=== PATIENT | female | born 1950 | race Caucasian/White ===

== ENCOUNTER → 2017-09-22 09:00 | Outpatient (CLI) | payer OTHER, SELFPAY ==
[2017-09-22 13:40] LABS: Absolute Lymphocyte Count 2.19 X10^3/ul (0.83-4.51); Absolute Neutrophil Count 3.5 X10^3/uL (2.0-7.7); Basophil# 0.02 X10^3/uL; Basophil% 0.3 % (0-1); Eosinophil# 0.26 X10^3/uL; Eosinophils% 3.9 % (0-5); Hematocrit 40.5 % (37-47); Hemoglobin 13.4 g/dl (12.0-15.0); Lymphocyte # 2.19 X10^3/ul (4.0); Mean Corp Hgb Conc 33.1 g/gl (32-36); Mean Corpuscular Hgb 30.4 pg (27.0-32.0); Mean Corpuscular Volume 91.8 fL (81-99); Mean Platelet Vol. 9.6 fl (6.2-12.0); Monocyte# 0.69 X10^3/uL; Monocyte% 10.4 % (0-10); Neutrophil # 3.47 X10^3/uL (2.7-7.7); Neutrophil % 52.4 % (47-70); Platelet Count 267 K/mm3 (150-450); RBC Distribution Width CV 12.8 % (11.6-14.6); RBC Distribution Width SD 43.2 fl (35.1-43.9); Red Blood Count 4.41 M/mm3 (4.2-5.4); White Blood Count 6.6 K/mm3 (4.4-11.0)
[2017-09-22 13:43] LABS: POSITIVE COUNT NO; POSITIVE DIFFERENTIAL NO; POSITIVE MORPHOLOGY NO
[2017-09-22 13:59] LABS: ALB/GLOB Ratio 1.1 RATIO (0.9-2.4); AST(SGOT) 24 U/L (15-37); Alanine Aminotransfer ALT/SGPT 38 U/L (13-56); Albumin, Serum 4.1 g/dL (3.2-5.0); Alkaline Phosphatase 80 U/L (45-117); Anion Gap 10 (5-15); BUN 14 mg/dL (7-18); BUN/Creat Ratio 17.3 RATIO (10-20); Chloride 101 mmol/L (98-107); Creatinine, Serum 0.81 mg/dL (0.55-1.02); EST Glomerular Filtration Rate 75 mL/min (>60); Est Glom Filt Rate - Afr Amer 91 mL/min (>60); Globulin 3.7 g/dL (2.2-4.2); Glucose 90 mg/dL (74-106); Potassium 3.9 mmol/L (3.5-5.1); Protein, Total 7.8 g/dL (6.4-8.2); Sodium Level 137 mmol/L (136-145); Thyroid Stim Hormone (TSH) 1.86 uIU/mL (0.358-3.74)
[2017-09-23 08:48] LABS: Vitamin D,25 Hydroxy 56.5 ng/mL (29.95-100.01)
[2017-09-23 13:15] LABS: Hep C Antibodies <0.1 s/co ratio (0.0-0.9)
== END ==
PROVIDERS: Family Provider Family Medicine Geriatric Medicine; PCP Family Medicine Geriatric Medicine; Visit Provider Family Medicine Geriatric Medicine
DX: Z13.89 Encounter for screening for other disorder (principal); I10 Essential (primary) hypertension; E55.9 Vitamin D deficiency, unspecified
CPT/HCPCS: 36415; 80053; 82306; 84443; 85025; 86803

== ENCOUNTER → 2018-10-05 13:33 | Outpatient (CLI) | payer MEDICARE, SELFPAY ==
[2018-10-05 17:04] LABS: Absolute Neutrophil Count 2.5 X10^3/uL (2.0-7.7); Basophil# 0.03 X10^3/uL; Basophil% 0.5 % (0-1); Eosinophil# 0.31 X10^3/uL; Eosinophils% 5.1 % (0-5); Hematocrit 39.8 % (37-47); Hemoglobin 12.9 g/dl (12.0-15.0); Mean Corp Hgb Conc 32.4 g/gl (32-36); Mean Corpuscular Hgb 30.6 pg (27.0-32.0); Mean Corpuscular Volume 94.3 fL (81-99); Mean Platelet Vol. 9.7 fl (6.2-12.0); Monocyte# 0.65 X10^3/uL; Monocyte% 10.7 % (0-10); Neutrophil # 2.46 X10^3/uL (2.7-7.7); Neutrophil % 40.7 % (47-70); Platelet Count 258 K/mm3 (150-450); RBC Distribution Width SD 43.3 fl (35.1-43.9); Red Blood Count 4.22 M/mm3 (4.2-5.4); White Blood Count 6.1 K/mm3 (4.4-11.0)
[2018-10-05 17:09] LABS: POSITIVE COUNT NO; POSITIVE DIFFERENTIAL NO; POSITIVE MORPHOLOGY NO
[2018-10-05 17:32] LABS: Vitamin D,25 Hydroxy 30.9 ng/mL (29.95-100.01)
[2018-10-05 17:34] LABS: ALB/GLOB Ratio 1.2 RATIO (0.9-2.4); AST(SGOT) 21 U/L (15-37); Alanine Aminotransfer ALT/SGPT 30 U/L (13-56); Albumin, Serum 4.1 g/dL (3.2-5.0); Alkaline Phosphatase 76 U/L (45-117); Anion Gap 7 (5-15); BUN 16 mg/dL (7-18); BUN/Creat Ratio 19.4 RATIO (10-20); Calcium,Total 8.8 mg/dL (8.5-10.1); Chloride 105 mmol/L (98-107); Creatinine, Serum 0.82 mg/dL (0.55-1.02); EST Glomerular Filtration Rate 73 mL/min (>60); Est Glom Filt Rate - Afr Amer 88 mL/min (>60); Globulin 3.3 g/dL (2.2-4.2); Glucose 76 mg/dL (74-106); Protein, Total 7.4 g/dL (6.4-8.2); Sodium Level 136 mmol/L (136-145); Thyroid Stim Hormone (TSH) 1.76 uIU/mL (0.358-3.74)
== END ==
PROVIDERS: Family Provider Family Medicine Geriatric Medicine; PCP Family Medicine Geriatric Medicine; Visit Provider Family Medicine Geriatric Medicine
DX: E55.9 Vitamin D deficiency, unspecified (principal); I10 Essential (primary) hypertension
CPT/HCPCS: 36415; 80053; 82306; 84443; 85025

== ENCOUNTER → 2018-11-21 12:11 | Outpatient (CLI) | payer MEDICARE, SELFPAY ==
--- NOTE | 2018-11-21 12:16 | BI_ITS ---
MAMMOGRAPHY - BILATERAL SCREENING REASON FOR EXAM: Female, 68 years old. Routine annual screening examination. PERTINENT HISTORY: Non-contributory. Remote left stereotactic breast biopsy. TECHNIQUE: Digital bilateral breast jaimee (3D mammographic acquisition) in the CC and MLO projections. 2-D mediolateral oblique (MLO) and craniocaudad (CC) views of both breasts were obtained. CAD: Full Field Digital Mammography with Computer Added Detection was performed. COMPARISON: Comparison is made with prior study October 12, 2016 and July 30, 2015. FINDINGS: Breast Composition: There are scattered areas of fibroglandular density. There are no dominant masses or suspicious calcifications. Stable small nodular densities seen in the axillary region of the left breast. A tissue clip marker is once again seen along the anterior superior retroareolar region of the left breast. No other significant abnormalities are identified. There has been no significant change since the prior study. BI/SCREENING MAMM (CAD), BILAT IMPRESSION: Stable bilateral screening mammogram. Yearly follow-up mammogram recommended. (A) ASSESSMENT CATEGORY: BIRADS Category 2: Benign. A letter regarding these results will be sent to the patient by the facility within 30 days. Approximately 10% of breast cancers are not detected by mammography. A normal mammogram should not delay biopsy of a clinically suspicious abnormality. [id number] Electronically Signed: Seymour Montenegro, at 14:49 EDT , Service support ,
--- NOTE | 2018-11-21 12:20 | BD_ITS ---
STUDY: DUAL ENERGY X-RAY ABSORPTIOMETRY / DXA REASON FOR EXAM: Female, 68 years old. Early menopause. Loss of height. TECHNIQUE: Bone Mineral Density (BMD) measurements of lumbar spine and bilateral hips were obtained. COMPARISON: Comparison is made with prior study dated September 09, 2010. FINDINGS: Lumbar Spine (L1-L4): g/cm2 (0.887) / T-score (-2.4) / Z-score (-0.8) Findings are suggestive of osteopenia with a high fracture risk. Left Femur Total: g/cm2 (0.815) / T-score (-1.5) / Z-score (-0.1) Left Femoral Neck: g/cm2 (0.719) / T-score (-2.3) / Z-score (-0.7) Right Femur Total: g/cm2 (0.804) / T-score (-1.6) / Z-score (-0.2) Right Femoral Neck: g/cm2 (0.744) / T-score (-2.1) / Z-score (-0.5) The T-Scores on the most recent prior examination were: Lumbar Spine (L1-L4): There has been worsening of bone density since the previous examination. Left Femur Total: which represents a worsening of 3.4%. Right Femur Total: which represents a worsening of 3.7%. BD/Dexa Bone Density Study IMPRESSION: The patient is considered osteopenic as outlined below according to World Ronaldo Organization (WHO) criteria with a high fracture risk. There has been worsening of bone density since the previous examination. Reference Information: The T-score is the number of standard deviations above or below the standard which is normal for young adults at their peak bone mineral density. The World Health Organization (WHO) interprets the T-scores as follows: Above -1 Normal bone density Between -1 and -2.5 Osteopenia Equal to / or below -2.5 Osteoporosis As a practical clinical guideline, osteopenia may be graded as follows: Mild -1 through -1.5 Moderate -1.6 through -2.0 Severe -2.1 through -2.4 The Z-score is the number of standard deviations above or below age-matched controls. A Z-score of less than -1.5 would be considered abnormal. References: 1. NIH Osteoporosis and Related Bone Diseases http://www.osteo.org 2. International Society for Clinical Densitometry http://www.iscd.org 3. National Osteoporosis Foundation http://www.nof.org Electronically Signed: Seymour Montenegro, at 12:37 EDT , Service support ,
== END ==
PROVIDERS: Family Provider Family Medicine Geriatric Medicine; PCP Family Medicine Geriatric Medicine; Referring Provider Family Medicine Geriatric Medicine; Visit Provider Family Medicine Geriatric Medicine
DX: Z12.31 Encounter for screening mammogram for malignant neoplasm of breast (principal); Z78.0 Asymptomatic menopausal state
CPT/HCPCS: 77063; 77067; 77080

== ENCOUNTER → 2019-03-27 15:45 | Outpatient (CLI) | payer MEDICARE, SELFPAY ==
[2019-03-27 15:08] VITALS: BMI 27.9
--- NOTE | 2019-03-27 15:52 | VDLE_ITS ---
Reason For Study: swelling RIGHT LEFT CFV is compressible, spontaneous, phasic, GSV is normal. competent and demonstrates normal CFV is compressible, spontaneous, phasic, augmentation. competent, and demonstrates normal Procedure augmentation. Exam performed in department. FV is compressible, spontaneous, phasic, The exam was diagnostic. competent and demonstrates normal A preliminary report was called and/or faxed augmentation. to the [facility]. POP V is compressible, spontaneous, phasic, competent and demonstrates normal augmentation. T/P Trunk is compressible. PTV is compressible. LT PerV is compressible. Interpretation Summary Deep veins of the left lower extremity are patent and compressible segmentally. There is no evidence of left lower extremity deep vein thrombosis. Valvular competence appears intact within the proximal deep venous system on the left . The left great saphenous vein appears patent and compressible segmentally. Ordering Physician: Aleksandra Roman Performed By: Felice Blanc RVT
== END ==
PROVIDERS: Family Provider Family Medicine Geriatric Medicine; PCP Family Medicine Geriatric Medicine; Referring Provider Nurse Practitioner Family; Visit Provider Nurse Practitioner Family
DX: I83.92 Asymptomatic varicose veins of left lower extremity (principal); M79.605 Pain in left leg; M79.89 Other specified soft tissue disorders
CPT/HCPCS: 93971

== ENCOUNTER → 2019-11-29 10:01 | Outpatient (CLI) | payer MEDICARE, SELFPAY ==
[2019-08-20 10:17] VITALS: BMI 27.9
--- NOTE | 2019-11-29 10:04 | BI_ITS ---
MAMMOGRAPHY - BILATERAL SCREENING REASON FOR EXAM: Female, 69 years old. Routine annual screening examination. PERTINENT HISTORY: Non-contributory. TECHNIQUE: Digital bilateral breast néstor (3D mammographic acquisition) in the CC and MLO projections. 2-D mediolateral oblique (MLO) and craniocaudad (CC) views of both breasts were obtained. CAD: Full Field Digital Mammography with Computer Added Detection was performed. COMPARISON: Comparison is made with prior examination dated November 21, 2018 and October 12, 2016. FINDINGS: Breast Composition: There are scattered areas of fibroglandular density. There are no dominant masses or suspicious calcifications. There is a 1.1 cm x 0.6 cm well-defined nodule in the retroareolar region of the right breast. Correlation with ultrasound is recommended. Stable benign-appearing bilateral axillary lymph nodes. No other significant abnormalities are identified. BI/SCREEN MAMM (CAD) W/NÉSTOR BILAT IMPRESSION: 1.1 cm x 0.6 cm multiple high nodule in the retroareolar region of the right breast as described. Correlation with ultrasound is recommended. The remainder of the examination is unchanged. ASSESSMENT CATEGORY: BIRADS Category 0: Incomplete. Need additional imaging evaluation. A letter regarding these results will be sent to the patient by the facility within 30 days. Approximately 10% of breast cancers are not detected by mammography. A normal mammogram should not delay biopsy of a clinically suspicious abnormality. [id number] Electronically Signed: Seymour Montenegro, at 11:17 EDT , Service support ,
== END ==
PROVIDERS: PCP Nurse Practitioner; Referring Provider Nurse Practitioner; Visit Provider Nurse Practitioner
DX: Z12.31 Encounter for screening mammogram for malignant neoplasm of breast (principal); N63.41 Unspecified lump in right breast, subareolar
CPT/HCPCS: 77063; 77067

== ENCOUNTER → 2019-12-05 10:51 | Outpatient (CLI) | payer MEDICARE, SELFPAY ==
[2019-08-20 10:17] VITALS: BMI 27.9
--- NOTE | 2019-12-05 11:00 | US_ITS ---
STUDY: ULTRASOUND BREAST - RIGHT REASON FOR EXAM: Female, 69 years old. Abnormal screening mammogram. TECHNIQUE: Axial and longitudinal images of the RIGHT breast were performed with a high resolution ultrasound transducer. # OF IMAGES: 10 COMPARISON: Comparison is made with prior mammogram dated November 29, 2019 and prior sonogram of the right breast dated February 08, 2012. FINDINGS: RIGHT Breast: The mammographic abnormality corresponds to a 0.8 cm x 1.1 cm x 0.5 cm septated cyst at the 2:00 position of the breast in the retroareolar region. This cyst as enlarged slightly as compared to prior study. US/Breast Limited Unilateral IMPRESSION: The mammographic abnormality corresponds to a 0.8 centimeter by 1.1 cm x 0.5 cm septated cyst. Mild enlargement of the cyst as compared to prior sonogram. ASSESSMENT CATEGORY: BIRADS Category 2: Benign. A letter regarding these results will be sent to the patient by the facility within 30 days. Electronically Signed: Seymour Montenegro, at 11:25 EDT , Service support ,
== END ==
PROVIDERS: PCP Nurse Practitioner; Referring Provider Nurse Practitioner; Visit Provider Nurse Practitioner
DX: N60.01 Solitary cyst of right breast (principal)
CPT/HCPCS: 76642

== ENCOUNTER → 2020-06-14 | Outpatient (CLI) | payer MEDICARE, SELFPAY ==
[2020-06-14 13:17] VITALS: BMI 29.7
== END | disposition home or self-care (01) ==
PROVIDERS: Referring Provider Physician Assistant Surgical; Visit Provider Physician Assistant Surgical
DX: Z20.828 Contact with and (suspected) exposure to other viral communicable diseases (principal)
CPT/HCPCS: 87635; U0003

== ENCOUNTER → 2020-09-24 07:42 | Outpatient (CLI) | payer MEDICARE, SELFPAY ==
[2020-06-14 13:17] VITALS: BMI 29.7
--- NOTE | 2020-09-24 07:47 | CT_ITS ---
STUDY: CT BRAIN WITH AND WITHOUT CONTRAST REASON FOR EXAM: Female, 70 years old. SYNCOPE RADIATION DOSAGE (If Supplied By Facility): CTDIvol = ( 44.99 ) mGy, DLP = ( 1580.97 ) mGycm TECHNIQUE: Transaxial CT imaging of the brain was performed pre and post contrast administration. The examination was performed with intravenous administration of IV 50mL Isovue-300. Individualized dose optimization techniques were used for this CT. COMPARISON: None. FINDINGS: Normal soft tissue structures. There is hyperostosis frontalis internus. There is mild cerebral atrophy with widening of the extra-axial spaces and ventricular dilatation. Normal white matter tracts of the cerebral hemispheres. 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 Normal brainstem. Normal cerebellum. There is no intracranial hemorrhage. There are no findings of an acute ischemic infarction. Normal visualized paranasal sinuses. CT/Brain/Head W/WO Contrast IMPRESSION: Chronic involutional changes of the brain. Electronically Signed: Seymour Montenegro MD at 9:06 EST , Service support ,
--- NOTE | 2020-09-24 07:54 | US_ITS ---
STUDY: ABDOMINAL ULTRASOUND - RIGHT UPPER QUADRANT REASON FOR VISIT: Female, 70 years old ELEVATED LIVER ENZYMES TECHNIQUE: Ultrasound evaluation of the right upper quadrant was performed with real-time and static carlson-scale imaging. TECHNICAL QUALITY: Adequate. COMPARISON: None. FINDINGS: Liver: The liver measures 17.6 cm. There is increased echogenicity consistent with fatty infiltration. The bile ducts are within normal limits. There is hepatic color flow. The direction of portal flow is hepatopetal. There is no demonstrated mass lesion. Gallbladder: Normal distended gallbladder. The gallbladder wall measures 1.3 mm. There is a negative sonographic Coulter''s sign. There is no pericholecystic fluid. There are no gallstones. Common Bile Duct (C.B.D.): The common bile duct measures 4 mm. Pancreas: Normal size of the head, body and tail of the pancreas. There is normal echogenicity of the pancreas. There is no demonstrated pancreatic mass or cyst. Right Kidney: Normal size of the right kidney. The right kidney measures 10.4 cm x 4.4 cm x 4.5 cm. Normal renal cortex. The right cortex measures 1.1 cm. There is no demonstrated renal mass or cyst. There is no right hydronephrosis. US/Liver IMPRESSION: Fatty infiltration of the liver. Electronically Signed: Seymour Montenegro MD at 12:38 EST , Service support ,
[2020-09-24 07:56] LABS: CREATININE FINGERSTICK 1.1 mg/dL (0.55-1.02)
--- NOTE | 2020-09-24 08:42 | ECHOD_ITS ---
Reason For Study: Syncope Procedure This was a 2D Doppler, Color Flow transthoracic echocardiogram. The exam was of adequate technical quality. Exam performed in department. Left Ventricle Normal LV size. Left ventricular systolic function is normal. The estimated ejection fraction is 65 %. Diastolic function is indeterminate. No regional wall motion abnormalities noted. Right Ventricle Normal RV size. Normal systolic function. Atria Normal left atrium. Normal right atrium. No doppler evidence for ASD. Mitral Valve There is no mitral annular calcification. Normal mitral valve. Mild (1+) mitral valve insufficiency. Tricuspid Valve Normal tricuspid valve. Trivial tricuspid valve insufficiency. Aortic Valve Trisinus/trileaflet aortic valve. Normal aortic valve. Trivial aortic valve insufficiency. Pulmonic Valve The pulmonic valve is not well visualized. Great Vessels Normal sized aortic root. Pericardium/Pleural No pericardial effusion. MMode/2D Measurements & Calculations LVIDd: 4.3 cm IVSd: 1.2 cm Ao root diam: 3.5 cm LVIDs: 2.5 cm LVPWd: 0.88 cm RVDd: 2.9 cm FS: 42.2 % LAV(MOD-bp): 28.0 ml LVAd ap4: 24.3 cm2 SV(MOD-sp4): 43.8 ml LAV(MOD-bp) Indexed: 15.4 ml/m2 EDV(MOD-sp4): 71.1 ml LAV(MOD-sp2): 34.5 ml EDV(sp4-el): 74.4 ml LAV(MOD-sp4): 19.0 ml LVAs ap4: 14.2 cm2 ESV(MOD-sp4): 27.3 ml ESV(sp4-el): 27.3 ml EF(MOD-sp4): 61.6 % EF(sp4-el): 63.2 % SV(sp4-el): 47.0 ml LA A4 area: 9.4 cm2 LA dimension(2D): 3.2 cm RA A4 area: 11.9 cm2 Doppler Measurements & Calculations MV E max lenard: 53.2 cm/sec Lat Peak E' Lenard: 2.6 cm/sec Med Peak E' Lenard: 4.2 cm/sec MV A max lenard: 97.4 cm/sec E/E' lat: 20.6 E/E' med: 12.7 MV E/A: 0.55 Ao V2 max: 122.9 cm/sec LV V1 max: 94.4 cm/sec PA V2 max: 80.2 cm/sec Ao max P.0 mmHg LV V1 max P.6 mmHg Ao V2 mean: 92.9 cm/sec Ao mean P.7 mmHg Ao V2 VTI: 28.1 cm Interpretation Summary Left ventricular systolic function is normal. The estimated ejection fraction is 65 %. Mild (1+) mitral valve insufficiency. Trivial tricuspid valve insufficiency. Trivial aortic valve insufficiency. Diastolic function is indeterminate. Ordering Physician: Yadi Soliman Referring Physician: Yadi Soliman Performed By: Flora Huber, MAURIZIO, RVT
--- NOTE | 2020-09-24 08:42 | CDU_ITS ---
Reason For Study: SYNCOPE Rt. Velocities/BP Lt. Velocities/BP Prox CCA 68.7/13.4 cm/sec. Prox CCA 96.5/14.4 cm/sec. Mid CCA 78.5/25.7 cm/sec. Mid CCA 81.8/25.3 cm/sec. Dist CCA 53.0/9.0 cm/sec. Dist CCA 67.0/17.9 cm/sec. Prox ICA 79.7/23.2 cm/sec. Prox ICA 69.8/19.3 cm/sec. Mid ICA 69.9/25.7 cm/sec. Mid ICA 90.6/30.3 cm/sec. Dist ICA 67.4/29.3 cm/sec. Dist ICA 48.0/22.4 cm/sec. Rt. ICA/CCA = 79.7/78.5=1.0. Lt. ICA/CCA = 90.6/96.5=0.9. Prox ECA 141.8/21.1 cm/sec. Prox ECA 69.9/10.5 cm/sec. Rt. Vert. 58.8/18.3 cm/sec. Lt. Vert. 48.2/15.3 cm/sec. Right Extracranial There is no significant atherosclerotic plaque noted in the right common carotid artery. There is heterogeneous, irregular atherosclerotic plaque noted in the right internal carotid artery. There is heterogeneous, irregular atherosclerotic plaque noted in the right external carotid artery. Antegrade flow is noted in the right vertebral artery. Left Extracranial There is no significant atherosclerotic plaque noted in the left common carotid artery. There is intimal thickening but no significant atherosclerotic plaque noted in the left internal carotid artery. The left internal carotid artery is very tortuous. The distal left internal carotid artery is not well visualized. There is intimal thickening but no significant atherosclerotic plaque noted in the left external carotid artery. The left external carotid artery is not well visualized. Antegrade flow is noted in the left vertebral artery. Interpretation Summary Mild (<50%) stenosis right extracranial internal carotid. No significant atherosclerotic plaque or stenosis noted in the left internal carotid artery. Flow within the vertebral arteries is antegrade bilaterally. Ordering Physician: Yadi Soliman Referring Physician: Yadi Soliman Performed By: Suni Orozco, MAURIZIO, RVT
== END ==
PROVIDERS: PCP Nurse Practitioner; Referring Provider Nurse Practitioner; Visit Provider Nurse Practitioner
DX: R55 Syncope and collapse (principal)
CPT/HCPCS: 70470; 76705; 93225; 93226; 93306; 93880; Q9967

== ENCOUNTER → 2020-10-31 06:41 | Outpatient (CLI) | payer MEDICARE, SELFPAY ==
[2020-06-14 13:17] VITALS: BMI 29.7
--- NOTE | 2020-10-31 08:35 | TELEMED_ITS ---
[facility] has confirmed receipt of a request for visit. This document confirms receipt of the order initiating the consult. To find the results of the consultation, please view the patient's reports for the scanned Telemed Consult.
== END ==
PROVIDERS: PCP Nurse Practitioner; Referring Provider Nurse Practitioner; Visit Provider Nurse Practitioner
DX: R55 Syncope and collapse (principal)
CPT/HCPCS: 95819

== ENCOUNTER → 2020-12-02 09:14 | Outpatient (CLI) | payer MEDICARE, SELFPAY ==
[2020-06-14 13:17] VITALS: BMI 29.7
--- NOTE | 2020-12-02 09:17 | BI_ITS ---
MAMMOGRAPHY - BILATERAL SCREENING REASON FOR EXAM: Female, 70 years old. Routine annual screening examination. PERTINENT HISTORY: Non-contributory. Prior left stereotactic breast biopsy. TECHNIQUE: Digital bilateral breast néstor (3D mammographic acquisition) in the CC and MLO projections. 2-D mediolateral oblique (MLO) and craniocaudad (CC) views of both breasts were obtained. CAD: Full Field Digital Mammography with Computer Added Detection was performed. COMPARISON: Comparison is made with prior study of 11/29/2019. FINDINGS: Breast Composition: There are scattered areas of fibroglandular density. There are no dominant masses or suspicious calcifications. The previously seen 1.1 cm x 0.6 cm well-defined nodule in the retroareolar region of the right breast is not seen at this time. This was demonstrated to be a cyst prior sonogram. No other significant abnormalities are identified. BI/SCRN MAMM (CAD)W/NÉSTOR BILAT IMPRESSION: Stable bilateral screening mammogram. Yearly follow-up mammogram recommended. (A) ASSESSMENT CATEGORY: BIRADS Category 2: Benign. A letter regarding these results will be sent to the patient by the facility within 30 days. Approximately 10% of breast cancers are not detected by mammography. A normal mammogram should not delay biopsy of a clinically suspicious abnormality. [id number] Electronically Signed: Seymour Montenegro MD at 10:43 EDT , Service support ,
--- NOTE | 2020-12-02 09:27 | BD_ITS ---
STUDY: DUAL ENERGY X-RAY ABSORPTIOMETRY / DXA REASON FOR EXAM: Female, 70 years old. 627.8Menopausal postmenopausal BONE DENSITY REASON FOR EXAM TECHNIQUE: Bone Mineral Density (BMD) measurements of lumbar spine and bilateral hips were obtained. COMPARISON: Comparison is made with prior study dated 11/21/2018. FINDINGS: Lumbar Spine (L1-L4): g/cm2 (0.827) / T-score (-3.1) / Z-score (-1.4) Findings are suggestive of osteoporosis with a high fracture risk. Left Femur Total: g/cm2 (0.798) / T-score (-1.7) / Z-score (-0.2) Left Femoral Neck: g/cm2 (0.718) / T-score (-2.3) / Z-score (-0.6) Right Femur Total: g/cm2 (0.802) / T-score (-1.6) / Z-score (-0.1) Right Femoral Neck: g/cm2 (0.740) / T-score (-2.1) / Z-score (-0.4) The T-Scores on the most recent prior examination were: Lumbar Spine (L1-L4): There has been worsening of bone density since the previous examination. Left Femur Total: which represents a worsening of 2.1%. Right Femur Total: which represents a worsening of 0.2%. BD/Dexa Bone Density Study IMPRESSION: The patient is considered osteoporotic as outlined below according to World Ronaldo Organization (WHO) criteria with a high fracture risk. Reference Information: The T-score is the number of standard deviations above or below the standard which is normal for young adults at their peak bone mineral density. The World Health Organization (WHO) interprets the T-scores as follows: Above -1 Normal bone density Between -1 and -2.5 Osteopenia Equal to / or below -2.5 Osteoporosis As a practical clinical guideline, osteopenia may be graded as follows: Mild -1 through -1.5 Moderate -1.6 through -2.0 Severe -2.1 through -2.4 The Z-score is the number of standard deviations above or below age-matched controls. A Z-score of less than -1.5 would be considered abnormal. References: 1. NIH Osteoporosis and Related Bone Diseases www osteo.org 2. International Society for Clinical Densitometry www iscd.org 3. National Osteoporosis Foundation www nof.org Electronically Signed: Seymour Montenegro MD at 10:03 EDT , Service support ,
== END ==
PROVIDERS: PCP Nurse Practitioner; Referring Provider Nurse Practitioner; Visit Provider Nurse Practitioner
DX: M81.0 Age-related osteoporosis without current pathological fracture (principal); Z78.0 Asymptomatic menopausal state; Z12.31 Encounter for screening mammogram for malignant neoplasm of breast
CPT/HCPCS: 77063; 77067; 77080

== ENCOUNTER → 2020-12-23 06:14 | Outpatient (CLI) | payer MEDICARE, SELFPAY ==
[2020-06-14 13:17] VITALS: BMI 29.7
[2020-12-23 07:29] LABS: ALB/GLOB Ratio 0.9 RATIO (0.9-2.4); AST(SGOT) 25 U/L (15-37); Alanine Aminotransfer ALT/SGPT 35 U/L (13-56); Albumin, Serum 3.7 g/dL (3.2-5.0); Alkaline Phosphatase 84 U/L (45-117); Anion Gap 5 (5-15); BUN 12 mg/dL (7-18); BUN/Creat Ratio 13.8 RATIO (10-20); Calcium,Total 8.5 mg/dL (8.5-10.1); Chloride 108 mmol/L (98-107); Cholesterol 152 mg/dL (200); Creatinine, Serum 0.87 mg/dL (0.55-1.02); EST Glomerular Filtration Rate 68 mL/min (>60); Est Glom Filt Rate - Afr Amer 83 mL/min (>60); Globulin 3.9 g/dL (2.2-4.2); Glucose 100 mg/dL (74-106); High Density Lipoprotein 44 mg/dL; Potassium 4.3 mmol/L (3.5-5.1); Protein, Total 7.6 g/dL (6.4-8.2); Sodium Level 141 mmol/L (136-145); Triglycerides 154 mg/dL; Very Low Density Lipoprotein 31 mg/dL (5-40)
== END ==
PROVIDERS: PCP Nurse Practitioner; Referring Provider Nurse Practitioner; Visit Provider Nurse Practitioner
DX: I70.90 Unspecified atherosclerosis (principal); K76.0 Fatty (change of) liver, not elsewhere classified
CPT/HCPCS: 36415; 80053; 80061

== ENCOUNTER → 2022-01-27 | Outpatient (CLI) | payer MEDICARE, SELFPAY ==
[2022-01-27 06:48] LABS: Mucous, Urine 0 SEEN /hpf (<or=2+); Red Blood Cells-Urine 0 SEEN /hpf (0-5)
[2022-01-27 07:14] LABS: Absolute Lymphocyte Count 2.17 X10^3/uL (0.83-4.51); Absolute Neutrophil Count 2.2 X10^3/uL (2.0-7.7); Basophil# 0.05 X10^3/uL; Basophil% 0.9 % (0-1); Eosinophil# 0.73 X10^3/uL; Eosinophils% 12.6 % (0-5); Hematocrit 39.2 % (37-47); Hemoglobin 12.9 g/dL (12.0-15.0); Lymphocyte # 2.17 X10^3/ul (0.83-4.51); Lymphocyte % 37.5 % (19-41); Mean Corp Hgb Conc 32.9 g/dL (32-36); Mean Corpuscular Hgb 30.2 pg (27.0-32.0); Mean Corpuscular Volume 91.8 fL (81-99); Mean Platelet Vol. 9.3 fl (6.2-12.0); Monocyte% 10.4 % (0-10); NRBC Flagged by Analyzer 0 % (0-5); Neutrophil # 2.21 X10^3/uL (2.7-7.7); Neutrophil % 38.3 % (47-70); Platelet Count 253 K/mm3 (150-450); RBC Distribution Width CV 12.6 % (11.6-14.6); RBC Distribution Width SD 42.6 fl (35.1-43.9); Red Blood Count 4.27 M/mm3 (4.2-5.4); White Blood Count 5.8 K/mm3 (4.4-11.0)
[2022-01-27 07:20] LABS: Color, Urine Yellow (Yellow); Glucose, Dipstick Normal (Normal); Ketone-Dipstick Negative (Negative); Leukocyte Esterase-Dipstick 25 /ul (Negative); Nitrite-Dipstick Negative (Negative); Occult Blood-Urine Negative /ul (Negative); Protein-Dipstick Negative (Negative); Urine Bilirubin Dipstick Negative (Negative); Urine Clarity Clear (Clear); Urine Urobilinogen Normal (Normal)
[2022-01-27 07:27] LABS: Amorphous Sediment 1+; Bacteria 1+ /hpf (None Seen); Squamous Epithelial Cells - UA 0-5 SEEN /hpf (5-10); White Blood Cells 0-5 SEEN /hpf (0-5)
[2022-01-27 08:26] LABS: ALB/GLOB Ratio 1.1 RATIO (0.9-2.4); AST(SGOT) 25 U/L (15-37); Alanine Aminotransfer ALT/SGPT 28 U/L (13-56); Albumin, Serum 3.8 g/dL (3.2-5.0); Alkaline Phosphatase 89 U/L (45-117); Anion Gap 5 (5-15); BUN 13 mg/dL (7-18); BUN/Creat Ratio 14.6 RATIO (10-20); Calcium,Total 8.5 mg/dL (8.5-10.1); Chloride 107 mmol/L (98-107); Cholesterol 173 mg/dL (200); Creatinine, Serum 0.89 mg/dL (0.55-1.02); EST Glomerular Filtration Rate 66 mL/min (>60); Est Glom Filt Rate - Afr Amer 80 mL/min (>60); Globulin 3.4 g/dL (2.2-4.2); Glucose 97 mg/dL (74-106); High Density Lipoprotein 46 mg/dL; Potassium 3.9 mmol/L (3.5-5.1); Protein, Total 7.2 g/dL (6.4-8.2); Sodium Level 139 mmol/L (136-145); Thyroid Stim Hormone (TSH) 2.88 uIU/mL (0.358-3.74); Triglycerides 189 mg/dL; Very Low Density Lipoprotein 38 mg/dL (5-40)
[2022-01-27 08:28] LABS: Hemoglobin A1c 5.7 % (3.8-5.6)
== END | disposition home or self-care (01) ==
LOC: LAB 06:40
PROVIDERS: PCP Nurse Practitioner Family; Visit Provider Nurse Practitioner Family
DX: I10 Essential (primary) hypertension (principal); E78.5 Hyperlipidemia, unspecified; R73.01 Impaired fasting glucose
CPT/HCPCS: 36415; 80053; 80061; 81001; 83036; 84443; 85025

== ENCOUNTER → 2022-02-25 | Outpatient (CLI) | payer MEDICARE, SELFPAY ==
--- NOTE | 2022-02-25 10:24 | BI_ITS ---
MAMMOGRAPHY - BILATERAL SCREENING 3-D TOMOSYNTHESIS REASON FOR EXAM: Female, 71 years old. Annual screening mammogram. PERTINENT HISTORY: Prior left stereotactic breast biopsy. TECHNIQUE: 2-D mammograms and 3-D Tomosynthesis of the breast (s) were performed. CAD was performed. COMPARISON: 12/02/2020. FINDINGS: The breast composition is almost entirely fat. Stable scattered benign calcifications and lymph nodes. No dense spiculated masses or suspicious microcalcifications are identified. No architectural distortion is identified. There is no skin thickening or retraction. BI/SCRN MAMM (CAD)W/NÉSTOR BILAT IMPRESSION: No interval change and no mammographic signs of malignancy. Routine yearly mammograms recommended. ASSESSMENT CATEGORY: BIRADS Category 2: Benign. A letter regarding these results will be sent to the patient by the facility within 30 days. FOLLOW UP RECOMMENDATION: Yearly follow up mammogram recommended. (A) Approximately 10% of breast cancers are not detected by mammography. A normal mammogram should not delay biopsy of a clinically suspicious abnormality. Electronically Signed: Edison Winn MD at 15:34 EDT ,
--- NOTE | 2022-02-25 10:43 | CDU_ITS ---
Reason For Study: Syncope Rt. Velocities/BP Lt. Velocities/BP Prox CCA 86.5/26.5 cm/sec. Prox CCA 102.3/23.7 cm/sec. Mid CCA 76/29.1 cm/sec. Mid CCA 74.1/17.6 cm/sec. Dist CCA 53.9/14.7 cm/sec. Dist CCA 70.4/22.5 cm/sec. Prox ICA 68.4/20.1 cm/sec. Prox ICA 69.5/22.3 cm/sec. Mid ICA 86.3/32.3 cm/sec. Mid ICA 98.1/35.5 cm/sec. Dist ICA 85.1/29.8 cm/sec. Dist ICA 84.9/35.5 cm/sec. Rt. ICA/CCA = 1.14. Lt. ICA/CCA = 1.32. Prox ECA 112/18.8 cm/sec. Prox ECA 36.9/4.8 cm/sec. Rt. Vert. 65.5/20 cm/sec. Lt. Vert. 45.4/13.5 cm/sec. Right Extracranial There is intimal thickening but no significant atherosclerotic plaque noted in the right common carotid artery. There is heterogeneous, irregular atherosclerotic plaque noted in the right internal carotid artery. There is intimal thickening but no significant atherosclerotic plaque noted in the right external carotid artery. Antegrade flow is noted in the right vertebral artery. Left Extracranial There is intimal thickening but no significant atherosclerotic plaque noted in the left common carotid artery. There is intimal thickening but no significant atherosclerotic plaque noted in the left internal carotid artery. The left internal carotid artery is very tortuous. There is intimal thickening but no significant atherosclerotic plaque noted in the left external carotid artery. Antegrade flow is noted in the left vertebral artery. VL/Carotid Duplex Ultrasound Interpretation Summary Mild (<50%) stenosis right extracranial internal carotid. No significant athero sclerotic plaque or stenosis noted in the left internal carotid artery. Flow within the vertebral a rteries is antegrade bilaterally. Ordering Physician: Mya Cowan Referring Physician: Mya Cowan Performed By: Leatha Merida RVT
== END | disposition home or self-care (01) ==
LOC: CVS 10:22
PROVIDERS: PCP Nurse Practitioner Family; Referring Provider Nurse Practitioner Family; Visit Provider Nurse Practitioner Family
DX: R55 Syncope and collapse (principal); Z12.31 Encounter for screening mammogram for malignant neoplasm of breast
CPT/HCPCS: 77063; 77067; 93880

== ENCOUNTER → 2022-12-28 | Outpatient (CLI) | payer MEDICARE, SELFPAY ==
--- NOTE | 2022-12-28 07:53 | CT_ITS ---
CT RIGHT LOWER EXTREMITY WITH 3-D IMAGING. RAMO protocol CLINICAL INDICATION: VARUS DEFORMITY TECHNIQUE: Axial CT images of the RIGHT lower extremity was performed without IV contrast material. Coronal and sagittal reformats were provided. RADIATION DOSAGE (If Supplied By Facility): CTDIvol = ( 18.76 ) mGy, DLP = ( 1465.01 ) mGycm COMPARISON: No relevant priors available FINDINGS: Bones: Imaging of the right hip joint was obtained. There is good alignment. No significant abnormality is seen. Imaging of the right knee joint was obtained. There is a marked degree of joint space narrowing with degenerative spur formation along the medial femoral condyle and medial tibial plateau. Degenerative spur formation is also seen along the lateral femoral condyle and lateral tibial plateau. Mild degree of joint space narrowing involving the patellofemoral joint. Imaging of the ankle joint was obtained. There is evidence of calcaneal spurs. Soft Tissues: Tiny knee joint effusion. The superficial soft tissues are unremarkable without evidence of edema, hematoma, or foreign body. CT/Extremity Lower without Contra IMPRESSION: Marked degree of joint space narrowing involving the medial compartment of knee joint with degenerative spur formation. Small joint knee joint effusion. Electronically Signed: Seymour Montenegro MD at 14:26 EDT ,
== END | disposition home or self-care (01) ==
PROVIDERS: PCP Nurse Practitioner Family; Referring Provider Specialist; Visit Provider Specialist
DX: M21.161 Varus deformity, not elsewhere classified, right knee (principal)
CPT/HCPCS: 73700

== ENCOUNTER → 2023-01-24 | Outpatient (CLI) | payer MEDICARE, SELFPAY ==
--- NOTE | 2023-01-24 13:23 | VDLE_ITS ---
Reason For Study: Pain in lower right leg RIGHT LEFT GSV is normal. CFV is compressible, spontaneous, phasic, CFV is compressible, spontaneous, phasic, competent, and demonstrates normal competent and demonstrates normal augmentation. augmentation. FV is compressible, spontaneous, phasic, competent and demonstrates normal augmentation. POP V is compressible, spontaneous, phasic, competent and demonstrates normal augmentation. T/P Trunk is compressible. PTV is compressible. RT PerV is compressible. Acute deep vein thrombosis is noted in the SoleusV. It is dilated and NONCOMPRESSIBLE. Procedure This is a venous duplex using B-mode, color flow and spectral Doppler. Exam performed in department. A preliminary report was called and/or faxed to Ortho and PCP: Marylou. VL/Venous Duplex US, Unilateral Interpretation Summary Acute deep vein thrombosis is noted in the right soleus vein. Ordering Physician: Ike Lee Referring Physician: Mya Cowan Performed By: Leatha Merida RVT
== END | disposition home or self-care (01) ==
PROVIDERS: PCP Nurse Practitioner Family; Referring Provider Specialist; Visit Provider Specialist
DX: I82.461 Acute embolism and thrombosis of right calf muscular vein (principal)
CPT/HCPCS: 93971

== ENCOUNTER → 2023-03-01 | Outpatient (CLI) | payer MEDICARE, SELFPAY ==
--- NOTE | 2023-03-01 11:56 | BI_ITS ---
MAMMOGRAPHY - BILATERAL SCREENING REASON FOR EXAM: Female, 72 years old. Routine annual screening examination. PERTINENT HISTORY: Non-contributory. Remote left stereotactic breast biopsy. TECHNIQUE: Digital bilateral breast néstor (3D mammographic acquisition) in the CC and MLO projections. 2-D mediolateral oblique (MLO) and craniocaudad (CC) views of both breasts were obtained. CAD: Full Field Digital Mammography with Computer Added Detection was performed. COMPARISON: Comparison is made with prior study February 25, 2022 and December 02, 2020. FINDINGS: Breast Composition: The breasts are almost entirely fatty. There are no dominant masses or suspicious calcifications. Stable small benign-appearing bilateral axillary lymph nodes. No other significant abnormalities are identified. There has been no significant change since the prior study. BI/SCRN MAMM (CAD)W/NÉSTOR BILAT IMPRESSION: Stable bilateral screening mammogram. Yearly follow-up mammogram recommended. (A) ASSESSMENT CATEGORY: BIRADS Category 2: Benign. A letter regarding these results will be sent to the patient by the facility within 30 days. Approximately 10% of breast cancers are not detected by mammography. A normal mammogram should not delay biopsy of a clinically suspicious abnormality. [id number] Electronically Signed: Seymour Montenegro MD at 13:47 EDT ,
--- NOTE | 2023-03-01 12:13 | BD_ITS ---
STUDY: DUAL ENERGY X-RAY ABSORPTIOMETRY / DXA REASON FOR EXAM: Female, 72 years old. 733.00OsteoporosisBONE DENSITY REASON FOR EXAM TECHNIQUE: Bone Mineral Density (BMD) measurements of lumbar spine and bilateral hips were obtained. COMPARISON: Comparison is made with prior study dated December 02, 2020. FINDINGS: Lumbar Spine (L1-L4): g/cm2 (0.734) / T-score (-2.8) / Z-score (-0.6) Findings are suggestive of osteoporosis with a high fracture risk. Left Femur Total: g/cm2 (0.746) / T-score (-1.6) / Z-score (0.0) Left Femoral Neck: g/cm2 (0.597) / T-score (-2.3) / Z-score (-0.3) Right Femur Total: g/cm2 (0.723) / T-score (-1.8) / Z-score (-0.1) Right Femoral Neck: g/cm2 (0.591) / T-score (-2.3) / Z-score (-0.4) The T-Scores on the most recent prior examination were: Lumbar Spine (L1-L4): There has been worsening of bone density since the previous examination. Left Femur Total: which represents an improvement of 1%. Right Femur Total: which represents a worsening of 2.4%. BD/Dexa Bone Density Study IMPRESSION: The patient is considered osteoporotic as outlined below according to World [employer] (WHO) criteria with a high fracture risk. There has been worsening of bone density since the previous examination. Reference Information: The T-score is the number of standard deviations above or below the standard which is normal for young adults at their peak bone mineral density. The World Health Organization (WHO) interprets the T-scores as follows: Above -1 Normal bone density Between -1 and -2.5 Osteopenia Equal to / or below -2.5 Osteoporosis As a practical clinical guideline, osteopenia may be graded as follows: Mild -1 through -1.5 Moderate -1.6 through -2.0 Severe -2.1 through -2.4 The Z-score is the number of standard deviations above or below age-matched controls. A Z-score of less than -1.5 would be considered abnormal. References: 1. NIH Osteoporosis and Related Bone Diseases www osteo.org 2. International Society for Clinical Densitometry www iscd.org 3. National Osteoporosis Foundation www nof.org Electronically Signed: Seymour Montenegro MD at 13:38 EDT ,
== END | disposition home or self-care (01) ==
LOC: OPBI 11:54
PROVIDERS: PCP Nurse Practitioner Family; Referring Provider Nurse Practitioner Family; Visit Provider Nurse Practitioner Family
DX: Z12.31 Encounter for screening mammogram for malignant neoplasm of breast (principal); M81.0 Age-related osteoporosis without current pathological fracture
CPT/HCPCS: 77063; 77067; 77080

== ENCOUNTER → 2024-02-16 | Outpatient (CLI) | payer MEDICARE, SELFPAY ==
[2024-02-16 06:44] LABS: Absolute Lymphocyte Count 2.89 X10^3/uL (0.83-4.51); Absolute Neutrophil Count 1.9 X10^3/uL (2.0-7.7); Basophil# 0.07 X10^3/uL; Eosinophil# 1.58 X10^3/uL; Eosinophils% 21.7 % (0-5); Hematocrit 39.6 % (37-47); Hemoglobin 12.9 g/dL (12.0-15.0); Lymphocyte # 2.89 X10^3/ul (0.83-4.51); Lymphocyte % 39.6 % (19-41); Mean Corp Hgb Conc 32.6 g/dL (32-36); Mean Corpuscular Hgb 30.2 pg (27.0-32.0); Mean Corpuscular Volume 92.7 fL (81-99); Mean Platelet Vol. 8.8 fl (6.2-12.0); Monocyte# 0.78 X10^3/uL; Monocyte% 10.7 % (0-10); NRBC Flagged by Analyzer 0 % (0-5); Neutrophil # 1.94 X10^3/uL (2.7-7.7); Neutrophil % 26.6 % (47-70); Platelet Count 274 K/mm3 (150-450); RBC Distribution Width CV 12.5 % (11.6-14.6); RBC Distribution Width SD 42.7 fl (35.1-43.9); Red Blood Count 4.27 M/mm3 (4.2-5.4); White Blood Count 7.3 K/mm3 (4.4-11.0)
[2024-02-16 07:12] LABS: Color, Urine Yellow (Yellow); Glucose, Dipstick Normal (Normal); Ketone-Dipstick Negative (Negative); Leukocyte Esterase-Dipstick Negative /ul (Negative); Nitrite-Dipstick Negative (Negative); Occult Blood-Urine Negative /ul (Negative); Protein-Dipstick Negative (Negative); Urine Bilirubin Dipstick Negative (Negative); Urine Clarity Sl. Cloudy (Clear); Urine Urobilinogen Normal (Normal)
[2024-02-16 08:02] LABS: AST(SGOT) 29 U/L (15-37); Alanine Aminotransfer ALT/SGPT 28 U/L (13-56); Albumin, Serum 3.8 g/dL (3.2-5.0); Alkaline Phosphatase 68 U/L (45-117); Anion Gap 5 (5-15); BUN 11 mg/dL (7-18); BUN/Creat Ratio 12.2 RATIO (10-20); Calcium,Total 8.8 mg/dL (8.5-10.1); Chloride 105 mmol/L (98-107); Cholesterol 165 mg/dL (200); EST Glomerular Filtration Rate 65 mL/min (>60); Est Glom Filt Rate - Afr Amer 78 mL/min (>60); Globulin 3.8 g/dL (2.2-4.2); Glucose 108 mg/dL (74-106); High Density Lipoprotein 47 mg/dL; Potassium 4.1 mmol/L (3.5-5.1); Protein, Total 7.6 g/dL (6.4-8.2); Sodium Level 138 mmol/L (136-145); Triglycerides 181 mg/dL; Very Low Density Lipoprotein 36 mg/dL (5-40)
[2024-02-16 08:07] LABS: Microalbumin,Random Urine 5.8 mg/L (NO RANGE EST.); Microalbumin:Creatinine Ratio 7.5 mg/g CRE (<30 mg/g CRE)
== END | disposition home or self-care (01) ==
LOC: LAB 06:04
PROVIDERS: PCP Nurse Practitioner Family; Referring Provider Nurse Practitioner Family; Visit Provider Nurse Practitioner Family
DX: E78.5 Hyperlipidemia, unspecified (principal); I10 Essential (primary) hypertension
CPT/HCPCS: 36415; 80053; 80061; 81002; 82043; 82570; 85025

== ENCOUNTER → 2025-03-27 | Outpatient (CLI) | payer MEDICARE, SELFPAY ==
--- OUTSIDE RECORDS SUMMARY | 2025-03-27 06:02 | XMS RPT_ITS | CCD ---
Author Organization [facility] Care Team Providers Care Thermostat Mechanic Name Role Phone Yadi Soliman E Unavailable Tenzin Bertrand Unavailable Fast, Dorothea A Unavailable Marni Stein Unavailable Nikolas Ellsworth Unavailable Unavailable Unavailable Unavailable Jordan Rojas P Unavailable Jordan Rojas Unavailable Yadi Soliman CNP Unavailable Dr. Tenzin Bertrand Unavailable Fast DO, Dorothea A Unavailable Jordan Rojas MD Unavailable Marni Stein MD Unavailable Nikolas Ellsworth LPN Unavailable Unavailable Unavailable Unavailable Tika ENRIQUEZ, Enrique Zarate Unavailable Pallavi Coulter MA Unavailable Unavailable Unavailable Unavailable Yadi Soliman Unavailable Dolly Llanes LPN Unavailable Unavailable Raymond Cowan CNP Unavailable Raymond Cowan CNP Unavailable Jourdan Yadi Unavailable Unavailable Jourdan Yadi Unavailable Fast DO, Dorothea A Referring Unavailable Jourdan Yadi Attending Unavailable Yadi Soliman Consulting Unavailable Gema Cho MA Unavailable Unavailable ARON Cowan Primary Care Provider [phone] Dr. Juan Denton Attending Provider Dr. Ike Lee Referring Provider Unavailable Primary Care Provider Unavailabl e RAYMOND COWAN Referring Unavailable Raymond Cowan Referring Unavailable Raymond Cowan Attending Unavailable Raymond Cowan Primary Care Unavailable Medications Current Medications Medication Drug Class(es) Dates Sig (Normalized) Sig (Original) alendronic acid 70 mg oral tablet (12 sources) Bisphosphonate Start: 05-06-2023 alendronate 70 mg oral tablet 1 (one) Tablet one tab by mouth weekly for 90 days Quantity: 12 {Tablet} Refills: 3 Ordered: 06-May-2023 Raymond Cowan CNP Start : 06-May-2023 Active Comments: -do not take within 30min of other meds or food-stay upright at least 30 min after taking med Start: 02-24-2022 alendronate 70 mg oral tablet 1 (one) Tablet one tab by mouth weekly for 90 days Quantity: 12 {Tablet} Refills: 4 Ordered: 24-Feb-2022 Raymond Cowan CNP Start : 24-Feb-2022 Active Comments: -do not take within 30min of other meds or food-stay upright at least 30 min after taking med Comment on above: -do not take within 30min of other meds or food-stay upright at least 30 min after taking med ascorbic acid 1000 mg oral tablet (20 sources) Vitamin C Start: 12-25-2018 take 1 g by mouth once daily Ascorbic Acid (Vitamin C) Active 1 GM PO DAILY December 25, 2018 12:00am Start: 05-28-2011 take 1 tablet by [facility] once daily Ascorbic Acid (VITAMIN C) 1,000 mg ORAL tablet Take 1 tablet by mouth once daily. 0 05/28/2011 Active aspirin 81 mg delayed release oral tablet (4 sources) Platelet Aggregation Inhibitor, Nonsteroidal Anti-inflammatory Drug Start: 06-10-2021 Aspirin (Adult Low Dose Aspirin) 81 mg tablet,delayed release (DR/EC) Active 81 MG PO DAILY June 10, 2021 1:00am calcium carbonate 1500 mg / cholecalciferol 200 unt oral tablet (4 sources) Vitamin D Start: 05-28-2011 take 1 tablet by mouth once daily calcium carbonate 600 mg-cholecalciferol 200 units (CALCIUM 600 WITH VITAMIN D3) 600 mg(1,500mg) -200 unit ORAL Tab Take 1 tablet by mouth once daily. 0 05/28/2011 Active Start: 05-28-2011 calcium carbon ate-vitamin D3 1,000 mg(2,500 mg)-800 unit ORAL Tab Take by mouth. 0 05/28/2011 Active cholecalciferol 0.05 mg oral tablet (20 sources) Vitamin D Start: 06-10-2021 take 100 ug by mouth once daily Cholecalciferol (Vitamin D3) Active 100 MCG PO DAILY June 10, 2021 1:00am Start: 12-25-2018 End: 06-10-2021 take 5000 [IU] by mouth once daily Cholecalciferol (Vitamin D3) Discontinued 5000 UNIT PO DAILY December 25, 2018 12:00am June 10, 2021 5:06pm Start: 03-19-2011 take 2 capsules by m outh once daily VITAMIN D3, 2000UNIT (Oral Capsule) 2 (two) Capsule qd for 0 days Quantity: 60 {Capsule} Refills: 0 Ordered: 19-Mar-2011 Dorothea Erazo DO Start : 19-Mar-2011 Active End: 08-17-2019 take 1 tablet by mouth once daily VITAMIN D, 400UNIT (Oral Tablet) 1 QD for 0 days Refills: 0 Ordered: 17-Jan-2015 Nikolas Ellsworth LPN End : 17-Aug-2019 Discontinued Comments: This order discontinued per [employer]. Comment on above: This order discontin ued per [employer]. lysine 1000 mg oral tablet (2 sources) Start: 07-08-2011 Lysine 1,000 mg ORAL Tab Take by mouth. 0 07/08/2011 Active valACYclovir 1000 mg oral tablet (20 sources) Herpesvirus Nucleoside Analog DNA Polymerase Inhibitor, Herpes Simplex Virus Nucleoside Analog DNA Polymerase Inhibitor, Herpes Zoster Virus Nucleoside Analog DNA Polymerase Inhibitor Start: 06-10-2021 Valacyclovir (Valtrex) 1 gram tablet Active 1000 MG PO THREE TIMES A DAY June 10, 2021 1:00am Start: 01-17-2015 take 1 tablet by aleksandar th three times daily VALTREX, 1GM (Oral Tablet) 1 (one) Tablet tid for 1 days Quantity: 30 {Tablet} Refills: 0 Ordered: 17-Jan-2015 Dorothea Erazo DO Start : 17-Jan-2015 Inactive Vitamin B Complex (2 sources) Start: 07-08-2011 take 1 tablet by mouth once daily vitamin b complex (B COMPLEX-VITAMIN B12) ORAL Tab Take 1 tablet by mouth once daily. 0 07/08/2011 Active vitamin e 450 mg oral capsule (20 sources) Start: 05-28-2011 take 1 capsule by mouth once daily vitamin e 1,000 unit ORAL capsule Take 1 capsule by mouth once daily. 0 05/28/2011 Active Completed/Discontinued Medications Medication Drug Class(es) Dates Sig (Normalized) Sig (Original) acyclovir 400 mg oral tablet (20 sources) Herpesvirus Nucleoside Analog DNA Polymerase Inhibitor, Herpes Simplex Virus Nucleoside Analog DNA Polymerase Inhibitor, Herpes Zoster Virus Nucleoside Analog DNA Polymerase Inhibitor Start: 05-19-2020 End: 05-26-2020 take 1 tablet by mouth three times daily Zovirax 400 MG Oral Tablet 1 (one) Tablet tid for 7 days Quantity: 21 {Tablet} Refills: 0 Ordered: 19-May-2020 Yadi Soliman Start : 19-May-2020 End : 26-May-2020 Inactive Comments: or generic Comment on above: or generic amLODIPine 5 mg oral tablet (20 sources) Dihydropyridine Calcium Channel Ann Marie Start: 05-27-2020 End: 06-10-2021 take 20 mg by mouth once daily Amlodipine Discontinued 20 MG PO DAILY May 27, 2020 9:34am June 10, 2021 5:05pm Start: 05-28-2011 End: 05-27-2020 take 1 tablet by mouth once daily amLODIPine 5 mg oral tablet 1 (one) Tablet daily for 90 days Quantity: 90 {Tablet} Refills: 3 Ordered: 03-Dec-2022 Raymond Cowan CNP Start : 03-Dec-2022 Active amLODIPine 5 mg / benazepril hydrochloride 40 mg oral capsule (20 sources) Dihydropyridine Calcium Channel Ann Marie, Angiotensin Converting Enzyme Inhibitor Start: 07-04-2009 take 1 capsule by mouth once daily LOTREL, 5-40MG (Oral Capsule) 1 (one) Capsule qd for 0 days Quantity: 30 {Capsule} Refills: 3 Ordered: 01-Oct-2009 Start : 04-Jul-2009 Inactive Start: 07-28-2007 End: 01-01-2008 take 1 capsule by mouth once daily LOTREL, 5-10MG (Oral Capsule) 1 (one) Capsule qd for 0 days Quantity: 30 {Capsule} Refills: 3 Ordered: 28-Jul-2007 Sunita Charles Start : 28-Jul-2007 End : 01-Jan-2008 Inactive Start: 02-06-2007 End: 02-06-2007 take 1 capsule by mouth once daily LOTREL, 2.5-10MG (Oral Capsule) 1 Capsule QD for 0 days Quantity: 30 {Capsule} Refills: 3 Ordered: 06-Feb-2007 Dorothea Erazo DO Start : 06-Feb-2007 End : 06-Feb-2007 Discontinued amoxicillin 875 mg / clavulanate 125 mg oral tablet (20 sources) Penicillin-class Antibacterial Start: 12-24-2010 End: 01-03-2011 take 1 tablet by mouth twice daily AUGMENTIN, 875-125MG (Oral Tablet) 1 Tablet bid for 10 days Quantity: 20 {Tablet} Refills: 0 Ordered: 24-Dec-2010 Monalisa Del Cid DO Start : 24-Dec-2010 End : 03-Jan-2011 Inactive apixaban 5 mg oral tablet (4 sources) Factor Xa Inhibitor Start: 01-24-2023 take 2 tablets by mouth twice daily, then take 1 tablet by mouth twice daily Eliquis 5 mg oral tablet 2 (two) tablet BID for 7 days, then 1 tab BID for 30 days Quantity: 74 {Tablet} Refills: 5 Ordered: 24-Jan-2023 Pallavi Coulter MA Start : 24-Jan-2023 Active benzonatate 100 mg oral capsule (20 sources) Non-narcotic Antitussive Start: 09-02-2014 End: 08-17-2019 take 1 capsule by mouth three times daily as needed for cough Tessalon Perles 100 MG Oral Capsule 1 (one) Capsule Capsule tid prn cough for 0 days Quantity: 30 {Capsule} Refills: 0 Ordered: 17-Aug-2019 Nikolas Ellsworth LPN Start : 02-Sep-2014 End : 17-Aug-2019 Inactive calcium carbonate 1500 mg oral tablet (20 sources) Start: 01-18-2014 End: 08-17-2019 take 1 tablet by mouth twice daily Calcium Carbonate 1500 (600 Ca) MG Oral Tablet 1 (one) Tablet bid for 30 days Quantity: 60 {Tablet} Refills: 0 Ordered: 17-Aug-2019 Nikolas Ellsworth LPN Start : 18-Jan-2014 End : 17-Aug-2019 Inactive Start: 01-18-2014 End: 08-17-2019 take 1 tablet by mouth twice daily Calcium Carbonate 1500 (600 Ca) MG Oral Tablet 1 (one) Tablet bid for 30 days Quantity: 60 {Tablet} Refills: 0 Ordered: 17-Aug-2019 Nikolas Ellsworth LPN Start : 18-Jan-2014 End : 17-Aug-2019 Inactive calcium carbonate 550 mg / magnesium hydroxide 110 mg chewable tablet (20 sources) Start: 01-08-2020 End: 09-15-2020 take 1-2 tablets by mouth once daily at bedtime Rolaids 550-110 MG Oral Tablet Chewable 1-2 Tablet qhs for 0 days Quantity: 30 {Tablet} Refills: 0 Ordered: 15-Sep-2020 Nikolas Ellsworth LPN Start : 08-Jan-2020 End : 15-Sep-2020 Inactive calcium citrate 1000 mg oral tablet (14 sources) Start: 12-25-2018 End: 06-10-2021 take 1 tablet by mouth once daily calcium citrate 1,000 mg tablet Discontinued 1000 MG PO DAILY December 25, 2018 12:00am June 10, 2021 5:07pm Calcium Citrate 1200 Active ciprofloxacin 500 mg oral tablet (20 sources) Quinolone Antimicrobial Start: 12-30-2022 End: 01-02-2023 take 1 tablet by mouth twice daily ciprofloxacin HCl 500 mg oral tablet 1 (one) tablet two times daily for 3 days Quantity: 6 {Tablet} Refills: 0 Ordered: 30-Dec-2022 Gema Cho MA Start : 30-Dec-2022 End : 02-Jan-2023 Inactive Start: 05-26-2015 End: 06-05-2015 take 1 tablet by mouth twice daily CIPRO, 500MG (Oral Tablet) 1 (one) Tablet Tablet bid for 10 days Quantity: 20 {Tablet} Refills: 0 Ordered: 26-May-2015 Dorothea Erazo DO Start : 26-May-2015 End : 05-Jun-2015 Inactive 24 hr clarithromycin 500 mg extended release oral tablet (20 sources) Macrolide Antimicrobial Start: 09-02-2014 End: 09-12-2014 take 2 tablets by mouth once daily BIAXIN XL PAC, 500MG (Oral Tablet Extended Release 24 Hour) 2 (two) Tablet ER 24HR daily for 10 days Quantity: 20 {Tablet} Refills: 0 Ordered: 02-Sep-2014 Yadi Soliman Start : 02-Sep-2014 End : 12-Sep-2014 Inactive clobetasol propionate 0.5 mg/ml topical foam (20 sources) Corticosteroid Start: 07-04-2009 End: 01-18-2014 OLUX, 0.05% (External Foam) Foam for 0 days Quantity: 12 {Foam} Refills: 1 Ordered: 18-Jan-2014 Sunita Charles Start : 04-Jul-2009 End : 18-Jan-2014 Discontinued Comments: use sparingly as directed Comment on above: use sparingly as dir ected codeine phosphate 2 mg/ml / guaiFENesin 20 mg/ml oral solution (20 sources) Opioid Agonist Start: 09-02-2014 End: 08-17-2019 take 1-2 [tsp_us] by mouth once daily at bedtime as needed for cough Cheratussin AC 100-10 MG/5ML Oral Solution 1-2 Teaspoon Teaspoon qhs prn cough for 0 days Quantity: 6 {Teaspoon} Refills: 0 Ordered: 17-Aug-2019 Nikolas Ellsworth LPN Start : 02-Sep-2014 End : 17-Aug-2019 Inactive cyclobenzaprine hydrochloride 5 mg oral tablet (20 sources) Muscle Relaxant Start: 09-15-2020 End: 12-30-2020 take 1 tablet by mouth every eight hours Cyclobenzaprine HCl 5 MG Oral Tablet 1 (one) Tablet q8hrs only if needed for 0 days Quantity: 30 {Tablet} Refills: 0 Ordered: 30-Dec-2020 Nikolas Ellsworth LPN Start : 15-Sep-2020 End : 30-Dec-2020 Inactive diclofenac sodium 20 mg/ml topical solution (20 sources) Nonsteroidal Anti-inflammatory Drug Start: 08-17-2019 End: 05-19-2020 Pennsaid 2 % Transdermal Solution 1 (one) Pump daily for 0 days Quantity: 6 {Packet} Refills: 0 Ordered: 19-May-2020 Nikolas Ellsworth LPN Start : 17-Aug-2019 End : 19-May-2020 Inactive docosahexaenoic acid 120 mg / eicosapentaenoic acid 180 mg oral capsule (20 sources) End: 01-18-2014 take 1 capsule by mouth once daily FISH OIL CONCENTRATE, 1000MG (Oral Capsule) 1 cap qd (1000 MG) End : 18-Jan-2014 Discontinued esomeprazole 20 mg delayed release oral capsule (20 sources) Proton Pump Inhibitor Start: 12-03-2022 End: 12-21-2022 take 1 capsule by mouth once daily NexIUM 20 mg oral capsule,delayed release (enteric coated) 1 Capsule daily for 0 days Quantity: 30 {Capsule} Refills: 0 Ordered: 21-Dec-2022 Mario Alberto HERNANDEZJesúsa Start : 03-Dec-2022 End : 21-Dec-2022 Inactive Comments: OTC Comment on above: OTC ezetimibe 10 mg oral tablet (20 sources) Dietary Cholesterol Absorption Inhibitor Start: 07-28-2007 End: 01-01-2008 ZETIA, 10MG (Oral Tablet) 1 tab Tablet qd for 0 days Quantity: 30 {Tablet} Refills: 3 Ordered: 28-Jul-2007 Sunita Charles Start : 28-Jul-2007 End : 01-Jan-2008 Inactive fenofibrate 160 mg oral tablet (20 sources) Peroxisome Proliferator Receptor alpha Agonist Start: 01-17-2015 End: 08-17-2019 take 1 tablet by mouth once daily Fenofibrate 160 MG Oral Tablet 1 (one) Tablet Tablet qd for 0 days Quantity: 30 {Tablet} Refills: 5 Ordered: 17-Aug-2019 Nikolas Ellsworth LPN Start : 17-Jan-2015 End : 17-Aug-2019 Inactive Start: 01-17-2015 End: 08-17-2019 take 1 tablet by mouth once daily Tricor 145 MG Oral Tablet 1 (one) Tablet qd for 0 days Quantity: 30 {Tablet} Refills: 5 Ordered: 17-Aug-2019 Nikolas Ellsworth LPN Start : 17-Jan-2015 End : 17-Aug-2019 Inactive Start: 02-09-2013 End: 06-08-2013 TRILIPIX, 135MG (Oral Capsul e Delayed Release) [address] qd for 0 days Quantity: 30 {Capsule_DR} Refills: 3 Ordered: 08-Jun-2013 Roxann Scott CMA Start : 09-Feb-2013 End : 08-Jun-2013 Inactive FISH OIL CONCENTRATE, 1000MG (Oral Capsule) (9 sources) End: 01-18-2014 take 1 capsule by mouth once daily FISH OIL CONCENTRATE, 1000MG (Oral Capsule) 1 cap qd (1000 MG) End : 18-Jan-2014 Discontinued hydrocortisone acetate 25 mg rectal suppository (20 sources) Corticosteroid Start: 07-29-2008 End: 05-26-2012 ANUSOL-HC, 25MG (Rectal Suppository) 1 (one) Suppository qhs prn for 0 days Quantity: 30 {Suppository} Refills: 0 Ordered: 26-May-2012 Timothy DAVID Michaela Start : 29-Jul-2008 End : 26-May-2012 Inactive ibuprofen 400 mg oral tablet (20 sources) Nonsteroidal Anti-inflammatory Drug take 1-2 tablets by mouth every four to six hours as needed IBUPROFEN, 400MG (Oral Tablet) 1-2 tabs q 4-6hrs, prn (400 MG) Inactive Lactobacillus acidophilus (10 sources) Acidophilus Active lisinopril 20 mg oral tablet (20 sources) Angiotensin Converting Enzyme Inhibitor Start: 12-03-2022 take 1 tablet by mouth once daily lisinopriL 20 mg oral tablet 1 (one) Tablet daily for 0 days Quantity: 90 {Tablet} Refills: 3 Ordered: 03-Dec-2022 Raymond Cowan CNP Start : 03-Dec-2022 Active Start: 10-16-2021 take 1 tablet by aleksandar th once daily Lisinopril 20 MG Oral Tablet 1 (one) Tablet daily for 0 days Quantity: 90 {Tablet} Refills: 3 Ordered: 22-Jan-2022 Raymond Cowan CNP Start : 22-Jan-2022 Active Start: 08-04-2021 take 1 tablet by aleksandar th once daily Lisinopril 20 MG Oral Tablet 1 (one) Tablet daily for 0 days Quantity: 90 {Tablet} Refills: 3 Ordered: 04-Aug-2021 Yadi Soliman CNP, CNP, Mary E Start : 04-Aug-2021 Active Start: 09-23-2020 take 20 mg by mouth once daily Lisinopril Active 20 MG PO DAILY June 10, 2021 1:00am Start: 05-27-2020 End: 06-10-2021 take 20 mg by mouth once daily Lisinopril Discontinued 20 MG PO DAILY May 27, 2020 9:35am June 10, 2021 5:05pm Start: 08-31-2019 take 1 tablet by aleksandar th once daily Lisinopril 20 MG Oral Tablet 1 (one) Tablet daily for 0 days Quantity: 90 {Tablet} Refills: 3 Ordered: 31-Aug-2019 Yadi Soliman CNP, CNP, Mary E Start : 31-Aug-2019 Active Start: 05-28-2011 End: 05-27-2020 take 1 tablet by mouth once daily lisinopril (ZESTRIL) 40 mg ORAL tablet Take 1 tablet by mouth once daily. 0 05/28/2011 Active melatonin 5 mg oral tablet (20 sources) End: 05-26-2012 take 1 tablet by mouth once at bedtime MELATONIN, 5MG (Oral Tablet) 1 tab q hs for 0 days Refills: 0 Ordered: 26-May-2012 Michaela Aguirre LPN End : 26-May-2012 Inactive meloxicam 7.5 mg oral tablet (20 sources) Nonsteroidal Anti-inflammatory Drug Start: 09-15-2020 End: 12-30-2020 take 1 tablet by mouth once daily at mealtime Meloxicam 7.5 MG Oral Tablet 1 (one) Tablet daily with food for 0 days Quantity: 30 {Tablet} Refills: 0 Ordered: 30-Dec-2020 Nikolas Ellsworth LPN Start : 15-Sep-2020 End : 30-Dec-2020 Inactive 24 hr metoprolol succinate 100 mg extended release oral tablet (20 sources) beta-Adrenergic Ann Marie Start: 09-23-2009 End: 09-23-2009 take 1 tablet by mouth once daily TOPROL XL, 100MG (Oral Tablet Extended Release 24 Hour) 1 Tablet ER 24HR QD for 0 days Quantity: 30 {Tablet_ER_24HR} Refills: 3 Ordered: 23-Sep-2009 Mast Carley BURTON Start : 23-Sep-2009 End : 23-Sep-2009 Discontinued mometasone furoate 0.05 mg/actuat metered dose nasal spray (20 sources) Corticosteroid Start: 12-24-2010 End: 05-26-2012 NASONEX, 50MCG/ACT (Nasal Suspension) 2 (two) Suspension qd for 0 days Quantity: 1 {Suspension} Refills: 0 Ordered: 26-May-2012 Michaela Aguirre LPN Start : 24-Dec-2010 End : 26-May-2012 Inactive naproxen 500 mg oral tablet (20 sources) Nonsteroidal Anti-inflammatory Drug Start: 02-06-2009 End: 05-26-2012 take 1 tablet by mouth twice daily NAPROSYN, 500MG (Oral Tablet) 1 (one) Tablet bid for 0 days Quantity: 30 {Tablet} Refills: 0 Ordered: 26-May-2012 Timothy DAVID Michaela Start : 06-Feb-2009 End : 26-May-2012 Inactive omeprazole 20 mg delayed release oral tablet (20 sources) Proton Pump Inhibitor Start: 06-08-2013 End: 08-17-2019 take 1 capsule by mouth once daily PriLOSEC OTC 20 MG Oral Tablet Delayed Release 1 cap qd for 0 days Refills: 0 Ordered: 17-Aug-2019 Nikolas Ellsworth LPN Start : 08-Jun-2013 End : 17-Aug-2019 Inactive OMEPRAZOLE MAGNE SIUM (PRILOSEC OTC ORAL) Take by mouth. 0 Active phenazopyridine hydrochloride 100 mg oral tablet (20 sources) Start: 10-26-2013 End: 10-28-2013 take 1 tablet by mouth three times daily PYRIDIUM, 100MG (Oral Tablet) 1 (one) Tablet tid for 2 days Quantity: 6 {Tablet} Refills: 0 Ordered: 26-Oct-2013 Yadi Soliman Start : 26-Oct-2013 End : 28-Oct-2013 Inactive polypodium leucotomos 240 mg oral capsule (20 sources) End: 01-18-2014 take 1 capsule by mouth once daily HELIOCARE, 240MG (Oral Capsule) 1 cap qd (240 MG) End : 18-Jan-2014 Discontinued pravastatin sodium 20 mg oral tablet (20 sources) HMG-CoA Reductase Inhibitor Start: 08-22-2020 take 1 tablet by mouth once daily pravastatin 20 mg oral tablet 1 (one) Tablet daily for 0 days Quantity: 90 {Tablet} Refills: 3 Ordered: 03-Dec-2022 Raymond Cowan CNP Start : 03-Dec-2022 Active Start: 05-27-2020 End: 06-10-2021 take 20 mg by mouth once daily Pravastatin Discontinue d 20 MG PO DAILY May 27, 2020 9:35am June 10, 2021 5:05pm Start: 05-19-2020 take 1 tablet by aleksandar th once daily Pravastatin Sodium 20 MG Oral Tablet 1 (one) Tablet daily for 0 days Quantity: 90 {Tablet} Refills: 3 Ordered: 19-May-2020 Yadi Soliman CNP, CNP, Mary E Start : 19-May-2020 Active Start: 12-25-2018 End: 05-27-2020 take 40 mg by mouth once daily Pravastatin Discontinue d 40 MG PO DAILY December 25, 2018 12:00am May 27, 2020 9:36am prednisoLONE 3 mg/ml oral solution (20 sources) Corticosteroid Start: 07-02-2011 End: 07-09-2011 PREDNISOLONE, 15MG/5ML (Oral Syrup) 1 Syrup 10 cc swish and spit every 6hours for 7 days for 7 days Refills: 0 Ordered: 02-Jul-2011 Lawanda Caballero MD Start : 02-Jul-2011 End : 09-Jul-2011 Inactive predniSONE 20 mg oral tablet (20 sources) Start: 07-30-2011 End: 05-26-2012 take 2 tablets by mouth once daily, then take 1 tablet by mouth once daily, then take 0.5 tablet by mouth once daily PREDNISONE, 20MG (Oral Tablet) 1 Tablet uad for 0 days Refills: 0 Ordered: 26-May-2012 Michaela Aguirre LPN Start : 30-Jul-2011 End : 26-May-2012 Inactive Comments: 2 a d for 5 d, 1 a d for 5d, 1/2 a d for 5 d Comment on above: 2 a d for 5 d, 1 a d for 5d, 1/2 a d for 5 d simvastatin 20 mg oral tablet (20 sources) HMG-CoA Reductase Inhibitor Start: 08-18-2015 End: 08-17-2019 take 1 tablet by mouth once daily at mealtime Simvastatin 20 MG Oral Tablet 1 (one) Tablet qd- noa meal for 0 days Quantity: 30 {Tablet} Refills: 5 Ordered: 17-Aug-2019 Nikolas Ellsworth LPN Start : 18-Aug-2015 End : 17-Aug-2019 Inactive Start: 05-28-2011 take 1 tablet by aleksandar th once daily at bedtime simvastatin (ZOCOR) 10 mg ORAL tablet Take 1 tablet by mouth daily at bedtime. 0 05/28/2011 Active Super B complex (20 sources) Super B complex Active thioctic acid 50 mg oral tablet (20 sources) Alpha-Lipoic Aci d 50 MG Oral Tablet (50 MG) Inactive triamcinolone acetonide 0.001 mg/mg oral paste (20 sources) Corticosteroid Start: 06-11-20 11 End: 05-26-20 12 TRIAMCINOLONE ACETONIDE, 0.1% (Mouth/Throat Paste) 1 Paste qid for 0 days Quantity: 1 {Paste} Refills: 0 Ordered: 26-May-2012 Timothy DAVIDMichaela Start : 11-Jun-2011 End : 26-May-2012 Inactive Comments: Apply to affected areas up to 4 x per day Comment on above: Apply to affected ar eas up to 4 x per day vitamin b12 2.5 mg sublingual tablet (20 sources) Vitamin B12 Start: 06-11-20 11 End: 01-19-20 14 take 1 tablet under the tongue once daily CYANOCOBALAMIN, 2500MCG (Sublingual Tablet Sublingual) 1 Tab Sublingual daily for 0 days Quantity: 30 {Tab_Sublingual} Refills: 0 Ordered: 18-Jan-2014 Sunita Charles Start : 11-Jun-2011 End : 18-Jan-2014 Discontinued Start: 06-11-2011 End: 01-18-2014 take 1 tablet under the tongue once daily CYANOCOBALAMIN, 2500MCG (Sublingual Tablet Sublingual) 1 Tab Sublingual daily for 0 days Quantity: 30 {Tab_Sublingual} Refills: 0 Ordered: 18-Jan-2014 Sunita Charles Start : 11-Jun-2011 End : 18-Jan-2014 Discontinued Vitamin B6 (20 sources) Vitamin B6 Inact linnea Vitamin B6 Activ e Zinc (20 sources) Zinc 15mg Active Problems Active Problems Problem Classification Problem Date Documented Da te Episodic/Chronic Allergic reactions (20 sources) Eczema; Translations: [Eczema] 01-08-2020 Episodic Cardiac dysrhythmias (4 sources) Ventricular arrhythmia; 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 Cataract (20 sources) Cataract of left eye; Translations: [Cataract, left] 09-30-2020 Chronic Comment on above: has recent cataract Cataract (20 sources) Cataract; Translations: [Cataract of left eye] 01-08-2020 Comment on above: has recent cataract Chronic obstructive pulmonary disease and bronchiectasis (20 sources) Bronchitis; Translations: [Bronchitis] Resolved: 5 08-17-2019 Episodic Conditions associated with dizziness or vertigo (20 sources) Dizziness; Translations: [Dizziness and giddiness] Resolved: 1 08-17-2019 Episodic Deficiency and other anemia (20 sources) Anemia; Translations: [Anemia, unspecified] Resolved: 3 08-17-2019 Episodic Diabetes mellitus without complication (20 sources) Abnormal glucose tolerance test; Translations: [Impaired fasting glycaemia] 01-08-2020 Episodic Comment on above: chronic stable-heidi nue present regimen check a1c, cannot do fingerstick d/t insurance Diseases of mouth; excluding dental (20 sources) Aphthous ulceration of skin and/or mucous membrane; Translations: [Aphthae, oral] Resolved: 3 08-17-2019 Episodic Diseases of white blood cells (20 sources) Lymphocytosis Resolved: 3 08-17-2019 Chronic Disorders of lipid metabolism (20 sources) Hyperlipidemia, unspecified; Translations: [Hyperlipidemia] Onset: 4 01-08-2020 Chronic Comment on above: stable on pravastati n stable on pravastati n, decreased dose to 20mg -check lipidsstable on pravastatin, decreased dose to 20mg stable 2repeat nowstable on pravastatin, decreased dose to 20mg E Codes: Fall (20 sources) Fall; Translations: [Fall] 12-30-2020 Episodic Comment on above: fall after passing o ut pain rt side Esophageal disorders (20 sources) Gastroesophageal reflux disease; Translations: [GERD (gastroesophageal reflux disease)] 01-08-2020 Chronic Essential hypertension (20 sources) Hypertensive disorder; Translations: [Hypertension] 01-08-2020 Chronic Comment on above: chronic stable-heidi nue present regimen on lisinopril and amlodipine -repeat tsh, cmp, cb cd,chronic stable-continue present regimen on lisinopril and amlodipine -repeat tsh, cmp, cb cd-systolic 130, discussed diet, exercise, etc. no med adjustments. she is stressed, contributes to thischronic stable-continue present regimen on lisinopril and amlodipine -systolic 130, discu ssed diet, exercise, etc. no med adjustments.chronic stable-continue present regimen on lisinopril and amlodipine -stable, discussed d iet, exercise, etc. no med adjustments.lisinopril and amlodipine -stable/well-control led, discussed diet, exercise, etc. no med adjustments.lisinopril and amlodipine Gastrointestinal hemorrhage (20 sources) Rectal hemorrhage; Translations: [Rectal bleeding] Resolved: 9 08-17-2019 Episodic Genitourinary symptoms and ill-defined conditions (20 sources) Dysuria; Translations: [Abnormal urine] Resolved: 5 01-08-2020 Episodic Headache; including migraine (20 sources) Migraine; Translations: [Migraine] 01-08-2020 Chronic Hemorrhoids (20 sources) External thrombosed hemorrhoids; Translations: [Hemorrhoids] 01-08-2020 Episodic Comment on above: Per Dr Ponce 2019 Immunizations and screening for infectious disease (20 sources) Need for prophylactic vaccination and inoculation against influenza; Translations: [Contact with and (suspected) exposure to other viral communicable diseases] Resolved: 5 06-16-2020 Episodic Comment on above: tested Jun 14 tested at [facility] tested negative Lymphadenitis (20 sources) Lymphadenopathy Resolved: 9 08-17-2019 Episodic Menopausal disorders (20 sources) Menopausal and postmenopausal disorders; Translations: [Unspecified menopausal and perimenopausal disorder] 01-08-2020 Chronic Nonmalignant breast conditions (20 sources) Solitary cyst of breast; Translations: [Cyst of right breast] 01-08-2020 Episodic Comment on above: 0.8cm x 1.1cm x0.5cm septated cyst, , mild enlargement compared to last one, will refer to Dr. Ponce mammo then US done on 12-05-19 Nutritional deficiencies (20 sources) Vitamin D deficiency; Translations: [Vitamin D deficiency, unspecified] 01-08-2020 Chronic Comment on above: recheck vit d levelo n supplements Occlusion or stenosis of precerebral arteries (20 sources) Right carotid artery stenosis; Translations: [Occlusion and stenosis of right carotid artery] 12-21-2022 Chronic Comment on above: Mild (<50%) stenosis right extracranial IC risk factor modifica tion02/25/22 Mild (<50%) stenosis right extracranial IC, LIC very tortuous Osteoarthritis (16 sources) Osteoarthritis of right knee joint; Translations: [Osteoarthritis of right knee] 12-21-2022 Chronic Osteoporosis (20 sources) Osteoporosis; Translations: [Osteoporosis] 01-22-2022 Chronic Comment on above: -start fosamax, but pt would like to think about it first, says she lifts weights every day and feels fine. discussed high risk of pathological fractures, SE of medication, and recommendation of repeat bone density every 2 years.last dexa 12/02/20, personally reviewed. Has not taken meds such as fosamax or prolia, she is on vit d3, calcium, vit e -start fosamax, but pt would like to think about it first, says she lifts weights every day and feels fine. -discussed high risk of pathological fractures, SE of medication, and recommendation of repeat bone density every 2 years.-now willing to try alendronate 70mg weekly- take w/water 30min before first meal/med. Do not lay down x30 min.last dexa 12/02/20, personally reviewed. Has not taken meds such as fosamax or prolia, she is on vit d3, calcium, vit e started alendronate 70mg weekly 02/2022last dexa 12/02/20, personally reviewed. Has not taken meds such as fosamax or prolia, she is on vit d3, calcium, vit e-discussed high risk of pathological fractures, SE of medication, and recommendation of repeat bone density every 2 years. Other bone disease and musculoskeletal deformities (20 sources) Osteopenia; Translations: [Osteopenia] 01-08-2020 Episodic Comment on above: 11-21-18 repeat bone density Other congenital anomalies (2 sources) Congenital anomaly of skin; Translations: [Other specified congenital malformations of skin] Onset: 5 02-02-2024 Chronic Other congenital anomalies (2 sources) Porokeratosis; Translations: [Other specified congenital malformations of skin] Onset: 1 05-28-2011 Chronic Other connective tissue disease (20 sources) Swelling of limb; Translations: [Swelling of Limb (Renamed from Limb swelling)] Resolved: 1 01-08-2020 Episodic Comment on above: doppler neg and more in ankle- think coming from knee arthritis Other liver diseases (20 sources) Non-alcoholic fatty liver; Translations: [Fatty liver disease, nonalcoholic] 09-30-2020 Chronic Other liver diseases (20 sources) Fatty (change of) liver, not elsewhere classified; Translations: [Fatty liver disease, nonalcoholic] 12-03-2022 Chronic Other liver diseases (20 sources) Elevated liver enzymes level; Translations: [Elevated liver enzymes] 06-02-2020 Episodic Other lower respiratory disease (20 sources) Cough; Translations: [Cough] 01-08-2020 Episodic Other non-epithelial cancer of skin (20 sources) Malignant neoplasm of skin of face; Translations: [Skin cancer of face] 01-08-2020 Episodic Comment on above: with Timbo's Other non-traumatic joint disorders (20 sources) Knee pain; Translations: [Pain in right knee] 08-31-2019 Episodic Comment on above: known arthritis Other non-traumatic joint disorders (20 sources) Pain in unspecified knee; Translations: [Knee pain] 09-30-2020 Episodic Other nutritional; endocrine; and metabolic disorders (20 sources) Body mass index 30+ - obesity; Translations: [BMI 30.0-30.9,adult] 05-19-2020 Chronic Other nutritional; endocrine; and metabolic disorders (20 sources) Hypocalcemia; Translations: [Hypocalcemia] Resolved: 2 01-08-2020 Chronic Comment on above: chronic stable-heidi nue present regimen Other nutritional; endocrine; and metabolic disorders (20 sources) Body mass index 25-29 - overweight; Translations: [BMI 28.0-28.9,adult] 01-08-2020 Chronic Other nutritional; endocrine; and metabolic disorders (20 sources) Body mass index 25-29 - overweight; Translations: [BMI 28.0-28.9,adult] Resolved: 2 12-30-2020 Episodic Other nutritional; endocrine; and metabolic disorders (20 sources) Overweight in adulthood with body mass index of 25 or more but less than 30; Translations: [BMI 28.0-28.9,adult] Resolved: 2 01-22-2022 Episodic Other screening for suspected conditions (not mental disorders or infectious disease) (20 sources) Patient encounter status; Translations: [Encounter for screening mammogram for breast cancer (Renamed from Encounter for screening mammogram for malignant neoplasm of breast)] 09-30-2020 Episodic Other upper respiratory infections (20 sources) Acute sinusitis, unspecified; Translations: [Pharyngitis] Onset: 1 Resolved: 1 08-20-2015 Episodic Peripheral and visceral atherosclerosis (20 sources) Atheroma of artery; Translations: [Atherosclerotic plaque] 09-30-2020 Chronic Comment on above: rt internal irregula r , mild stenosis of rt internal carotid., repeat in a year Phlebitis; thrombophlebitis and thromboembolism (8 sources) Deep venous thrombosis of lower extremity; Translations: [DVT of leg (deep venous thrombosis)] 01-24-2023 Episodic Residual codes; unclassified (20 sources) Needs influenza immunization; Translations: [Need for prophylactic vaccination and inoculation against influenza] Resolved: 5 04-29-2015 Episodic Residual codes; unclassified (20 sources) Postmenopausal state; Translations: [Postmenopausal (Renamed from Postmenopausal status)] 09-30-2020 Episodic Residual codes; unclassified (20 sources) Non-smoker; Translations: [Nonsmoker] 12-30-2020 Episodic Spondylosis; intervertebral disc disorders; other back problems (20 sources) Backache; Translations: [Back pain] 09-15-2020 Episodic Comment on above: degenerative Syncope (20 sources) Syncope; Translations: [Syncope (Renamed from Syncopal episodes)] 09-15-2020 Episodic Comment on above: blacked out this luis e, has had this problem in past 3-4 times per year, with diarrhea blacked out this luis e, has had this problem in past 3-4 times per year, with diarrhea This has resolved has kept BP diary, good BP EEG pending (October) blacked out one time on November 24 at 6am, has had this problem in past 3-4 times per year, with diarrhea This has resolved has kept BP diary, good BP EEG done and normal. This has occured Sep 05 and blacked out and November. blacked out one time on November 24 at 6am, has had this problem in past 3-4 times per year, with diarrhea This has resolved has kept BP diary, good BP EEG done and normal. This has occured Sep 05 and blacked out and November. Occured Mar 24 and Mar 2, on toilet sweats, BP drops, nauseated, has reg BM then diarrhea.Had EEG, Ekg, holter, normal likely vasovagal, al l testing has been negative in past-carotid US repeat previously ordered, pt to have done to check if progression of dxblacked out November 24 at 6am, has had this problem in past 3-4x/yr, with diarrhea This has resolved has kept BP diary, good BP EKG normal. Sep 05 blacked out again. Occured Mar 24 and Mar 26, on toilet sweats, BP drops, nauseated, has reg BM then diarrhea.Had EEG, Ekg, holter, normal likely vasovagal, al l testing has been negative in past-carotid US repeat previously ordered, pt to have done to check if progression of dxblacked out had this problem in past 3-4x/yr, with diarrhea. resolved. EKG normal. Sep 05 blacked out again. Occured Mar 24 and Mar 26, on toilet sweats, BP drops, nauseated, has reg BM then diarrhea.Had EEG, Ekg, holter, normal Unclassified (20 sources) Unclassified (20 sources) Patient encounter status; Translations: [Encounter for screening mammogram for breast cancer (Renamed from Encounter for screening mammogram for malignant neoplasm of breast)] 01-08-2020 Unclassified (20 sources) grief reaction Resolved: 9 08-17-2019 Unclassified (20 sources) Non-smoker; Translations: [Nonsmoker] 05-19-2020 Unclassified (20 sources) screening Resolved: 5 01-08-2020 Unclassified (20 sources) PHARYNGITIS, NOS (462.) Unclassified (20 sources) VITAMIN D DEFICIENCY, NOS (268.9) Unclassified (20 sources) BMI 30.0-30.9,adult Unclassified (20 sources) Aphthae, oral (528.2) Unclassified (20 sources) Breast cyst, right Unclassified (20 sources) BMI 28.0-28.9,adult Unclassified (20 sources) Urine, Abnormal (791.9) Unclassified (20 sources) Shingles (053.9) Unclassified (20 sources) Aphthae, oral Unclassified (20 sources) Fatty liver disease, nonalcoholic Unclassified (10 sources) Breast cancer screening Urinary tract infections (20 sources) Urinary tract infection, site not specified; Translations: [URINARY TRACT INFECTION, SITE NOT SPECIFIED] 01-08-2020 Episodic Varicose veins of lower extremity (20 sources) Varicose veins of lower extremity; Translations: [Varicose veins of lower extremities] 01-08-2020 Episodic Viral infection (20 sources) Herpes zoster; Translations: [Shingles] Resolved: 08-17-2019 Episodic Past or Other Problems Problem Classification Problem Date Documented Date Episodic/Chronic Administrative/social admission (14 sources) Medical examinations/reports status; Translations: [Well woman exam] Resolved: 07-15-2010 08-17-2019 Episodic External cause codes: Fall (20 sources) Fall; Translations: [Fall] 09-15-2020 Comment on above: fall after passing o ut pain rt side Nonmalignant breast conditions (14 sources) Cyst of right breast; Translations: [Breast cyst, right] 01-08-2020 Comment on above: 0.8cm x 1.1cm x0.5cm septated cyst, , mild enlargement compared to last one, will refer to 0.8cm x 1.1cm x0.5cm septated cyst, , mild enlargement compared to last one, will refer to Dr. Ponce mammo then US done on 12-05-19 Other connective tissue disease (2 sources) Pain in limb; Translations: [Pain in unspecified limb] Onset: 06-14-2005 02-02-2024 Episodic Other nervous system disorders (2 sources) Abnormal gait; Translations: [Unspecified abnormalities of gait and mobility] Onset: 02-02-2012 02-02-2012 Episodic Other non-traumatic joint disorders (14 sources) Pain in right knee; Translations: [Right knee pain] 01-08-2020 Comment on above: known arthritis Skin and subcutaneous tissue infections (2 sources) Disorder of nail; Translations: [Cellulitis of unspecified toe] Onset: 06-14-2005 02-02-2024 Episodic Syncope (20 sources) Syncope Unclassified (20 sources) BMI 29.0-29.9,adult Unclassified (20 sources) Unspecified Diagnosis Resolved: 01-21-2009 01-21-2009 Unclassified (20 sources) Deliveries (Parity); Translations: [Deliveries (Parity)] 05-19-2020 Comment on above: 1 Unclassified (20 sources) Hemorrhoids - External Thrombosed (455.4) Unclassified (20 sources) Pregnancies (); Translations: [Pregnancies ()] 05-19-2020 Comment on above: 1 Unclassified (20 sources) Well Woman Exam (V72.31) (Pap,Mammo,Routine Female) (Renamed from Well Woman V72.31 (p,m)) Unclassified (20 sources) Skin cancer of face Unclassified (20 sources) Hemorrhoid Unclassified (20 sources) Elevated liver enzymes Unclassified (20 sources) Exposure to SARS virus Unclassified (20 sources) Atherosclerotic plaque Unclassified (20 sources) Postmenopausal (Renamed from Postmenopausal status) Unclassified (3 sources) history nico procedure 02-11-2022 Urinary tract infections (20 sources) Urinary tract infections Results Test Name Value Interpretation Reference Range Facility [facility] 03-01-2024 [facility] HNO ID: [id number] Author: COORDINATOR, MAMMOGRAPHY, ? Service: ? Author Type: Physician Type: Letter Filed: 03/01/2024 14:00 Note Text: March 02, 2024 PID: [id number] Brenda Smith [address] [place] [address] Dear Ms. Smith, We are pleased to inform you that the results of your recent breast imaging exam on 03/01/2024 are normal. Breast tissue can be either dense or not dense. Dense tissue makes it harder to find breast cancer on a mammogram and also raises the risk of developing breast cancer. Your breast tissue is not dense. Talk to your healthcare provider about breast density, risks for breast cancer, and your individual situation. Early detection of cancer is very important. We also understand recommendations regarding breast cancer screening are controversial. Please discuss with your primary care provider which strategy is best for you and whether a mammogram is right for you. Your imaging studies and report will be kept on file at [facility] as part of your permanent medical record and are available for your continuing care. Thank you for allowing us to help in meeting your health care needs. Sincerely, Dr. Aguiar Interpreting Radiologist [facility] (Normal over 40) Normal [facility] SCREENING W TOMOon 03-01 LESTER SCREENING W NÉSTOR * * *Final Report* * * DATE OF EXAM: Mar 01 2024 8:42AM [id number] - LESTER SCREENING W NÉSTOR / PROCEDURE REASON: Z12.39 * * * * Physician Interpretation * * * * RESULT: #[id number] - [facility] SCREENING W NÉSTOR BILATERAL DIGITAL SCREENING MAMMOGRAM TOMOSYNTHESIS WITH CAD: 03/01/2024 HISTORY: Z12.39 /Screening Mammogram with NÉSTOR - patient reports NO breast symptoms /Patient has signed release for outside images that is scanned into syngo. RESULT: TECHNIQUE: The study was acquired using full field digital technology and interpreted from soft copy. Digital Breast Tomosynthesis (DBT) images were obtained and used to assist in the interpretation of this examination. Current study was also evaluated with a Computer Aided Detection (CAD). Comparison is made to exams dated: 03/01/2023 mammogram, 02/25/2022 mammogram, and 12/02/2020 mammogram. The breasts are almost entirely fatty. No significant masses, calcifications, or other findings are seen in either breast. There has been no significant interval change. IMPRESSION: NEGATIVE There is no mammographic evidence of malignancy. A 1 year screening mammogram is recommended. The exam was reviewed by a staff physician. earl Francis M.D., D.O./sandra:03/01/2024 14:00:22 Simulation Developer(s): RT Mahnaz(R)(M), [facility] letter sent: Normal over 40 Mammogram BI-RADS: Category 1: Negative Multiple national specialty organizations have released breast cancer screening guidelines for women at average risk for developing breast cancer - guidelines that are based on both evidence and opinion, yet differ on when to start and how often to screen for breast cancer. With representation from Breast Imaging, Internal Medicine, Women's Health, Family Medicine, and Medical/Surgical Oncology, the [facility] has carefully reviewed the data and reached the following consensus: 1) All women should engage in shared decision-making with their providers to decide when to start and how often to screen; 2) All women should have the opportunity to start screening mammography at age 40; 3) For women ages 45-55, we recommend annual screening mammograms; 4) For women ages 55 and over, we support both the transition from an annual to a biennial interval if this aligns more with patient's values and preferences, or continuation with annual screening; 5) All women should discuss with their providers when to stop screening mammograms. Audience Development Manager: Sandra Transcribe Date/Time: Mar 01 2024 8:17A Dictated by: MIC GRIFFIN, DO This examination was interpreted and the report reviewed and electronically signed by: MONALISA AGUIAR MD on Mar 01 2024 2:00PM EST [id number] Normal [facility] CBC W/Diff, Automatedon 07-2 Absolute Lymph 2.89 X10 3/uL Normal 0.83-4.51 [facility] Comment on above: Performed By: #### L 500.4100, L500.4050, L502.0250, L400.2010, L100.0100 #### [facility] [address] [place], [address] Absolute Neut 1.9 X10 3/uL Low 2.0-7.7 [facility] Comment on above: Performed By: #### L 500.4100, L500.4050, L502.0250, L400.2010, L100.0100 #### [facility] [address] [place], [address] Basophils/100 WBC (Bld) 1.0 % Normal 0-1 [facility] Comment on above: Performed By: #### L 500.4100, L500.4050, L502.0250, L400.2010, L100.0100 #### [facility] [address] [place], [address] Eosinophils/100 WBC (Bld) 21.7 % High 0-5 [facility] Comment on above: Performed By: #### L 500.4100, L500.4050, L502.0250, L400.2010, L100.0100 #### [facility] [address] [place], [address] Erythrocyte distribution width (RBC) [Ratio] 12.5 % Normal 11.6-14.6 [facility] Comment on above: Performed By: #### L 500.4100, L500.4050, L502.0250, L400.2010, L100.0100 #### [facility] [address] [place], [address] Hematocrit (Bld) [Volume fraction] 39.6 % Normal 37-47 [facility] Comment on above: Performed By: #### L 500.4100, L500.4050, L502.0250, L400.2010, L100.0100 #### [facility] [address] [place], [address] Hemoglobin (Bld) [Mass/Vol] 12.9 g/dL Normal 12.0-15.0 [facility] Comment on above: Performed By: #### L 500.4100, L500.4050, L502.0250, L4.2010, L100.0100 #### [facility] [address] [place], [address] IG% 0.400 Normal 0.0-0.9 [facility] Comment on above: Result Comment: IG% - Immature Granulocytes (promyelocytes, myelocytes and metamyelocytes) > 1% indicates that a LEFT SHIFT is Present. Performed By: #### L 500.4100, L500.4050, L502.0250, L4.2010, L100.0100 #### [facility] [address] [place], [address] Lymphocytes/100 WBC (Bld) 39.6 % Normal 19-41 [facility] Comment on above: Performed By: #### L 500.4100, L500.4050, L502.0250, L4.2010, L100.0100 #### [facility] [address] [place], [address] MCH (RBC) [Entitic mass] 30.2 pg Normal 27.0-32.0 [facility] Comment on above: Performed By: #### L 500.4100, L500.4050, L502.0250, L400.2010, L100.0100 #### [facility] [address] [place], [address] MCHC (RBC) [Mass/Vol] 32.6 g/dL Normal 32-36 [facility] Comment on above: Performed By: #### L 500.4100, L500.4050, L502.0250, L400.2010, L100.0100 #### [facility] [address] [place], [address] MCV (RBC) [Entitic vol] 92.7 fL Normal 81-99 [facility] Comment on above: Performed By: #### L 500.4100, L500.4050, L502.0250, L400.2010, L100.0100 #### [facility] [address] [place], [address] Monocytes/100 WBC (Bld) 10.7 % High 0-10 [facility] Comment on above: Performed By: #### L 500.4100, L500.4050, L502.0250, L400.2010, L100.0100 #### [facility] [address] [place], [address] Neutrophils/100 WBC (Bld) 26.6 % Low 47-70 [facility] Comment on above: Performed By: #### L 500.4100, L500.4050, L502.0250, L400.2010, L100.0100 #### [facility] [address] [place], [address] Nucleated RBC (Bld) [#/Vol] 0 10*3/uL Normal 0-5 [facility] Comment on above: Performed By: #### L 500.4100, L500.4050, L502.0250, L400.2010, L100.0100 #### [facility] [address] [place], [address] Platelet mean volume (Bld) [Entitic vol] 8.8 fL Normal 6.2-12.0 [facility] Comment on above: Performed By: #### L 500.4100, L500.4050, L502.0250, L400.2010, L100.0100 #### [facility] [address] [place], [address] Platelets (Bld) [#/Vol] 274 10*3/uL Normal 150-450 [facility] Comment on above: Performed By: #### L 500.4100, L500.4050, L502.0250, L400.2010, L100.0100 #### [facility] [address] [place], [address] RBC (Bld) [#/Vol] 4.27 10*6/uL Normal 4.2-5.4 [facility] Comment on above: Performed By: #### L 500.4100, L500.4050, L502.0250, L400.2010, L100.0100 #### [facility] [address] [place], [address] RDW SD 42.7 fl Normal 35.1-43.9 [facility] Comment on above: Performed By: #### L 500.4100, L500.4050, L502.0250, L400.2010, L100.0100 #### [facility] [address] [place], [address] WBC (Bld) [#/Vol] 7.3 10*3/uL Normal 4.4-11.0 [facility] Comment on above: Performed By: #### L 500.4100, L500.4050, L502.0250, L400.2010, L100.0100 #### [facility] [address] [place], [address] Comprehensive Metabolic Prof ilon 02-16-2024 Albumin [Mass/Vol] 3.8 g/dL Normal 3.2-5.0 [facility] Comment on above: Performed By: #### L 500.4100, L500.4050, L502.0250, L4, L100.0100 #### [facility] [address] [place], [address] Albumin/Globulin [Mass ratio] 1.0 {ratio} Normal 0.9-2.4 [facility] Comment on above: Performed By: #### L 500.4100, L500.4050, L502.0250, L4, L100.0100 #### [facility] [address] [place], [address] ALK P 68 U/L Normal 45-117 [facility] Comment on above: Performed By: #### L 500.4100, L500.4050, L502.0250, L4, L100.0100 #### [facility] [address] [place], [address] ALT [Catalytic activity/Vol] 28 U/L Normal 13-56 [facility] Comment on above: Performed By: #### L 500.4100, L500.4050, L502.0250, L4, L100.0100 #### [facility] [address] [place], [address] AST [Catalytic activity/Vol] 29 U/L Normal 15-37 [facility] Comment on above: Performed By: #### L 500.4100, L500.4050, L502.0250, L4, L100.0100 #### [facility] [address] [place], [address] Bilirubin [Mass/Vol] 0.50 mg/dL Normal 0.20-1.00 [facility] Comment on above: Result Comment: For patients on eltrombopag therapy, use of Dimension [place] TBIL is not recommended. Performed By: #### L 500.4100, L500.4050, L502.0250, L4, L100.0100 #### [facility] [address] [place], [address] BUN/CRE 12.2 RATIO Normal 10-20 [facility] Comment on above: Performed By: #### L 500.4100, L500.4050, L502.0250, L400.2010, L100.0100 #### [facility] [address] [place], [address] CA,Total 8.8 mg/dL Normal 8.5-10.1 [facility] Comment on above: Performed By: #### L 500.4100, L500.4050, L502.0250, L4.2010, L100.0100 #### [facility] [address] [place], [address] Chloride [Moles/Vol] 105 mmol/L Normal 98-107 [facility] Comment on above: Performed By: #### L 500.4100, L500.4050, L502.0250, L4.2010, L100.0100 #### [facility] [address] [place], [address] CO2 [Moles/Vol] 28.0 mmol/L Normal 21.0-32.0 [facility] Comment on above: Performed By: #### L 500.4100, L500.4050, L502.0250, L4, L100.0100 #### [facility] [address] [place], [address] Creatinine [Mass/Vol] 0.90 mg/dL Normal 0.55-1.02 [facility] Comment on above: Result Comment: The validity of the calculated GFR GFRAA in patients over 70 years has not been determined. Clinical correlation is essential. Performed By: #### L 500.4100, L500.4050, L502.0250, L400.2010, L100.0100 #### [facility] [address] [place], [address] EST GFR - AA 78 mL/min Normal >60 [facility] Comment on above: Result Comment: Afri can Swedish GFR Calc Performed By: #### L 500.4100, L500.4050, L502.0250, L400.2010, L100.0100 #### [facility] [address] [place], [address] GAP 5 Normal 5-15 [facility] Comment on above: Performed By: #### L 500.4100, L500.4050, L502.0250, L400.2010, L100.0100 #### [facility] [address] [place], [address] GFR/1.73 sq M.predicted among non-blacks MDRD (S/P/Bld) [Vol rate/Area] 65 mL/min/{1.73_m2} Normal >60 [facility] Comment on above: Result Comment: Non- GFR Calc Performed By: #### L 500.4100, L500.4050, L502.0250, L400.2010, L100.0100 #### [facility] [address] [place], [address] Globulin (S) [Mass/Vol] 3.8 g/dL Normal 2.2-4.2 [facility] Comment on above: Performed By: #### L 500.4100, L500.4050, L502.0250, L400.2010, L100.0100 #### [facility] [address] [place], [address] Glucose [Mass/Vol] 108 mg/dL High 74-106 [facility] Comment on above: Result Comment: Fast ing Glucose result from 100 to 125 mg/dL suggests IMPAIRED HOMEOSTASIS per A.D.A. criteria. Performed By: #### L 500.4100, L500.4050, L502.0250, L400.2010, L100.0100 #### [facility] [address] [place], [address] Potassium [Moles/Vol] 4.1 mmol/L Normal 3.5-5.1 [facility] Comment on above: Performed By: #### L 500.4100, L500.4050, L502.0250, L400.2010, L100.0100 #### [facility] [address] [place], [address] Sodium [Moles/Vol] 138 mmol/L Normal 136-145 [facility] Comment on above: Performed By: #### L 500.4100, L500.4050, L502.0250, L400.2010, L100.0100 #### [facility] [address] [place], [address] T PROT 7.6 g/dL Normal 6.4-8.2 [facility] Comment on above: Performed By: #### L 500.4100, L500.4050, L502.0250, L400.2010, L100.0100 #### [facility] [address] [place], [address] Urea nitrogen [Mass/Vol] 11 mg/dL Normal 7-18 [facility] Comment on above: Performed By: #### L 500.4100, L500.4050, L502.0250, L400.2010, L100.0100 #### [facility] [address] [place], [address] Lipid Profileon 02-16-2024 Cholesterol [Mass/Vol] 165 mg/dL Normal 200 [facility] Comment on above: Result Comment: <200 mg/dL Desirable 200-240 mg/dL Borderline >240 mg/dL High Risk Performed By: #### L 500.4100, L500.4050, L502.0250, L400.2010, L100.0100 #### [facility] [address] [place], [address] Cholesterol in HDL [Mass/Vol] 47 mg/dL Normal [facility] Comment on above: Result Comment: The drugs N-Acetylcysteine and Metamizole may falsely depress this assay. Reference Range HDL <40 mg/dL Low HDL Cholesterol HDL >or= 60 mg/dL High HDL Cholesterol Performed By: #### L 500.4100, L500.4050, L502.0250, L400.2010, L100.0100 #### [facility] [address] [place], [address] Cholesterol in LDL [Mass/Vol] 82 mg/dL Normal 0-130 [facility] Comment on above: Performed By: #### L 500.4100, L500.4050, L502.0250, L400.2010, L100.0100 #### [facility] [address] [place], [address] Cholesterol in VLDL [Mass/Vol] 36 mg/dL Normal 5-40 [facility] Comment on above: Performed By: #### L 500.4100, L500.4050, L502.0250, L400.2010, L100.0100 #### [facility] [address] [place], [address] Triglyceride [Mass/Vol] 181 mg/dL Normal [facility] Comment on above: Result Comment: The drugs N-Acetylcysteine and Metamizole may falsely depress this assay. Serum Triglycerides Reference Interval Normal <150 mg/dL Borderline high 150 - 199 mg/dL High 200 - 499 mg/dL Very High > or = 500 mg/dL Performed By: #### L 500.4100, L500.4050, L502.0250, L400.2010, L100.0100 #### [facility] [address] [place], [address] Microalb:Creat Ratio,Random URon 02-16-2024 Creatinine [Mass/Vol] 77.70 mg/dL Normal NO RAN GE EST. [facility] Comment on above: Performed By: #### L 500.4100, L500.4050, L502.0250, L400.2010, L100.0100 #### [facility] [address] [place], [address] MALB:CRE 7.5 mg/g CRE Normal <30 mg/g CRE [facility] Comment on above: Performed By: #### L 500.4100, L500.4050, L502.0250, L400.2010, L100.0100 #### [facility] [address] [place], [address] MICROALBUMIN,UR 5.8 mg/L Normal NO RANGE EST. [facility] Comment on above: Performed By: #### L 500.4100, L500.4050, L502.0250, L400.2010, L100.0100 #### [facility] [address] [place], [address] Urinalysis, Routine (Dipstic k)on 02-16-2024 BILIRUBIN URINE Negative Normal Negative [facility] Comment on above: Order Comment: Urine , Random Performed By: #### L 500.4100, L500.4050, L502.0250, L400.2010, L100.0100 #### [facility] [address] [place], [address] Clarity (U) Sl. Cloudy Normal Clear [facility] Comment on above: Order Comment: Urine , Random Performed By: #### L 500.4100, L500.4050, L502.0250, L400.2010, L100.0100 #### [facility] [address] [place], [address] Color (U) Yellow Normal Yellow [facility] Comment on above: Order Comment: Urine , Random Performed By: #### L 500.4100, L500.4050, L502.0250, L400.2010, L100.0100 #### [facility] [address] [place], [address] GLUCOSE, UR Normal Normal Normal [facility] Comment on above: Order Comment: Urine , Random Performed By: #### L 500.4100, L500.4050, L502.0250, L400.2010, L100.0100 #### [facility] [address] [place], [address] KETONE UR Negative Normal Negative [facility] Comment on above: Order Comment: Urine , Random Performed By: #### L 500.4100, L500.4050, L502.0250, L400.2010, L100.0100 #### [facility] [address] [place], [address] LEUK ESTERASE Negative Normal Negative [facility] Comment on above: Order Comment: Urine , Random Performed By: #### L 500.4100, L500.4050, L502.0250, L400.2010, L100.0100 #### [facility] [address] [place], [address] Nitrite Ql (U) Negative Normal Negative [facility] Comment on above: Order Comment: Urine , Random Performed By: #### L 500.4100, L500.4050, L502.0250, L400.2010, L100.0100 #### [facility] [address] [place], [address] OCCULT BLOOD-UR Negative Normal Negative [facility] Comment on above: Order Comment: Urine , Random Performed By: #### L 500.4100, L500.4050, L502.0250, L400.2010, L100.0100 #### [facility] [address] [place], [address] pH UR 7.0 Normal 5.0 - 8.0 [facility] Comment on above: Order Comment: Urine , Random Performed By: #### L 500.4100, L500.4050, L502.0250, L400.2011, L100.0100 #### [facility] [address] [place], [address] PROT DIPSTX Negative Normal Negative [facility] Comment on above: Order Comment: Urine , Random Performed By: #### L 500.4100, L500.4050, L502.0250, L400.2011, L100.0100 #### [facility] [address] [place], [address] SP.GR. DIPSTX 1.010 Normal 1.002-1.030 [facility] Comment on above: Order Comment: Urine , Random Performed By: #### L 500.4100, L500.4050, L502.0250, L400.2011, L100.0100 #### [facility] [address] [place], [address] UROBILI Normal Normal Normal [facility] Comment on above: Order Comment: Urine , Random Performed By: #### L 500.4100, L500.4050, L502.0250, L400.2010, L100.0100 #### [facility] [address] [place], [address] CALCIFEDIOL (96971)Ordered B y: Manager Concrete on 12-21-2022 25-hydroxyvitamin D [Mass/Vol] 55.9 ng/mL Normal 30.0-100.0 [facility]; [facility] Work Phone: Comment on above: Vitamin D deficiency has been defined by the [place] of[place]icine and an Endocrine Society practice guideline as alevel of serum 25-OH vitamin D less than 20 ng/mL (1,2).The Endocrine Society went on to further define vitamin Dinsufficiency as a level between 21 and 29 ng/mL (2).1. IOM ([place] of Medicine). 2010. Dietary reference intakes for calcium and D. [place]: The National Academies Press.2. Jayme HERNANDEZ, Nirav DE DIOS, Tiara NOLAN, et al. Evaluation, treatment, and prevention of vitamin D deficiency: an Endocrine Society clinical practice guideline. JCEM. 2010; 96(7):1911-30. PATIENT WAS FASTINGP ERFORMED BY: CB [facility] Pfkpqy7943 [facility] [place] [id number] CBC, PLATELETS & AUT DIFF ([id number])Ordered By: Manager Concrete on 12-21-2022 Basophils (Bld) [#/Vol] 0.0 10*3/uL Normal 0.0-0.2 [facility]; [facility] Work Phone: Comment on above: PATIENT WAS FASTINGP ERFORMED BY: [facility] Lopuid7876 [facility] [place] [id number] Basophils/100 WBC (Bld) 1 % Normal [facility]; [facility] Work Phone: Comment on above: PATIENT WAS FASTINGP ERFORMED BY: [facility] Skeqjz0674 [facility]in [place] [id number] Eosinophils (Bld) [#/Vol] 0.4 10*3/uL Normal 0.0-0.4 [facility]; [facility] Work Phone: Comment on above: PATIENT WAS FASTINGP ERFORMED BY: [facility] Jwxseg1964 [facility] [place] [id number] Eosinophils/100 WBC (Bld) 7 % Normal [facility]; [facility] Work Phone: Comment on above: PATIENT WAS FASTINGP ERFORMED BY: [facility] Jrucrz3655 [facility] [id number] Erythrocyte distribution width (RBC) [Ratio] 12.7 % Normal 11.7-15.4 [facility]; [facility] Work Phone: Comment on above: PATIENT WAS FASTINGP ERFORMED BY: [facility] Crillb4343 [facility] [id number] Hematocrit (Bld) [Volume fraction] 39.9 % Normal 34.0-46.6 [facility]; [facility] Work Phone: Comment on above: PATIENT WAS FASTINGP ERFORMED BY: [facility] Ddtwfc8632 [facility] [place] [id number] Hemoglobin (Bld) [Mass/Vol] 13.3 g/dL Normal 11.1-15.9 [facility]; [facility] Work Phone: Comment on above: PATIENT WAS FASTINGP ERFORMED BY: [facility]6[address] RoadRandolph Healthin [place] [id number] Immature granulocytes (Bld) [#/Vol] 0.0 10*3/uL Normal 0.0-0.1 [facility]; [facility] Work Phone: Comment on above: PATIENT WAS FASTINGP ERFORMED BY: [facility]6[address] [facility] [id number] Immature granulocytes/100 WBC (Bld) 0 % Normal [facility]; [facility] Work Phone: Comment on above: PATIENT WAS FASTINGP ERFORMED BY: [facility]6[address] [facility] [id number] Lymphocytes (Bld) [#/Vol] 2.4 10*3/uL Normal 0.7-3.1 [facility]; [facility] Work Phone: Comment on above: PATIENT WAS FASTINGP ERFORMED BY: [facility]6[address] [facility]in [place] [id number] Lymphocytes/100 WBC (Bld) 39 % Normal [facility]; [facility] Work Phone: Comment on above: PATIENT WAS FASTINGP ERFORMED BY: [facility]6[address] [facility] [id number] MCH (RBC) [Entitic mass] 30.4 pg Normal 26.6-33.0 [facility]; [facility] Work Phone: Comment on above: PATIENT WAS FASTINGP ERFORMED BY: [facility] Sostuj8582 [facility]in [place] [id number] MCHC (RBC) [Mass/Vol] 33.3 g/dL Normal 31.5-35.7 [facility] prehensive Internal [facility]; [facility] Work Phone: Comment on above: PATIENT WAS FASTINGP ERFORMED BY: CB [facility] Pyllap4843 [address] RoadDublin [place] [id number] MCV (RBC) [Entitic vol] 91 fL Normal 79-97 [facility]; [facility] Work Phone: Comment on above: PATIENT WAS FASTINGP ERFORMED BY: CB [facility] Wkhxmi6810 [address] RoadDublin [place] [id number] Monocytes (Bld) [#/Vol] 0.6 10*3/uL Normal 0.1-0.9 [facility]; [facility] Work Phone: Comment on above: PATIENT WAS FASTINGP ERFORMED BY: CB [facility] Hmnlhj7001 [address] RoadDublin [place] [id number] Monocytes/100 WBC (Bld) 10 % Normal [facility]; [facility] Work Phone: Comment on above: PATIENT WAS FASTINGP ERFORMED BY: CB [facility] Qprqrf1066 [address] RoadDublin [place] [id number] Neutrophils (Bld) [#/Vol] 2.7 10*3/uL Normal 1.4-7.0 [facility]; [facility] Work Phone: Comment on above: PATIENT WAS FASTINGP ERFORMED BY: CB [facility] Owgdak4709 [address] RoadDublin [place] [id number] Neutrophils/100 WBC (Bld) 43 % Normal [facility]; [facility] Work Phone: Comment on above: PATIENT WAS FASTINGP ERFORMED BY: CB [facility] Deotzf3739 [address] RoadDublin [place] [id number] Platelets (Bld) [#/Vol] 268 10*3/uL Normal 150-450 [facility]; [facility] Work Phone: Comment on above: PATIENT WAS FASTINGP ERFORMED BY: CB [facility] Iiqnmv5917 [address] RoadDublin [place] [id number] RBC (Bld) [#/Vol] 4.38 10*6/uL Normal 3.77-5.28 [facility]; [facility] Work Phone: Comment on above: PATIENT WAS FASTINGP ERFORMED BY: YONY Labann[facility] QuinteroFefjcj9202 [address] RoadDublin [place] [id number] WBC (Bld) [#/Vol] 6.3 10*3/uL Normal 3.4-10.8 [facility]; [facility] Work Phone: Comment on above: PATIENT WAS FASTINGP ERFORMED BY: YONY Labann[facility] QuinteroDtvlrs7901 [address] RoadDublin [place] [id number] LIPID PANEL (86918)Ordered B y: Manager Concrete on 12-21-2022 Cholesterol [Mass/Vol] 179 mg/dL Normal 100-199 [facility]; [facility] Work Phone: Comment on above: PATIENT WAS FASTINGP ERFORMED BY: YONY Quinterolin6370 [address] RoadDublin [place] [id number] Cholesterol in HDL [Mass/Vol] 51 mg/dL Normal [facility]; [facility] Work Phone: Comment on above: PATIENT WAS FASTINGP ERFORMED BY: YONY Labann[facility] QuinteroVggvvc8677 [address] RoadDublin [place] [id number] Triglyceride [Mass/Vol] 180 mg/dL Abnormal 0-149 [facility]; [facility] Work Phone: Comment on above: PATIENT WAS FASTINGP ERFORMED BY: YONY Labann[facility] QuinteroDwvmxg3712 [address] RoadDublin [place] [id number] LIPID PANEL (13488) 31 mg/dL Normal 5-40 [facility]; [facility] Work Phone: Comment on above: PATIENT WAS FASTINGP ERFORMED BY: YONY Labcokitty Rbvobn0967 [address] RoadDublin [place] [id number] LIPID PANEL (02056) 97 mg/dL Normal 0-99 [facility]; [facility] Work Phone: Comment on above: PATIENT WAS FASTINGP ERFORMED BY: YONY Labcokitty Vctnov7894 [address] RoadDublin [place] [id number] LIPID PANEL (88027) 1.9 {ratio} Normal 0.0-3.2 [facility]; [facility] Work Phone: Comment on above: LDL/HDL Ratio Men Wo men 1/2 Avg.Risk 1.0 1.5 Avg.Risk 3.6 3.2 2X Avg.Risk 6.2 5.0 3X Avg.Risk 8.0 6.1 PATIENT WAS FASTINGP ERFORMED BY: YONY [facility] Cpcvfv2947 [address] RoadDublin [place] [id number] METABOLIC PANEL, COMPREHENSI VE (78203)Ordered By: Manager Concrete on 12-21-2022 Albumin [Mass/Vol] 4.6 g/dL Normal 3.7-4.7 [facility]; [facility] Work Phone: Comment on above: PATIENT WAS FASTINGP ERFORMED BY: YONY [facility] Oeodob7870 [address] RoadDublin [place] [id number] Albumin/Globulin [Mass ratio] 2.0 {ratio} Normal 1.2-2.2 [facility]; [facility] Work Phone: Comment on above: PATIENT WAS FASTINGP ERFORMED BY: YONY [facility] Anvjoj6319 [address] RoadDublin [place] [id number] ALP [Catalytic activity/Vol] 58 U/L Normal 44-121 [facility]; [facility] Work Phone: Comment on above: PATIENT WAS FASTINGP ERFORMED BY: YONY [facility] Yuvhrv2758 [address] RoadDublin [place] [id number] ALT [Catalytic activity/Vol] 21 U/L Normal 0-32 [facility]; [facility] Work Phone: Comment on above: PATIENT WAS FASTINGP ERFORMED BY: CB [facility] Thcuix2629 [address] RoadDublin [place] [id number] AST [Catalytic activity/Vol] 21 U/L Normal 0-40 [facility]; [facility] Work Phone: Comment on above: PATIENT WAS FASTINGP ERFORMED BY: YONY [facility] Fivxmk7722 [address] RoadDublin [place] [id number] Bilirubin [Mass/Vol] 0.4 mg/dL Normal 0.0-1.2 Comp rehensive [facility]; [facility] Work Phone: Comment on above: PATIENT WAS FASTINGP ERFORMED BY: YONY [facility] Idsapw7765 [address] RoadDublin [place] [id number] Calcium [Mass/Vol] 8.9 mg/dL Normal 8.7-10.3 [facility]; [facility] Work Phone: Comment on above: PATIENT WAS FASTINGP ERFORMED BY: [facility] Dfhjdk5747 [address] RoadDublin [place] [id number] Chloride [Moles/Vol] 103 mmol/L Normal 96-106 [facility] rehensive [facility] Medicine; [facility] Work Phone: Comment on above: PATIENT WAS FASTINGP ERFORMED BY: [facility] Dbaoug1338 [address] RoadDublin [place] [id number] CO2 [Moles/Vol] 22 mmol/L Normal 20-29 [facility]; [facility] Work Phone: Comment on above: PATIENT WAS FASTINGP ERFORMED BY: [facility] Puugss3695 [address] RoadDublin [place] [id number] Creatinine [Mass/Vol] 0.84 mg/dL Normal 0.57-1.00 [facility]; [facility] Work Phone: Comment on above: PATIENT WAS FASTINGP ERFORMED BY: [facility] Bohknv8101 Maya RoadRandolph Healthin [place] [id number] GFR/1.73 sq M.predicted among non-blacks MDRD (S/P/Bld) [Vol rate/Area] 74 mL/min/{1.73_m2} Normal Comprehensiv e [facility]; [facility] Work Phone: Comment on above: PATIENT WAS FASTINGP ERFORMED BY: [facility] Exwriu6473 [address] RoadDublin [place] [id number] Globulin (S) [Mass/Vol] 2.3 g/dL Normal 1.5-4.5 [facility]; [facility] Work Phone: Comment on above: PATIENT WAS FASTINGP ERFORMED BY: CB [facility] Usfcoz7496 [address] RoadDublin [place] [id number] Glucose [Mass/Vol] 96 mg/dL Normal 70-99 [facility]; [facility] Work Phone: Comment on above: PATIENT WAS FASTINGP ERFORMED BY: CB [facility] Mjbmhq5650 [address] RoadDublin [place] [id number] Potassium [Moles/Vol] 4.6 mmol/L Normal 3.5-5.2 [facility]; [facility] Work Phone: Comment on above: PATIENT WAS FASTINGP ERFORMED BY: CB [facility] Loxwjy9853 [address] RoadDublin [place] [id number] Protein [Mass/Vol] 6.9 g/dL Normal 6.0-8.5 [facility]; [facility] Work Phone: Comment on above: PATIENT WAS FASTINGP ERFORMED BY: CB [facility] Wdiptp3651 [address] RoadDublin [place] [id number] Sodium [Moles/Vol] 139 mmol/L Normal 134-144 [facility]; [facility] Work Phone: Comment on above: PATIENT WAS FASTINGP ERFORMED BY: CB [facility] Lcqxds4001 [address] RoadDublin [place] [id number] Urea nitrogen [Mass/Vol] 16 mg/dL Normal 8-27 [facility]; [facility] Work Phone: Comment on above: PATIENT WAS FASTINGP ERFORMED BY: CB [facility] Wxnkdj4267 [address] RoadDublin [place] [id number] Urea nitrogen/Creatinine [Mass ratio] 19 mg/mg Normal 12-28 [facility]; [facility] Work Phone: Comment on above: PATIENT WAS FASTINGP ERFORMED BY: CB [facility] Iwixsb1596 [address] RoadDublin [place] [id number] Urinalysis, Office ([id number])Or dered By: Dolly Llanes on 12-21-2022 Bilirubin Ql (U) Negative Normal Comprehe nsive Internal Medicine; [facility] Work Phone: Glucose Test strip (U) [Mass/Vol] Negative Normal [facility]; [facility] Work Phone: Hemoglobin Ql (U) Negative Normal Compreh ensive [facility]; [facility] Work Phone: Ketones Ql (U) Negative Normal Comprehens linnea [facility]; [facility] Work Phone: Leukocyte esterase Test strip Ql (U) Large Abnormal [facility]; [facility] Work Phone: Nitrite Ql (U) Negative Normal Comprehens linnea [facility]; [facility] Work Phone: pH (U) 6.0 [pH] Normal [facility]; [facility] Work Phone: Protein Ql (U) Negative Normal Comprehens linnea [facility]; [facility] Work Phone: Specific gravity (U) [Rel density] 1.020 1 Normal [facility]; [facility] Work Phone: Urobilinogen (24H U) [Mass/Time] Normal Normal [facility]; [facility] Work Phone: Absolute lymphocyte counton 01-27-2022 Lymphocytes Auto (Unsp spec) [#/Vol] 2.17 10*3/uL 0.83-4.51 [facility] Work Phone: Amorphous sediment detection in urine sediment by light microscopyon 01-27-2022 Amorphous sediment LM Ql (Urine sed) 1+ [facility] Work Phone: Basophil percentageon 2021 Basophil percentage 0-5 SEEN /hpf 0-5 [facility] Work Phone: Basophils/100 WBC (Bld) 0.9 % 0-1 [facility] Work Phone: Bilirubin [Mass/Vol] 0.40 mg/dL 0.20-1.00 [facility] Work Phone: Comment on above: For patients on eltr ombopag therapy, use of Dimension [place] TBIL is not recommended. Chloride [Moles/Vol] 107 mmol/L 98-107 [facility] Work Phone: Cholesterol [Mass/Vol] 173 mg/dL <200 [facility] Work Phone: Comment on above: <200 mg/dL Desirable 200-240 mg/dL Borderline >240 mg/dL High Risk Eosinophils/100 WBC (Bld) 12.6 % 0-5 [facility] Work Phone: Glucose [Mass/Vol] 97 mg/dL 74-106 [facility] Work Phone: Neutrophils (Bld) [#/Vol] 2.2 10*3/uL 2.0-7.7 [facility] Work Phone: Neutrophils/100 WBC (Bld) 38.3 % 47-70 [facility] Work Phone: Potassium [Moles/Vol] 3.9 mmol/L 3.5-5.1 [facility] Work Phone: Protein [Mass/Vol] 7.2 g/dL 6.4-8.2 [facility] Work Phone: Sodium [Moles/Vol] 139 mmol/L 136-145 [facility] Work Phone: Triglyceride [Mass/Vol] 189 mg/dL <199 [facility] Work Phone: Comment on above: The drugs N-Acetylcy steine and Metamizole may falsely depress this assay.Serum Triglycerides Reference Interval Normal <150 mg/dL Borderline high 150 - 199 mg/dL High 200 - 499 mg/dL Very High > or = 500 mg/dL WBC (Bld) [#/Vol] 5.8 10*3/uL 4.4-11.0 [facility] Work Phone: Bilirubin Test strip Ql (U)o n 01-27-2022 Bilirubin Ql (U) Negative Negative [facility] Work Phone: Blood erythrocytes count (nu mber/volume)on 01-27-2022 RBC (Bld) [#/Vol] 4.27 10*6/uL 4.2-5.4 [facility] Work Phone: Blood hemoglobin measurement (mass/volume)on 01-27-2022 Hemoglobin (Bld) [Mass/Vol] 12.9 g/dL 12.0-15.0 [facility] Work Phone: Blood lymphocytes/100 leukoc yteson 01-27-2022 Lymphocytes/100 WBC (Bld) 37.5 % 19-41 [facility] Work Phone: Blood monocytes/100 leukocyt eson 01-27-2022 Monocytes/100 WBC (Bld) 10.4 % 0-10 [facility] Work Phone: Blood platelet mean volumeon 01-27-2022 Platelet mean volume (Bld) [Entitic vol] 9.3 fL 6.2-12.0 [facility] Work Phone: Determination of erythrocyte mean corpuscular volume (MCV)on 01-27-2022 MCV (RBC) [Entitic vol] 91.8 fL 81-99 [facility] Work Phone: Hematocrit Auto (Bld) [Volum e fraction]on 01-27-2022 Hematocrit (Bld) [Volume fraction] 39.2 % 37-47 [facility] Work Phone: Ketones Test strip Ql (U)on 01-27-2022 Ketones Ql (U) Negative Negative [facility] Work Phone: Laboratory - Chemistry and C hemistry - challengeon 01-27-2022 ALP [Catalytic activity/Vol] 89 U/L 45-117 [facility] Work Phone: ALT [Catalytic activity/Vol] 28 U/L 13-56 [facility] Work Phone: CO2 [Moles/Vol] 27.0 mmol/L 21.0-32.0 [facility] Work Phone: Globulin (S) [Mass/Vol] 3.4 g/dL 2.2-4.2 [facility] Work Phone: Urea nitrogen/Creatinine [Mass ratio] 14.6 mg/mg 10-20 [facility] Work Phone: Laboratory - Hematology and Cell countson 01-27-2022 Erythrocyte distribution width (RBC) [Entitic vol] 42.6 fL 35.1-43.9 [facility] Work Phone: Erythrocyte distribution width (RBC) [Ratio] 12.6 % 11.6-14.6 [facility] Work Phone: Immature granulocytes/100 WBC (Bld) 0.300 % 0.0-0.9 [facility] Work Phone: Comment on above: IG% - Immature Granu locytes (promyelocytes, myelocytes and metamyelocytes) > 1% indicates that a LEFT SHIFT is Present. MCH (RBC) [Entitic mass] 30.2 pg 27.0-32.0 [facility] Work Phone: Nucleated RBC/100 WBC (Bld) [Ratio] 0 % 0-5 [facility] Work Phone: MCHC Auto (RBC) [Mass/Vol]on 01-27-2022 MCHC (RBC) [Mass/Vol] 32.9 g/dL 32-36 [facility] Work Phone: Mucus LM Ql (Urine sed)on Mucus Ql (Urine sed) 0 SEEN /hpf [facility] Work Phone: Nitrite Test strip Ql (U)on 01-27-2022 Nitrite Ql (U) Negative Negative [facility] Work Phone: No Panel Informationon 01-27 Estimated GFR (MDRD) Amer 80 mL/min >60 [facility] Work Phone: Comment on above: GFR Calc Estimated GFR (MDRD) Non-Af Amer 66 mL/min >60 [facility] Work Phone: Comment on above: Non- GFR Calc Thyroid Stimulating Hormone (TSH) 2.88 uIU/mL 0.358-3.74 [facility] Work Phone: Platelets bldon 01-27-2022 Platelets (Bld) [#/Vol] 253 10*3/uL 150-450 [facility] Work Phone: Protein Test strip Ql (U)on 01-27-2022 Protein Ql (U) Negative Negative [facility] Work Phone: Serum or plasma albumin richy urement (mass/volume)on 01-27-2022 Albumin [Mass/Vol] 3.8 g/dL 3.2-5.0 [facility] Work Phone: Serum or plasma albumin/glob ulin mass ratioon 01-27-2022 Albumin/Globulin [Mass ratio] 1.1 {ratio} 0.9-2.4 [facility] Work Phone: Serum or plasma calcium richy urement (mass/volume)on 01-27-2022 Calcium [Mass/Vol] 8.5 mg/dL 8.5-10.1 [facility] Work Phone: Serum or plasma cholesterol in HDL measurement (mass/volume)on 01-27-2022 Cholesterol in HDL [Mass/Vol] 46 mg/dL >40 [facility] Work Phone: Comment on above: The drugs N-Acetylcy steine and Metamizole may falsely depress this assay. Reference Range HDL <40 mg/dL Low HDL Cholesterol HDL >or= 60 mg/dL High HDL Cholesterol Serum or plasma cholesterol in VLDL measurement (mass/volume)on 01-27-2022 Cholesterol in VLDL [Mass/Vol] 38 mg/dL 5-40 [facility] Work Phone: Serum or plasma creatinine m easurement (mass/volume)on 01-27-2022 Creatinine [Mass/Vol] 0.89 mg/dL 0.55-1.02 [facility] Work Phone: Comment on above: The validity of the calculated GFR & GFRAA in patients over 70 years has not been determined. Clinical correlation is essential. Serum or plasma low density lipoprotein (LDL) cholesterol measurement (mass/volume)on 01-27-2022 Cholesterol in LDL [Mass/Vol] 89 mg/dL 0-130 [facility] Work Phone: Serum or plasma urea nitroge n measurement (mass/volume)on 01-27-2022 Urea nitrogen [Mass/Vol] 13 mg/dL 7-18 [facility] Work Phone: Squamous epithelial cells de tection in urine sediment by light microscopyon 01-27-2022 Epithelial cells.squamous LM Ql (Urine sed) 0-5 SEEN /hpf 5-10 [facility] Work Phone: Thin prep Papanicolaou smear with manual screeningon 01-27-2022 Thin prep Papanicolaou smear with manual screening 25 U/L 15-37 [facility] Work Phone: Thin prep Papanicolaou smear with manual screening 5 5-15 [facility] Work Phone: Urine blood detectionon 07-0 RBC Ql (U) Negative Negative [facility] Work Phone: RBC Ql (U) 0 SEEN /hpf 0-5 [facility] Work Phone: Urine clarityon 01-27-2022 Clarity (U) Clear Clear [facility] Work Phone: Urine color determinationon 01-27-2022 Color (U) Yellow Yellow [facility] Work Phone: Urine glucose detectionon Glucose Ql (U) Normal mg/dl Normal [facility] Work Phone: Urine leukocyte esterase det ection by dipstickon 01-27-2022 Leukocyte esterase Test strip Ql (U) 25 /ul Negative [facility] Work Phone: Urine pHon 01-27-2022 pH (U) 7.0 [pH] 5.0 - 8.0 [facility] Work Phone: Urine sediment bacteria coun t by microscopy (number/high power field)on 01-27-2022 Bacteria LM.HPF (Urine sed) [#/Area] 1 /[HPF] None Seen [facility] Work Phone: Urine specific gravity measu rementon 01-27-2022 Specific gravity (U) [Rel density] 1.010 1.002-1.030 [facility] Work Phone: Urobilinogen Auto test strip Ql (U)on 01-27-2022 Urobilinogen Ql (U) Normal mg/dl Normal [facility] Work Phone: Whole blood hemoglobin A1c/t otal hemoglobin ratio (mass fraction)on 01-27-2022 HbA1c (Bld) [Mass fraction] 5.7 % 3.8-5.6 [facility] Work Phone: Comment on above: Normal < 5.7 % Predi abetic 5.7 - 6.4 % Diabetic >or= 6.5 % Please note range changes. CBC, Platelets & Auto Diff ( [id number])Ordered By: Manager Concrete on 09-15-2020 Basophils (Bld) [#/Vol] 0.0 {x10E3/uL} Normal 0.0-0.2 [facility]; [facility] Work Phone: Comment on above: PATIENT NOT FASTINGP ERFORMED BY: [employer]70 PenBladeECU [facility] Hospital [id number] Basophils (Bld) [#/Vol] 0.0 10*3/uL Normal 0.0-0.2 [facility]; [facility] Work Phone: Comment on above: PATIENT NOT FASTINGP ERFORMED BY: [employer]70 PenBladeEC[facility] [id number] Basophils/100 WBC (Bld) 1 % Normal [facility]; [facility] Work Phone: Comment on above: PATIENT NOT FASTINGP ERFORMED BY: [employer]70 PenBladeEC[facility] [id number] Eosinophils (Bld) [#/Vol] 0.5 {x10E3/uL} Abnormal 0.0-0.4 [facility]; [facility] Work Phone: Comment on above: PATIENT NOT FASTINGP ERFORMED BY: CB [facility] Zqnxnc9096 [address] RoadDublin [place] [id number] Eosinophils (Bld) [#/Vol] 0.5 10*3/uL Abnormal 0.0-0.4 [facility]; [facility] Work Phone: Comment on above: PATIENT NOT FASTINGP ERFORMED BY: CB [facility] Wrjvqs2878 Maya RoadDublin [place] [id number] Eosinophils/100 WBC (Bld) 7 % Normal [facility]; [facility] Work Phone: Comment on above: PATIENT NOT FASTINGP ERFORMED BY: CB [facility] Jejhjy5538 Maya RoadRandolph Healthin [place] [id number] Erythrocyte distribution width (RBC) [Ratio] 12.7 % Normal 11.7-15.4 [facility]; [facility] Work Phone: Comment on above: PATIENT NOT FASTINGP ERFORMED BY: CB [facility] Dsrfsr6370 Maya RoadRandolph Healthin [place] [id number] Hematocrit (Bld) [Volume fraction] 39.7 % Normal 34.0-46.6 [facility]; [facility] Work Phone: Comment on above: PATIENT NOT FASTINGP ERFORMED BY: CB [facility] Oqcrqw3653 [address] [facility]bl[facility] [place] [id number] Hemoglobin (Bld) [Mass/Vol] 13.5 g/dL Normal 11.1-15.9 [facility]; [facility] Work Phone: Comment on above: PATIENT NOT FASTINGP ERFORMED BY: CB [facility] Jmvbnv8480 [address] RoadDublin [place] [id number] Immature granulocytes (Bld) [#/Vol] 0.0 {x10E3/uL} Normal 0.0-0.1 [facility]; [facility] Work Phone: Comment on above: PATIENT NOT FASTINGP ERFORMED BY: CB [facility] Aayuct4448 [address] RoadDublin [place] [id number] Immature granulocytes (Bld) [#/Vol] 0.0 10*3/uL Normal 0.0-0.1 [facility]; [facility] Work Phone: Comment on above: PATIENT NOT FASTINGP ERFORMED BY: YONY Kidd6370 [address] RoadDublin [place] [id number] Immature granulocytes/100 WBC (Bld) 0 % Normal [facility]; [facility] Work Phone: Comment on above: PATIENT NOT FASTINGP ERFORMED BY: CB [facility] Tpawjn7990 [address] Roadblin [place] [id number] Lymphocytes (Bld) [#/Vol] 2.4 {x10E3/uL} Normal 0.7-3.1 [facility]; [facility] Work Phone: Comment on above: PATIENT NOT FASTINGP ERFORMED BY: YONY LabAnnika QuinteroDlrnoe5446 [address] Roadblin [place] [id number] Lymphocytes (Bld) [#/Vol] 2.4 10*3/uL Normal 0.7-3.1 [facility]; [facility] Work Phone: Comment on above: PATIENT NOT FASTINGP ERFORMED BY: YONY LabAnnika QuinteroLyvavg0300 [address] [facility]in [place] [id number] Lymphocytes/100 WBC (Bld) 37 % Normal [facility]; [facility] Work Phone: Comment on above: PATIENT NOT FASTINGP ERFORMED BY: YONY [facility] Rhdnon6576 [address] [facility]in [place] [id number] MCH (RBC) [Entitic mass] 31.3 pg Normal 26.6-33.0 [facility]; [facility] Work Phone: Comment on above: PATIENT NOT FASTINGP ERFORMED BY: CB [facility] Vcalau0912 [address] RoadDublin [place] [id number] MCHC (RBC) [Mass/Vol] 34.0 g/dL Normal 31.5-35.7 [facility] prehensive [facility]; [facility] Work Phone: Comment on above: PATIENT NOT FASTINGP ERFORMED BY: CB [facility] Mfinmr4644 [address] [facility] Childrenbl[facility] [place] [id number] MCV (RBC) [Entitic vol] 92 fL Normal 79-97 [facility]; [facility] Work Phone: Comment on above: PATIENT NOT FASTINGP ERFORMED BY: YONY Kidd6370 [address] JaneECU Health North Hospital [id number] Monocytes (Bld) [#/Vol] 0.9 {x10E3/uL} Normal 0.1-0.9 [facility]; [facility] Work Phone: Comment on above: PATIENT NOT FASTINGP ERFORMED BY: YONY [facility] Xvlbay2463 [facility] [id number] Monocytes (Bld) [#/Vol] 0.9 10*3/uL Normal 0.1-0.9 [facility]; [facility] Work Phone: Comment on above: PATIENT NOT FASTINGP ERFORMED BY: YONY LabAnnika QuinteroBotzda0861 [facility] [id number] Monocytes/100 WBC (Bld) 14 % Normal [facility]; [facility] Work Phone: Comment on above: PATIENT NOT FASTINGP ERFORMED BY: YONY LabCokitty KiddHarfhf2040 [facility] [id number] Neutrophils (Bld) [#/Vol] 2.7 {x10E3/uL} Normal 1.4-7.0 [facility]; [facility] Work Phone: Comment on above: PATIENT NOT FASTINGP ERFORMED BY: CB [facility] Mvamjb4381 [facility] [id number] Neutrophils (Bld) [#/Vol] 2.7 10*3/uL Normal 1.4-7.0 [facility]; [facility] Work Phone: Comment on above: PATIENT NOT FASTINGP ERFORMED BY: CB [facility] Bskzoo4034 [facility] [id number] Neutrophils/100 WBC (Bld) 41 % Normal [facility]; [facility] Work Phone: Comment on above: PATIENT NOT FASTINGP ERFORMED BY: CB [facility] Rzhjdh8088 [address] RoadDublin [place] [id number] Platelets (Bld) [#/Vol] 300 {x10E3/uL} Normal 150-450 [facility]; [facility] Work Phone: Comment on above: PATIENT NOT FASTINGP ERFORMED BY: CB [facility] Ecpune3542 [address] RoadDublin [place] [id number] Platelets (Bld) [#/Vol] 300 10*3/uL Normal 150-450 [facility]; [facility] Work Phone: Comment on above: PATIENT NOT FASTINGP ERFORMED BY: CB [facility] Rztths4459 [address] RoadDublin [place] [id number] RBC (Bld) [#/Vol] 4.32 {x10E6/uL} Normal 3.77-5.28 [facility]ale[facility]; [facility] Work Phone: Comment on above: PATIENT NOT FASTINGP ERFORMED BY: CB [facility] Nixuth9786 [address] RoadDublin [place] [id number] RBC (Bld) [#/Vol] 4.32 10*6/uL Normal 3.77-5.28 [facility]; [facility] Work Phone: Comment on above: PATIENT NOT FASTINGP ERFORMED BY: CB [facility] Udwaqz1718 [address] RoadDublin [place] [id number] WBC (Bld) [#/Vol] 6.5 {x10E3/uL} Normal 3.4-10.8 [facility] prehensive [facility]; [facility] Work Phone: Comment on above: PATIENT NOT FASTINGP ERFORMED BY: CB [facility] Uuttsf0025 [address] RoadDublin [place] [id number] WBC (Bld) [#/Vol] 6.5 10*3/uL Normal 3.4-10.8 [facility]; [facility] Work Phone: Comment on above: PATIENT NOT FASTINGP ERFORMED BY: CB [facility] Jqmjfl0352 [address] RoadDublin [place] [id number] Metabolic Panel, Comprehensi ve ([id number])Ordered By: Manager Concrete on 09-15-2020 Albumin [Mass/Vol] 4.5 g/dL Normal 3.8-4.8 [facility]; [facility] Work Phone: Comment on above: PATIENT NOT FASTINGP ERFORMED BY: CB [facility] Dkkicl1128 [address] RoadDublin [place] [id number] Albumin/Globulin [Mass ratio] 1.6 {ratio} Normal 1.2-2.2 [facility]; [facility] Work Phone: Comment on above: PATIENT NOT FASTINGP ERFORMED BY: CB [facility] Gwjetn5723 [address] RoadDublin [place] [id number] ALP [Catalytic activity/Vol] 88 [iU]/L Normal 39-117 [facility]; [facility] Work Phone: Comment on above: PATIENT NOT FASTINGP ERFORMED BY: CB [facility] Vubsix8424 [address] RoadDublin [place] [id number] ALP [Catalytic activity/Vol] 88 U/L Normal 39-117 [facility]; [facility] Work Phone: Comment on above: PATIENT NOT FASTINGP ERFORMED BY: CB [facility] Jnnesn1621 [address] RoadDublin [place] [id number] ALT [Catalytic activity/Vol] 29 [iU]/L Normal 0-32 [facility]; [facility] Work Phone: Comment on above: PATIENT NOT FASTINGP ERFORMED BY: CB [facility] Nqkirx5825 [address] RoadDublin [place] [id number] ALT [Catalytic activity/Vol] 29 U/L Normal 0-32 [facility]; [facility] Work Phone: Comment on above: PATIENT NOT FASTINGP ERFORMED BY: CB [facility] Ppheik3390 [address] RoadDublin [place] [id number] AST [Catalytic activity/Vol] 35 [iU]/L Normal 0-40 [facility]; [facility] Work Phone: Comment on above: PATIENT NOT FASTINGP ERFORMED BY: CB [facility] Grsuhx0133 [address] [facility]in [place] [id number] AST [Catalytic activity/Vol] 35 U/L Normal 0-40 [facility]; [facility] Work Phone: Comment on above: PATIENT NOT FASTINGP ERFORMED BY: YONY Kidd6370 [address] RoadDublin [place] [id number] Bilirubin [Mass/Vol] 0.3 mg/dL Normal 0.0-1.2 Comp rehensive [facility]; [facility] Work Phone: Comment on above: PATIENT NOT FASTINGP ERFORMED BY: YONY LabCokitty QuinteroBqtjek9726 [address] RoadRandolph Healthin [place] [id number] Calcium [Mass/Vol] 9.4 mg/dL Normal 8.7-10.3 [facility]; [facility] Work Phone: Comment on above: PATIENT NOT FASTINGP ERFORMED BY: YONY Kidd6370 [address] RoadC[facility] [id number] Chloride [Moles/Vol] 100 mmol/L Normal 96-106 Comp rehensive [facility]; [facility] Work Phone: Comment on above: PATIENT NOT FASTINGP ERFORMED BY: YONY Kidd6370 [address]bl[address] [place] [id number] CO2 [Moles/Vol] 21 mmol/L Normal 20-29 [facility]; [facility] Work Phone: Comment on above: PATIENT NOT FASTINGP ERFORMED BY: YONY LabCokitty QuinteroTxxzis9308 [address] RoadRandolph Healthin [place] [id number] Creatinine [Mass/Vol] 0.86 mg/dL Normal 0.57-1.00 [facility]; [facility] Work Phone: Comment on above: PATIENT NOT FASTINGP ERFORMED BY: YONY LabCokitty QuinteroHqqwyk5002 [address] Roadblin [place] [id number] GFR/1.73 sq M predicted among blacks CKD-EPI (S/P/Bld) [Vol rate/Area] 79 mL/min/1.73 Normal [facility]; [facility] Work Phone: Comment on above: PATIENT NOT FASTINGP ERFORMED BY: CB [facility] Yjwizj6449 [address] RoadDublin [place] [id number] GFR/1.73 sq M predicted among non-blacks CKD-EPI (S/P/Bld) [Vol rate/Area] 69 mL/min/1.73 Normal [facility]; [facility] Work Phone: Comment on above: PATIENT NOT FASTINGP ERFORMED BY: CB [facility] Pjpegm9274 [address] RoadDublin [place] [id number] Globulin (S) [Mass/Vol] 2.9 g/dL Normal 1.5-4.5 [facility]; [facility] Work Phone: Comment on above: PATIENT NOT FASTINGP ERFORMED BY: CB [facility] Nwboyp7859 [address] RoadDublin [place] [id number] Glucose [Mass/Vol] 86 mg/dL Normal 65-99 [facility]; [facility] Work Phone: Comment on above: PATIENT NOT FASTINGP ERFORMED BY: CB [facility] Gqhfin9710 [address] RoadDublin [place] [id number] Potassium [Moles/Vol] 5.2 mmol/L Normal 3.5-5.2 [facility]; [facility] Work Phone: Comment on above: PATIENT NOT FASTINGP ERFORMED BY: CB [facility] Ogbzak6320 [address] RoadDublin [place] [id number] Protein [Mass/Vol] 7.4 g/dL Normal 6.0-8.5 [facility]; [facility] Work Phone: Comment on above: PATIENT NOT FASTINGP ERFORMED BY: CB [facility] Jfdxzb8266 [address] RoadDublin [place] [id number] Sodium [Moles/Vol] 137 mmol/L Normal 134-144 [facility]; [facility] Work Phone: Comment on above: PATIENT NOT FASTINGP ERFORMED BY: CB [facility] Umixar9395 [address] RoadDublin [place] [id number] Urea nitrogen [Mass/Vol] 15 mg/dL Normal 8-27 [facility]; [facility] Work Phone: Comment on above: PATIENT NOT FASTINGP ERFORMED BY: YONY LabAnnika QuinteroEdripx0257 [address] [facility] [place] [id number] Urea nitrogen/Creatinine [Mass ratio] 17 mg/mg Normal 12-28 [facility]; [facility] Work Phone: Comment on above: PATIENT NOT FASTINGP ERFORMED BY: YONY [facility] Evlgsq9730 [facility] [id number] HEPATITIS PANEL ([id number])Order ed By: Manager Concrete on 06-02-2020 HAV IgM IA Ql Negative Normal Comprehensi ve [facility] Work Phone: Comment on above: today; PATIENT NOT F ASTINGPERFORMED BY: YONY LabCo Nbzdlf6156 [facility] [id number] HAV IgM IA Ql Negative Normal Comprehensi ve [facility]; [facility] Work Phone: Comment on above: today; PATIENT NOT F ASTINGPERFORMED BY: YONY [facility] Xvzozk4783 [address] [facility] [place] [id number] HBV core IgM IA Ql Negative Normal Compre [facility] Work Phone: Comment on above: today; PATIENT NOT F ASTINGPERFORMED BY: YONY LabCoCommunity Medical CenterSptydd6983 [facility] [id number] HBV core IgM IA Ql Negative Normal Compre hensive [facility]; [facility] Work Phone: Comment on above: today; PATIENT NOT F ASTINGPERFORMED BY: CB [facility] Jzkjhk5120 [address] [facility] [place] [id number] HBV surface Ag IA Ql Negative Normal Comp rehensive [facility] Work Phone: Comment on above: today; PATIENT NOT F ASTINGPERFORMED BY: YONY [facility] Utsqma5740 [address] [facility] [place] [id number] HBV surface Ag IA Ql Negative Normal Comp rehensive [facility]; [facility] Work Phone: Comment on above: today; PATIENT NOT F ASTINGPERFORMED BY: Swipe.to6370 PenBladeECU [facility] [id number] HCV Ab Signal/Cutoff IA [Rel units/Vol] {ratio} Normal 0.0-0.9 [facility] Work Phone: Comment on above: Negative: < 0.8 Inde terminate: 0.8 - 0.9 Positive: > 0.9 . The CDC recommends that a positive HCV antibody result be followed up with a HCV Nucleic Acid Amplification test (192068). today; PATIENT NOT F ASTINGPERFORMED BY: Swipe.to6370 PenBladeECU [facility] [id number] HCV Ab Signal/Cutoff IA [Rel units/Vol] {ratio} Normal 0.0-0.9 [facility]; [facility] Work Phone: Comment on above: Negative: < 0.8 Inde terminate: 0.8 - 0.9 Positive: > 0.9 . The CDC recommends that a positive HCV antibody result be followed up with a HCV Nucleic Acid Amplification test (449483). today; PATIENT NOT F ASTINGPERFORMED BY: Swipe.to6370 ELAN MicroelectronicsC[facility] Health [facility] [id number] HGB A1C ([id number])Ordered By: S ystem Cokeman on 06-02-2020 HbA1c (Bld) [Mass fraction] 5.8 % Abnormal 4.8-5.6 [facility] Work Phone: Comment on above: . Prediabetes: 5.7 - 6.4 Diabetes: >6.4 Glycemic control for adults with diabetes: <7.0 today; PATIENT NOT F ASTINGPERFORMED BY: Swipe.to6370 PenBladeECU Health [facility] Hospital [id number] CBC, Platelets & Auto Diff ( [id number])Ordered By: Manager Concrete on 05-20-2020 Basophils (Bld) [#/Vol] 0.0 {x10E3/uL} Normal 0.0-0.2 [facility] Work Phone: Comment on above: may 20; PATIENT WAS FASTINGPERFORMED BY: Libra Entertainmentwi [place] [id number] Basophils (Bld) [#/Vol] 0.0 10*3/uL Normal 0.0-0.2 [facility]; [facility] Work Phone: Comment on above: may 20; PATIENT WAS FASTINGPERFORMED BY: YONY [facility] Ltrjtv8371 [address] RoadRandolph Healthin [place] [id number] Basophils/100 WBC (Bld) 1 % Normal [facility] Work Phone: Comment on above: may 20; PATIENT WAS FASTINGPERFORMED BY: YONY [facility] Qmozez4149 [address] RoadRandolph Healthin [place] [id number] Eosinophils (Bld) [#/Vol] 0.3 {x10E3/uL} Normal 0.0-0.4 [facility] Work Phone: Comment on above: may 20; PATIENT WAS FASTINGPERFORMED BY: YONY [facility] Whzdqx0167 [facility] [id number] Eosinophils (Bld) [#/Vol] 0.3 10*3/uL Normal 0.0-0.4 [facility]; [facility] Work Phone: Comment on above: may 20; PATIENT WAS FASTINGPERFORMED BY: YONY LabCokitty QuinteroYsgzok5612 [address] RoadRandolph Healthin [place] [id number] Eosinophils/100 WBC (Bld) 5 % Normal [facility] Work Phone: Comment on above: may 20; PATIENT WAS FASTINGPERFORMED BY: YONY [facility] Zjfasc5139 [facility] [id number] Erythrocyte distribution width (RBC) [Ratio] 12.6 % Normal 11.7-15.4 [facility] Work Phone: Comment on above: may 20; PATIENT WAS FASTINGPERFORMED BY: [facility] Gtygmy1353 [facility] [id number] Hematocrit (Bld) [Volume fraction] 40.2 % Normal 34.0-46.6 [facility] Work Phone: Comment on above: may 20; PATIENT WAS FASTINGPERFORMED BY: LabCo Yvldrn0571 [facility] [id number] Hemoglobin (Bld) [Mass/Vol] 13.7 g/dL Normal 11.1-15.9 [facility] Work Phone: Comment on above: may 20; PATIENT WAS FASTINGPERFORMED BY: [facility] Eigepc4469 [facility] [id number] Immature granulocytes (Bld) [#/Vol] 0.0 {x10E3/uL} Normal 0.0-0.1 [facility] Work Phone: Comment on above: may 20; PATIENT WAS FASTINGPERFORMED BY: [facility] Qqdmnr4976 [address] [facility]in [place] [id number] Immature granulocytes (Bld) [#/Vol] 0.0 10*3/uL Normal 0.0-0.1 [facility]; [facility] Work Phone: Comment on above: may 20; PATIENT WAS FASTINGPERFORMED BY: LabFre[facility] Lywxql7620 [facility] [id number] Immature granulocytes/100 WBC (Bld) 0 % Normal [facility] Work Phone: Comment on above: may 20; PATIENT WAS FASTINGPERFORMED BY: [facility] Rvjbcz7553 [facility] [id number] Lymphocytes (Bld) [#/Vol] 2.0 {x10E3/uL} Normal 0.7-3.1 [facility] Work Phone: Comment on above: may 20; PATIENT WAS FASTINGPERFORMED BY: [facility] Yzukxw7335 [address] RoadRandolph Healthin [place] [id number] Lymphocytes (Bld) [#/Vol] 2.0 10*3/uL Normal 0.7-3.1 [facility]; [facility] Work Phone: Comment on above: may 20; PATIENT WAS FASTINGPERFORMED BY: [facility] Dfeeom6278 [address] [facility] Childrenbl[facility] [place] [id number] Lymphocytes/100 WBC (Bld) 35 % Normal [facility] Work Phone: Comment on above: may 20; PATIENT WAS FASTINGPERFORMED BY: CB [facility] Onfxgy9808 [address] RoadDublin [place] [id number] MCH (RBC) [Entitic mass] 31.4 pg Normal 26.6-33.0 [facility] Work Phone: Comment on above: may 20; PATIENT WAS FASTINGPERFORMED BY: CB [facility] Oitgdi4042 [address] RoadDublin [place] [id number] MCHC (RBC) [Mass/Vol] 34.1 g/dL Normal 31.5-35.7 [facility] Internal Medicine Work Phone: Comment on above: may 20; PATIENT WAS FASTINGPERFORMED BY: CB [facility] Arfkyz4066 [address] RoadDublin [place] [id number] MCV (RBC) [Entitic vol] 92 fL Normal 79-97 [facility] Work Phone: Comment on above: may 20; PATIENT WAS FASTINGPERFORMED BY: CB [facility] Ffsish6350 [address] RoadDublin [place] [id number] Monocytes (Bld) [#/Vol] 0.7 {x10E3/uL} Normal 0.1-0.9 [facility] Work Phone: Comment on above: may 20; PATIENT WAS FASTINGPERFORMED BY: CB [facility] Yrbuqj1150 [address] RoadDublin [place] [id number] Monocytes (Bld) [#/Vol] 0.7 10*3/uL Normal 0.1-0.9 [facility]; [facility] Work Phone: Comment on above: may 20; PATIENT WAS FASTINGPERFORMED BY: CB [facility] Eefmue2940 [address] RoadDublin [place] [id number] Monocytes/100 WBC (Bld) 11 % Normal [facility] Work Phone: Comment on above: may 20; PATIENT WAS FASTINGPERFORMED BY: CB [facility] Kcherf6306 [address] RoadDublin [place] [id number] Neutrophils (Bld) [#/Vol] 2.8 {x10E3/uL} Normal 1.4-7.0 [facility] Work Phone: Comment on above: may 20; PATIENT WAS FASTINGPERFORMED BY: CB [facility] Edurfm6037 [address] RoadDublin [place] [id number] Neutrophils (Bld) [#/Vol] 2.8 10*3/uL Normal 1.4-7.0 [facility]; [facility] Work Phone: Comment on above: may 20; PATIENT WAS FASTINGPERFORMED BY: CB [facility] Cuycpc5792 [address] RoadDublin [place] [id number] Neutrophils/100 WBC (Bld) 48 % Normal [facility] Work Phone: Comment on above: may 20; PATIENT WAS FASTINGPERFORMED BY: CB [facility] Wtkiaa0596 [address] RoadDublin [place] [id number] Platelets (Bld) [#/Vol] 287 {x10E3/uL} Normal 150-450 [facility] Work Phone: Comment on above: may 20; PATIENT WAS FASTINGPERFORMED BY: CB [facility] Blkrbz8062 [address] RoadDublin [place] [id number] Platelets (Bld) [#/Vol] 287 10*3/uL Normal 150-450 [facility]; [facility] Work Phone: Comment on above: may 20; PATIENT WAS FASTINGPERFORMED BY: CB [facility] Dominu7344 [address] RoadDublin [place] [id number] RBC (Bld) [#/Vol] 4.37 {x10E6/uL} Normal 3.77-5.28 [facility] Internal Medicine Work Phone: Comment on above: may 20; PATIENT WAS FASTINGPERFORMED BY: CB [facility] Lcbxhw1062 [address] RoadDublin [place] [id number] RBC (Bld) [#/Vol] 4.37 10*6/uL Normal 3.77-5.28 [facility] Internal Medicine; [facility] Work Phone: Comment on above: may 20; PATIENT WAS FASTINGPERFORMED BY: CB [facility] Crjgcl9569 [address] RoadDublin [place] [id number] WBC (Bld) [#/Vol] 5.8 {x10E3/uL} Normal 3.4-10.8 [facility] Work Phone: Comment on above: may 20; PATIENT WAS FASTINGPERFORMED BY: YONY [facility] Kiqpea5098 [address] RoadDublin [place] [id number] WBC (Bld) [#/Vol] 5.8 10*3/uL Normal 3.4-10.8 [facility] Internal Medicine; [facility] Work Phone: Comment on above: may 20; PATIENT WAS FASTINGPERFORMED BY: YONY [facility] Fuciyd8755 [address] RoadDublin [place] [id number] LIPID PANEL (15060)Ordered B y: Manager Concrete on 05-20-2020 Cholesterol [Mass/Vol] 169 mg/dL Normal 100-199 [facility] Work Phone: Comment on above: May 20; PATIENT WAS FASTINGPERFORMED BY: YONY [facility] Wxyqjh3322 [address] RoadDublin [place] [id number] Cholesterol in HDL [Mass/Vol] 45 mg/dL Normal [facility] Work Phone: Comment on above: May 20; PATIENT WAS FASTINGPERFORMED BY: YONY [facility]Cok[facility] Ytnmwo4694 [address] RoadDublin [place] [id number] Cholesterol in LDL/Cholesterol in HDL [Mass ratio] 1.9 {ratio} Normal 0.0-3.2 [facility] Work Phone: Comment on above: LDL/HDL Ratio Men Wo men 1/2 Avg.Risk 1.0 1.5 Avg.Risk 3.6 3.2 2X Avg.Risk 6.2 5.0 3X Avg.Risk 8.0 6.1 May 20; PATIENT WAS FASTINGPERFORMED BY: YONY [facility] Hjcbrs1945 [address] RoadDublin [place] [id number] Triglyceride [Mass/Vol] 223 mg/dL Abnormal 0-149 [facility] Work Phone: Comment on above: May 20; PATIENT WAS FASTINGPERFORMED BY: CB [facility] Hvudoz9316 [address] RoadDublin [place] [id number] LIPID PANEL (93663) 37 mg/dL Normal 5-40 [facility] Internal Medicine Work Phone: Comment on above: May 20; PATIENT WAS FASTINGPERFORMED BY: CB [facility] Elpjck3851 [address] RoadDublin [place] [id number] LIPID PANEL (11510) 87 mg/dL Normal 0-99 [facility] Internal Medicine Work Phone: Comment on above: May 20; PATIENT WAS FASTINGPERFORMED BY: CB [facility] Stvbex2787 [address] RoadDublin [place] [id number] LIPID PANEL (32964) 1.9 {ratio} Normal 0.0-3.2 [facility] Internal Medicine; [facility] Work Phone: Comment on above: LDL/HDL Ratio Men Wo men 1/2 Avg.Risk 1.0 1.5 Avg.Risk 3.6 3.2 2X Avg.Risk 6.2 5.0 3X Avg.Risk 8.0 6.1 May 20; PATIENT WAS FASTINGPERFORMED BY: YONY [facility] Mjfnyl7562 [address] Roadblin [place] [id number] Metabolic Panel, Comprehensi ve (75980)Ordered By: Manager Concrete on 05-20-2020 Albumin [Mass/Vol] 4.6 g/dL Normal 3.8-4.8 [facility] Internal Medicine Work Phone: Comment on above: may 20; PATIENT WAS FASTINGPERFORMED BY: CB [facility] Obhaez0514 [address] RoadDublin [place] [id number] Albumin/Globulin [Mass ratio] 1.6 {ratio} Normal 1.2-2.2 [facility] Work Phone: Comment on above: may 20; PATIENT WAS FASTINGPERFORMED BY: CB [facility] Zeajgs7405 [address] RoadDublin [place] [id number] ALP [Catalytic activity/Vol] 79 [iU]/L Normal 39-117 [facility] Work Phone: Comment on above: may 20; PATIENT WAS FASTINGPERFORMED BY: CB [facility] Bwjdko9337 [address] RoadDublin [place] [id number] ALP [Catalytic activity/Vol] 79 U/L Normal 39-117 [facility]; [facility] Work Phone: Comment on above: may 20; PATIENT WAS FASTINGPERFORMED BY: CB [facility] Hqhzsg8981 [address] RoadDublin [place] [id number] ALT [Catalytic activity/Vol] 57 [iU]/L Abnormal 0-32 [facility] Work Phone: Comment on above: may 20; PATIENT WAS FASTINGPERFORMED BY: CB [facility] Dtnkfi6381 [address] RoadDublin [place] [id number] ALT [Catalytic activity/Vol] 57 U/L Abnormal 0-32 [facility]; [facility] Work Phone: Comment on above: may 20; PATIENT WAS FASTINGPERFORMED BY: CB [facility] Zgznfx2091 [address] RoadDublin [place] [id number] AST [Catalytic activity/Vol] 44 [iU]/L Abnormal 0-40 [facility] Work Phone: Comment on above: may 20; PATIENT WAS FASTINGPERFORMED BY: CB [facility] Hrolhb5364 [address] RoadDublin [place] [id number] AST [Catalytic activity/Vol] 44 U/L Abnormal 0-40 [facility]; [facility] Work Phone: Comment on above: may 20; PATIENT WAS FASTINGPERFORMED BY: CB [facility] Qbxbbn7703 [address] RoadDublin [place] [id number] Bilirubin [Mass/Vol] 0.4 mg/dL Normal 0.0-1.2 [facility] Internal Medicine Work Phone: Comment on above: may 20; PATIENT WAS FASTINGPERFORMED BY: CB [facility] Fwziup2871 [address] RoadDublin [place] [id number] Calcium [Mass/Vol] 9.2 mg/dL Normal 8.7-10.3 [facility] Internal Medicine Work Phone: Comment on above: may 20; PATIENT WAS FASTINGPERFORMED BY: CB [facility] Cgaqfg6500 [address] RoadDublin [place] [id number] Chloride [Moles/Vol] 103 mmol/L Normal 96-106 [facility] Work Phone: Comment on above: may 20; PATIENT WAS FASTINGPERFORMED BY: CB [facility] Eyqmqx2611 [address] RoadDublin [place] [id number] CO2 [Moles/Vol] 25 mmol/L Normal 20-29 [facility] Internal Medicine Work Phone: Comment on above: may 20; PATIENT WAS FASTINGPERFORMED BY: CB [facility] Upibqo1237 [address] RoadDublin [place] [id number] Creatinine [Mass/Vol] 0.88 mg/dL Normal 0.57-1.00 [facility] Internal Medicine Work Phone: Comment on above: may 20; PATIENT WAS FASTINGPERFORMED BY: CB [facility] Wvaapr2352 [address] RoadDublin [place] [id number] GFR/1.73 sq M predicted among blacks CKD-EPI (S/P/Bld) [Vol rate/Area] 77 mL/min/1.73 Normal [facility] Work Phone: Comment on above: may 20; PATIENT WAS FASTINGPERFORMED BY: CB [facility] Bcrhhq7819 [address] RoadDublin [place] [id number] GFR/1.73 sq M predicted among non-blacks CKD-EPI (S/P/Bld) [Vol rate/Area] 67 mL/min/1.73 Normal [facility] Work Phone: Comment on above: may 20; PATIENT WAS FASTINGPERFORMED BY: CB [facility] Xyopig6549 [address] RoadDublin [place] [id number] Globulin (S) [Mass/Vol] 2.8 g/dL Normal 1.5-4.5 [facility] Work Phone: Comment on above: may 20; PATIENT WAS FASTINGPERFORMED BY: CB [facility] Yxeqbu2822 [address] RoadDublin [place] [id number] Glucose [Mass/Vol] 111 mg/dL Abnormal 65-99 [facility] Internal Medicine Work Phone: Comment on above: may 20; PATIENT WAS FASTINGPERFORMED BY: CB [facility] Clbcim8165 [address] RoadDublin [place] [id number] Potassium [Moles/Vol] 4.7 mmol/L Normal 3.5-5.2 [facility] Internal Medicine Work Phone: Comment on above: may 20; PATIENT WAS FASTINGPERFORMED BY: CB [facility] Hqcrsq2436 [address] RoadDublin [place] [id number] Protein [Mass/Vol] 7.4 g/dL Normal 6.0-8.5 [facility] Internal Medicine Work Phone: Comment on above: may 20; PATIENT WAS FASTINGPERFORMED BY: CB [facility] Hqgkej5753 [address] RoadDublin [place] [id number] Sodium [Moles/Vol] 140 mmol/L Normal 134-144 [facility] Internal Medicine Work Phone: Comment on above: may 20; PATIENT WAS FASTINGPERFORMED BY: CB [facility] Vxcmdv0356 [address] RoadDublin [place] [id number] Urea nitrogen [Mass/Vol] 11 mg/dL Normal 8- [facility] Work Phone: Comment on above: may 20; PATIENT WAS FASTINGPERFORMED BY: CB [facility] Pgqmep6412 [address] RoadDublin [place] [id number] Urea nitrogen/Creatinine [Mass ratio] 13 mg/mg Normal 12- [facility] Work Phone: Comment on above: may 20; PATIENT WAS FASTINGPERFORMED BY: CB [facility] Wfuvkh2449 [address] RoadDublin [place] [id number] CALCIFEDIOL ([id number])Ordered B y: Manager Concrete on 08-17-2019 25-Hydroxyvitamin D2+25-Hydroxyvitamin D3 [Mass/Vol] 46.1 ng/mL Normal 30.0-100.0 [facility] Work Phone: Comment on above: Vitamin D deficiency has been defined by the [place] of[place]icine and an Endocrine Society practice guideline as alevel of serum 25-OH vitamin D less than 20 ng/mL (1,2).The Endocrine Society went on to further define vitamin Dinsufficiency as a level between 21 and 29 ng/mL (2).1. IOM ([place] of Medicine). 2010. Dietary reference intakes for calcium and D. [place]: The National Academies Press.2. Jayme MF, Nirav DE DIOS, Tiara NOLAN, et al. Evaluation, treatment, and prevention of vitamin D deficiency: an Endocrine Society clinical practice guideline. JCEM. 2010; 96(7):1911-30. PATIENT WAS FASTINGP ERFORMED BY: [employer] Dsfcmr3410 [facility]in [place] [id number] CBC, Platelets & Auto Diff ( 61307)Ordered By: Manager Concrete on 08-17-2019 Basophils (Bld) [#/Vol] 0.0 {x10E3/uL} Normal 0.0-0.2 [facility] Work Phone: Comment on above: PATIENT WAS FASTINGP ERFORMED BY: [facility] Alcztr6154 [facility]in [place] [id number] Basophils (Bld) [#/Vol] 0.0 10*3/uL Normal 0.0-0.2 [facility]; [facility] Work Phone: Comment on above: PATIENT WAS FASTINGP ERFORMED BY: [employer] Lbjtim7401 [facility] Centerblin [place] [id number] Basophils/100 WBC (Bld) 1 % Normal [facility] Work Phone: Comment on above: PATIENT WAS FASTINGP ERFORMED BY: [facility] Epmesj1645 [facility]in [place] [id number] Eosinophils (Bld) [#/Vol] 0.3 {x10E3/uL} Normal 0.0-0.4 [facility] Work Phone: Comment on above: PATIENT WAS FASTINGP ERFORMED BY: LabNOTIK Exonxu8118 [facility] Centerblin [place] [id number] Eosinophils (Bld) [#/Vol] 0.3 10*3/uL Normal 0.0-0.4 [facility]; [facility] Work Phone: Comment on above: PATIENT WAS FASTINGP ERFORMED BY: [facility] Nmywbn0042 [address] RoadDublin [place] [id number] Eosinophils/100 WBC (Bld) 5 % Normal [facility] Work Phone: Comment on above: PATIENT WAS FASTINGP ERFORMED BY: [facility] Zmekvm6679 [address] [facility]in [place] [id number] Erythrocyte distribution width (RBC) [Ratio] 12.1 % Normal 11.7-15.4 [facility] Work Phone: Comment on above: PATIENT WAS FASTINGP ERFORMED BY: [facility]6370 [address] [facility]in [place] [id number] Hematocrit (Bld) [Volume fraction] 40.8 % Normal 34.0-46.6 [facility] Work Phone: Comment on above: PATIENT WAS FASTINGP ERFORMED BY: [facility]6370 [address] [facility]in [place] [id number] Hemoglobin (Bld) [Mass/Vol] 13.5 g/dL Normal 11.1-15.9 [facility] Work Phone: Comment on above: PATIENT WAS FASTINGP ERFORMED BY: [facility] Wgvthv8910 [address] RoadRandolph Healthin [place] [id number] Immature granulocytes (Bld) [#/Vol] 0.0 {x10E3/uL} Normal 0.0-0.1 [facility] Work Phone: Comment on above: PATIENT WAS FASTINGP ERFORMED BY: [facility] Derbqa0644 [address] Roadblin [place] [id number] Immature granulocytes (Bld) [#/Vol] 0.0 10*3/uL Normal 0.0-0.1 [facility]; [facility] Work Phone: Comment on above: PATIENT WAS FASTINGP ERFORMED BY: [facility] Fphqkt9891 [address] RoadDublin [place] [id number] Immature granulocytes/100 WBC (Bld) 0 % Normal [facility] Work Phone: Comment on above: PATIENT WAS FASTINGP ERFORMED BY: [facility]6370 [address] Roadbl[address] [place] [id number] Lymphocytes (Bld) [#/Vol] 2.6 {x10E3/uL} Normal 0.7-3.1 [facility] Work Phone: Comment on above: PATIENT WAS FASTINGP ERFORMED BY: [facility]6[address] [facility]bl[facility] [place] [id number] Lymphocytes (Bld) [#/Vol] 2.6 10*3/uL Normal 0.7-3.1 [facility]; [facility] Work Phone: Comment on above: PATIENT WAS FASTINGP ERFORMED BY: [facility]6370 [facility]in [place] [id number] Lymphocytes/100 WBC (Bld) 41 % Normal [facility] Work Phone: Comment on above: PATIENT WAS FASTINGP ERFORMED BY: [facility]6370 [facility] [id number] MCH (RBC) [Entitic mass] 30.5 pg Normal 26.6-33.0 [facility] Work Phone: Comment on above: PATIENT WAS FASTINGP ERFORMED BY: [facility]6370 [address] [facility]bl[place] [id number] MCHC (RBC) [Mass/Vol] 33.1 g/dL Normal 31.5-35.7 [facility] prehensive Internal Medicine Work Phone: Comment on above: PATIENT WAS FASTINGP ERFORMED BY: [facility]6[address] [facility]in [place] [id number] MCV (RBC) [Entitic vol] 92 fL Normal 79-97 [facility] Work Phone: Comment on above: PATIENT WAS FASTINGP ERFORMED BY: [facility]6370 [address] [facility] Childrenbl[facility] [place] [id number] Monocytes (Bld) [#/Vol] 0.6 {x10E3/uL} Normal 0.1-0.9 [facility] Work Phone: Comment on above: PATIENT WAS FASTINGP ERFORMED BY: [facility] Fmdmrf6750 [address] RoadDublin [place] [id number] Monocytes (Bld) [#/Vol] 0.6 10*3/uL Normal 0.1-0.9 [facility]; [facility] Work Phone: Comment on above: PATIENT WAS FASTINGP ERFORMED BY: [facility] Cqtkfz6640 [address] RoadDublin [place] [id number] Monocytes/100 WBC (Bld) 10 % Normal [facility] Work Phone: Comment on above: PATIENT WAS FASTINGP ERFORMED BY: [facility] Eiftbe1108 [address] RoadDublin [place] [id number] Neutrophils (Bld) [#/Vol] 2.7 {x10E3/uL} Normal 1.4-7.0 [facility] Work Phone: Comment on above: PATIENT WAS FASTINGP ERFORMED BY: [facility] Zebmft2791 [address] RoadDublin [place] [id number] Neutrophils (Bld) [#/Vol] 2.7 10*3/uL Normal 1.4-7.0 [facility]; [facility] Work Phone: Comment on above: PATIENT WAS FASTINGP ERFORMED BY: LabAnnika QuinteroAvrrxh5310 [address] RoadDublin [place] [id number] Neutrophils/100 WBC (Bld) 43 % Normal [facility] Work Phone: Comment on above: PATIENT WAS FASTINGP ERFORMED BY: [facility] Gxsfdj1493 [address] RoadDublin [place] [id number] Platelets (Bld) [#/Vol] 286 {x10E3/uL} Normal 150-450 [facility] Work Phone: Comment on above: PATIENT WAS FASTINGP ERFORMED BY: [facility] Nsfvzv6037 [address] RoadDublin [place] [id number] Platelets (Bld) [#/Vol] 286 10*3/uL Normal 150-450 [facility]; [facility] Work Phone: Comment on above: PATIENT WAS FASTINGP ERFORMED BY: YONY [facility] Uagdfj4663 [address] RoadDublin [place] [id number] RBC (Bld) [#/Vol] 4.43 {x10E6/uL} Normal 3.77-5.28 [facility]ensive [facility] Work Phone: Comment on above: PATIENT WAS FASTINGP ERFORMED BY: CB [facility] Qkmlvc5861 [address] RoadDublin [place] [id number] RBC (Bld) [#/Vol] 4.43 10*6/uL Normal 3.77-5.28 [facility] Internal Medicine; [facility] Work Phone: Comment on above: PATIENT WAS FASTINGP ERFORMED BY: YONY [facility] Bhrcdf9989 [address] RoadDublin [place] [id number] WBC (Bld) [#/Vol] 6.3 {x10E3/uL} Normal 3.4-10.8 [facility] Internal Medicine Work Phone: Comment on above: PATIENT WAS FASTINGP ERFORMED BY: YONY [facility] Vnxqoh9581 [address] RoadDublin [place] [id number] WBC (Bld) [#/Vol] 6.3 10*3/uL Normal 3.4-10.8 [facility] Internal Medicine; [facility] Work Phone: Comment on above: PATIENT WAS FASTINGP ERFORMED BY: YONY [facility] Geotwc2312 [address] RoadDublin [place] [id number] Lipid Panel ([id number])Ordered B y: Manager Concrete on 08-17-2019 Cholesterol [Mass/Vol] 175 mg/dL Normal 100-199 [facility] Internal Medicine Work Phone: Comment on above: PATIENT WAS FASTINGP ERFORMED BY: CB [facility] Hqbwyw2562 [address] RoadDublin [place] [id number] Cholesterol in HDL [Mass/Vol] 55 mg/dL Normal [facility] Work Phone: Comment on above: PATIENT WAS FASTINGP ERFORMED BY: CB [facility] Tdvhgf8082 [address] RoadDublin [place] [id number] Cholesterol in LDL [Mass/Vol] 96 mg/dL Normal 0-99 [facility] Work Phone: Comment on above: PATIENT WAS FASTINGP ERFORMED BY: YONY Kidd6370 [address] Chaperone TechnologiesC[facility] Health [facility] [id number] Cholesterol in LDL/Cholesterol in HDL [Mass ratio] 1.7 {ratio} Normal 0.0-3.2 [facility] Work Phone: Comment on above: LDL/HDL Ratio Men Wo men 1/2 Avg.Risk 1.0 1.5 Avg.Risk 3.6 3.2 2X Avg.Risk 6.2 5.0 3X Avg.Risk 8.0 6.1 PATIENT WAS FASTINGP ERFORMED BY: YONY Kidd6370 [address] Chaperone TechnologiesC[facility] Health Al[facility] [id number] Cholesterol in VLDL [Mass/Vol] 24 mg/dL Normal 5-40 [facility] Work Phone: Comment on above: PATIENT WAS FASTINGP ERFORMED BY: YONY Quinterolin6370 [address] Chaperone TechnologiesCone Health Al[facility] [id number] Triglyceride [Mass/Vol] 120 mg/dL Normal 0-149 [facility] Work Phone: Comment on above: PATIENT WAS FASTINGP ERFORMED BY: YONY Quinterolin6370 [address] Chaperone TechnologiesC[facility] Health [facility] [id number] MICROALBUMINOrdered By: Syst em Cokeman on 08-17-2019 Albumin DL <= 20 mg/L (U) [Mass/Vol] 4.1 ug/mL Normal [facility] Work Phone: Comment on above: PATIENT WAS FASTINGP ERFORMED BY: YONY Quinterolin6370 [facility] [id number] Albumin/Creatinine (U) [Mass ratio] 4 {mg/g_creat} Normal 0-29 [facility] Work Phone: Comment on above: Normal: 0 - 29 Moder ately increased: 30 - 300 Severely Increased: >300 Please note reference interval change PATIENT WAS FASTINGP ERFORMED BY: YONY Quinterolin6370 [address] Chaperone TechnologiesC[facility] Health [facility] [id number] Creatinine (U) [Mass/Vol] 99.2 mg/dL Normal [facility] Work Phone: Comment on above: PATIENT WAS FASTINGP ERFORMED BY: YONY LabAnnika Obgcin0799 Maya RoadHernanblin [place] [id number] Metabolic Panel, Comprehensi ve ([id number])Ordered By: Manager Concrete on 08-17-2019 Albumin [Mass/Vol] 4.7 g/dL Normal 3.8-4.8 [facility] Internal Medicine Work Phone: Comment on above: Please note refere nce interval change PATIENT WAS FASTINGP ERFORMED BY: YONY LabAnnika QuinteroLbivtu6794 [address] Roadblin [place] [id number] Albumin/Globulin [Mass ratio] 1.7 {ratio} Normal 1.2-2.2 [facility] Work Phone: Comment on above: PATIENT WAS FASTINGP ERFORMED BY: YONY RekahAnnika QuinteroWlutto8567 Maya RoadRandolph Healthin [place] [id number] ALP [Catalytic activity/Vol] 82 [iU]/L Normal 39-117 [facility] Work Phone: Comment on above: PATIENT WAS FASTINGP ERFORMED BY: YONY LabAnnika QuinteroKyjwoq9447 [address] Roadblin [place] [id number] ALP [Catalytic activity/Vol] 82 U/L Normal 39-117 [facility]; [facility] Work Phone: Comment on above: PATIENT WAS FASTINGP ERFORMED BY: YONY LabAnnika QuinteroPeelru1162 [address] [facility] Childrenbl[facility] [place] [id number] ALT [Catalytic activity/Vol] 14 [iU]/L Normal 0-32 [facility] Work Phone: Comment on above: PATIENT WAS FASTINGP ERFORMED BY: YONY LabCokitty Holeml0091 [address] RoadDublin [place] [id number] ALT [Catalytic activity/Vol] 14 U/L Normal 0-32 [facility]; [facility] Work Phone: Comment on above: PATIENT WAS FASTINGP ERFORMED BY: YONY [facility] Iitimx6835 [address] [facility]in [place] [id number] AST [Catalytic activity/Vol] 21 [iU]/L Normal 0-40 [facility] Work Phone: Comment on above: PATIENT WAS FASTINGP ERFORMED BY: CB [facility] Qczflm3650 [address] RoadDublin [place] [id number] AST [Catalytic activity/Vol] 21 U/L Normal 0-40 [facility]; [facility] Work Phone: Comment on above: PATIENT WAS FASTINGP ERFORMED BY: CB [facility] Esdtag7034 [address] RoadDublin [place] [id number] Bilirubin [Mass/Vol] 0.5 mg/dL Normal 0.0-1.2 [facility] Work Phone: Comment on above: PATIENT WAS FASTINGP ERFORMED BY: CB [facility] Grghsn9764 [address] RoadDublin [place] [id number] Calcium [Mass/Vol] 9.4 mg/dL Normal 8.7-10.3 [facility] Internal Medicine Work Phone: Comment on above: PATIENT WAS FASTINGP ERFORMED BY: [facility] [id number] [address] RoadDublin [place] [id number] Chloride [Moles/Vol] 101 mmol/L Normal 96-106 [facility] Internal Medicine Work Phone: Comment on above: PATIENT WAS FASTINGP ERFORMED BY: [facility] [id number] RoadDublin [place] [id number] CO2 [Moles/Vol] 23 mmol/L Normal 20-29 [facility] Internal Medicine Work Phone: Comment on above: PATIENT WAS FASTINGP ERFORMED BY: CB [facility] Dszllr69[address] RoadDublin [place] [id number] Creatinine [Mass/Vol] 0.71 mg/dL Normal 0.57-1.00 [facility] Internal Medicine Work Phone: Comment on above: PATIENT WAS FASTINGP ERFORMED BY: CB [facility] [id number] RoadDublin [place] [id number] GFR/1.73 sq M predicted among blacks CKD-EPI (S/P/Bld) [Vol rate/Area] 100 mL/min/1.73 Normal [facility] Work Phone: Comment on above: PATIENT WAS FASTINGP ERFORMED BY: YONY [facility] [id number] [address] RoadRandolph Healthin [place] [id number] GFR/1.73 sq M predicted among non-blacks CKD-EPI (S/P/Bld) [Vol rate/Area] 87 mL/min/1.73 Normal [facility] Work Phone: Comment on above: PATIENT WAS FASTINGP ERFORMED BY: YONY [facility] [id number] Maya RoadCone Health Al[facility] [id number] Globulin (S) [Mass/Vol] 2.7 g/dL Normal 1.5-4.5 [facility] Internal Medicine Work Phone: Comment on above: PATIENT WAS FASTINGP ERFORMED BY: [facility] Whrzls1036 [facility] [id number] Glucose [Mass/Vol] 82 mg/dL Normal 65-99 [facility] Internal Medicine Work Phone: Comment on above: PATIENT WAS FASTINGP ERFORMED BY: YONY [facility] Isbccx1922 [facility] [id number] Potassium [Moles/Vol] 4.3 mmol/L Normal 3.5-5.2 [facility] Internal Medicine Work Phone: Comment on above: PATIENT WAS FASTINGP ERFORMED BY: [facility] [id number] [facility] [id number] Protein [Mass/Vol] 7.4 g/dL Normal 6.0-8.5 [facility] Internal Medicine Work Phone: Comment on above: PATIENT WAS FASTINGP ERFORMED BY: [facility] [id number] [facility] [id number] Sodium [Moles/Vol] 139 mmol/L Normal 134-144 [facility] Internal Medicine Work Phone: Comment on above: PATIENT WAS FASTINGP ERFORMED BY: [facility]6370 [facility] [id number] Urea nitrogen [Mass/Vol] 13 mg/dL Normal 8-27 [facility] Work Phone: Comment on above: PATIENT WAS FASTINGP ERFORMED BY: [facility] [id number] Urea nitrogen/Creatinine [Mass ratio] 18 mg/mg Normal 12- [facility] Work Phone: Comment on above: PATIENT WAS FASTINGP ERFORMED BY: [facility]6370 [facility] [id number] TSH ([id number])Ordered By: Descomplicae m Cokeman on 08-17-2019 TSH Qn 1.940 {uIU/mL} Normal 0.450-4.500 [facility] Work Phone: Comment on above: PATIENT WAS FASTINGP ERFORMED BY: [facility]6[address] [facility] [id number] URINE SANNA CULTURE-IDENTIFICA [place] ([id number])Ordered By: Manager Concrete on 06-11-2015 Bacteria identified Cx Nom (U) MUG Normal [facility] Work Phone: Comment on above: Mixed urogenital song ra1,000 Colonies/mL PATIENT NOT FASTINGP ERFORMED BY: [facility]6370 [facility] [id number] Information: [id number] Bacteria identified Cx Nom (U) Final report Normal [facility] Work Phone: Comment on above: PATIENT NOT FASTINGP ERFORMED BY: [facility]6370 [facility] [id number] Information: [id number] Urinalysis, Office (99164)Or dered By: Gabriela Hurt on 06-11-2015 Bilirubin Ql (U) Negative Normal Comprehe nsive Internal Medicine Work Phone: Bilirubin Ql (U) Negative Normal Comprehe nsive Internal Medicine; [facility] Work Phone: Glucose Test strip (U) [Mass/Vol] Negative Normal [facility] Work Phone: Glucose Test strip (U) [Mass/Vol] Negative Normal [facility]; [facility] Work Phone: Hemoglobin Ql (U) Non Hemolyzed Trace Normal [facility] Work Phone: Ketones Ql (U) Negative Normal Comprehens linnea Internal Medicine Work Phone: Ketones Ql (U) Negative Normal Comprehens linnea Internal Medicine; [facility] Work Phone: Leukocyte esterase Test strip Ql (U) Trace Normal [facility] Work Phone: Nitrite Ql (U) Negative Normal Comprehens linnea Internal Medicine Work Phone: Nitrite Ql (U) Negative Normal Comprehens linnea Internal Medicine; [facility] Work Phone: pH (U) 5 [pH] Abnormal [facility] Work Phone: Protein Ql (U) Negative Normal Comprehens linnea Internal Medicine Work Phone: Protein Ql (U) Negative Normal Comprehens linnea Internal Medicine; [facility] Work Phone: Specific gravity (U) [Rel density] 1.030 1 Abnormal [facility] Work Phone: Urobilinogen (24H U) [Mass/Time] Normal Normal [facility] Work Phone: HgA1C , Office ([phone])Ordere d By: Dorothea Fast on 01-17-2015 HbA1c (Bld) [Mass fraction] 5.8 % Normal 4.6 - 7.1 [facility] Work Phone: HgA1C , Office (81830)Ordere d By: Dorothea Fast on 07-12-2014 HbA1c (Bld) [Mass fraction] 5.8 % Normal 4.6 - 7.1 [facility] Work Phone: HgA1C , Office (68694)Ordere d By: Sunita Charles on 01-18-2014 HbA1c (Bld) [Mass fraction] 5.9 % Normal 4.6 - 7.1 [facility] Work Phone: URINE SANNA CULTURE-BOOGIE COL C OUNT ([phone])Ordered By: Manager Concrete on 10-26-2013 Bacteria identified Cx Nom (U) Escherichia coli Abnormal [facility] Work Phone: Comment on above: Greater than 100,000 colony forming units per mL PATIENT NOT FASTINGP ERFORMED BY: YONY LabNOTIKrp Mgtxwt3399 [facility]Bl[facility]EC[facility] [id number] Information: SRC:UR [id number] Bacteria identified Cx Nom (U) Final report Abnormal [facility] Work Phone: Comment on above: PATIENT NOT FASTINGP ERFORMED BY: Makstr LabNOTIKrp Ptyxvl2734 [address] AVA SolarSaint Elizabeth Hebron [id number] Information: SRC:TOMY [id number] Other Antibiotic [Susc] MIHEAD Normal [facility] Work Phone: Comment on above: S = Susceptibl e; I = Intermediate; R = Resistant P = Positive; N = Negative MICS are expressed in micrograms per mL Antibiotic RSLT#1 RSLT#2 RSLT#3 RSLT#4Amoxicillin/Clavulanic Acid SAmpicillin SCefepime SCeftriaxone SCefuroxime SCephalothin SCiprofloxacin SErtapenem SGentamicin SImipenem SLevofloxacin SNitrofurantoin SPiperacillin STetracycline STobramycin STrimethoprim/Sulfa S PATIENT NOT FASTINGP ERFORMED BY: LabNOTIKrp Rfaaic4087 [address] Chaperone TechnologiesCone Health Al[facility] Regional [id number] Information: SRC:TOMY [id number] Urinalysis, Office (38894)Or dered By: Lynn Finley on 10-26-2013 Bilirubin Ql (U) Negative Normal Comprehe nsive Internal Medicine Work Phone: Bilirubin Ql (U) Negative Normal Comprehe nsive Internal Medicine; [facility] Work Phone: Glucose Test strip (U) [Mass/Vol] Negative Normal [facility] Work Phone: Glucose Test strip (U) [Mass/Vol] Negative Normal [facility]; [facility] Work Phone: Hemoglobin Ql (U) Non Hemolyzed Trace Normal [facility] Work Phone: Ketones Ql (U) Negative Normal Comprehens linnea Internal Medicine Work Phone: Ketones Ql (U) Negative Normal Comprehens [facility]nea [facility] Medicine; [facility] Work Phone: Leukocyte esterase Test strip Ql (U) Trace Normal [facility] Work Phone: Nitrite Ql (U) Negative Normal Comprehens linnea Internal Medicine Work Phone: Nitrite Ql (U) Negative Normal Comprehens linnea [facility] Medicine; [facility] Work Phone: pH (U) 6 [pH] Abnormal [facility] Work Phone: Protein Ql (U) 30 mg/dL Normal Comprehens linnea Internal Medicine Work Phone: Specific gravity (U) [Rel density] 1.030 1 Abnormal [facility] Work Phone: Urobilinogen (24H U) [Mass/Time] Normal Normal [facility] Work Phone: Blood Glucose , Office ([phone])Ordered By: Roxann Scott on 06-08-2013 Glucose Glucometer (BldC) [Moles/Vol] 113 1 Normal [facility] Work Phone: Comment on above: non-fasting HgA1C , Office (56292)Ordere d By: Roxann Scott on 06-08-2013 HbA1c (Bld) [Mass fraction] 5.6 % Normal 4.6 - 7.1 [facility] Work Phone: HgA1C , Office (02893)Ordere d By: Sunita Charles on 02-09-2013 HbA1c (Bld) [Mass fraction] 5.7 % Normal 4.6 - 7.1 [facility] Work Phone: HgA1C , Office (13107)Ordere d By: Sunita Charles on 09-29-2012 HbA1c (Bld) [Mass fraction] 5.4 % Normal 4.6 - 7.1 [facility] Work Phone: Blood Glucose , Office ([phone])Ordered By: Michaela Aguirre on 05-26-2012 Glucose Glucometer (BldC) [Moles/Vol] 123 1 Normal [facility] Work Phone: HgA1C , Office ([phone])Ordere d By: Michaela Aguirre on 05-26-2012 HbA1c (Bld) [Mass fraction] 5.8 % Normal 4.6 - 7.1 [facility] Work Phone: Blood Glucose , Office ([phone])Ordered By: Sunita Charles on 01-25-2012 Glucose Glucometer (BldC) [Moles/Vol] 148 1 Normal [facility] Work Phone: HgA1C , Office (47644)Ordere d By: Sunita Charles on 01-25-2012 HbA1c (Bld) [Mass fraction] 6.0 % Normal 4.6 - 7.1 [facility] Work Phone: CHASIDY (ANTINUCLEAR ANTIBODY) ( [phone])Ordered By: Manager Concrete on 07-30-2011 Nuclear Ab Ql (S) Negative Normal Compreh ensive Internal Medicine Work Phone: Comment on above: PATIENT NOT FASTINGP ERFORMED BY: CB [facility] Eunqda7602 [facility] [id number] Nuclear Ab Ql (S) Negative Normal Compreh ensive Internal Medicine; [facility] Work Phone: Comment on above: PATIENT NOT FASTINGP ERFORMED BY: CB [facility] Yexvap5102 [facility] [id number] Blood Glucose , Office ([phone])Ordered By: Sunita Charles on 07-30-2011 Glucose Glucometer (BldC) [Moles/Vol] 113 1 Normal [facility] Work Phone: C-REACTIVE PROTEIN ([phone])Or dered By: Manager Concrete on 07-30-2011 CRP [Mass/Vol] 1.5 mg/L Normal 0.0-4.9 Comprehens linnea Internal Medicine Work Phone: Comment on above: PATIENT NOT FASTINGP ERFORMED BY: PlayHavenCommunity Medical CenterDqlszg1638 [facility] [id number] HgA1C , Office (40343)Ordere d By: Sunita Charles on 07-30-2011 HbA1c (Bld) [Mass fraction] 5.6 % Normal 4.6 - 7.1 [facility] Work Phone: RHEUMATOID FACTOR-QUANT ([phone])Ordered By: Manager Concrete on 07-30-2011 Rheumatoid factor Qn 7.0 {IU/mL} Normal 0.0-13.9 Com prehensive Internal Medicine Work Phone: Comment on above: PATIENT NOT FASTINGP ERFORMED BY: A la MobileAndrew Ville 5654370 [facility] [id number] Information: [id number] Rheumatoid factor Qn 7.0 [IU]/mL Normal 0.0-13.9 Com prehensive Internal Medicine; [facility] Work Phone: Comment on above: PATIENT NOT FASTINGP ERFORMED BY: PlayHavenCommunity Medical CenterZnlbsv3754 [facility] [id number] Information: [id number] SED RATE ERYTHROCYTE (71683) Ordered By: Manager Concrete on 07-30-2011 ESR (Bld) [Velocity] 2 mm/h Normal 0-56 Comp rehensive Internal Medicine Work Phone: Comment on above: Please note refere nce interval change PATIENT NOT FASTINGP ERFORMED BY: [facility] la MobilePromedica [facility] Hospital6370 [facility] [id number] VIRAL CULTURE (88659)Ordered By: Manager Concrete on 07-02-2011 Virus identified Cx Nom (Unsp spec) No virus isolated. Normal [facility] Work Phone: Comment on above: Please indicate sour ce of specimen on all future request forms. PATIENT NOT FASTINGP ERFORMED BY: [employer] [id number] Information: [id number] Blood Glucose , Office ([phone])Ordered By: Sunita Charles on 03-19-2011 Glucose Glucometer (BldC) [Moles/Vol] 94 1 Normal [facility] Work Phone: HgA1C , Office (87343)Ordere d By: Sunita Charles on 03-19-2011 HbA1c (Bld) [Mass fraction] 5.5 % Normal 4.6 - 7.1 [facility] Work Phone: SANNA CULTURE-OTHER ([phone])Ord ered By: Manager Concrete on 12-24-2010 Bacteria identified Respiratory culture Nom (Unsp spec) Final report Normal [facility] Work Phone: Comment on above: PATIENT NOT FASTINGP ERFORMED BY: YONY LabWineShopox Chaperone TechnologiesCone Health Al[facility] Regional [id number] Information: SRC:SIRISHA [id number] Bacteria identified Respiratory culture Nom (Unsp spec) RRF Normal [facility] Work Phone: Comment on above: Routine respiratory bob PATIENT NOT FASTINGP ERFORMED BY: Makstr [facility]Mer[facility] [id number] Information: SRC:SRIISHA [id number] Rapid Strep Test, Office ([phone])on 12-24-2010 S. pyogenes Ag EIA Ql (Throat) Negative Normal [facility]; [facility] Work Phone: S. pyogenes Ag IA Ql (Unsp spec) Negative Normal [facility] Work Phone: Blood Glucose , Office ([phone])Ordered By: Sunita Charles on 11-10-2010 Glucose Glucometer (BldC) [Moles/Vol] 91 1 Normal [facility] Work Phone: HgA1C , Office (03215)Ordere d By: Sunita Charles on 11-10-2010 HbA1c (Bld) [Mass fraction] 6.1 % Normal 4.6 - 7.1 [facility] Work Phone: Blood Glucose , Office ([phone])Ordered By: Sunita Charles on 07-15-2010 Glucose Glucometer (BldC) [Moles/Vol] 101 1 Normal [facility] Work Phone: HgA1C , Office (27036)Ordere d By: Sunita Charles on 07-15-2010 HbA1c (Bld) [Mass fraction] 5.7 % Normal 4.6 - 7.1 [facility] Work Phone: Blood Glucose , Office ([phone])Ordered By: Sunita Charles on 11-03-2009 Glucose Glucometer (BldC) [Moles/Vol] 105 1 Normal [facility] Work Phone: HgA1C , Office ([phone])Ordere d By: Dorothea Erazo on 11-03-2009 HbA1c (Bld) [Mass fraction] 5.8 % Normal 4.6 - 7.1 [facility] Work Phone: Rapid Strep Test, Office ([phone])on 09-23-2009 S. pyogenes Ag EIA Ql (Throat) Negative Normal [facility]; [facility] Work Phone: Comment on above: neg S. pyogenes Ag IA Ql (Unsp spec) Negative Normal [facility] Work Phone: Comment on above: neg Blood Glucose , Office ([phone])Ordered By: Sunita Charles on 07-04-2009 Glucose Glucometer (BldC) [Moles/Vol] 100 1 Normal [facility] Work Phone: HgA1C , Office (77742)Ordere d By: Sunita Charles on 07-04-2009 HbA1c (Bld) [Mass fraction] 5.5 % Normal 4.6 - 7.1 [facility] Work Phone: Blood Glucose , Office ([phone])Ordered By: Sunita Charles on 01-21-2009 Glucose Glucometer (BldC) [Moles/Vol] 116 1 Normal [facility] Work Phone: HgA1C , Office (52868)Ordere d By: Sunita Charles on 01-21-2009 HbA1c (Bld) [Mass fraction] 5.5 % Normal 4.6 - 7.1 [facility] Work Phone: Thin prep Pap ([phone])Ordered By: Dorothea Erazo on 07-30-2008 Microscopic observation Other stain Nom (Unsp spec) . Normal Comprehens linnea Internal Medicine Work Phone: Comment on above: LMP / Prev Treat...L II=[id number]. of containers..01 CYTYC Thin Prep VialPATIENT NOT FASTINGClinical Information: ADD [id number] PERFORMED BY: [employer] [address] [id number] Pathology report final diagnosis Narrative SPRCS Normal Comprehensiv e Internal Medicine Work Phone: Comment on above: NEGATIVE FOR INTRAEP ITHELIAL LESION AND MALIGNANCY.Satisfactory for evaluation. Endocervical component may not bedistinguished in cases of atrophy.V72.31 ; Routine gynecological examinationChfelicitas Mendes, Consulting Networking Engineer (ASCP)Irena Santos, Supervisory Consulting Networking Engineer (ASCP) LMP / Prev Treat...L JH=[id number]. of containers..01 CYTYC Thin Prep VialPATIENT NOT FASTINGClinical Information: ADD [id number] PERFORMED BY: [employer] [address] [id number] Thin prep Pap (76197) PAPSMR Normal Com prehensive Internal Medicine Work Phone: Comment on above: The Pap smear is a s creening test designed to aid in the detection ofpremalignant and malignant conditions of the uterine cervix. It is not adiagnostic procedure and should not be used as the sole means of detectingcervical cancer. Both false-positive and false-negative reports do occur. .The HPV DNA reflex criteria were not met with this specimen resulttherefore, no HPV testing was performed. . LMP / Prev Treat...L WV=[id number]. of containers..01 CYTYC Thin Prep VialPATIENT NOT FASTINGClinical Information: ADD [id number] PERFORMED BY: [employer] [address] [id number] Blood Glucose , Office (8296 2)Ordered By: Sunita Charles on 06-18-2008 Glucose Glucometer (BldC) [Moles/Vol] 115 1 Normal [facility] Work Phone: HgA1C , Office (42150)Ordere d By: Sunita Charles on 06-18-2008 HbA1c (Bld) [Mass fraction] 5.5 % Normal 4.6 - 7.1 [facility] Work Phone: Blood Glucose , Office ([phone] 2)Ordered By: Sunita Charles on 01-01-2008 Glucose Glucometer (BldC) [Moles/Vol] 110 1 Normal [facility] Work Phone: HgA1C , Office (64582)Ordere d By: Dorothea Fast on 01-01-2008 HbA1c (Bld) [Mass fraction] 5.5 % Normal 4.6 - 7.1 [facility] Work Phone: Blood Glucose , Office ([phone] 2)Ordered By: Sunita Charles on 07-28-2007 Glucose Glucometer (BldC) [Moles/Vol] 89 1 Normal [facility] Work Phone: Blood Glucose , Office ([phone] 2)Ordered By: Sunita Charles on 04-26-2007 Glucose Glucometer (BldC) [Moles/Vol] 92 1 Normal [facility] Work Phone: HgA1C , Office (49052)Ordere d By: Sunita Charles on 04-26-2007 HbA1c (Bld) [Mass fraction] 5.2 % Normal 4.6 - 7.1 [facility] Work Phone: Blood Glucose , Office ([phone] 2)Ordered By: Dorothea Fast on 02-06-2007 Glucose Glucometer (BldC) [Moles/Vol] 119 1 Normal [facility] Work Phone: HgA1C , Office (94999)Ordere d By: Dorothea Fast on 02-06-2007 HbA1c (Bld) [Mass fraction] 5.2 % Normal 4.6 - 7.1 [facility] Work Phone: Vital Signs Date Time Vital Sign Value Performing Clinician Facility 03-01-2023 12:110400 Body height 157.48 cm ARON Cowan Work Phone: [facility] 12-21-2022 09:25-040 Body height 160.66 cm Dolly Slarb CNC APPLICATIONS ENGINEER [facility]; [facility] Work Phone: 12-21-2022 09:25-0400 Body mass index (BMI) [Ratio] 28.82 kg/m2 Dolly Slarb CNC APPLICATIONS ENGINEER [facility]; [facility] Work Phone: 12-21-2022 09:25-040 Body surface area Derived from formula 1.78 m2 Dolly Slarb CNC APPLICATIONS ENGINEER [facility]; [facility] Work Phone: 12-21-2022 09:25-040 Body temperature 98.3 [degF] Dolly Slarb CNC APPLICATIONS ENGINEER [facility]; [facility] Work Phone: Comment on above: Method: Temporal 12-21-2022 09:25-0400 Body weight 74.39 kg Dolly Slarb CNC APPLICATIONS ENGINEER [facility]; [facility] Work Phone: 12-21-2022 09:25-040 Diastolic blood pressure 78 mm[Hg] Dolly Slarb CNC APPLICATIONS ENGINEER [facility]; [facility] Work Phone: Comment on above: Patient Position: Sitting; Cuff Location : Left Arm; Cuff Size: Standard 12-21-2022 09:25-0400 Heart rate 78 /min Dolly Slarb CNC APPLICATIONS ENGINEER [facility]; [facility] Work Phone: Comment on above: Pattern: Regular 12-21-2022 09:25-0400 Respiratory rate 16 /min Dolly Slarb CNC APPLICATIONS ENGINEER [facility]; [facility] Work Phone: Comment on above: Pattern: Unlabored 12-21-2022 09:25-0400 SaO2% (BldA) [Mass fraction] 95 % Dolly Slarb CNC APPLICATIONS ENGINEER [facility]; [facility] Work Phone: Comment on above: Room air 12-21-2022 09:25-0400 Systolic blood pressure 116 mm[Hg] Dolly Mario Alberto HERNANDEZ [facility]; [facility] Work Phone: Comment on above: Patient Position: Sitting; Cuff Location : Left Arm; Cuff Size: Standard 12-03-2022 09:46-0400 Body height 160.66 cm Raymond Cowan CNP Work Phone: [facility]; [facility] Work Phone: 12-03-2022 09:46-0400 Body mass index (BMI) [Ratio] 28.73 kg/m2 Raymond Cowan CNP Work Phone: [facility]; [facility] Work Phone: 12-03-2022 09:46-0400 Body surface area Derived from formula 1.78 m2 Raymond Cowan CNP Work Phone: [facility]; [facility] Work Phone: 12-03-2022 09:46-0400 Body temperature 98 [degF] Raymond Cowan CNP Work Phone: [facility]; [facility] Work Phone: 12-03-2022 09:46-0400 Body weight 74.16 kg Raymond Cowan CNP Work Phone: [facility]; [facility] Work Phone: 12-03-2022 09:46-0400 Diastolic blood pressure 60 mm[Hg] Raymond Cowan CNP Work Phone: [facility]; [facility] Work Phone: Comment on above: Patient Position: Sitting; Cuff Location : Left Arm; Cuff Size: Standard 12-03-2022 09:46-0400 Heart rate 75 /min Raymond Cowan CNP Work Phone: [facility]; [facility] Work Phone: Comment on above: Pattern: Regular 12-03-2022 09:46-0400 Respiratory rate 16 /min Raymond Cowan CNP Work Phone: [facility]; [facility] Work Phone: Comment on above: Pattern: Unlabored 12-03-2022 09:46-0400 SaO2% (BldA) [Mass fraction] 94 % Raymond Cowan HARD CANDY SPINNER Work Phone: [facility]; [facility] Work Phone: Comment on above: Room air 12-03-2022 09:46-0400 Systolic blood pressure 110 mm[Hg] Raymond Cowan HARD CANDY SPINNER Work Phone: [facility]; [facility] Work Phone: Comment on above: Patient Position: Sitting; Cuff Location : Left Arm; Cuff Size: Standard 01-22-2022 07:12-0400 Body height 160.66 cm Dolly Slarb CNC APPLICATIONS ENGINEER [facility]; [facility] Work Phone: 01-22-2022 07:12-0400 Body mass index (BMI) [Ratio] 28.51 kg/m2 Dolly Slarb CNC APPLICATIONS ENGINEER [facility]; [facility] Work Phone: 01-22-2022 07:12-0400 Body surface area Derived from formula 1.77 m2 Dolly Slarb CNC APPLICATIONS ENGINEER [facility]; [facility] Work Phone: 01-22-2022 07:12-0400 Body temperature 97.1 [degF] Dolly Slarb CNC APPLICATIONS ENGINEER [facility]; [facility] Work Phone: 01-22-2022 07:12-0400 Body weight 73.6 kg Dolly Slarb CNC APPLICATIONS ENGINEER [facility]; [facility] Work Phone: 01-22-2022 07:12-0400 Diastolic blood pressure 82 mm[Hg] Dolly Slarb CNC APPLICATIONS ENGINEER [facility]; [facility] Work Phone: Comment on above: Patient Position: Sitting; Cuff Location : Left Arm; Cuff Size: Standard 01-22-2022 07:12-0400 Heart rate 76 /min Dolly Slarb CNC APPLICATIONS ENGINEER [facility]; [facility] Work Phone: Comment on above: Pattern: Regular 07-01-2022 07:12-0400 Respiratory rate 16 /min Dolly Llanes DAVID [facility]; [facility] Work Phone: Comment on above: Pattern: Unlabored 01-22-2022 07:12-0400 SaO2% (BldA) [Mass fraction] 96 % Dolly Llanes LPN [facility]; [facility] Work Phone: Comment on above: Room air 01-22-2022 07:12-0400 Systolic blood pressure 130 mm[Hg] Dolly Llanes DAVID [facility]; [facility] Work Phone: Comment on above: Patient Position: Sitting; Cuff Location : Left Arm; Cuff Size: Standard 04-03-2021 08:38-0400 Body height 160.66 cm Pallavi Coulter MA [facility]; [facility] Work Phone: 04-03-2021 08:38-0400 Body mass index (BMI) [Ratio] 27.77 kg/m2 Pallavi Coulter MA [facility]; [facility] Work Phone: 04-03-2021 08:38-0400 Body surface area Derived from formula 1.75 m2 Pallavi Coulter MA [facility]; [facility] Work Phone: 04-03-2021 08:38-0400 Body temperature 97.1 [degF] Pallavi Coulter MA [facility]; [facility] Work Phone: 04-03-2021 08:38-0400 Body weight 71.68 kg Pallavi Coulter MA [facility]; [facility] Work Phone: 04-03-2021 08:38-0400 Diastolic blood pressure 80 mm[Hg] Pallavi Coulter MA [facility]; [facility] Work Phone: Comment on above: Patient Position: Sitting; Cuff Location : Left Arm; Cuff Size: Standard 04-03-2021 08:38-0400 Heart rate 77 /min Pallavi Coulter MA [facility]; [facility] Work Phone: Comment on above: Pattern: Regular 04-03-2021 08:38-0400 SaO2% (BldA) [Mass fraction] 97 % Pallavi Coulter MA [facility]; [facility] Work Phone: Comment on above: Room air 04-03-2021 08:38-0400 Systolic blood pressure 126 mm[Hg] Pallavi Coulter MA [facility]; [facility] Work Phone: Comment on above: Patient Position: Sitting; Cuff Location : Left Arm; Cuff Size: Standard 12-30-2020 07:56-0400 Body height 160.66 cm Nikolas Ellsworth LPN [facility]; [facility] Work Phone: 12-30-2020 07:56-0400 Body mass index (BMI) [Ratio] 28.47 kg/m2 Nikolas Ellsworth LPN [facility]; [facility] Work Phone: 12-30-2020 07:56-0400 Body surface area Derived from formula 1.77 m2 Nikolas Ellsworth LPN [facility]; [facility] Work Phone: 12-30-2020 07:56-0400 Body temperature 97.1 [degF] Nikolas Ellsworth LPN [facility]; [facility] Work Phone: Comment on above: Method: Infrared 12-30-2020 07:56-0400 Body weight 73.49 kg Nikolas Ellsworth LPN [facility]; [facility] Work Phone: 12-30-2020 07:56-0400 Diastolic blood pressure 78 mm[Hg] Nikolas Ellsworth LPN [facility]; [facility] Work Phone: Comment on above: Patient Position: Sitting; Cuff Location : Left Arm; Cuff Size: Standard 12-30-2020 07:56-0400 Heart rate 78 /min Nikolas Ellsworth LPN [facility]; [facility] Work Phone: Comment on above: Pattern: Regular 12-30-2020 07:56-0400 Respiratory rate 16 /min Nikolas Ellsworth LPN [facility]; [facility] Work Phone: Comment on above: Pattern: Unlabored 12-30-2020 07:56-0400 SaO2% (BldA) [Mass fraction] 96 % Nikolas Ellsworth LPN [facility]; [facility] Work Phone: Comment on above: Room air 12-30-2020 07:56-0400 Systolic blood pressure 118 mm[Hg] Nikolas Ellsworth LPN [facility]; [facility] Work Phone: Comment on above: Patient Position: Sitting; Cuff Location : Left Arm; Cuff Size: Standard 09-30-2020 07:50-0500 BMI (Body Mass Index) 30.06 kg/m2 Nikolas Ellsworth LPN [facility]; [facility] Work Phone: 09-30-2020 07:50-0500 Body Temperature 98.2 [degF] Nikolas Ellsworth LPN [facility]; [facility] Work Phone: Comment on above: Method: Infrared 09-30-2020 07:50-0500 Body weight 77.59 kg Nikolas Ellsworth LPN [facility]; [facility] Work Phone: 09-30-2020 07:50-0500 BP Diastolic 78 mm[Hg] Nikolas Ellsworth LPN [facility]; [facility] Work Phone: Comment on above: Patient Position: Sitting; Cuff Location : Left Arm; Cuff Size: Standard 09-30-2020 07:50-0500 BP Systolic 126 mm[Hg] Nikolas Ellsworth LPN [facility]; [facility] Work Phone: Comment on above: Patient Position: Sitting; Cuff Location : Left Arm; Cuff Size: Standard 09-30-2020 07:50-0500 BSA (Body Surface Area) 1.81 m2 Nikolas Ellsworth LPN [facility]; [facility] Work Phone: 09-30-2020 07:50-0500 Height 160.66 cm Nikolas Ellsworth LPN [facility]; [facility] Work Phone: 09-30-2020 07:50-0500 Pulse (Heart Rate) 87 /min Nikolas Ellsworth LPN [facility]; [facility] Work Phone: Comment on above: Pattern: Regular 09-30-2020 07:50-0500 Pulse Oximetry 93 % Yadi Soliman [facility]; [facility] Work Phone: Comment on above: Room air 09-30-2020 07:50-0500 Respiratory Rate 16 /min Nikolas Ellsworth LPN [facility]; [facility] Work Phone: Comment on above: Pattern: Unlabored 09-30-2020 07:50-0500 SaO2% (BldA) [Mass fraction] 93 % Nikolas Ellsworth LPN [facility]; [facility] Work Phone: Comment on above: Room air 09-15-2020 09:03-0500 BMI (Body Mass Index) 30.58 kg/m2 Nikolas Ellsworth LPN [facility]; [facility] Work Phone: 09-15-2020 09:03-0500 Body Temperature 97.7 [degF] Nikolas Ellsworth LPN [facility]; [facility] Work Phone: Comment on above: Method: Infrared 09-15-2020 09:03-0500 Body weight 78.93 kg Nikolas Ellsworth LPN [facility]; [facility] Work Phone: 09-15-2020 09:03-0500 BP Diastolic 84 mm[Hg] Nikolas Ellsworth LPN [facility]; [facility] Work Phone: Comment on above: Patient Position: Sitting; Cuff Location : Left Arm; Cuff Size: Standard 09-15-2020 09:03-0500 BP Systolic 138 mm[Hg] Nikolas Ellsworth LPN [facility]; [facility] Work Phone: Comment on above: Patient Position: Sitting; Cuff Location : Left Arm; Cuff Size: Standard 09-15-2020 09:03-0500 BSA (Body Surface Area) 1.83 m2 Nikolas Ellsworth LPN [facility]; [facility] Work Phone: 09-15-2020 09:03-0500 Height 160.66 cm Nikolas Ellsworth LPN [facility]; [facility] Work Phone: 09-15-2020 09:03-0500 Pulse (Heart Rate) 74 /min Nikolas Ellsworth LPN [facility]; [facility] Work Phone: Comment on above: Pattern: Regular 09-15-2020 09:03-0500 Pulse Oximetry 93 % Yadi Soliman [facility]; [facility] Work Phone: Comment on above: Room air 09-15-2020 09:03-0500 Respiratory Rate 17 /min Nikolas Ellsworth LPN [facility]; [facility] Work Phone: Comment on above: Pattern: Unlabored 09-15-2020 09:03-0500 SaO2% (BldA) [Mass fraction] 93 % Nikolas Ellsworth LPN [facility]; [facility] Work Phone: Comment on above: Room air 06-16-2020 15:54-0500 BMI (Body Mass Index) 30.58 kg/m2 Nikolas oswald [facility] Work Phone: 06-16-2020 15:54-0500 Body weight 78.93 kg Nikolas Ellsworth LPN [facility] Work Phone: 06-16-2020 15:54-0500 BSA (Body Surface Area) 1.83 m2 Nikolas Ellsworth LPN [facility] Work Phone: 06-16-2020 15:54-0500 Height 160.66 cm Nikolas Ellsworth LPN [facility] Work Phone: 06-02-2020 07:49-0500 BMI (Body Mass Index) 30.58 kg/m2 Nikolas figueroa [facility] Work Phone: 06-02-2020 07:49-0500 Body Temperature 97.6 [degF] Nikolas Ellsworth LPN [facility] Work Phone: Comment on above: Method: Infrared 06-02-2020 07:49-0500 Body weight 78.93 kg Nikolas Ellsworth LPN [facility] Work Phone: 06-02-2020 07:49-0500 BP Diastolic 76 mm[Hg] Nikolas Ellsworth LPN [facility] Work Phone: Comment on above: Patient Position: Sitting; Cuff Location : Left Arm; Cuff Size: Standard 06-02-2020 07:49-0500 BP Systolic 118 mm[Hg] Nikolas Ellsworth LPN [facility] Work Phone: Comment on above: Patient Position: Sitting; Cuff Location : Left Arm; Cuff Size: Standard 06-02-2020 07:49-0500 BSA (Body Surface Area) 1.83 m2 Nikolas Ellsworth LPN [facility] Work Phone: 06-02-2020 07:49-0500 Height 160.66 cm Nikolas Ellsworth LPN [facility] Work Phone: 06-02-2020 07:49-0500 Pulse (Heart Rate) 91 /min Nikolas Ellsworth LPN [facility] Work Phone: Comment on above: Pattern: Regular 06-02-2020 07:49-0500 Pulse Oximetry 96 % Yadi Soliman [facility] Work Phone: Comment on above: Room air 06-02-2020 07:49-0500 Respiratory Rate 16 /min Nikolas Ellsworth LPN [facility] Work Phone: Comment on above: Pattern: Unlabored 06-02-2020 07:49-0500 SaO2% (BldA) [Mass fraction] 96 % Nikolas Ellsworth LPN [facility]; [facility] Work Phone: Comment on above: Room air 05-19-2020 10:09-0400 BMI (Body Mass Index) 30.58 kg/m2 Nikolas Ellsworth LPN [facility] Work Phone: 05-19-2020 10:09-0400 Body Temperature 96.9 [degF] Nikolas Ellsworth LPN [facility] Work Phone: Comment on above: Method: Infrared 05-19-2020 10:090400 Body weight 78.93 kg Nikolas Ellsworth LPN [facility] Work Phone: 05-19-2020 10:09-0400 BP Diastolic 78 mm[Hg] Nikolas Ellsworth LPN [facility] Work Phone: Comment on above: Patient Position: Sitting; Cuff Location : Left Arm; Cuff Size: Standard 05-19-2020 10:09-0400 BP Systolic 126 mm[Hg] Nikolas Ellsworth LPN [facility] Work Phone: Comment on above: Patient Position: Sitting; Cuff Location : Left Arm; Cuff Size: Standard 05-19-2020 10:09-0400 BSA (Body Surface Area) 1.83 m2 Nikolas Ellsworth LPN [facility] Work Phone: 05-19-2020 10:09-0400 Height 160.66 cm Nikolas Ellsworth LPN [facility] Work Phone: 05-19-2020 10:09-0400 Pulse (Heart Rate) 79 /min Nikolas Ellsworth LPN [facility] Work Phone: Comment on above: Pattern: Regular 05-19-2020 10:09-0400 Pulse Oximetry 97 % Yadi Francoflip [facility] Work Phone: Comment on above: Room air 05-19-2020 10:09-0400 Respiratory Rate 16 /min Nikolas Ellsworth LPN [facility] Work Phone: Comment on above: Pattern: Unlabored 05-19-2020 10:09-0400 SaO2% (BldA) [Mass fraction] 97 % Nikolas Ellsworth LPN [facility]; [facility] Work Phone: Comment on above: Room air 01-08-2020 08:26-0400 BMI (Body Mass Index) 30.23 kg/m2 Nikolas Ellsworth LPN [facility] Work Phone: 01-08-2020 08:26-0400 Body Temperature 97.5 [degF] Nikolas Ellsworth LPN [facility] Work Phone: Comment on above: Method: Temporal 01-08-2020 08:26-0400 Body weight 78.02 kg Nikolas Ellsworth LPN [facility] Work Phone: 01-08-2020 08:26-0400 BP Diastolic 78 mm[Hg] Nikolas Ellsworth LPN [facility] Work Phone: Comment on above: Patient Position: Sitting; Cuff Location : Left Arm; Cuff Size: Standard 01-08-2020 08:26-0400 BP Systolic 124 mm[Hg] Nikolas Ellsworth LPN [facility] Work Phone: Comment on above: Patient Position: Sitting; Cuff Location : Left Arm; Cuff Size: Standard 01-08-2020 08:26-0400 BSA (Body Surface Area) 1.82 m2 Nikolas Ellsworth LPN [facility] Work Phone: 01-08-2020 08:26-0400 Height 160.66 cm iNkolas Ellsworth LPN [facility] Work Phone: 01-08-2020 08:26-0400 Pulse (Heart Rate) 79 /min Nikolas Ellsworth LPN [facility] Work Phone: Comment on above: Pattern: Regular 01-08-2020 08:26-0400 Pulse Oximetry 98 % Yadi Soliman [facility] Work Phone: Comment on above: Room air 01-08-2020 08:26-0400 Respiratory Rate 17 /min Nikolas Ellsworth LPN [facility] Work Phone: Comment on above: Pattern: Unlabored 01-08-2020 08:26-0400 SaO2% (BldA) [Mass fraction] 98 % Nikolas Ellsworth LPN [facility]; [facility] Work Phone: Comment on above: Room air 08-31-2019 14:16-0500 BMI (Body Mass Index) 29.52 kg/m2 Nikolas Ellsworth LPN [facility] Work Phone: 08-31-2019 14:16-0500 Body Temperature 98.4 [degF] Nikolas Ellsworth LPN [facility] Work Phone: Comment on above: Method: Temporal 08-31-2019 14:16-0500 Body weight 76.2 kg Nikolas Ellsworth LPN [facility] Work Phone: 08-31-2019 14:16-0500 BP Diastolic 70 mm[Hg] Nikolas Ellsworth LPN [facility] Work Phone: Comment on above: Patient Position: Sitting; Cuff Location : Left Arm; Cuff Size: Standard 08-31-2019 14:16-0500 BP Systolic 116 mm[Hg] Nikolas Ellsworth LPN [facility] Work Phone: Comment on above: Patient Position: Sitting; Cuff Location : Left Arm; Cuff Size: Standard 08-31-2019 14:16-0500 BSA (Body Surface Area) 1.8 m2 Nikolas Ellsworth LPN [facility] Work Phone: 08-31-2019 14:16-0500 Height 160.66 cm Nikolas Ellsworth LPN [facility] Work Phone: 08-31-2019 14:16-0500 Pulse (Heart Rate) 78 /min Nikolas Ellsworth LPN [facility] Work Phone: Comment on above: Pattern: Regular 08-31-2019 14:16-0500 Pulse Oximetry 97 % Yadi Soliman [facility] Work Phone: Comment on above: Room air 08-31-2019 14:16-0500 Respiratory Rate 16 /min Nikolas Ellsworth LPN [facility] Work Phone: Comment on above: Pattern: Unlabored 08-31-2019 14:16-0500 SaO2% (BldA) [Mass fraction] 97 % Nikolas Ellsworth LPN [facility]; [facility] Work Phone: Comment on above: Room air 08-17-2019 07:46-0500 BMI (Body Mass Index) 28.75 kg/m2 Nikolas Ellsworth LPN [facility] Work Phone: 08-17-2019 07:46-0500 Body Temperature 97.9 [degF] Nikolas Ellsworth LPN [facility] Work Phone: Comment on above: Method: Temporal 08-17-2019 07:46-0500 Body weight 74.21 kg Nikolas Ellsworth LPN [facility] Work Phone: 08-17-2019 07:46-0500 BP Diastolic 70 mm[Hg] Nikolas Ellsworth LPN [facility] Work Phone: Comment on above: Patient Position: Sitting; Cuff Location : Left Arm; Cuff Size: Standard 08-17-2019 07:46-0500 BP Systolic 122 mm[Hg] Nikolas Ellsworth LPN [facility] Work Phone: Comment on above: Patient Position: Sitting; Cuff Location : Left Arm; Cuff Size: Standard 08-17-2019 07:46-0500 BSA (Body Surface Area) 1.78 m2 Nikolas Ellsworth LPN [facility] Work Phone: 08-17-2019 07:46-0500 Height 160.66 cm Nikolas Ellsworth LPN [facility] Work Phone: 08-17-2019 07:46-0500 Pulse (Heart Rate) 92 /min Nikolas Ellsworth LPN [facility] Work Phone: Comment on above: Pattern: Regular 08-17-2019 07:46-0500 Pulse Oximetry 99 % Yadi Soliman [facility] Work Phone: Comment on above: Room air 08-17-2019 07:46-0500 Respiratory Rate 16 /min Nikolas Ellsworth LPN [facility] Work Phone: Comment on above: Pattern: Unlabored 08-17-2019 07:46-0500 SaO2% (BldA) [Mass fraction] 99 % Nikolas Ellsworth LPN [facility]; [facility] Work Phone: Comment on above: Room air 05-30-2015 07:51-0500 BP Diastolic 78 mm[Hg] Dorothea A Fast DO Work Phone: [facility] Work Phone: Comment on above: Patient Position: Sitting 05-30-2015 07:51-0500 BP Systolic 130 mm[Hg] Dorothea A Fast DO Work Phone: [facility] Work Phone: Comment on above: Patient Position: Sitting 05-30-2015 07:14-0500 BMI (Body Mass Index) 29 kg/m2 Dorothea A Fast DO Work Phone: [facility] Work Phone: 05-30-2015 07:14-0500 Body Temperature 98.9 [degF] Dorothea A Fast DO Work Phone: [facility] Work Phone: Comment on above: Method: Temporal 05-30-2015 07:14-0500 Body weight 74.84 kg Dorothea A Fast DO Work Phone: [facility] Work Phone: 05-30-2015 07:14-0500 BP Diastolic 94 mm[Hg] Dorothea A Fast DO Work Phone: [facility] Work Phone: Comment on above: Patient Position: Sitting; Cuff Location : Left Arm; Cuff Size: Standard 05-30-2015 07:14-0500 BP Systolic 138 mm[Hg] Dorothea A Fast DO Work Phone: [facility] Work Phone: Comment on above: Patient Position: Sitting; Cuff Location : Left Arm; Cuff Size: Standard 05-30-2015 07:14-0500 BSA (Body Surface Area) 1.79 m2 Dorothea A Fast DO Work Phone: [facility] Work Phone: 05-30-2015 07:14-0500 Height 160.66 cm Dorothea A Fast DO Work Phone: [facility] Work Phone: 05-30-2015 07:14-0500 Pulse (Heart Rate) 78 /min Dorothea A Fast DO Work Phone: [facility] Work Phone: Comment on above: Pattern: Regular 05-30-2015 07:14-0500 Pulse Oximetry 95 % Yadi Francoflip [facility] Work Phone: Comment on above: Room air 05-30-2015 07:14-0500 Respiratory Rate 16 /min Dorothea A Fast DO Work Phone: [facility] Work Phone: Comment on above: Pattern: Unlabored 05-30-2015 07:14-0500 SaO2% (BldA) [Mass fraction] 95 % Dorothea A Fast DO Work Phone: [facility]; [facility] Work Phone: Comment on above: Room air 01-17-2015 07:18-0400 BMI (Body Mass Index) 28.47 kg/m2 Sunita Flinner [facility] Work Phone: 01-17-2015 07:18-0400 Body Temperature 97.3 [degF] Sunita Charles [facility] Work Phone: Comment on above: Method: Oral 01-17-2015 07:18-0400 Body weight 73.48 kg Sunita Trinidadtatianna [facility] Work Phone: 01-17-2015 07:18-0400 BP Diastolic 82 mm[Hg] Sunita Charles [facility] Work Phone: Comment on above: Patient Position: Sitting; Cuff Location : Left Arm; Cuff Size: Standard 01-17-2015 07:18-0400 BP Systolic 118 mm[Hg] Sunita Charles [facility] Work Phone: Comment on above: Patient Position: Sitting; Cuff Location : Left Arm; Cuff Size: Standard 01-17-2015 07:18-0400 BSA (Body Surface Area) 1.77 m2 Sunita Trinidadtatianna [facility] Work Phone: 01-17-2015 07:18-0400 Height 160.66 cm Sunita Cabreramalathi [facility] Work Phone: 01-17-2015 07:18-0400 Pulse (Heart Rate) 64 /min [facility] Work Phone: Comment on above: Pattern: Regular 01-17-2015 07:18-0400 Respiratory Rate 16 /min Sunita Cabreramalathi [facility] Work Phone: Comment on above: Pattern: Unlabored 09-02-2014 16:31-0500 BMI (Body Mass Index) 28.65 kg/m2 Michaela Timothy HERNANDEZ [facility] Work Phone: 09-02-2014 16:31-0500 Body Temperature 98.4 [degF] Michaela Timothy HERNANDEZ [facility] Work Phone: Comment on above: Method: Oral 09-02-2014 16:31-0500 Body weight 73.94 kg Michaela Aguirre DAVID [facility] Work Phone: 09-02-2014 16:31-0500 BP Diastolic 76 mm[Hg] Michaela Aguirre CNC APPLICATIONS ENGINEER [facility] Work Phone: Comment on above: Patient Position: Sitting; Cuff Location : Left Arm; Cuff Size: Standard 09-02-2014 16:31-0500 BP Systolic 120 mm[Hg] Michaela Aguirre CNC APPLICATIONS ENGINEER [facility] Work Phone: Comment on above: Patient Position: Sitting; Cuff Location : Left Arm; Cuff Size: Standard 09-02-2014 16:31-0500 BSA (Body Surface Area) 1.78 m2 Michaela Aguirre CNC APPLICATIONS ENGINEER [facility] Work Phone: 09-02-2014 16:31-0500 Height 160.66 cm Mcihaela Aguirre DAVID [facility] Work Phone: 09-02-2014 16:31-0500 Pulse (Heart Rate) 70 /min Michaela Aguirre CNC APPLICATIONS ENGINEER [facility] Work Phone: Comment on above: Pattern: Regular 09-02-2014 16:31-0500 Pulse Oximetry 98 % Yadi Soliman [facility] Work Phone: Comment on above: Room air 09-02-2014 16:31-0500 Respiratory Rate 16 /min Michaela Aguirre DAVID [facility] Work Phone: 09-02-2014 16:31-0500 SaO2% (BldA) [Mass fraction] 98 % Michaela Aguirre DAVID [facility]; [facility] Work Phone: Comment on above: Room air 07-12-2014 07:10-0500 BMI (Body Mass Index) 28.65 kg/m2 Sunita Charles [facility] Work Phone: 07-12-2014 07:10-0500 Body Temperature 98.1 [degF] Sunita Charles [facility] Work Phone: 07-12-2014 07:10-0500 Body weight 73.94 kg Sunita Charles [facility] Work Phone: 07-12-2014 07:10-0500 BP Diastolic 82 mm[Hg] Sunita Cabreramarctatianna [facility] Work Phone: Comment on above: Patient Position: Sitting; Cuff Location : Left Arm; Cuff Size: Large 07-12-2014 07:10-0500 BP Systolic 120 mm[Hg] Sunita Charles [facility] Work Phone: Comment on above: Patient Position: Sitting; Cuff Location : Left Arm; Cuff Size: Large 07-12-2014 07:10-0500 BSA (Body Surface Area) 1.78 m2 Sunita Araceli [facility] Work Phone: 07-12-2014 07:10-0500 Height 160.66 cm Sunita Araceli [facility] Work Phone: 07-12-2014 07:10-0500 Pulse (Heart Rate) 68 /min [facility] Work Phone: Comment on above: Pattern: Regular 07-12-2014 07:10-0500 Respiratory Rate 16 /min Sunita Araceli [facility] Work Phone: Comment on above: Pattern: Unlabored 01-18-2014 07:45-0400 BMI (Body Mass Index) 27.77 kg/m2 Sunita Araceli [facility] Work Phone: 01-18-2014 07:45-0400 Body Temperature 96.8 [degF] Sunita Araceli [facility] Work Phone: 01-18-2014 07:45-0400 Body weight 71.67 kg Sunita Araceli [facility] Work Phone: 01-18-2014 07:45-0400 BP Diastolic 84 mm[Hg] Sunita Araceli [facility] Work Phone: Comment on above: Patient Position: Sitting; Cuff Location : Left Arm; Cuff Size: Standard 01-18-2014 07:45-0400 BP Systolic 124 mm[Hg] Sunita Araceli [facility] Work Phone: Comment on above: Patient Position: Sitting; Cuff Location : Left Arm; Cuff Size: Standard 01-18-2014 07:45-0400 BSA (Body Surface Area) 1.75 m2 uSnita Cabreramalathi [facility] Work Phone: 01-18-2014 07:45-0400 Height 160.66 cm Sunita Araceli [facility] Work Phone: 01-18-2014 07:45-0400 Pulse (Heart Rate) 60 /min Sunita Charles [facility] Work Phone: Comment on above: Pattern: Regular 01-18-2014 07:45-0400 Respiratory Rate 16 /min Sunita Araceli [facility] Work Phone: Comment on above: Pattern: Unlabored 10-26-2013 13:25-0400 BMI (Body Mass Index) 28.34 kg/m2 Michaela Aguirre DAVID [facility] Work Phone: 10-26-2013 13:25-0400 Body Temperature 97.8 [degF] Michaela Aguirre DAVID [facility] Work Phone: Comment on above: Method: Oral 10-26-2013 13:25-0400 Body weight 72.58 kg Michaela Aguirre DAVID [facility] Work Phone: 10-26-2013 13:25-0400 BP Diastolic 78 mm[Hg] Michaela Aguirre DAVID [facility] Work Phone: Comment on above: Patient Position: Sitting; Cuff Location : Left Arm; Cuff Size: Standard 10-26-2013 13:25-0400 BP Systolic 120 mm[Hg] Michaela Aguirre DAVID [facility] Work Phone: Comment on above: Patient Position: Sitting; Cuff Location : Left Arm; Cuff Size: Standard 10-26-2013 13:25-0400 BSA (Body Surface Area) 1.76 m2 Michaela Aguirre DAVID [facility] Work Phone: 10-26-2013 13:25-0400 Height 160.02 cm Michaela Aguirre LPN [facility] Work Phone: 10-26-2013 13:25-0400 Pulse (Heart Rate) 78 /min Michaela Aguirre LPN [facility] Work Phone: Comment on above: Pattern: Regular 10-26-2013 13:25-0400 Pulse Oximetry 97 % Yadi Soliman [facility] Work Phone: Comment on above: Room air 10-26-2013 13:25-0400 Respiratory Rate 16 /min Michaela Aguirre LPN [facility] Work Phone: 10-26-2013 13:25-0400 SaO2% (BldA) [Mass fraction] 97 % Michaela Aguirre LPN [facility]; [facility] Work Phone: Comment on above: Room air 06-08-2013 07:30-0500 BMI (Body Mass Index) 28.34 kg/m2 Roxann Scott [facility] Work Phone: 06-08-2013 07:30-0500 Body Temperature 98.2 [degF] Roxann Scott [facility] Work Phone: Comment on above: Method: Oral 06-08-2013 07:30-0500 Body weight 72.58 kg Roxann Scott [facility] Work Phone: 06-08-2013 07:30-0500 BP Diastolic 78 mm[Hg] Roxann Scott [facility] Work Phone: Comment on above: Patient Position: Sitting; Cuff Location : Left Arm; Cuff Size: Standard 06-08-2013 07:30-0500 BP Systolic 118 mm[Hg] Roxann Scott [facility] Work Phone: Comment on above: Patient Position: Sitting; Cuff Location : Left Arm; Cuff Size: Standard 06-08-2013 07:30-0500 BSA (Body Surface Area) 1.76 m2 Roxann Scott [facility] Work Phone: 06-08-2013 07:30-0500 Height 160.02 cm Roxann Scott [facility] Work Phone: 06-08-2013 07:30-0500 Pulse (Heart Rate) 70 /min Roxann Scott [facility] Work Phone: Comment on above: Pattern: Regular 06-08-2013 07:30-0500 Pulse Oximetry 98 % Yadi Soliman [facility] Work Phone: Comment on above: Room air 06-08-2013 07:30-0500 Respiratory Rate 16 /min Roxann Scott [facility] Work Phone: Comment on above: Pattern: Unlabored 06-08-2013 07:30-0500 SaO2% (BldA) [Mass fraction] 98 % Roxann Scott [facility]; [facility] Work Phone: Comment on above: Room air 02-09-2013 07:12-0400 BMI (Body Mass Index) 28.34 kg/m2 Sunita hCarles [facility] Work Phone: 02-09-2013 07:12-0400 Body Temperature 98.3 [degF] Sunita Charles [facility] Work Phone: 02-09-2013 07:12-0400 Body weight 72.58 kg Sunita Charles [facility] Work Phone: 02-09-2013 07:12-0400 BP Diastolic 82 mm[Hg] Sunita Charles [facility] Work Phone: Comment on above: Patient Position: Sitting; Cuff Location : Left Arm; Cuff Size: Large 02-09-2013 07:12-0400 BP Systolic 118 mm[Hg] Sunita Charles [facility] Work Phone: Comment on above: Patient Position: Sitting; Cuff Location : Left Arm; Cuff Size: Large 02-09-2013 07:12-0400 BSA (Body Surface Area) 1.76 m2 Sunita Charles [facility] Work Phone: 02-09-2013 07:12-0400 Height 160.02 cm Sunita Charles [facility] Work Phone: 02-09-2013 07:12-0400 Pulse (Heart Rate) 78 /min Sunita Charles [facility] Work Phone: Comment on above: Pattern: Regular 02-09-2013 07:12-0400 Respiratory Rate 16 /min Sunita Charles [facility] Work Phone: Comment on above: Pattern: Unlabored 09-29-2012 07:10-0500 BMI (Body Mass Index) 28.7 kg/m2 Sunita Charles [facility] Work Phone: 09-29-2012 07:10-0500 Body Temperature 97.5 [degF] Sunita Charles [facility] Work Phone: 09-29-2012 07:10-0500 Body weight 73.48 kg Sunita Charles [facility] Work Phone: 09-29-2012 07:10-0500 BP Diastolic 78 mm[Hg] Sunita Charles [facility] Work Phone: Comment on above: Patient Position: Sitting; Cuff Location : Left Arm; Cuff Size: Large 09-29-2012 07:10-0500 BP Systolic 114 mm[Hg] Sunita Charles [facility] Work Phone: Comment on above: Patient Position: Sitting; Cuff Location : Left Arm; Cuff Size: Large 09-29-2012 07:10-0500 BSA (Body Surface Area) 1.77 m2 Sunita Charles [facility] Work Phone: 09-29-2012 07:10-0500 Height 160.02 cm Sunita Charles [facility] Work Phone: 09-29-2012 07:10-0500 Pulse (Heart Rate) 76 /min Sunita Charles [facility] Work Phone: Comment on above: Pattern: Regular 09-29-2012 07:10-0500 Respiratory Rate 16 /min Sunita Charles [facility] Work Phone: Comment on above: Pattern: Unlabored 05-26-2012 07:18-0400 BMI (Body Mass Index) 28.21 kg/m2 Michaela Aguirre [facility] Work Phone: 05-26-2012 07:18-0400 Body Temperature 98.2 [degF] Michaela Aguirre [facility] Work Phone: Comment on above: Method: Oral 05-26-2012 07:18-0400 Body weight 72.24 kg Michaela Aguirre [facility] Work Phone: 05-26-2012 07:18-0400 BP Diastolic 72 mm[Hg] Michaela Aguirre [facility] Work Phone: Comment on above: Patient Position: Sitting; Cuff Location : Left Arm; Cuff Size: Standard 05-26-2012 07:18-0400 BP Systolic 120 mm[Hg] Michaela Aguirre [facility] Work Phone: Comment on above: Patient Position: Sitting; Cuff Location : Left Arm; Cuff Size: Standard 05-26-2012 07:18-0400 BSA (Body Surface Area) 1.76 m2 Michaela Aguirre [facility] Work Phone: 05-26-2012 07:18-0400 Height 160.02 cm Michaela Aguirre [facility] Work Phone: 05-26-2012 07:18-0400 Pulse (Heart Rate) 80 /min Michaela Aguirre [facility] Work Phone: Comment on above: Pattern: Regular 05-26-2012 07:18-0400 Respiratory Rate 16 /min Michaela Aguirre [facility] Work Phone: 01-25-2012 13:22-0400 BMI (Body Mass Index) 28.12 kg/m2 Sunita Charles [facility] Work Phone: 01-25-2012 13:22-0400 Body Temperature 97.3 [degF] Sunita Charles [facility] Work Phone: 01-25-2012 13:22-0400 Body weight 72.58 kg Sunita Charles [facility] Work Phone: 01-25-2012 13:22-0400 BP Diastolic 84 mm[Hg] Sunita Charles [facility] Work Phone: Comment on above: Patient Position: Sitting; Cuff Location : Left Arm; Cuff Size: Large 01-25-2012 13:22-0400 BP Systolic 118 mm[Hg] Sunita Charles [facility] Work Phone: Comment on above: Patient Position: Sitting; Cuff Location : Left Arm; Cuff Size: Large 01-25-2012 13:22-0400 BSA (Body Surface Area) 1.76 m2 Sunita Charles [facility] Work Phone: 01-25-2012 13:22-0400 Height 160.66 cm Sunita Charles [facility] Work Phone: 01-25-2012 13:22-0400 Pulse (Heart Rate) 80 /min Sunita Trinidadtatianna [facility] Work Phone: Comment on above: Pattern: Regular 01-25-2012 13:22-0400 Respiratory Rate 16 /min Sunita Charles [facility] Work Phone: Comment on above: Pattern: Unlabored 07-30-2011 07:40-0500 BMI (Body Mass Index) 28.29 kg/m2 Sunita Charles [facility] Work Phone: 07-30-2011 07:40-0500 Body Temperature 97.1 [degF] Sunita Charles [facility] Work Phone: 07-30-2011 07:40-0500 Body weight 73.03 kg Sunita Charles [facility] Work Phone: 07-30-2011 07:40-0500 BP Diastolic 78 mm[Hg] Sunita Charles [facility] Work Phone: Comment on above: Patient Position: Sitting; Cuff Location : Left Arm; Cuff Size: Large 07-30-2011 07:40-0500 BP Systolic 118 mm[Hg] Sunita Charles [facility] Work Phone: Comment on above: Patient Position: Sitting; Cuff Location : Left Arm; Cuff Size: Large 07-30-2011 07:40-0500 BSA (Body Surface Area) 1.77 m2 Sunita Charles [facility] Work Phone: 07-30-2011 07:40-0500 Height 160.66 cm Sunita Charles [facility] Work Phone: 07-30-2011 07:40-0500 Pulse (Heart Rate) 76 /min Sunita Charles [facility] Work Phone: Comment on above: Pattern: Regular 07-30-2011 07:40-0500 Respiratory Rate 16 /min Sunita Charles [facility] Work Phone: Comment on above: Pattern: Unlabored 07-02-2011 07:13-0500 BMI (Body Mass Index) 27.42 kg/m2 [facility] Work Phone: 07-02-2011 07:13-0500 Body Temperature 98.2 [degF] Lynn Finley RN [facility] Work Phone: Comment on above: Method: Oral 07-02-2011 07:13-0500 Body weight 70.76 kg Lynn Finley RN [facility] Work Phone: 07-02-2011 07:13-0500 BP Diastolic 76 mm[Hg] Lynn Finley RN [facility] Work Phone: Comment on above: Patient Position: Sitting; Cuff Location : Left Arm; Cuff Size: Standard 07-02-2011 07:13-0500 BP Systolic 110 mm[Hg] Lynn Finley RN [facility] Work Phone: Comment on above: Patient Position: Sitting; Cuff Location : Left Arm; Cuff Size: Standard 07-02-2011 07:13-0500 BSA (Body Surface Area) 1.75 m2 Lynn Finley RN [facility] Work Phone: 07-02-2011 07:13-0500 Height 160.66 cm Lynn Finley RN [facility] Work Phone: 07-02-2011 07:13-0500 Pulse (Heart Rate) 76 /min Lynn Finley RN [facility] Work Phone: Comment on above: Pattern: Regular 07-02-2011 07:13-0500 Respiratory Rate 16 /min Lynn Finley RN [facility] Work Phone: Comment on above: Pattern: Unlabored 06-16-2011 11:51-0500 BMI (Body Mass Index) 27.42 kg/m2 Michaela Timothy DAVID [facility] Work Phone: 06-16-2011 11:51-0500 Body Temperature 97.8 [degF] Michaela Timothy HERNANDEZ [facility] Work Phone: Comment on above: Method: Oral 06-16-2011 11:51-0500 Body weight 70.76 kg Michaela Aguirre DAVID [facility] Work Phone: 06-16-2011 11:51-0500 BP Diastolic 72 mm[Hg] Michaela Agiurre DAVID [facility] Work Phone: Comment on above: Patient Position: Sitting; Cuff Location : Left Arm; Cuff Size: Standard 06-16-2011 11:51-0500 BP Systolic 124 mm[Hg] Michaela Aguirre DAVID [facility] Work Phone: Comment on above: Patient Position: Sitting; Cuff Location : Left Arm; Cuff Size: Standard 06-16-2011 11:51-0500 BSA (Body Surface Area) 1.75 m2 Michaela Aguirre DAVID [facility] Work Phone: 06-16-2011 11:51-0500 Height 160.66 cm Michaela Timothy HERNANDEZ [facility] Work Phone: 06-16-2011 11:51-0500 Pulse (Heart Rate) 71 /min Michaela Aguirre DAIVD [facility] Work Phone: Comment on above: Pattern: Regular 06-16-2011 11:51-0500 Pulse Oximetry 95 % Yadi Soliman [facility] Work Phone: Comment on above: Room air 06-16-2011 11:51-0500 Respiratory Rate 18 /min Michaela Timothy HERNANDEZ [facility] Work Phone: 06-16-2011 11:51-0500 SaO2% (BldA) [Mass fraction] 95 % Michaela Timothy HERNANDEZ [facility]; [facility] Work Phone: Comment on above: Room air 06-11-2011 09:24-0500 BMI (Body Mass Index) 27.42 kg/m2 Carley Solorio RN [facility] Work Phone: 06-11-2011 09:24-0500 Body Temperature 98.5 [degF] Carley Solorio RN [facility] Work Phone: Comment on above: Method: Oral 06-11-2011 09:24-0500 Body weight 70.76 kg Carley Solorio RN [facility] Work Phone: 06-11-2011 09:24-0500 BP Diastolic 80 mm[Hg] Carley Solorio RN [facility] Work Phone: Comment on above: Patient Position: Sitting; Cuff Location : Left Arm; Cuff Size: Large 06-11-2011 09:24-0500 BP Systolic 130 mm[Hg] Carley Solorio RN [facility] Work Phone: Comment on above: Patient Position: Sitting; Cuff Location : Left Arm; Cuff Size: Large 06-11-2011 09:24-0500 BSA (Body Surface Area) 1.75 m2 Carley Solorio RN [facility] Work Phone: 06-11-2011 09:24-0500 Height 160.66 cm Carley Solorio RN [facility] Work Phone: 06-11-2011 09:24-0500 Pulse (Heart Rate) 88 /min Carley Solorio RN [facility] Work Phone: Comment on above: Pattern: Regular 06-11-2011 09:24-0500 Respiratory Rate 20 /min Carley Solorio RN [facility] Work Phone: Comment on above: Pattern: Unlabored 03-19-2011 07:50-0400 BMI (Body Mass Index) 27.77 kg/m2 Sunita [facility] Work Phone: 03-19-2011 07:50-0400 Body Temperature 97.1 [degF] Sunita Araceli [facility] Work Phone: 03-19-2011 07:50-0400 Body weight 71.67 kg Sunita Araceli [facility] Work Phone: 03-19-2011 07:50-0400 BP Diastolic 88 mm[Hg] Sunita Araceli [facility] Work Phone: Comment on above: Patient Position: Sitting; Cuff Location : Left Arm; Cuff Size: Large 03-19-2011 07:50-0400 BP Systolic 122 mm[Hg] Sunita Araceli [facility] Work Phone: Comment on above: Patient Position: Sitting; Cuff Location : Left Arm; Cuff Size: Large 03-19-2011 07:50-0400 BSA (Body Surface Area) 1.75 m2 Sunita Araceli [facility] Work Phone: 03-19-2011 07:50-0400 Height 160.66 cm Sunita Charles [facility] Work Phone: 03-19-2011 07:50-0400 Pulse (Heart Rate) 88 /min Sunita Araceli [facility] Work Phone: Comment on above: Pattern: Regular 03-19-2011 07:50-0400 Respiratory Rate 16 /min Sunita Araceli [facility] Work Phone: Comment on above: Pattern: Unlabored 12-24-2010 07:36-0400 BMI (Body Mass Index) 27.06 kg/m2 Joann Kenny RN [facility] Work Phone: 12-24-2010 07:36-0400 Body Temperature 97.3 [degF] Joann Kenny RN [facility] Work Phone: Comment on above: Method: Oral 12-24-2010 07:36-0400 Body weight 69.85 kg Joann Kenny RN [facility] Work Phone: 12-24-2010 07:36-0400 BP Diastolic 82 mm[Hg] Joann Kenny RN [facility] Work Phone: Comment on above: Patient Position: Sitting; Cuff Location : Left Arm; Cuff Size: Large 12-24-2010 07:36-0400 BP Systolic 124 mm[Hg] Joann Kenny RN [facility] Work Phone: Comment on above: Patient Position: Sitting; Cuff Location : Left Arm; Cuff Size: Large 12-24-2010 07:36-0400 BSA (Body Surface Area) 1.74 m2 Joann Kenny RN [facility] Work Phone: 12-24-2010 07:36-0400 Height 160.66 cm Joann Kenny RN [facility] Work Phone: 12-24-2010 07:36-0400 Pulse (Heart Rate) 60 /min Joann Kenny RN [facility] Work Phone: Comment on above: Pattern: Regular 12-24-2010 07:36-0400 Respiratory Rate 18 /min Joann Kenny RN [facility] Work Phone: Comment on above: Pattern: Unlabored 11-10-2010 10:12-0400 BMI (Body Mass Index) 27.06 kg/m2 Sunita Charles [facility] Work Phone: 11-10-2010 10:12-0400 Body Temperature 96.9 [degF] Sunita Charles [facility] Work Phone: 11-10-2010 10:12-0400 Body weight 69.85 kg Sunita Charles [facility] Work Phone: 11-10-2010 10:12-0400 BP Diastolic 74 mm[Hg] Sunita Charles [facility] Work Phone: Comment on above: Patient Position: Sitting; Cuff Location : Left Arm; Cuff Size: Standard 11-10-2010 10:12-0400 BP Systolic 100 mm[Hg] Sunita Charles [facility] Work Phone: Comment on above: Patient Position: Sitting; Cuff Location : Left Arm; Cuff Size: Standard 11-10-2010 10:12-0400 BSA (Body Surface Area) 1.74 m2 Sunita Charels [facility] Work Phone: 11-10-2010 10:12-0400 Height 160.66 cm Sunita Charles [facility] Work Phone: 11-10-2010 10:12-0400 Pulse (Heart Rate) 80 /min Sunita Charles [facility] Work Phone: Comment on above: Pattern: Regular 11-10-2010 10:12-0400 Respiratory Rate 16 /min Sunita Charles [facility] Work Phone: Comment on above: Pattern: Unlabored 07-15-2010 12:02-0500 Body Temperature 96.9 [degF] Sunita Charles [facility] Work Phone: 07-15-2010 12:02-0500 Body weight 71.22 kg Sunita Charles [facility] Work Phone: 07-15-2010 12:02-0500 BP Diastolic 84 mm[Hg] Sunita Charles [facility] Work Phone: Comment on above: Patient Position: Sitting; Cuff Location : Left Arm; Cuff Size: Standard 07-15-2010 12:02-0500 BP Systolic 132 mm[Hg] Sunita Charles [facility] Work Phone: Comment on above: Patient Position: Sitting; Cuff Location : Left Arm; Cuff Size: Standard 07-15-2010 12:02-0500 Pulse (Heart Rate) 76 /min Sunita Charles [facility] Work Phone: Comment on above: Pattern: Regular 07-15-2010 12:02-0500 Respiratory Rate 18 /min Sunita Araceli [facility] Work Phone: Comment on above: Pattern: Unlabored 11-03-2009 15:39-0400 Body weight 68.49 kg Sunita Cabreramalathi [facility] Work Phone: 11-03-2009 15:39-0400 BP Diastolic 80 mm[Hg] Sunita Cabreramalathi [facility] Work Phone: Comment on above: Patient Position: Sitting; Cuff Location : Left Arm; Cuff Size: Large 11-03-2009 15:39-0400 BP Systolic 116 mm[Hg] Sunita Cabreramalathi [facility] Work Phone: Comment on above: Patient Position: Sitting; Cuff Location : Left Arm; Cuff Size: Large 11-03-2009 15:39-0400 Pulse (Heart Rate) 68 /min Sunita Charles [facility] Work Phone: Comment on above: Pattern: Regular 11-03-2009 15:39-0400 Respiratory Rate 18 /min Sunita Cabreramalathi [facility] Work Phone: Comment on above: Pattern: Unlabored 09-23-2009 14:58-0500 Body Temperature 98.8 [degF] Carley Solorio RN [facility] Work Phone: Comment on above: Method: Oral 09-23-2009 14:58-0500 BP Diastolic 72 mm[Hg] Carley Solorio RN [facility] Work Phone: Comment on above: Patient Position: Sitting; Cuff Location : Left Arm; Cuff Size: Large 09-23-2009 14:58-0500 BP Systolic 110 mm[Hg] Carley Solorio RN [facility] Work Phone: Comment on above: Patient Position: Sitting; Cuff Location : Left Arm; Cuff Size: Large 09-23-2009 14:58-0500 Pulse (Heart Rate) 76 /min Carley Solorio RN [facility] Work Phone: Comment on above: Pattern: Regular 09-23-2009 14:58-0500 Respiratory Rate 14 /min Carley Solorio RN [facility] Work Phone: Comment on above: Pattern: Unlabored 07-04-2009 07:39-0500 Body Temperature 96.1 [degF] Sunita Charles [facility] Work Phone: Comment on above: Method: Undefined 07-04-2009 07:39-0500 Body weight 70.31 kg Sunita Charles [facility] Work Phone: 07-04-2009 07:39-0500 BP Diastolic 96 mm[Hg] Sunita Charles [facility] Work Phone: Comment on above: Patient Position: Sitting; Cuff Location : Right Arm; Cuff Size: Standard 07-04-2009 07:39-0500 BP Systolic 120 mm[Hg] Sunita Charles [facility] Work Phone: Comment on above: Patient Position: Sitting; Cuff Location : Right Arm; Cuff Size: Standard 07-04-2009 07:39-0500 Head Circumference 0 cm Yadi Soliman [facility] Work Phone: 07-04-2009 07:39-0500 Head Occipital-frontal circumference 0 cm Sunita Araceli [facility]; [facility] Work Phone: 07-04-2009 07:39-0500 Height 0 cm Sunita Cabreramalathi [facility] Work Phone: 07-04-2009 07:39-0500 Pulse (Heart Rate) 84 /min [facility] Work Phone: Comment on above: Pattern: Regular 07-04-2009 07:39-0500 Respiratory Rate 18 /min Sunita Araceli [facility] Work Phone: Comment on above: Pattern: Undefined 02-06-2009 09:19-0400 BMI (Body Mass Index) 26.61 kg/m2 Joann Kenny RN [facility] Work Phone: 02-06-2009 09:19-0400 Body weight 70.31 kg Joann Kenny RN [facility] Work Phone: 02-06-2009 09:19-0400 BP Diastolic 68 mm[Hg] Joann Kenny RN [facility] Work Phone: Comment on above: Patient Position: Sitting; Cuff Location : Left Arm; Cuff Size: Standard 02-06-2009 09:19-0400 BP Systolic 118 mm[Hg] Joann Kenny RN [facility] Work Phone: Comment on above: Patient Position: Sitting; Cuff Location : Left Arm; Cuff Size: Standard 02-06-2009 09:19-0400 BSA (Body Surface Area) 1.76 m2 Joann Kenny RN [facility] Work Phone: 02-06-2009 09:19-0400 Head Circumference 0 cm Yadi Gamezflip [facility] Work Phone: 02-06-2009 09:19-0400 Head Occipital-frontal circumference 0 cm Joann Kenny RN [facility]; [facility] Work Phone: 02-06-2009 09:19-0400 Height 162.56 cm Joann Kenny RN [facility] Work Phone: 02-06-2009 09:19-0400 Pulse (Heart Rate) 60 /min Joann Kenny RN [facility] Work Phone: Comment on above: Pattern: Regular 02-06-2009 09:19-0400 Respiratory Rate 18 /min Joann Kenny RN [facility] Work Phone: Comment on above: Pattern: Unlabored 01-28-2009 08:25-0400 BMI (Body Mass Index) 26.61 kg/m2 Maria Dolores Hoover [facility] Work Phone: 01-28-2009 08:25-0400 Body weight 70.31 kg Maria Dolores Hoover [facility] Work Phone: 01-28-2009 08:25-0400 BP Diastolic 84 mm[Hg] Maria Dolores [facility] Work Phone: Comment on above: Patient Position: Supine; Cuff Location: Left Arm; Cuff Size: Standard 01-28-2009 08:25-0400 BP Systolic 120 mm[Hg] Maria Dolores [facility] Work Phone: Comment on above: Patient Position: Supine; Cuff Location: Left Arm; Cuff Size: Standard 01-28-2009 08:25-0400 BSA (Body Surface Area) 1.76 m2 Maria Dolores [facility] Work Phone: 01-28-2009 08:25-0400 Head Circumference 0 cm Yadi Soliman [facility] Work Phone: 01-28-2009 08:25-0400 Head Occipital-frontal circumference 0 cm Maria Dolores Hoover [facility]; [facility] Work Phone: 01-28-2009 08:25-0400 Height 162.56 cm Maria Dolores [facility] Work Phone: 01-28-2009 08:25-0400 Pulse (Heart Rate) 80 /min Maria Dolores [facility] Internal [facility] Work Phone: Comment on above: Pattern: Regular 01-28-2009 08:25-0400 Respiratory Rate 16 /min Maria Dolores [facility] Work Phone: Comment on above: Pattern: Unlabored 01-21-2009 08:43-0400 Body Temperature 97.8 [degF] [facility] Work Phone: Comment on above: Method: Undefined 01-21-2009 08:43-0400 Body weight 70.31 kg [facility] Work Phone: 01-21-2009 08:43-0400 BP Diastolic 82 mm[Hg] Sunita [facility] Work Phone: Comment on above: Patient Position: Sitting; Cuff Location : Left Arm; Cuff Size: Large 01-21-2009 08:43-0400 BP Systolic 124 mm[Hg] [facility] Work Phone: Comment on above: Patient Position: Sitting; Cuff Location : Left Arm; Cuff Size: Large 01-21-2009 08:43-0400 Head Circumference 0 cm Yadi Soliman [facility] Work Phone: 01-21-2009 08:43-0400 Head Occipital-frontal circumference 0 cm Sunita Charles [facility]; [facility] Work Phone: 01-21-2009 08:43-0400 Height 0 cm Sunita Charles [facility] Work Phone: 01-21-2009 08:43-0400 Pulse (Heart Rate) 96 /min Sunita Charles [facility] Work Phone: Comment on above: Pattern: Regular 01-21-2009 08:43-0400 Respiratory Rate 18 /min Sunita Charles [facility] Work Phone: Comment on above: Pattern: Undefined 07-29-2008 13:17-0500 Body Temperature 96.2 [degF] Sunita Charles [facility] Work Phone: Comment on above: Method: Undefined 07-29-2008 13:17-0500 Body weight 71.22 kg Sunita Charles [facility] Work Phone: 07-29-2008 13:17-0500 BP Diastolic 98 mm[Hg] Sunita Charles [facility] Work Phone: Comment on above: Patient Position: Sitting; Cuff Location : Right Arm; Cuff Size: Large 07-29-2008 13:17-0500 BP Systolic 140 mm[Hg] Sunita Charles [facility] Work Phone: Comment on above: Patient Position: Sitting; Cuff Location : Right Arm; Cuff Size: Large 07-29-2008 13:17-0500 Head Circumference 0 cm Yadi Jourdan [facility] Work Phone: 07-29-2008 13:17-0500 Head Occipital-frontal circumference 0 cm Sunita Charles [facility]; [facility] Work Phone: 07-29-2008 13:17-0500 Height 0 cm Sunita Charles [facility] Work Phone: 07-29-2008 13:17-0500 Pulse (Heart Rate) 60 /min Sunita Charles [facility] Work Phone: Comment on above: Pattern: Regular 07-29-2008 13:17-0500 Respiratory Rate 18 /min Sunita Charles [facility] Work Phone: Comment on above: Pattern: Undefined 06-18-2008 15:07-0500 Body Temperature 97.1 [degF] Sunita Cabreramalathi [facility] Work Phone: Comment on above: Method: Undefined 06-18-2008 15:070500 Body weight 69.4 kg Sunita Trinidadtatianna [facility] Work Phone: 06-18-2008 15:07-0500 BP Diastolic 94 mm[Hg] Sunita Cabreramalathi [facility] Work Phone: Comment on above: Patient Position: Sitting; Cuff Location : Left Arm; Cuff Size: Large 06-18-2008 15:07-0500 BP Systolic 124 mm[Hg] Sunita Cabreramalathi [facility] Work Phone: Comment on above: Patient Position: Sitting; Cuff Location : Left Arm; Cuff Size: Large 06-18-2008 15:07-0500 Head Circumference 0 cm Yadi Soliman [facility] Work Phone: 06-18-2008 15:07-0500 Head Occipital-frontal circumference 0 cm Sunita Araceli [facility]; [facility] Work Phone: 06-18-2008 15:07-0500 Height 0 cm Sunita Araceli [facility] Work Phone: 06-18-2008 15:07-0500 Pulse (Heart Rate) 64 /min Sunita Trinidadtatianna [facility] Work Phone: Comment on above: Pattern: Regular 06-18-2008 15:07-0500 Respiratory Rate 16 /min Sunita Araceli [facility] Work Phone: Comment on above: Pattern: Undefined 01-29-2008 11:33-0400 Body Temperature 98.4 [degF] Sunita Araceli [facility] Work Phone: Comment on above: Method: Undefined 01-29-2008 11:33-0400 Body weight 66.23 kg Sunita Araceli [facility] Work Phone: 01-29-2008 11:33-0400 BP Diastolic 84 mm[Hg] Sunita Cabreramalathi [facility] Work Phone: Comment on above: Patient Position: Sitting; Cuff Location : Right Arm; Cuff Size: Large 01-29-2008 11:33-0400 BP Systolic 128 mm[Hg] Sunita Cabreramalathi [facility] Work Phone: Comment on above: Patient Position: Sitting; Cuff Location : Right Arm; Cuff Size: Large 01-29-2008 11:33-0400 Head Circumference 0 cm Yadi Soliman [facility] Work Phone: 01-29-2008 11:33-0400 Head Occipital-frontal circumference 0 cm Sunita Araceli [facility]; [facility] Work Phone: 01-29-2008 11:33-0400 Height 0 cm Sunita Araceli [facility] Work Phone: 01-29-2008 11:33-0400 Pulse (Heart Rate) 64 /min Sunita Trinidadtatianna [facility] Work Phone: Comment on above: Pattern: Regular 01-29-2008 11:33-0400 Respiratory Rate 16 /min Sunita Cabreramalathi [facility] Work Phone: Comment on above: Pattern: Undefined 01-01-2008 11:09-0400 Body Temperature 98.1 [degF] Sunita Araceli [facility] Work Phone: Comment on above: Method: Undefined 01-01-2008 11:09-0400 Body weight 65.77 kg Sunita Araceli [facility] Work Phone: 01-01-2008 11:09-0400 BP Diastolic 78 mm[Hg] Sunita Araceli [facility] Work Phone: Comment on above: Patient Position: Sitting; Cuff Location : Left Arm; Cuff Size: Standard 01-01-2008 11:09-0400 BP Systolic 126 mm[Hg] Sunita Araceli [facility] Work Phone: Comment on above: Patient Position: Sitting; Cuff Location : Left Arm; Cuff Size: Standard 01-01-2008 11:090400 Head Circumference 0 cm Yadi Soliman [facility] Work Phone: 01-01-2008 11:09-0400 Head Occipital-frontal circumference 0 cm Sunita Araceli [facility]; [facility] Work Phone: 01-01-2008 11:09-0400 Height 0 cm Sunita Cabreramalathi [facility] Work Phone: 01-01-2008 11:09-0400 Pulse (Heart Rate) 68 /min [facility] Work Phone: Comment on above: Pattern: Regular 01-01-2008 11:09-0400 Respiratory Rate 16 /min Sunita Araceli [facility] Work Phone: Comment on above: Pattern: Undefined 07-28-2007 11:27-0500 BMI (Body Mass Index) 24.76 kg/m2 [facility] Work Phone: 07-28-2007 11:27-0500 Body Temperature 98 [degF] Sunita Araceli [facility] Work Phone: Comment on above: Method: Oral 07-28-2007 11:27-0500 Body weight 64.41 kg Sunita Araceli [facility] Work Phone: 07-28-2007 11:27-0500 BP Diastolic 72 mm[Hg] Sunita Araceli [facility] Work Phone: Comment on above: Patient Position: Sitting; Cuff Location : Right Arm; Cuff Size: Standard 07-28-2007 11:27-0500 BP Systolic 116 mm[Hg] Sunita Araceli [facility] Work Phone: Comment on above: Patient Position: Sitting; Cuff Location : Right Arm; Cuff Size: Standard 07-28-2007 11:27-0500 BSA (Body Surface Area) 1.68 m2 Sunitapolina Charles [facility] Work Phone: 07-28-2007 11:27-0500 Head Circumference 0 cm Yadi Soliman [facility] Work Phone: 07-28-2007 11:27-0500 Head Occipital-frontal circumference 0 cm Sunita Brandt [facility]; [facility] Work Phone: 07-28-2007 11:27-0500 Height 161.29 cm uSnita Charles [facility] Work Phone: 07-28-2007 11:27-0500 Pulse (Heart Rate) 64 /min Sunita Charles [facility] Work Phone: Comment on above: Pattern: Regular 07-28-2007 11:27-0500 Respiratory Rate 16 /min Sunita Charles [facility] Work Phone: Comment on above: Pattern: Unlabored 07-11-2007 08:02-0500 Body Temperature 98.2 [degF] Carley Solorio RN [facility] Work Phone: Comment on above: Method: Oral 07-11-2007 08:02-0500 Body weight 0 kg Carley Solorio RN [facility] Work Phone: 07-11-2007 08:02-0500 BP Diastolic 76 mm[Hg] Carley Solorio RN [facility] Work Phone: Comment on above: Patient Position: Sitting; Cuff Location : Left Arm; Cuff Size: Standard 07-11-2007 08:02-0500 BP Systolic 140 mm[Hg] Carley Solorio RN [facility] Work Phone: Comment on above: Patient Position: Sitting; Cuff Location : Left Arm; Cuff Size: Standard 07-11-2007 08:02-0500 Head Circumference 0 cm Yadi Valladaresrakesh [facility] Work Phone: 07-11-2007 08:02-0500 Head Occipital-frontal circumference 0 cm Carley Solorio RN [facility]; [facility] Work Phone: 07-11-2007 08:02-0500 Height 0 cm Carley Solorio RN [facility] Work Phone: 07-11-2007 08:02-0500 Pulse (Heart Rate) 64 /min Carley Solorio RN [facility] Work Phone: Comment on above: Pattern: Regular 07-11-2007 08:02-0500 Respiratory Rate 18 /min Carley Solorio RN [facility] Work Phone: Comment on above: Pattern: Unlabored 04-26-2007 09:13-0400 BMI (Body Mass Index) 25.81 kg/m2 Sunita Charles [facility] Work Phone: 04-26-2007 09:13-0400 Body Temperature 98.1 [degF] Sunita Charles [facility] Work Phone: Comment on above: Method: Oral 04-26-2007 09:13-0400 Body weight 67.13 kg Sunita Charles [facility] Work Phone: 04-26-2007 09:13-0400 BP Diastolic 80 mm[Hg] Sunita Charles [facility] Work Phone: Comment on above: Patient Position: Sitting; Cuff Location : Right Arm; Cuff Size: Standard 04-26-2007 09:13-0400 BP Systolic 122 mm[Hg] Sunita Charles [facility] Work Phone: Comment on above: Patient Position: Sitting; Cuff Location : Right Arm; Cuff Size: Standard 04-26-2007 09:13-0400 BSA (Body Surface Area) 1.71 m2 Sunita Charles [facility] Work Phone: 04-26-2007 09:13-0400 Head Circumference 0 cm Yadi Soliman [facility] Work Phone: 04-26-2007 09:13-0400 Head Occipital-frontal circumference 0 cm Sunita Charles [facility]; [facility] Work Phone: 04-26-2007 09:13-0400 Height 161.29 cm Sunita Charles [facility] Work Phone: 04-26-2007 09:13-0400 Pulse (Heart Rate) 60 /min Sunita Trinidadtatianna [facility] Work Phone: Comment on above: Pattern: Regular 04-26-2007 09:13-0400 Respiratory Rate 16 /min Sunita Cabreramalathi [facility] Work Phone: Comment on above: Pattern: Unlabored 02-06-2007 10:14-0400 BMI (Body Mass Index) 28.94 kg/m2 Sunita Cabreramalathi [facility] Work Phone: 02-06-2007 10:14-0400 Body Temperature 98.2 [degF] Sunita Araceli [facility] Work Phone: Comment on above: Method: Oral 02-06-2007 10:140400 Body weight 75.3 kg Sunita Araceli [facility] Work Phone: 02-06-2007 10:14-0400 BP Diastolic 92 mm[Hg] Sunita Araceli [facility] Work Phone: Comment on above: Patient Position: Sitting; Cuff Location : Right Arm; Cuff Size: Standard 02-06-2007 10:14-0400 BP Systolic 136 mm[Hg] Sunita Cabreramalathi [facility] Work Phone: Comment on above: Patient Position: Sitting; Cuff Location : Right Arm; Cuff Size: Standard 02-06-2007 10:14-0400 BSA (Body Surface Area) 1.8 m2 Sunita Araceli [facility] Work Phone: 02-06-2007 10:14-0400 Head Circumference 0 cm Yadi Soliman [facility] Work Phone: 02-06-2007 10:14-0400 Head Occipital-frontal circumference 0 cm Sunita Araceli [facility]; [facility] Work Phone: 02-06-2007 10:14-0400 Height 161.29 cm Sunita Charles [facility] Work Phone: 02-06-2007 10:14-0400 Pulse (Heart Rate) 64 /min Sunita Charles [facility] Work Phone: Comment on above: Pattern: Regular 02-06-2007 10:14-0400 Respiratory Rate 16 /min Sunita Charles [facility] Work Phone: Comment on above: Pattern: Unlabored 11-07-2006 10:35-0400 BMI (Body Mass Index) 30.02 kg/m2 Sunita Charles Ays[facility]en [facility] Work Phone: 11-07-2006 10:35-0400 Body Temperature 98 [degF] Sunita Charles [facility] Work Phone: Comment on above: Method: Oral 11-07-2006 10:35-0400 Body weight 78.1 kg Sunita Charles [facility] Work Phone: 11-07-2006 10:35-0400 BP Diastolic 98 mm[Hg] Sunita Charles [facility] Work Phone: Comment on above: Patient Position: Sitting; Cuff Location : Left Arm; Cuff Size: Standard 11-07-2006 10:35-0400 BP Systolic 138 mm[Hg] Sunita Charles [facility] Work Phone: Comment on above: Patient Position: Sitting; Cuff Location : Left Arm; Cuff Size: Standard 11-07-2006 10:35-0400 BSA (Body Surface Area) 1.83 m2 Sunita Cabreramalathi [facility] Work Phone: 11-07-2006 10:35-0400 Head Circumference 0 cm Yadi Soliman [facility] Work Phone: 11-07-2006 10:35-0400 Head Occipital-frontal circumference 0 cm Sunita Araceli [facility] Work Phone: 11-07-2006 10:35-0400 Height 161.29 cm Sunita Araceli [facility] Work Phone: 11-07-2006 10:35-0400 Pulse (Heart Rate) 72 /min Sunita Trinidadtatianna [facility] Work Phone: Comment on above: Pattern: Regular 11-07-2006 10:35-0400 Respiratory Rate 16 /min Sunita Charles [facility] Work Phone: Comment on above: Pattern: Unlabored Encounters Encounter Date Encounter Type Care Provider Facility Start: 03-01-2024 Documentation procedure Mammog gonzalez Coordinator [facility] Start: 03-01-2024 Letter encounter Mammography Coordinator [facility] Start: 03-01-2024 End: 03-01-2024 ambulatory RAYMOND COWAN Facility:[facility] Start: 03-01-2024 End: 03-01-2024 Subsequent hospital visit by physician Screen Mammo [facility] Start: 02-16-2024 End: 02-16-2024 ambulatory Raymond Cowan Facility:[facility] Start: 03-01-2023 End: 03-01-2023 ambulatory M[employer] ROLL REWINDER-C Raymond Cowan Work Phone: [facility] Work Phone: Start: 03-01-2023 End: 03-01-2023 Patient encounter procedure M[employer] RO[employer] REWINDER-C Raymond Cowan Work Phone: [facility] Work Phone: Start: 01-24-2023 End: 01-24-2023 Annotation/Addendum Yadi Brandt [facility] Start: 01-24-2023 Non-patient / Non-visit M[employer] RO[employer] REWINDER-C Paris Cowan Work Phone: [facility] Start: 01-24-2023 End: 01-24-2023 ambulatory MILL ROLL REWINDER-C Raymond Cowan Work Phone: [facility] Work Phone: Start: 01-24-2023 End: 01-24-2023 Patient encounter procedure M[employer] ROLL REWINDER-C Raymond Cowan Work Phone: [facility] Work Phone: Start: 12-30-2022 End: 12-30-2022 Annotation/Addendum Yadi Ciesa [facility] Start: 12-28-2022 End: 12-28-2022 Patient encounter procedure M[employer] ROLL REWINDER-C Raymond Cowan Work Phone: [facility], [facility] Work Phone: Start: 12-21-2022 End: 12-27-2022 Office consultation new/estab patient 40 min Yadi Soliman [facility] Start: 12-21-2022 End: 12-27-2022 Preprocedural examination done Raymond Cowan HARD CANDY SPINNER Work Phone: [facility]; [facility] Work Phone: Comment on above: just had labs done, no concerns. Start: 12-21-2022 Review Yadi Ordoñez [facility] Start: 12-03-2022 ambulatory Dorothea A Fast DO Compre[facility] ens[facility] Start: 12-03-2022 End: 12-10-2022 Office outpatient visit 15 minutes Yadi Soliman [facility] Start: 12-03-2022 Review Yadi Gamezflip Smita [facility] Start: 02-25-2022 End: 02-25-2022 Patient encounter procedure [facility] Start: 02-23-2022 End: 02-24-2022 Patient encounter procedure Yadi Gamezflip Work Phone: [facility] Start: 02-23-2022 Review Yadi Soliman Work Phone: [facility] Start: 01-27-2022 End: 01-27-2022 Patient encounter procedure [facility] Start: 01-22-2022 End: 01-22-2022 Patient encounter procedure Yadi Soliman Work Phone: [facility] Start: 01-22-2022 End: 01-22-2022 Office outpatient visit 25 minutes Yadi Soliman Work Phone: [facility] Start: 01-22-2022 Review Yadi Soliman Work Phone: [facility] Start: 08-03-2021 Review Yadi Soliman [employer]NER Work Phone: [facility] Start: 04-03-2021 End: 04-03-2021 Office outpatient visit 25 minutes Yadi Soliman [employer]NER Work Phone: [facility] Start: 12-30-2020 End: 12-30-2020 Office outpatient visit 25 minutes Yadi Soliman [employer]NER Work Phone: [facility] Start: 12-30-2020 Review Yadi Soliman [employer]NER Work Phone: [facility] Start: 10-20-2020 End: 10-20-2020 Annotation/Addendum Yadi Brandt [facility] Start: 09-30-2020 End: 09-30-2020 Office outpatient visit 25 minutes Yadi Brandt [facility] Start: 09-23-2020 End: 09-23-2020 Annotation/Addendum Yadi Brandt [facility] Start: 09-15-2020 End: 09-15-2020 Annotation/Addendum Yadi Brandt [facility] Start: 09-15-2020 End: 09-15-2020 Office outpatient visit 25 minutes Yadi Brandt [facility] Start: 06-16-2020 End: 06-16-2020 Office outpatient visit 15 minutes Yadi Brandt [facility] Start: 06-02-2020 End: 06-02-2020 Office outpatient visit 15 minutes Yadi Brandt [facility] Start: 06-02-2020 Review Yadi Ordoñez linnea [facility] Start: 05-19-2020 End: 05-19-2020 Office outpatient visit 25 minutes Yadi Brandt [facility] Start: 05-19-2020 Review Yadi Ordoñez linnea [facility] Start: 01-08-2020 End: 01-08-2020 Office outpatient visit 25 minutes Yadi Brandt [facility] Start: 08-31-2019 End: 08-31-2019 Office outpatient visit 15 minutes Yadi Brandt [facility] Start: 08-17-2019 End: 08-17-2019 Office outpatient new 45 minutes Yadi Brandt [facility] Start: 06-11-2015 End: 06-11-2015 Office outpatient visit 5 minutes Yadi Brandt [facility] Start: 05-30-2015 End: 05-30-2015 Office outpatient visit 25 minutes Yadi Brandt [facility] Start: 05-26-2015 End: 05-26-2015 Phone Encounter Yadi Brandt [facility] Start: 01-17-2015 End: 01-19-2015 Office outpatient visit 25 minutes Yadi Brandt [facility] Start: 09-02-2014 End: 09-02-2014 Office outpatient visit 15 minutes Yadi Brandt [facility] Start: 07-12-2014 End: 07-12-2014 Office outpatient visit 25 minutes Yadi Brandt [facility] Start: 01-18-2014 End: 01-18-2014 Patient encounter procedure Yadi Brandt [facility] Start: 10-26-2013 End: 10-26-2013 Office outpatient visit 15 minutes Yadi Brandt [facility] Start: 06-08-2013 End: 06-08-2013 Patient encounter procedure Yadi Brandt [facility] Start: 02-09-2013 End: 02-09-2013 Patient encounter procedure Yadi Brandt [facility] Start: 09-29-2012 End: 09-29-2012 Patient encounter procedure Yadi Brandt [facility] Start: 05-26-2012 End: 05-26-2012 Patient encounter procedure Yadi Brandt [facility] Start: 01-25-2012 End: 01-25-2012 Patient encounter procedure Yadi Brandt [facility] Start: 07-30-2011 End: 07-30-2011 Patient encounter procedure Yadi Brandt [facility] Start: 07-02-2011 End: 07-02-2011 Patient encounter procedure Yadi Brandt [facility] Start: 06-16-2011 End: 06-16-2011 Office outpatient visit 15 minutes Yadi Brandt [facility] Start: 06-11-2011 End: 06-11-2011 Office outpatient visit 15 minutes Yadi Brandt [facility] Start: 03-19-2011 End: 03-19-2011 Patient encounter procedure Yadi Brandt [facility] Start: 12-24-2010 End: 12-24-2010 Patient encounter procedure Yadi Brandt [facility] Start: 11-10-2010 End: 11-10-2010 Patient encounter procedure Yadi Brandt [facility] Start: 07-15-2010 End: 07-15-2010 Patient encounter procedure Nikolas Brand[facility] Start: 11-03-2009 End: 11-03-2009 Patient encounter procedure Yadi Brandt [facility] Start: 10-01-2009 End: 10-01-2009 Historical Summary Yadi Ciesa [facility] Start: 09-23-2009 End: 09-23-2009 Patient encounter procedure Yadi Soliman [facility] Start: 07-04-2009 End: 07-04-2009 Patient encounter procedure Yadi Soliman [facility] Start: 02-06-2009 End: 02-06-2009 Office outpatient visit 15 minutes Yadi Soliman [facility] Start: 01-28-2009 End: 01-28-2009 Office outpatient visit 25 minutes Yadi Gamezflip [facility] Start: 01-21-2009 End: 01-21-2009 Patient encounter procedure Yadi Soliman [facility] Start: 07-29-2008 End: 07-29-2008 Patient encounter procedure Yadi Gamezflip [facility] Start: 06-18-2008 End: 06-18-2008 Patient encounter procedure Yadi Soliman [facility] Start: 01-29-2008 End: 01-29-2008 Patient encounter procedure Yadi Soliman [facility] Start: 01-01-2008 End: 01-01-2008 Patient encounter procedure Yadi Soliman [facility] Start: 07-28-2007 End: 07-28-2007 Patient encounter procedure Yadi Soliman [facility] Start: 07-11-2007 End: 07-11-2007 Office outpatient visit 10 minutes Yadi Gamezflip [facility] Start: 04-26-2007 End: 04-26-2007 Patient encounter procedure Yadi Soliman [facility] Start: 02-06-2007 End: 02-06-2007 Patient encounter procedure Yadi Soliman [facility] Start: 11-07-2006 End: 11-07-2006 Patient encounter procedure Yadi Soliman [facility] Start: 06-30-2006 End: 06-30-2006 Historical Summary Yadi Gamezflip [facility] Start: 05-19-2006 End: 05-19-2006 Historical Summary Yadi Gamezflip [facility] Preprocedural examination done Raymond Cowan CNP Work Phone: [facility]; [facility] Work Phone: Comment on above: going to repeat the labs prior to surgery (December)labs already ordered Procedures Date Procedure Procedure Detail Performing Clinician Start: 03-01-2023 End: 03-02-2023 Dexa Bone Density Study Procedure Note: See Note; NOTES: [facility] Imaging Services [address] [place] [address] Dexa Bone Density Study MR#: [id number] Acct: [id number] Name: BRENDA SMITH Rep #: [id number] : [id number] F 72 From: Seymour cordova MD PCP: ARON Barnett Status: [facility] CLI Study: Dexa Bone Density Study Date of Exam: 03/01/23 Exam# [id number] Ordering Dr: Raymond Cowan STUDY: DUAL ENERGY X-RAY ABSORPTIOMETRY / DXA REASON FOR EXAM: Female, 72 years old. 733.00OsteoporosisBONE DENSITY REASON FOR EXAM TECHNIQUE: Bone Mineral Density (BMD) measurements of lumbar spine and bilateral hips were obtained. COMPARISON: Comparison is made with prior study dated December 02, 2020. FINDINGS: Lumbar Spine (L1-L4): g/cm2 (0.734) / T-score (-2.8) / Z-score (-0.6) Findings are suggestive of osteoporosis with a high fracture risk. Left Femur Total: g/cm2 (0.746) / T-score (-1.6) / Z-score (0.0) Left Femoral Neck: g/cm2 (0.597) / T-score (-2.3) / Z-score (-0.3) Right Femur Total: g/cm2 (0.723) / T-score (-1.8) / Z-score (-0.1) Right Femoral Neck: g/cm2 (0.591) / T-score (-2.3) / Z-score (-0.4) The T-Scores on the most recent prior examination were: Lumbar Spine (L1-L4): There has been worsening of bone density since the previous examination. Left Femur Total: which represents an improvement of 1%. Right Femur Total: which represents a worsening of 2.4%. BD/Dexa Bone Density Study IMPRESSION: The patient is considered osteoporotic as outlined below according to World Ronaldo Organization (WHO) criteria with a high fracture risk. There has been worsening of bone density since the previous examination. Reference Information: The T-score is the number of standard deviations above or below the standard which is normal for young adults at their peak bone mineral density. The World Health Organization (WHO) interprets the T-scores as follows: Above -1 Normal bone density Between -1 and -2.5 Osteopenia Equal to / or below -2.5 Osteoporosis As a practical clinical guideline, osteopenia may be graded as follows: Mild -1 through -1.5 Moderate -1.6 through -2.0 Severe -2.1 through -2.4 The Z-score is the number of standard deviations above or below age-matched controls. A Z-score of less than -1.5 would be considered abnormal. References: 1. NIH Osteoporosis and Related Bone Diseases www osteo.org 2. International Society for Clinical Densitometry www iscd.org 3. National Osteoporosis Foundation www nof.org Electronically Signed: Seymour Montenegro MD at 13:38 EDT Reading Location ID and State: [facility] / [place] , Service support , CC: Raymond Cowan NP; ARON Cowan Audience Development Manager: Signed Raymond Cowan CNP Work Phone: Start: 03-01-2023 Dual energy X-ray absorptiometry ARON Cowan Work Phone: Start: 03-01-2023 Screening mammography ARON Cowan Work Phone: Start: 03-01-2023 End: 03-01-2023 SCRN MAMM (CAD)W/NÉSTOR BILAT Procedure Note: See Note; NOTES: [facility] Imaging Services [address] [place] [id number] SCRN MAMM (CAD)W/NÉSTOR BILAT MR#: [id number] Acct: [id number] Name: BRENDA SMITH Rep #: [id number] : 1950 F 72 From: Seymour cordova MD PCP: ARON Barnett Status: [facility] Study: SCRN MAMM (CAD)W/NÉSTOR BILAT Date of Exam: 03/16 Exam# [id number] Ordering Dr: Raymond Cowan MAMMOGRAPHY - BILATERAL SCREENING REASON FOR EXAM: Female, 72 years old. Routine annual screening examination. PERTINENT HISTORY: Non-contributory. Remote left stereotactic breast biopsy. TECHNIQUE: Digital bilateral breast néstor (3D mammographic acquisition) in the CC and MLO projections. 2-D mediolateral oblique (MLO) and craniocaudad (CC) views of both breasts were obtained. CAD: Full Field Digital Mammography with Computer Added Detection was performed. COMPARISON: Comparison is made with prior study February 25, 2022 and December 02, 2020. FINDINGS: Breast Composition: The breasts are almost entirely fatty. There are no dominant masses or suspicious calcifications. Stable small benign-appearing bilateral axillary lymph nodes. No other significant abnormalities are identified. There has been no significant change since the prior study. BI/SCRN MAMM (CAD)W/NÉSTOR BILAT IMPRESSION: Stable bilateral screening mammogram. Yearly follow-up mammogram recommended. (A) ASSESSMENT CATEGORY: BIRADS Category 2: Benign. A letter regarding these results will be sent to the patient by the facility within 30 days. Approximately 10% of breast cancers are not detected by mammography. A normal mammogram should not delay biopsy of a clinically suspicious abnormality. [id number] Electronically Signed: Seymour Montenegro MD at 13:47 EDT , CC: Raymond Cowan MILL ROLL REWINDER; MEGHANNC Raymond Cowan Audience Development Manager: Signed Raymond Cowan CNP Work Phone: Start: 01-24-2023 End: 01-26-2023 Venous Duplex US, Unilateral Procedure Note: See Note; NOTES: [facility] [address] [place] [address] Venous Duplex US, Unilateral 01/24/23 1326 MR#: [id number] Acct: [id number] Name: NEVA SMITH Rep #: [id number] : 1950 72 From: Juan Denton MD Attending Dr: Dr. Ike Lee MD Status: REG CLI Ordering Dr: Ike Lee MD Date: 01/24/23 Location: CVS Sex: F C Admitted: Reason For Study: Pain in lower right leg RIGHT LEFT GSV is normal. CFV is compressible, spontaneous, phasic, CFV is compressible, spontaneous, phasic, competent, and demonstrates normal competent and demonstrates normal augmentation. augmentation. FV is compressible, spontaneous, phasic, competent and demonstrates normal augmentation. POP V is compressible, spontaneous, phasic, competent and demonstrates normal augmentation. T/P Trunk is compressible. PTV is compressible. RT PerV is compressible. Acute deep vein thrombosis is noted in the SoleusV. It is dilated and NONCOMPRESSIBLE. Procedure This is a venous duplex using B-mode, color flow and spectral Doppler. Exam performed in department. A preliminary report was called and/or faxed to Ortho and PCP: Marylou. VL/Venous Duplex US, Unilateral Interpretation Summary Acute deep vein thrombosis is noted in the right soleus vein. Ordering Physician: Ike Lee Referring Physician: Raymond Cowan Performed By: Leatha Merida RVT 01/26/23 1017 Date Juan Denton MD CC: MILL ROLL REWINDER-C Raymond Cowan; Dr. Ike Lee MD Date Dictated: 01/24/23 1326 Date Transcribed: 01/26/23 1017 Audience Development Manager: Signed Yadi Soliman Start: 12-28-2022 End: 12-28-2022 Extremity Lower without Contra Procedure Note: See Note; NOTES: [facility] Imaging Services [address] [place] [address] Extremity Lower without Contra MR#: [id number] Acct: [id number] Name: NEVA SMITH Rep #: [id number] : 1950 F 72 From: Seymour cordova MD PCP: ARON Barnett Status: REG CLI Study: Extremity Lower without Contra Date of Exam: 0 12/28/22 Exam# [id number] Ordering Dr: Ike Lee MD CT RIGHT LOWER EXTREMITY WITH 3-D IMAGING. [facility] protocol CLINICAL INDICATION: VARUS DEFORMITY TECHNIQUE: Axial CT images of the RIGHT lower extremity was performed without IV contrast material. Coronal and sagittal reformats were provided. RADIATION DOSAGE (If Supplied By Facility): CTDIvol = ( 18.76 ) mGy, DLP = ( 1465.01 ) mGycm COMPARISON: No relevant priors available FINDINGS: Bones: Imaging of the right hip joint was obtained. There is good alignment. No significant abnormality is seen. Imaging of the right knee joint was obtained. There is a marked degree of joint space narrowing with degenerative spur formation along the medial femoral condyle and medial tibial plateau. Degenerative spur formation is also seen along the lateral femoral condyle and lateral tibial plateau. Mild degree of joint space narrowing involving the patellofemoral joint. Imaging of the ankle joint was obtained. There is evidence of calcaneal spurs. Soft Tissues: Tiny knee joint effusion. The superficial soft tissues are unremarkable without evidence of edema, hematoma, or foreign body. CT/Extremity Lower without Contra IMPRESSION: Marked degree of joint space narrowing involving the medial compartment of knee joint with degenerative spur formation. Small joint knee joint effusion. Electronically Signed: Seymour Montenegro MD at 14:26 EDT , CC: ARON Cowan; Dr. Ike Lee MD Audience Development Manager: Signed Yadi Soliman Start: 12-28-2022 MRI of lower extremity MILL ROLL REWINDER-Paris Cowan Work Phone: Start: 02-25-2022 End: 02-25-2022 Carotid Duplex Ultrasound Procedure Note: See Note; NOTES: [facility] [address] [place] [address] Carotid Duplex Ultrasound 02/25/22 1053 MR#: [id number] Acct: [id number] Name: NEVA SMITH Rep #: [id number] : 1950 71 From: Nicholas Brizuela MD Attending Dr: ARON Barnett Status: REG CLI Ordering Dr: Raymond Cowan Date: 02/25/22 [facility] Sex[facility] F C Admitted: Reason For Study: Syncope Rt. Velocities/BP Lt. Velocities/BP Prox CCA 86.5/26.5 cm/sec. Prox CCA 102.3/23.7 cm/sec. Mid CCA 76/29.1 cm/sec. Mid CCA 74.1/17.6 cm/sec. Dist CCA 53.9/14.7 cm/sec. Dist CCA 70.4/22.5 cm/sec. Prox ICA 68.4/20.1 cm/sec. Prox ICA 69.5/22.3 cm/sec. Mid ICA 86.3/32.3 cm/sec. Mid ICA 98.1/35.5 cm/sec. Dist ICA 85.1/29.8 cm/sec. Dist ICA 84.9/35.5 cm/sec. Rt. ICA/CCA = 1.14. Lt. ICA/CCA = 1.32. Prox ECA 112/18.8 cm/sec. Prox ECA 36.9/4.8 cm/sec. Rt. Vert. 65.5/20 cm/sec. Lt. Vert. 45.4/13.5 cm/sec. Right Extracranial There is intimal thickening but no significant atherosclerotic plaque noted in the right common carotid artery. There is heterogeneous, irregular atherosclerotic plaque noted in the right internal carotid artery. There is intimal thickening but no significant atherosclerotic plaque noted in the right external carotid artery. Antegrade flow is noted in the right vertebral artery. Left Extracranial There is intimal thickening but no significant atherosclerotic plaque noted in the left common carotid artery. There is intimal thickening but no significant atherosclerotic plaque noted in the left internal carotid artery. The left internal carotid artery is very tortuous. There is intimal thickening but no significant atherosclerotic plaque noted in the left external carotid artery. Antegrade flow is noted in the left vertebral artery. VL/Carotid Duplex Ultrasound Interpretation Summary Mild (<50%) stenosis right extracranial internal carotid. No significant atherosclerotic plaque or stenosis noted in the left internal carotid artery. Flow within the vertebral arteries is antegrade bilaterally. _ Ordering Physician: Raymond Cowan Referring Physician: Raymond Cowan Performed By: Leatha Merida RVT 02/25/221924 Date Nicholas Brizuela MD CC: MILL ROLL REWINDER-C Raymond Cowan Date Dictated: 02/25/22 1053 Date Transcribed: 02/25/221924 Audience Development Manager: Devin Soliman Start: 02-25-2022 Screening mammography Start: 02-25-2022 End: 02-25-2022 SCRN MAMM (CAD)W/NÉSTOR BILAT Comments: See Note; NOTES: [facility] Imaging Services [address] [place] [address] SCRN MAMM (CAD)W/NÉSTOR BILAT MR#: [id number] Acct: [id number] Name: NEVA SMITH Rep #: [id number] : 1950 F 71 From: Edison Winn MD PCP: ARON Barnett Status: REG CLI Study: SCRN MAMM (CAD)W/NÉSTOR BILAT Date of Exam: 11/13 Exam# [id number] Ordering Dr: Raymond Cowan MAMMOGRAPHY - BILATERAL SCREENING 3-D TOMOSYNTHESIS REASON FOR EXAM: Female, 71 years old. Annual screening mammogram. PERTINENT HISTORY: Prior left stereotactic breast biopsy. TECHNIQUE: 2-D mammograms and 3-D Tomosynthesis of the breast (s) were performed. CAD was performed. COMPARISON: 12/02/2020. FINDINGS: The breast composition is almost entirely fat. Stable scattered benign calcifications and lymph nodes. No dense spiculated masses or suspicious microcalcifications are identified. No architectural distortion is identified. There is no skin thickening or retraction. BI/SCRN MAMM (CAD)W/NÉSTOR BILAT IMPRESSION: No interval change and no mammographic signs of malignancy. Routine yearly mammograms recommended. ASSESSMENT CATEGORY: BIRADS Category 2: Benign. A letter regarding these results will be sent to the patient by the facility within 30 days. FOLLOW UP RECOMMENDATION: Yearly follow up mammogram recommended. (A) Approximately 10% of breast cancers are not detected by mammography. A normal mammogram should not delay biopsy of a clinically suspicious abnormality. Electronically Signed: Edison Winn MD at 15:34 EDT , CC: ARON Cowan Audience Development Manager: Signed Yadi Soliman Work Phone: Start: 12-02-2020 End: 12-03-2020 Dexa Bone Density Study Comments: See Note; NOTES: [facility] Imaging Services [address] [place] [address] Dexa Bone Density Study MR#: [id number] Acct: [id number] Name: NEVA SMITH Rep #: [id number] : 1950 F 70 From: Seymour cordova MD PCP: ARON Aquino Status: REG CLI Study: Dexa Bone Density Study Date of Exam: 12/02/20 Exam# [id number] Ordering Dr: Yadi Soliman NP STUDY: DUAL ENERGY X-RAY ABSORPTIOMETRY / DXA REASON FOR EXAM: Female, 70 years old. 627.8Menopausal postmenopausal BONE DENSITY REASON FOR EXAM TECHNIQUE: Bone Mineral Density (BMD) measurements of lumbar spine and bilateral hips were obtained. COMPARISON: Comparison is made with prior study dated 11/21/2018. FINDINGS: Lumbar Spine (L1-L4): g/cm2 (0.827) / T-score (-3.1) / Z-score (-1.4) Findings are suggestive of osteoporosis with a high fracture risk. Left Femur Total: g/cm2 (0.798) / T-score (-1.7) / Z-score (-0.2) Left Femoral Neck: g/cm2 (0.718) / T-score (-2.3) / Z-score (-0.6) Right Femur Total: g/cm2 (0.802) / T-score (-1.6) / Z-score (-0.1) Right Femoral Neck: g/cm2 (0.740) / T-score (-2.1) / Z-score (-0.4) The T-Scores on the most recent prior examination were: Lumbar Spine (L1-L4): There has been worsening of bone density since the previous examination. Left Femur Total: which represents a worsening of 2.1%. Right Femur Total: which represents a worsening of 0.2%. BD/Dexa Bone Density Study IMPRESSION: The patient is considered osteoporotic as outlined below according to World Ronaldo Organization (WHO) criteria with a high fracture risk. Reference Information: The T-score is the number of standard deviations above or below the standard which is normal for young adults at their peak bone mineral density. The World Health Organization (WHO) interprets the T-scores as follows: Above -1 Normal bone density Between -1 and -2.5 Osteopenia Equal to / or below -2.5 Osteoporosis As a practical clinical guideline, osteopenia may be graded as follows: Mild -1 through -1.5 Moderate -1.6 through -2.0 Severe -2.1 through -2.4 The Z-score is the number of standard deviations above or below age-matched controls. A Z-score of less than -1.5 would be considered abnormal. References: 1. NIH Osteoporosis and Related Bone Diseases www osteo.org 2. International Society for Clinical Densitometry www iscd.org 3. National Osteoporosis Foundation www nof.org Electronically Signed: Seymour Montenegro MD at 10:03 EDT , Service support , CC: ARON Soliman Audience Development Manager: Signed Yadi Soliman [facility] Work Phone: Start: 12-02-2020 End: 12-02-2020 SCRN MAMM (CAD)W/NÉSTOR BILAT Comments: See Note; NOTES: [facility] Imaging Services [address] [place] [address] SCRN MAMM (CAD)W/NÉSTOR BILAT MR#: [id number] Acct: [id number] Name: NEVA SMITH Rep #: [id number] : 1950 F 70 From: Seymour cordova MD PCP: ARON Aquino Status: REG CLI Study: SCRN MAMM (CAD)W/NÉSTOR BILAT Date of Exam: 11/22 08/14 Exam# [id number] Ordering Dr: Yadi Soliman NP MILL ROLL REWINDER-C MAMMOGRAPHY - BILATERAL SCREENING REASON FOR EXAM: Female, 70 years old. Routine annual screening examination. PERTINENT HISTORY: Non-contributory. Prior left stereotactic breast biopsy. TECHNIQUE: Digital bilateral breast néstor (3D mammographic acquisition) in the CC and MLO projections. 2-D mediolateral oblique (MLO) and craniocaudad (CC) views of both breasts were obtained. CAD: Full Field Digital Mammography with Computer Added Detection was performed. COMPARISON: Comparison is made with prior study of 11/29/2019. FINDINGS: Breast Composition: There are scattered areas of fibroglandular density. There are no dominant masses or suspicious calcifications. The previously seen 1.1 cm x 0.6 cm well-defined nodule in the retroareolar region of the right breast is not seen at this time. This was demonstrated to be a cyst prior sonogram. No other significant abnormalities are identified. BI/SCRN MAMM (CAD)W/NÉSTOR BILAT IMPRESSION: Stable bilateral screening mammogram. Yearly follow-up mammogram recommended. (A) ASSESSMENT CATEGORY: BIRADS Category 2: Benign. A letter regarding these results will be sent to the patient by the facility within 30 days. Approximately 10% of breast cancers are not detected by mammography. A normal mammogram should not delay biopsy of a clinically suspicious abnormality. [id number] Electronically Signed: Seymour Montenegro MD at 10:43 EDT , Service support , CC: MILL ROLL REWINDER-Paris Soliman Audience Development Manager: Signed Yadi Soliman JACINTA Work Phone: Start: 10-31-2020 End: 10-31-2020 Consult: SOC Tele EEG Read/Int Comments: See Note; NOTES: [facility] Medical Records Department [address] [place] [address] Telemedicine Confirmation Receipt 10/31/20 MR#: [id number] Acct: [id number] Name: NEVA SMITH Rep #: [id number] : 1950 70 From: Yadi Soliman NP MILL ROLL REWINDER-C PCP: ARON Aquino Status:REG CLI [facility] has confirmed receipt of a request for visit. This document confirms receipt of the order initiating the consult. To find the results of the consultation, please view the patient's reports for the scanned Telemed Consult. Yadi Soliman JACINTA Work Phone: Start: 09-24-2020 End: 09-29-2020 Carotid Duplex Ultrasound Comments: See Note; NOTES: [facility] Cardiovascular Services [address] [place] [address] Carotid Duplex Ultrasound 09/24/20 0932 MR#: [id number] Acct: [id number] Name: NEVA SMITH Rep #: [id number] : 1950 70 From: Nicholas Brizuela MD Attending Dr: ARON Aquino Status: REG CLI Ordering Dr: Yadi Soliman NP MILL ROLL REWINDER-C Date: 09/24/20 Location: CT Sex: F C Admitted: Reason For Study: SYNCOPE Rt. Velocities/BP Lt. Velocities/BP Prox CCA 68.7/13.4 cm/sec. Prox CCA 96.5/14.4 cm/sec. Mid CCA 78.5/25.7 cm/sec. Mid CCA 81.8/25.3 cm/sec. Dist CCA 53.0/9.0 cm/sec. Dist CCA 67.0/17.9 cm/sec. Prox ICA 79.7/23.2 cm/sec. Prox ICA 69.8/19.3 cm/sec. Mid ICA 69.9/25.7 cm/sec. Mid ICA 90.6/30.3 cm/sec. Dist ICA 67.4/29.3 cm/sec. Dist ICA 48.0/22.4 cm/sec. Rt. ICA/CCA = 79.7/78.5=1.0. Lt. ICA/CCA = 90.6/96.5=0.9. Prox ECA 141.8/21.1 cm/sec. Prox ECA 69.9/10.5 cm/sec. Rt. Vert. 58.8/18.3 cm/sec. Lt. Vert. 48.2/15.3 cm/sec. Right Extracranial There is no significant atherosclerotic plaque noted in the right common carotid artery. There is heterogeneous, irregular atherosclerotic plaque noted in the right internal carotid artery. There is heterogeneous, irregular atherosclerotic plaque noted in the right external carotid artery. Antegrade flow is noted in the right vertebral artery. Left Extracranial There is no significant atherosclerotic plaque noted in the left common carotid artery. There is intimal thickening but no significant atherosclerotic plaque noted in the left internal carotid artery. The left internal carotid artery is very tortuous. The distal left internal carotid artery is not well visualized. There is intimal thickening but no significant atherosclerotic plaque noted in the left external carotid artery. The left external carotid artery is not well visualized. Antegrade flow is noted in the left vertebral artery. Interpretation Summary Mild (<50%) stenosis right extracranial internal carotid. No significant atherosclerotic plaque or stenosis noted in the left internal carotid artery. Flow within the vertebral arteries is antegrade bilaterally. _ Ordering Physician: Yadi Soliman Referring Physician: Yadi Soliman Performed By: Suni Orozco, MAURIZIO, RVT 09/25/202053 Date Nicholas Brizuela MD CC: MILL ROLL REWINDER-C Yadi Soliman Date Dictated: 09/24/20931 Date Transcribed: 09/25/202053 Audience Development Manager: Signed Yadi Soliman Work Phone: Start: 09-24-2020 End: 09-29-2020 Echo Complete Comments: See Note; NOTES: [facility] [address] [place] [address] Echo Complete 09/24/20 0853 MR#: [id number] Acct: [id number] Name: NEVA SMITH Rep #: [id number] : 1950 70 From: Enrique Villela MD Attending Dr: ARON Aquino Status: REG CLI Ordering Dr: Yadi Soliman NP MILL ROLL REWINDERLamC Date: 09/24/20 Location: [facility] Sex: F C Admitted: Reason For Study: Syncope Procedure This was a 2D Doppler, Color Flow transthoracic echocardiogram. The exam was of adequate technical quality. Exam performed in department. Left Ventricle Normal LV size. Left ventricular systolic function is normal. The estimated ejection fraction is 65 %. Diastolic function is indeterminate. No regional wall motion abnormalities noted. Right Ventricle Normal RV size. Normal systolic function. Atria Normal left atrium. Normal right atrium. No doppler evidence for ASD. Mitral Valve There is no mitral annular calcification. Normal mitral valve. Mild (1+) mitral valve insufficiency. Tricuspid Valve Normal tricuspid valve. Trivial tricuspid valve insufficiency. Aortic Valve Trisinus/trileaflet aortic valve. Normal aortic valve. Trivial aortic valve insufficiency. Pulmonic Valve The pulmonic valve is not well visualized. Great Vessels Normal sized aortic root. Pericardium/Pleural No pericardial effusion. MMode/2D Measurements Calculations LVIDd: 4.3 cm IVSd: 1.2 cm Ao root diam: 3.5 cm LVIDs: 2.5 cm LVPWd: 0.88 cm RVDd: 2.9 cm FS: 42.2 % LAV(MOD-bp): 28.0 ml LVAd ap4: 24.3 cm2 SV(MOD-sp4): 43.8 ml LAV(MOD-bp) Indexed: 15.4 ml/m2 EDV(MOD-sp4): 71.1 ml LAV(MOD-sp2): 34.5 ml EDV(sp4-el): 74.4 ml LAV(MOD-sp4): 19.0 ml LVAs ap4: 14.2 cm2 ESV(MOD-sp4): 27.3 ml ESV(sp4-el): 27.3 ml EF(MOD-sp4): 61.6 % EF(sp4-el): 63.2 % SV(sp4-el): 47.0 ml LA A4 area: 9.4 cm2 LA dimension(2D): 3.2 cm RA A4 area: 11.9 cm2 Doppler Measurements Calculations MV E max lex: 53.2 cm/sec Lat Peak E' Lex: 2.6 cm/sec Med Peak E' Lex: 4.2 cm/sec MV A max lex: 97.4 cm/sec E/E' lat: 20.6 E/E' med: 12.7 MV E/A: 0.55 Ao V2 max: 122.9 cm/sec LV V1 max: 94.4 cm/sec PA V2 max: 80.2 cm/sec Ao max P.0 mmHg LV V1 max P.6 mmHg Ao V2 mean: 92.9 cm/sec Ao mean P.7 mmHg Ao V2 VTI: 28.1 cm Interpretation Summary Left ventricular systolic function is normal. The estimated ejection fraction is 65 %. Mild (1+) mitral valve insufficiency. Trivial tricuspid valve insufficiency. Trivial aortic valve insufficiency. Diastolic function is indeterminate. _ Ordering Physician: Yadi Soliman Referring Physician: Yadi Soliman Performed By: Flora Huber, MAURIZIO, RVT 09/24/20 1037 Date Enrique Villela MD CC: MILL ROLL REWINDER-C Yadi Soliman Date Dictated: 09/24/20 0853 Date Transcribed: 09/24/20 1037 Audience Development Manager: Signed Yadi Soliman Work Phone: Start: 09-24-2020 End: 09-24-2020 Liver Comments: See Note; NOTES: [facility] Imaging Services [address] [place] [address] Liver MR#: [id number] Acct: [id number] Name: NEVA SMITH Rep #: [id number] : 1950 F 70 From: Seymour cordova MD PCP: ARON Aquino Status: REG CLI Study: Liver Date of Exam: 09/24/20 Exam# [id number] Ordering Dr: Yadi Soliman NP STUDY: ABDOMINAL ULTRASOUND - RIGHT UPPER QUADRANT REASON FOR VISIT: Female, 70 years old ELEVATED LIVER ENZYMES TECHNIQUE: Ultrasound evaluation of the right upper quadrant was performed with real-time and static carlson-scale imaging. TECHNICAL QUALITY: Adequate. COMPARISON: None. FINDINGS: Liver: The liver measures 17.6 cm. There is increased echogenicity consistent with fatty infiltration. The bile ducts are within normal limits. There is hepatic color flow. The direction of portal flow is hepatopetal. There is no demonstrated mass lesion. Gallbladder: Normal distended gallbladder. The gallbladder wall measures 1.3 mm. There is a negative sonographic Coulter''s sign. There is no pericholecystic fluid. There are no gallstones. Common Bile Duct (C.B.D.): The common bile duct measures 4 mm. Pancreas: Normal size of the head, body and tail of the pancreas. There is normal echogenicity of the pancreas. There is no demonstrated pancreatic mass or cyst. Right Kidney: Normal size of the right kidney. The right kidney measures 10.4 cm x 4.4 cm x 4.5 cm. Normal renal cortex. The right cortex measures 1.1 cm. There is no demonstrated renal mass or cyst. There is no right hydronephrosis. US/Liver IMPRESSION: Fatty infiltration of the liver. Electronically Signed: Seymour Montenegro MD at 12:38 EST , Service support , CC: ARON Soliman Audience Development Manager: Signed Yadi Soliman Work Phone: Start: 09-24-2020 End: 09-24-2020 Brain/Head W/WO Contrast Comments: See Note; NOTES: [facility] Imaging Services [address] [place] [address] Brain/Head W/WO Contrast MR#: [id number] Acct: [id number] Name: NEVA SMITH Rep #: [id number] : 1950 F 70 From: Seymour cordova MD PCP: Yadi Soliman NP-C Status: REG CLI Study: Brain/Head W/WO Contrast Date of Exam: 1 Exam# [id number] Ordering Dr: Yadi Soliman NP STUDY: CT BRAIN WITH AND WITHOUT CONTRAST REASON FOR EXAM: Female, 70 years old. SYNCOPE RADIATION DOSAGE (If Supplied By Facility): CTDIvol = ( 44.99 ) mGy, DLP = ( 1580.97 ) mGycm TECHNIQUE: Transaxial CT imaging of the brain was performed pre and post contrast administration. The examination was performed with intravenous administration of IV 50mL Isovue-300. Individualized dose optimization techniques were used for this CT. COMPARISON: None. FINDINGS: Normal soft tissue structures. There is hyperostosis frontalis internus. There is mild cerebral atrophy with widening of the extra-axial spaces and ventricular dilatation. Normal white matter tracts of the cerebral hemispheres. 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 Normal brainstem. Normal cerebellum. There is no intracranial hemorrhage. There are no findings of an acute ischemic infarction. Normal visualized paranasal sinuses. CT/Brain/Head W/WO Contrast IMPRESSION: Chronic involutional changes of the brain. Electronically Signed: Seymour Montenegro MD at 9:06 EST , Service support , CC: ARON Soliman Audience Development Manager: Signed Suzie Jourdan Work Phone: Start: 09-15-2020 End: 09-16-2020 L/S Spine Min 4 Views Comments: See Note; NOTES: [facility] Radiology [address] [place] [address] L/S Spine Min 4 Views MR#: [id number] Acct: [id number] Name: NEVA SMITH Rep #: [id number] : 1950 F 70 From: Seymour cordova MD PCP: Status: DEP AMB Study: L/S Spine Min 4 Views Date of Exam: 09/15/20 Exam# [id number] Ordering Dr: Yadi Soliman NP STUDY: X-RAY - LUMBAR SPINE REASON FOR EXAM: Female, 70 years old. PATIENT FELL 10 DAYS AGO. PAIN IN LOWER BACK MOSTLY RIGHT SIDE. TECHNIQUE: 5 view(s) of the lumbar spine were obtained including oblique views. COMPARISON: None FINDINGS: Normal lumbar lordosis. There is a mild levoscoliosis of the lumbar spine. There is a normal alignment of the vertebrae. There is diffuse demineralization with multi-level endplate spondylosis. There is multi-level degenerative disc disease with multi-level disc space narrowing. Facet joint osteoarthritis. Degenerative changes of both hip joints. Large amount of fecal material is seen in the colon. RAD/L/S Spine Min 4 Views IMPRESSION: Degenerative changes of the spine, as detailed above. Electronically Signed: Seymour Montenegro MD at 15:27 EST , Service support , CC: ARON Soliman Audience Development Manager: Signed Suzie Jourdan Work Phone: Start: 06-14-2020 End: 06-14-2020 Urgent Care Visit Report Comments: See Note; NOTES: [facility] [place] [address] OFFICE VISIT Date of Service: 06/14/20 MR#: [id number] Acct: [id number] Name: Tejas SMITH Rep #: [id number] : 1950 Provider: MIKHAIL To Age/Sex: 70/F Location: [facility] Status: Signed Intake Intake Visit Reasons: POSSIBLE COVID EXPOSURE Chief Complaint: Covid exposure Allergies No Known Allergies Allergy (Verified 05/27/20 08:34) [facility] Medical History (Updated 06/14/20 @ 13:00 by MIKHAIL Garcia) Acid reflux (Acute) Arthritis (Acute) Hemorrhoids (Acute) Left knee pain (Acute) Hypertension (Chronic) Surgical History History of hysterectomy (Acute) S/P appendectomy (Acute) S/P cataract extraction (Acute) S/P hemorrhoidectomy (Acute) S/P tonsillectomy (Acute) history nico procedure (Acute) Family History Father Hypertension Hypercholesterolemia Social History (Updated 06/14/20 @ 13:17 by MIKHAIL Garcia) Smoking Status: Never smoker alcohol intake: never substance use type: does not use HPI HPI Chief Complaint: Covid exposure Details: Tejas SMITH, is a 70 F who presents to the office today for exposure to someone who tested positive for Covid. Patient states that they are requesting a test at this time as they had a car trip with someone who recently tested positive for Covid. Patient denies fever, chills, sweats. No nausea, vomiting, diarrhea. No cough, shortness of breath or difficulty breathing. No loss of taste or smell. No other associated symptoms or alleviating/aggravating factors. ROS Const Constitutional: Positive for other (6 system ROS completed with pertinent findings in the HPI otherwise normal.) Exam Const General: cooperative, healthy appearing HENKY Head: normocephalic, atraumatic Ears: hearing grossly normal bilaterally Nose: external nose normal Face and sinus: normal facial exam, face symmetric Mouth: oral mucosae normal Throat: posterior oropharynx normal Eyes General: appearance normal, both eyes and all related structures Resp Effort Inspection: normal respiratory effort Auscultation: Bilateral: Clear to Auscultation Cardio Palpation: normal PMI Rate: regular rate Rhythm: regular rhythm Skin General: no rashes or lesions noted Neuro General: alert, CN's II-XI intact bilaterally Psych Appearance: grossly normal Mental Status: mental status grossly normal Assessment Plan Problems 1. Contact with or suspected exposure to other viral communicable disease Z20.828 Status Acute Plan Patient swabbed for Covid sent out in the office today. Advised to quarantine for 14 days from exposure or until she has a negative result. Patient verbalized understanding and agreement with all the above. Orders Orders: COVID 19, PATRICK SENDOUT Today Z20.828 Coding Level of Care Code Off vis,new,level 3 Diagnoses Contact with or suspected exposure to other viral communicable disease Z20.828 06/14/20 1317 <Electronically signed by Demarcus ELIZONDO> Date Demarcus ELIZONDO Cosigner Signature: Date (if applicable) CC: Yadi Soliman Start: 05-27-2020 End: 05-28-2020 Surgery Visit Report Comments: See Note; NOTES: [facility] [address] [place] [address]. [address] [place] [address] OFFICE VISIT Date of Service: 05/27/20 MR#: [id number] Acct: [id number] Name: Tejas SMITH Rep #: [id number] : 1950 Provider: Dr. Jordan meraz MD Age/Sex: 70/F Location: [facility] Status: Signed Intake Vital Signs 05/27/20 Height 5 ft 3.25 in 05/27/20 Weight: 174 lb 05/27/20 BMI 30.5 05/27/20 BP 145/89 H 05/27/20 Blood Pressure Location Rt brachial 05/27/20 Position Sitting 05/27/20 Respiration 16 Intake Visit Reasons: Cyst R Breast Chief Complaint: breast cyst Clinical Programmer Required: No Is patient in pain?: No Allergies No Known Allergies Allergy (Verified 05/27/20 08:34) Medications ascorbic acid (vitamin C) 1,000 mg tablet 1 g PO DAILY tab 12/25/18 [History Confirmed 05/27/20] calcium citrate 1,000 mg tablet 1,000 mg PO DAILY tab 12/25/18 [History Confirmed 05/27/20] cholecalciferol (vitamin D3) 125 mcg (5,000 unit) capsule 5,000 unit PO DAILY 12/25/18 [History Confirmed 05/27/20] vitamin E (dl, acetate) 450 mg (1,000 unit) capsule 1,000 unit PO DAILY 12/25/18 [History Confirmed 05/27/20] amlodipine 5 mg tablet 20 mg PO DAILY tab 05/27/20 [History Confirmed 05/27/20] lisinopril 40 mg tablet 20 mg PO DAILY tab 05/27/20 [History Confirmed 05/27/20] pravastatin 40 mg tablet 20 mg PO DAILY tab 05/27/20 [History Confirmed 05/27/20] [facility] Medical History Acid reflux (Acute) Arthritis (Acute) Hemorrhoids (Acute) Left knee pain (Acute) Hypertension (Chronic) Surgical History History of hysterectomy (Acute) S/P appendectomy (Acute) S/P cataract extraction (Acute) S/P hemorrhoidectomy (Acute) S/P tonsillectomy (Acute) history nico procedure (Acute) Family History Father Hypertension Hypercholesterolemia Social History (Updated 05/28/20 @ 08:[address] Jordan Ponce MD) Smoking Status: Never smoker alcohol intake: never substance use type: does not use HPI HPI HPI: Tejas SMITH, is a 70 F who presents to the office today for HPI HPI HPI: Tejas SMITH, is a 70 F who presents to the office today for Evaluation for an abnormal ultrasound of her right breast. Patient had an ultrasound completed [facility] on 11/29/2019. This showed a 1.1 cm Septated cyst at the 2 o'clock position of her breast in the retroareolar region. The cyst has enlarged slightly compared to previous studies. They gave this a BI-RADS Category 2 which is benign. Patient has not been palpating any abnormalities in her own breast she is not been experiencing any pain. ROS Breast Breast: No nipple discharge Exam HENMT Head: normal to inspection, normocephalic, atraumatic Mouth: oropharynx normal, moist mucous membranes Eyes General: appearance normal, both eyes and all related structures Sclera: sclerae normal Neck Neck: trachea midline, no lymphadenopathy noted Neck mass: No Thyroid: thyroid normal Lymphatic: no lymphadenopathy noted Chest Breast inspection: normal inspection of the breasts Breast Palpation: Yes normal palpation of the breasts, No breast mass, No nipple discharge, No change in skin Resp Other: Respiratory Exam: Deferred Cardio Other: Cardiac Exam: Deferred GI Other: GI Exam: Deferred Other: Rectal Exam: Deferred Extrem Other: Extremity Exam: Deferred Assessment Plan Problems 1. Cyst of right breast N60.01 Plan I went over the images with the patient and showed her why this was a benign cyst. There is absolutely no shadowing to it and there is only one slight area with a septation in it this looks entirely benign to me and I really do not think it needs to have a biopsy nor since she is Asymptomatic I do not think aspirating it is warranted either. If the patient develops pain or she palpates a lump then I will need to reevaluate her with a new ultrasound of the breast. She may continue to get her normal mammograms and continue to do her normal self breast exams. Coding Level of Care Code Off vis,new,level 3 Diagnoses Cyst of right breast N60.01 05/28/20 0857 <Electronically signed by Jordan Ponce MD> Date Jordan Ponce MD Cosigner Signature: Date (if applicable) CC: MILL ROLL REWINDER-C Yadi Soliman Start: 07-30-2015 End: 07-30-2015 Bilat Scrn Digital AND CAD Comments: See Note; NOTES: [facility] [address] [place] [address] Verdanaye 4d Bilat Scrn Digital AND CAD MR#: [id number] Acct: [id number] Name: BRENDA SMITH Rep #: [id number] : 1950 F 65 From: Seymour Montenegro MD PCP: Dorothea Erazo DO Status: REG CLI Study: Bilat Scrn Digital AND CAD Date of Exam: 07/30/15 Exam# [id number] Ordering Dr: Dorothea Erazo DO MAMMOGRAPHY - BILATERAL SCREENING REASON FOR EXAM: Female, 65 years old. Routine annual screening examination. PERTINENT HISTORY: History of left stereotactic breast biopsy. TECHNIQUE: Digital examination. Mediolateral oblique (MLO) and craniocaudad (CC) views of both breasts were obtained. CAD: CAD was performed on this study. COMPARISON: Comparison is made with prior study dated July 09, 2014 and April 02, 2013. FINDINGS: Breast Composition: There are scattered areas of fibroglandular density. There are no dominant masses or suspicious calcifications. Prior stereotactic biopsy in the superior retroareolar region of the left breast. Stable nodules in the axillary region of the left breast. No other significant abnormalities are identified. There has been no significant change since the prior study. IMPRESSION: Stable bilateral screening mammogram. Yearly follow-up recommended. (A) ASSESSMENT CATEGORY: BIRADS Category 2: Benign. A letter regarding these results will be sent to the patient by the facility within 30 days. Approximately 10% of breast cancers are not detected by mammography. A normal mammogram should not delay biopsy of a clinically suspicious abnormality. [id number] Electronically Signed: Seymour Montenegro MD at 9:12 EST Tel [phone], Service support [phone], CC: Dorothea Erazo DO Audience Development Manager: Signed Dorothea Erazo Work Phone: Start: 07-30-2015 End: 07-30-2015 Dexa Bone Density Study (HP) Comments: See Note; NOTES: [facility] Imaging Services [address] [place] [address] Verda 4d Dexa Bone Density Study () MR#: [id number] Acct: [id number] Name: BRENDA SMITH Rep #: [id number] : 1950 F 65 From: Seymour Montenegro MD PCP: Dorothea Erazo DO Status: REG CLI Study: Dexa Bone Density Study (HP) Date of Exam: 07/30/15 Exam# [id number] Ordering Dr: Dorothea Erazo DO STUDY: DUAL ENERGY X-RAY ABSORPTIOMETRY / DXA REASON FOR EXAM: Female, 65 years old. The patient is postmenopausal. Loss of height. TECHNIQUE: Bone Mineral Density (BMD) measurements of lumbar spine and bilateral hips were obtained. COMPARISON: Comparison is made with prior study dated September 12, 2012. FINDINGS: Lumbar Spine (L1-L4): g/cm2 (0.825) / T-score (-3.1) / Z-score (-1.5) Findings are suggestive of osteoporosis with a high fracture risk. Left Femur Total: g/cm2 (0.844) / T-score (-1.3) / Z-score (-0.1) Left Femoral Neck: g/cm2 (0.759) / T-score (-2.0) / Z-score (-0.5) Right Femur Total: g/cm2 (0.835) / T-score (-1.4) / Z-score (-0.2) Right Femoral Neck: g/cm2 (0.798) / T-score (-1.7) / Z-score (-0.3) The T-Scores on the most recent prior examination were: Lumbar Spine (L1-L4): There has been worsening of bone density since the previous examination. Left Femur Total: which represents a worsening of 2.0%. Right Femur Total: which represents a worsening of 4.7%. IMPRESSION: The patient is considered osteoporotic at the level of the lumbar spine and osteopenic at the level of the femoral neck and as outlined below according to World Ronaldo Organization (WHO) criteria with a high fracture risk. There has been worsening of bone density since the previous examination. Reference Information: The T-score is the number of standard deviations above or below the standard which is normal for young adults at their peak bone mineral density. The World Health Organization (WHO) interprets the T-scores as follows: Above -1 Normal bone density Between -1 and -2.5 Osteopenia Equal to / or below -2.5 Osteoporosis As a practical clinical guideline, osteopenia may be graded as follows: Mild -1 through -1.5 Moderate -1.6 through -2.0 Severe -2.1 through -2.4 The Z-score is the number of standard deviations above or below age-matched controls. A Z-score of less than -1.5 would be considered abnormal. References: 1. NIH Osteoporosis and Related Bone Diseases http://www.osteo.org 2. International Society for Clinical Densitometry http://www.iscd.org 3. National Osteoporosis Foundation http://www.nof.org Electronically Signed: Seymour Montenegro MD at 9:47 EST Tel [phone], Service support [phone], CC: Dorothea Erazo DO Audience Development Manager: Signed Dorothea Erazo Work Phone: Start: 07-09-2014 End: 07-09-2014 Bilat Scrn Digital AND CAD Comments: See Note; NOTES: [facility] Imaging Services [address] [place] [address] Breast Imaging Report MR#: [id number] Acct: [id number] Name: BRENDA SMITH Rep #: [id number] : 1950 F 64 From: Seymour Montenegro MD PCP: Dorothea Erazo DO Status: REG CLI Study: Audie Toledo Digital AND CAD Date of Exam: 07/09/14 Exam# [id number] Ordering Dr: Dorothea Erazo DO MAMMOGRAPHY - BILATERAL SCREENING REASON FOR EXAM: Female, 64 years old. Routine annual screening examination. PERTINENT HISTORY: Non-contributory. Prior left stereotactic biopsy. TECHNIQUE: Digital examination. Mediolateral oblique (MLO) and craniocaudad (CC) views of both breasts were obtained. CAD: CAD was performed on this study. COMPARISON: Comparison is made with prior study dated July 11, 2012 and March 30, 2011. FINDINGS: Breast Composition: The breasts are almost entirely fatty. There are no dominant masses or suspicious calcifications. Is a stable 7 mm well-defined nodule in the right axillary region in keeping with a small lymph node. No other significant abnormalities are identified. There has been no significant change since the prior study. IMPRESSION: Stable bilateral screening mammogram. Yearly follow-up recommended. (A) ASSESSMENT CATEGORY: BIRADS Category 2: Benign. A letter regarding these results will be sent to the patient by the facility within 30 days. Approximately 10% of breast cancers are not detected by mammography. A normal mammogram should not delay biopsy of a clinically suspicious abnormality. Electronically Signed: Seymour Montenegro MD at 8:08 EST Tel [phone], Service support [phone], CC: Dorothea Erazo DO Audience Development Manager: Signed Dorothea Erazo Work Phone: Start: 04-08-2011 Lipid 1996 panel - Serum or Plasma Screen Wstr Appendectomy Nikolas Ellsworth Comment on above: 1982 Appendectomy Nikolas Ellsworth Comment on above: 1982 Appendectomy Nikolas Ellsworth Comment on above: 1982 Appendectomy Nikolas Ellsworth Comment on above: 1982 Appendectomy Nikolas Ellsworth Comment on above: 1982 Appendectomy Nikolas Seng LP N Comment on above: 1982 Appendectomy Yadi Gameza CN P Work Phone: Comment on above: 1982 Appendectomy Dolly Slarb LP N Comment on above: 1982 Appendectomy Raymond Cowan HARD CANDY SPINNER Work Phone: Comment on above: 1982 Appendectomy Dolly Slarb LP N Comment on above: 1982 Biopsy of breast Nikolas Diego s Comment on above: unsure of year Biopsy of breast Nikolas Diego s Comment on above: unsure of year Biopsy of breast Nikolas Diego s Comment on above: unsure of year Biopsy of breast Nikolas Diego s Comment on above: unsure of year Biopsy of breast Nikolas Diego s Comment on above: unsure of year Biopsy of breast Nikolas Diego s CNC APPLICATIONS ENGINEER Comment on above: unsure of year Biopsy of breast Suzie Cies a HARD CANDY SPINNER Work Phone: Comment on above: unsure of year Biopsy of breast Dolly Slar b CNC APPLICATIONS ENGINEER Comment on above: unsure of year Biopsy of breast Raymond Jorden mendoza HARD CANDY SPINNER Work Phone: Comment on above: unsure of year Biopsy of breast Dolly Slar b CNC APPLICATIONS ENGINEER Comment on above: unsure of year Hemorrhoidectomy Nikolas Diego s Comment on above: 2019 Hemorrhoidectomy Nikolas Diego s Comment on above: 2019 Hemorrhoidectomy Nikolas Diego s Comment on above: 2019 Hemorrhoidectomy Nikolas Diego s Comment on above: 2019 Hemorrhoidectomy Nikolas Diego s Comment on above: 2019 Hemorrhoidectomy Nikolas Diego s CNC APPLICATIONS ENGINEER Comment on above: 2019 Hemorrhoidectomy Suzie Cies a HARD CANDY SPINNER Work Phone: Comment on above: 2019 Hemorrhoidectomy Dolly Slar b CNC APPLICATIONS ENGINEER Comment on above: 2019 Hemorrhoidectomy Raymond mendoza HARD CANDY SPINNER Work Phone: Comment on above: 2019 Hemorrhoidectomy Dolly Slar b CNC APPLICATIONS ENGINEER Comment on above: 2018 History of appendectomy History of append ectomy Hysterectomy Nikolas Ellsworth Comment on above: 1982 Hysterectomy Nikolas Seng Comment on above: 1982 Hysterectomy Nikolas Seng Comment on above: 1982 Hysterectomy Nikolas Seng Comment on above: 1982 Hysterectomy Nikolas Seng Comment on above: 1982 Hysterectomy Nikolas Ellsworth LP N Comment on above: 1982 Hysterectomy Yadi Gameza CN P Work Phone: Comment on above: 1982 Hysterectomy Dolly Slarb LP N Comment on above: 1982 Hysterectomy Raymond Cowan HARD CANDY SPINNER Work Phone: Comment on above: 1982 Hysterectomy Dolly Slarb LP N Comment on above: 1982 L eye Cataract Surgery Karyna n Seng L eye Cataract Surgery Karyna n Seng L eye Cataract Surgery Karyna n Seng L eye Cataract Surgery Karyna n Seng L eye Cataract Surgery Karyna n Seng L eye Cataract Surgery Karyna n Seng CNC APPLICATIONS ENGINEER L eye Cataract Surgery Yadi Gameza HARD CANDY SPINNER Work Phone: L eye Cataract Surgery Jesús a Slarb CNC APPLICATIONS ENGINEER L eye Cataract Surgery Jennifer Cowan HARD CANDY SPINNER Work Phone: L eye Cataract Surgery Jesús a Slarb CNC APPLICATIONS ENGINEER Mohl's Procedure Nikolas Cortez s Comment on above: 2004? Mohl's Procedure Nikolas Cortez s Comment on above: 2004? Mohl's Procedure Nikolas Cortez s Comment on above: 2004? Mohl's Procedure Nikolas Cortez s Comment on above: 2004? Mohl's Procedure Nikolas Cortez s Comment on above: 2004? Mohl's Procedure Nikolas Diego s CNC APPLICATIONS ENGINEER Comment on above: 2004? Mohl's Procedure Suzie Cies a HARD CANDY SPINNER Work Phone: Comment on above: 2004? Mohl's Procedure Dolly Slar b CNC APPLICATIONS ENGINEER Comment on above: 2004? Mohl's Procedure Raymond mendoza HARD CANDY SPINNER Work Phone: Comment on above: 2004? Mohl's Procedure Dolly Slar b CNC APPLICATIONS ENGINEER Comment on above: 2004? Tonsillectomy Nikolas Ellsworth Comment on above: unsure exact year Tonsillectomy Nikolas Ellsworth Comment on above: unsure exact year Tonsillectomy Nikolas Ellsworth Comment on above: unsure exact year Tonsillectomy Nikolas Ellsworth Comment on above: unsure exact year Tonsillectomy Nikolas Ellsworth Comment on above: unsure exact year Tonsillectomy Nikolas Ellsworth L PN Comment on above: unsure exact year Tonsillectomy Yadi Toledo MILL ROLL REWINDER Work Phone: Comment on above: unsure exact year Tonsillectomy Dolly Gibbs PN Comment on above: unsure exact year Tonsillectomy Raymond Cowan HARD CANDY SPINNER Work Phone: Comment on above: unsure exact year Tonsillectomy Dolly Gibbs PN Comment on above: unsure exact year Plan of Treatment Date Care Activity Detail Author Start: 03-01-2025 Screening for malign ant neoplasm of breast Mammogram Screening [facility] Start: 03-25-2024 Influenza vaccination Influenza Vacc ine (#1) [facility] Start: 10-06-2023 Covid-19 Vaccine ( season) Covid-19 Vaccine ( season) [facility] Start: 07-25-2023 Advance Directive Discussion Advance Directive Discussion [facility] Start: 12-21-2022 Procedure Education Eprescribe d prescriptions (G8553) [facility] Work Phone: Start: 12-21-2022 Urnls dip stick/tabl et reagent auto microscopy Urinalysis, Complete W/ Microscopic Examination with reflex to urine culture, routine (89302) [facility]; [facility] Work Phone: Start: 12-03-2022 25 hydroxy includes fractions if performed CALCIFEDIOL (89487) [facility]; [facility] Work Phone: Start: 12-03-2022 Blood count complete auto&auto difrntl wbc CBC, PLATELETS & AUT DIFF (02300) [facility]; [facility] Work Phone: Start: 12-03-2022 Comprehensive metabo lic panel METABOLIC PANEL, COMPREHENSIVE (10862) [facility]; [facility] Work Phone: Start: 12-03-2022 Lipid panel LIPID PANEL (65537) [facility] Work Phone: Start: 12-03-2022 Procedure Education Eprescribe d prescriptions (G8553) [facility]; [facility] Work Phone: Start: 12-03-2022 Provider Instruction s for Treatment Follow up - make appt for preop [facility]; [facility] Work Phone: Start: 12-03-2022 Urinalysis qual/semiquant except immunoassays URINALYSIS (81730) [facility]; [facility] Work Phone: Start: 01-22-2022 Procedure Education Eprescribe d prescriptions (G8553) [facility]; [facility] Work Phone: Start: 01-22-2022 Provider Instruction s for Treatment [facility]; [facility] Work Phone: Start: 01-22-2022 Assay of phosphorus inorganic PHOSPHORUS (08219) [facility]; [facility] Work Phone: Comment on above: prior to next ov Start: 01-22-2022 25 hydroxy includes fractions if performed CALCIFEDIOL (46487) [facility]; [facility] Work Phone: Comment on above: this week Start: 01-22-2022 Lipid panel LIPID PANEL (52966) [facility]; [facility] Work Phone: Comment on above: this week, fasting Start: 01-22-2022 Assay of thyroid stimulating hormone tsh TSH (77348) [facility]; [facility] Work Phone: Comment on above: this week Start: 01-22-2022 Urnls dip stick/tabl et reagent auto microscopy URINALYSIS, W/ MICRO (83906) [facility]; [facility] Work Phone: Comment on above: this week Start: 01-22-2022 Comprehensive metabo lic panel METABOLIC PANEL, COMPREHENSIVE (46433) [facility]; [facility] Work Phone: Comment on above: this week Start: 01-22-2022 Blood count manual c ell count each CBC with auto diff (86578) [facility]; [facility] Work Phone: Comment on above: this week Start: 01-22-2022 Hemoglobin glycosyla niyah a1c HGB A1C (47047) [facility]; [facility] Work Phone: Start: 04-03-2021 Procedure Education Eprescribe d prescriptions (G8553) [facility]; [facility] Work Phone: Start: 04-03-2021 Provider Instruction s for Treatment [facility]; [facility] Work Phone: Start: 12-30-2020 Procedure Education Eprescribe d prescriptions (G8553) [facility]; [facility] Work Phone: Start: 12-30-2020 Provider Instruction s for Treatment Follow up in 3 months [facility]; [facility] Work Phone: Start: 12-23-2020 Comprehensive metabo lic panel Metabolic Panel, Comprehensive (26706) [facility]; [facility] Work Phone: Start: 12-23-2020 Lipid panel LIPID PANEL (06960) [facility] Work Phone: Start: 09-30-2020 Procedure Education Eprescribe d prescriptions (G8553) [facility]; [facility] Work Phone: Start: 09-30-2020 Provider Instruction s for Treatment [facility]; [facility] Work Phone: Start: 09-15-2020 Procedure Education Eprescribe d prescriptions (G8553) [facility]; [facility] Medicine Work Phone: Start: 09-15-2020 Provider Instruction s for Treatment COVID SCREENING FORM [facility] Work Phone: Start: 06-16-2020 Procedure Education Eprescribe d prescriptions (G8553) [facility] Work Phone: Start: 06-02-2020 Procedure Education Eprescribe d prescriptions (G8553) [facility] Work Phone: Start: 06-02-2020 Provider Instruction s for Treatment [facility] Work Phone: Start: 06-02-2020 Hepatitis c antibody confirmatory test ANTIBODY, HEPATITIS C, CONFIRM TEST (65631) [facility] Work Phone: Comment on above: today Start: 06-02-2020 Acute hepatitis panel HEPATITI S PANEL (13096) [facility] Work Phone: Comment on above: today Start: 06-02-2020 Comprehensive metabo lic panel Metabolic Panel, Comprehensive (25328) [facility] Work Phone: Comment on above: September 2020 Start: 06-02-2020 Hemoglobin glycosyla niyah a1c HGB A1C (34123) [facility]; [facility] Work Phone: Comment on above: september 2020 Start: 06-02-2020 HbA1c (Bld) [Mass fraction] HGB A1C (81867) [facility] Work Phone: Comment on above: september 2020 today Start: 05-19-2020 Procedure Education Eprescribe d prescriptions (G8553) [facility] Work Phone: Start: 05-19-2020 Provider Instruction s for Treatment Follow up in 2 weeks [facility] Work Phone: Start: 05-19-2020 Blood count complete auto&auto difrntl wbc CBC, Platelets & Auto Diff (33761) [facility] Work Phone: Comment on above: may 20 Start: 05-19-2020 Comprehensive metabo lic panel Metabolic Panel, Comprehensive (07855) [facility] Work Phone: Comment on above: may 20 Start: 05-19-2020 Lipid panel LIPID PANEL (29656) [facility] Work Phone: Comment on above: May 20 Start: 01-08-2020 Procedure Education Eprescribe d prescriptions (G8553) [facility] Work Phone: Start: 01-08-2020 Provider Instruction s for Treatment [facility] Work Phone: Start: 08-31-2019 Procedure Education Eprescribe d prescriptions (G8553) [facility] Work Phone: Start: 08-31-2019 Provider Instruction s for Treatment [facility] Work Phone: Start: 08-17-2019 Procedure Education Eprescribe d prescriptions (G8553) [facility] Work Phone: Start: 08-17-2019 Provider Instruction s for Treatment Follow up in 2 weeks [facility] Work Phone: Start: 04-08-2016 Lipid panel Lipid Screening [facility] Start: 05-30-2015 Procedure Education Eprescribe d prescriptions (G8553) [facility] Work Phone: Start: 05-30-2015 Provider Instruction s for Treatment Diet, Exercise, and Wt loss [facility] Work Phone: Start: 05-30-2015 Lipid panel LIPID PANEL (09045) [facility] Work Phone: Start: 05-30-2015 Blood count complete auto&auto difrntl wbc CBC W/AUTO DIFF WBC (00131) [facility] Work Phone: Start: 05-30-2015 Comprehensive metabo lic panel METABOLIC PANEL, COMPREHENSIVE (73809) [facility] Work Phone: Start: 05-30-2015 25 hydroxy includes fractions if performed Vitamin D Hydroxy (01264) [facility] Work Phone: Start: 2015 Pneumococcal Vaccine : 65+ (1 of 1 - PCV) Pneumococcal Vaccine: 65+ (1 of 1 - PCV) [facility] Start: 2015 Screening for osteoporosis Bone Density Screening [facility] Start: 01-17-2015 Procedure Education Eprescribe d prescriptions (G8553) [facility] Work Phone: Start: 01-17-2015 Blood count complete auto&auto difrntl wbc CBC W/AUTO DIFF WBC (80548) [facility] Work Phone: Start: 01-17-2015 25 hydroxy includes fractions if performed Vitamin D Hydroxy (70304) [facility] Work Phone: Start: 01-17-2015 HbA1c (Bld) [Mass fraction] Hemoglobin Glyclated (HGB A1C) (88312) [facility] Work Phone: Start: 01-17-2015 Hemoglobin glycosyla niyah a1c Hemoglobin Glyclated (HGB A1C) (97424) [facility]; [facility] Work Phone: Start: 01-17-2015 Comprehensive metabo lic panel METABOLIC PANEL, COMPREHENSIVE (60889) [facility] Work Phone: Start: 01-17-2015 Lipid panel LIPID PANEL (92402) [facility] Work Phone: Start: 01-17-2015 Assay of thyroid stimulating hormone tsh TSH (16635) [facility]; [facility] Work Phone: Start: 01-17-2015 TSH Qn TSH (58913) [facility] Work Phone: Start: 01-17-2015 Assay of parathormone PARATHORMONE ( 52388) [facility] Work Phone: Start: 01-17-2015 Culture bacterial quanttative colony count urine URINE SANNA CULTURE (BOOGIE COL COUNT) (45527) [facility] Work Phone: Start: 09-02-2014 Provider Instruction s for Treatment [facility] Work Phone: Start: 07-12-2014 Procedure Education Eprescribe d prescriptions (G8553) [facility] Work Phone: Start: 07-12-2014 Urine albumin quantitative MICROALBUMIN: CREATININE RATIO (96695) AND (79181) [facility] Work Phone: Start: 07-12-2014 25 hydroxy includes fractions if performed Vitamin D Hydroxy (60015) [facility] Work Phone: Start: 07-12-2014 Urnls dip stick/tabl et reagent auto microscopy URINALYSIS, W/ MICRO (71028) [facility] Work Phone: Start: 07-12-2014 Comprehensive metabo lic panel METABOLIC PANEL, COMPREHENSIVE (26774) [facility] Work Phone: Start: 07-12-2014 Lipid panel LIPID PANEL (80287) [facility] Work Phone: Start: 04-08-2014 Diabetes Screening Diabetes Screenin [facility] Start: 01-18-2014 Procedure Education Eprescribe d prescriptions (G8553) [facility] Work Phone: Start: 01-18-2014 Blood count manual c ell count each CBC WITH MANUAL DIFF (83354) [facility] Work Phone: Start: 01-18-2014 Comprehensive metabo lic panel METABOLIC PANEL, COMPREHENSIVE (10311) [facility] Work Phone: Start: 01-18-2014 Lipid panel LIPID PANEL (75139) [facility] Work Phone: Start: 01-18-2014 25 hydroxy includes fractions if performed Vitamin D Hydroxy (54868) [facility] Work Phone: Start: 10-26-2013 Patient Education Water in t, brief version [facility] Work Phone: Start: 10-26-2013 Provider Instruction s for Treatment [facility] Work Phone: Start: 06-08-2013 Patient Education Flu (Influenza) *: flu [facility] Work Phone: Start: 06-08-2013 Blood count manual c ell count each CBC WITH MANUAL DIFF (06590) [facility] Work Phone: Start: 06-08-2013 Lipid panel LIPID PANEL (71199) [facility] Work Phone: Start: 06-08-2013 Comprehensive metabo lic panel METABOLIC PANEL, COMPREHENSIVE (69877) [facility] Work Phone: Start: 02-09-2013 25 hydroxy includes fractions if performed Vitamin D Hydroxy (61812) [facility] Work Phone: Start: 02-09-2013 Comprehensive metabo lic panel METABOLIC PANEL, COMPREHENSIVE (09619) [facility] Work Phone: Start: 02-09-2013 Lipid panel LIPID PANEL (89220) [facility] Work Phone: Start: 02-09-2013 Urine albumin quantitative MICROALBUMIN: CREATININE RATIO (70682) AND (55834) [facility] Work Phone: Start: 09-29-2012 Patient Education High Blood P ressure (Essential Hypertension) *: blood pressure [facility] Work Phone: Start: 09-29-2012 Blood occult fecal h gb deter ia qual feces 1-3 FECAL OCCULT- Tubes sent home (71525) [facility] Work Phone: Start: 09-29-2012 Blood count manual c ell count each CBC WITH MANUAL DIFF (00053) [facility] Work Phone: Start: 09-29-2012 Comprehensive metabo lic panel METABOLIC PANEL, COMPREHENSIVE (76880) [facility] Work Phone: Start: 09-29-2012 Lipid panel LIPID PANEL (01193) [facility] Work Phone: Start: 09-29-2012 25 hydroxy includes fractions if performed Vitamin D Hydroxy (49023) [facility] Work Phone: Start: 09-29-2012 Lactate dehydrogenas e ldh LDH (LD) (LACTATE DEHYDROGENASE) (95508) [facility] Work Phone: Start: 09-29-2012 Iron binding capacity IRON BIN DING CAPACITY (TIBC) (26648) [facility] Work Phone: Start: 09-29-2012 Assay of iron IRON (68270) [facility]; [facility] Work Phone: Start: 09-29-2012 Iron [Mass/Vol] IRON (88465) [facility] Work Phone: Start: 09-29-2012 Cobalamin (Vitamin B 12) [Mass/Vol] VITAMIN B-12 (CYANOCOBALAMIN) (53874) [facility] Work Phone: Start: 09-29-2012 Cyanocobalamin vitam in b-12 VITAMIN B-12 (CYANOCOBALAMIN) (69734) [facility]; [facility] Work Phone: Start: 05-26-2012 Provider Instruction s for Treatment *Cholesterol - Medication Side Effects [facility] Work Phone: Start: 05-26-2012 25 hydroxy includes fractions if performed Vitamin D Hydroxy (60540) [facility] Work Phone: Start: 05-26-2012 Urnls dip stick/tabl et reagent auto microscopy URINALYSIS, W/ MICRO (16332) [facility] Work Phone: Start: 05-26-2012 Urine albumin quantitative MICROALBUMIN: CREATININE RATIO (73316) AND (17938) [facility] Work Phone: Start: 05-26-2012 Blood count manual c ell count each CBC WITH MANUAL DIFF (71185) [facility] Work Phone: Start: 05-26-2012 Comprehensive metabo lic panel METABOLIC PANEL, COMPREHENSIVE (62809) [facility] Work Phone: Start: 01-25-2012 Comprehensive metabo lic panel METABOLIC PANEL, COMPREHENSIVE (74318) [facility] Work Phone: Start: 01-25-2012 Lipid panel LIPID PANEL (01181) [facility] Work Phone: Start: 01-25-2012 Patient Education Diabetes and Illness: diabetes [facility] Work Phone: Start: 01-25-2012 Provider Instruction s for Treatment Diet, Exercise, and Wt loss [facility] Work Phone: Start: 10-29-2011 Urine albumin quantitative MICROALBUMIN: CREATININE RATIO (84086) AND (11171) [facility] Work Phone: Start: 10-29-2011 Blood count manual c ell count each CBC WITH MANUAL DIFF (94858) [facility] Work Phone: Start: 10-29-2011 25 hydroxy includes fractions if performed Vitamin D Hydroxy (81648) [facility] Work Phone: Start: 10-29-2011 Lipid panel LIPID PANEL (54945) [facility] Work Phone: Start: 10-29-2011 Comprehensive metabo lic panel METABOLIC PANEL, COMPREHENSIVE (58892) [facility] Work Phone: Start: 08-08-2011 Screening for malign ant neoplasm of breast Mammogram Screening [facility] Start: 06-11-2011 Provider Instruction s for Treatment Follow up in 1 week [facility] Work Phone: Start: 03-19-2011 Provider Instruction s for Treatment Diet, Exercise, and Wt loss [facility] Work Phone: Start: 03-19-2011 Lipid panel LIPID PANEL (04729) [facility] Work Phone: Start: 03-19-2011 Comprehensive metabo lic panel METABOLIC PANEL, COMPREHENSIVE (57386) [facility] Work Phone: Start: 03-19-2011 25 hydroxy includes fractions if performed Vitamin D Hydroxy (70248) [facility] Work Phone: Start: 12-24-2010 Provider Instruction s for Treatment *Antibiotic Usage Education - Female [facility] Work Phone: Start: 11-10-2010 25 hydroxy includes fractions if performed Vitamin D Hydroxy (75168) [facility] Work Phone: Start: 11-10-2010 Hepatic function panel HEPATIC FUNCTION PANEL (02128) [facility] Work Phone: Start: 11-10-2010 Lipid panel LIPID PANEL (59324) [facility] Work Phone: Start: 07-15-2010 Urine albumin quantitative MICROALBUMIN: CREATININE RATIO (80406) AND (20297) [facility] Work Phone: Start: 07-15-2010 Comprehensive metabo lic panel METABOLIC PANEL, COMPREHENSIVE (11366) [facility] Work Phone: Start: 07-15-2010 [facility]IPID PANEL (62437) [facility] Start: 07-15-2010 25 hydroxy includes fractions if performed Vitamin D Hydroxy (16222) [facility] Work Phone: Start: 2010 RSV Vaccine (1 - 1-d ose 60+ series) RSV Vaccine (1 - 1-dose 60+ series) [facility] Start: 11-03-2009 Comprehensive metabo lic panel METABOLIC PANEL, COMPREHENSIVE (87633) [facility] Work Phone: Start: 11-03-2009 Lipid panel LIPID PANEL (02863) [facility] Work Phone: Start: 09-23-2009 Provider Instruction s for Treatment [facility] Work Phone: Start: 07-04-2009 Lipid panel LIPID PANEL (32687) [facility] Work Phone: Start: 07-04-2009 Blood count manual c ell count each CBC WITH MANUAL DIFF (98352) [facility] Work Phone: Start: 07-04-2009 Comprehensive metabo lic panel METABOLIC PANEL, COMPREHENSIVE (95885) [facility] Work Phone: Start: 07-04-2009 Urine albumin quantitative MICROALBUMIN: CREATININE RATIO (34794) AND (55867) [facility] Work Phone: Start: 01-21-2009 Lipid panel LIPID PANEL (49937) [facility] Work Phone: Start: 01-21-2009 Blood count manual c ell count each CBC WITH MANUAL DIFF (56646) [facility] Work Phone: Start: 01-21-2009 25 hydroxy includes fractions if performed Vitamin D Hydroxy (02414) [facility] Work Phone: Start: 01-21-2009 Comprehensive metabo lic panel METABOLIC PANEL, COMPREHENSIVE (55004) [facility] Work Phone: Start: 01-21-2009 Urine albumin quantitative MICROALBUMIN: CREATININE RATIO (66591) AND (49347) [facility] Work Phone: Start: 07-29-2008 Provider Instruction s for Treatment [facility] Work Phone: Start: 06-18-2008 Lipid panel LIPID PANEL (49898) [facility] Work Phone: Start: 06-18-2008 Comprehensive metabo lic panel METABOLIC PANEL, COMPREHENSIVE (92689) [facility] Work Phone: Start: 06-18-2008 Blood count manual c ell count each CBC WITH MANUAL DIFF (99000) [facility] Work Phone: Start: 01-01-2008 Provider Instruction s for Treatment Cholesterol - Medication Side Effects [facility] Work Phone: Start: 01-01-2008 Blood count manual c ell count each CBC WITH MANUAL DIFF (95694) [facility] Work Phone: Start: 01-01-2008 Lipid panel LIPID PANEL (93778) [facility] Work Phone: Start: 01-01-2008 Hepatic function panel HEPATIC FUNCTION PANEL (09672) [facility] Work Phone: Start: 07-28-2007 Blood count manual c ell count each CBC WITH MANUAL DIFF (14106) [facility] Work Phone: Start: 07-28-2007 Lipid panel LIPID PANEL (52052) [facility] Work Phone: Start: 07-28-2007 Hepatic function panel HEPATIC FUNCTION PANEL (11680) [facility] Work Phone: Start: 07-28-2007 HbA1c (Bld) [Mass fraction] HgA1C , Office (65550) [facility] Work Phone: Start: 07-28-2007 Hemoglobin glycosyla niyah a1c HgA1C , Office (46525) [facility]; [facility] Work Phone: Start: 07-11-2007 Provider Instruction s for Treatment FOLLOW UP NEEDED [facility] Work Phone: Start: 04-26-2007 Comprehensive metabo lic panel METABOLIC PANEL, COMPREHENSIVE (71552) [facility] Work Phone: Start: 04-26-2007 Lipid panel LIPID PANEL (75065) [facility] Work Phone: Start: 04-26-2007 Blood count manual c ell count each CBC WITH MANUAL DIFF (98111) [facility] Work Phone: Start: 02-06-2007 Provider Instruction s for Treatment [facility] Work Phone: Start: 02-06-2007 Blood count manual c ell count each CBC WITH MANUAL DIFF (88731) [facility] Work Phone: Start: 02-06-2007 Comprehensive metabo lic panel METABOLIC PANEL, COMPREHENSIVE (96326) [facility] Work Phone: Start: 02-06-2007 Lipid panel LIPID PANEL (48865) [facility] Work Phone: Start: 02-06-2007 Urine albumin quantitative MICROALBUMIN: CREATININE RATIO (30319) AND (38165) [facility] Work Phone: Start: 11-07-2006 Provider Instruction s for Treatment FOLLOW UP IN 3 MONTHS [facility] Work Phone: Start: 11-07-2006 Comprehensive metabo lic panel METABOLIC PANEL, COMPREHENSIVE (51350) [facility] Work Phone: Start: 11-07-2006 Lipid panel LIPID PANEL (63218) [facility] Work Phone: Start: 2000 Shingrix Vaccine (1 of 2) Shingrix Vaccine (1 of 2) [facility] Start: 1995 Screening for malign ant neoplasm of colon [facility] Start: 1969 Urine microalbumin profile DTaP,Tdap,Td Vaccine (1 - Tdap) [facility] Start: 1968 Annual PCP Team Mgmt Consultant ze Disease Visit Annual PCP Team Chronic Disease Visit [facility] Start: 1968 Anxiety Screening Anxiety Screening [facility] Start: 1968 BP Controlled (<130/80) BP Con trolled (<130/80) [facility] Start: 1968 Depression Screening Depression Scre ening [facility] Start: 1968 Hepatitis C screening Hepatitis C Nm tristan [facility] Work Phone: [facility] Work Phone: [facility] Work Phone: [facility] Work Phone[facility] Work Phone: [facility] Work Phone[facility] Work Phone: [facility] Work Phone: [facility] Work Phone: [facility] Work Phone: [facility] Work Phone[facility] Work Phone: [facility] Work Phone: [facility] Work Phone: [facility] Work Phone: [facility] Work Phone: [facility] Work Phone: [facility] Work Phone: [facility] Work Phone: [facility] Work Phone[facility] Work Phone: [facility] Work Phone: [facility] Work Phone: [facility] Work Phone: [facility]; [facility] Work Phone: [facility]; [facility] Work Phone: [facility] Work Phone: [facility] Work Phone: [facility] Work Phone: [facility] Work Phone: [facility] Work Phone: [facility]; [facility] Work Phone: [facility]; [facility] Work Phone: [facility]; [facility] Work Phone: Immunizations Immunization Date Immunization Notes Care Provider Fa [facility] 06-07-2023 influenza virus vaccine, unspecified formulation Screen Wstr [facility] 05-12-2022 influenza, seasonal, injectable [employer]-C Raymond Cowan Work Phone: [facility] 11-19-2021 COVID-Moderna (50 MCG/0.25 ML) Yadi Valladaresrakesh Work Phone: [facility]; [facility] Work Phone: 05-13-2021 COVID-Moderna (50 MCG/0.25 ML) Yadi Valladaresrakesh Work Phone: [facility]; [facility] Work Phone: 10-09-2020 COVID-Moderna (100 MCG/0.5 ML) Yadi Ciesflip Work Phone: [facility]; [facility] Work Phone: 09-11-2020 COVID-Moderna (100 MCG/0.5 ML) Yadi Valladaresesa Work Phone: [facility]; [facility] Work Phone: Payers Date Payer Category Payer Self-pay [id number] 2023 Medicare MMO MEDICARE MMO [employer] O [id number] 2023-Present [phone] [address] [place] [address] O [id number] 2023 Medicare [id number] 2022 Private Health Insurance [id number] 2014 Private Health Insurance [id number] 2013 Unknown [id number] 2010 Private Health Insurance [id number] 2008 Private Health Insurance [id number] 2008 Unknown [id number] 2008 Unknown [facility] C[facility] [id number] 1950 Unknown [id number] Unknown Unknown [employer] MCR ADV [id number] Unknown [id number] Unknown [id number] Social History Date Type Detail Facility Alcohol Use: Alcohol Use: [facility] Work Phone: Drug Use: Drug Use: [facility] Work Phone: Living Situation: Living Situation: Compr [facility] Work Phone: No Caffeine Use No Caffeine Use [facility] Work Phone: Tobacco use: Tobacco use: [facility] Work Phone: Alcohol Use: Alcohol Use: [facility] Work Phone: Drug Use: Drug Use: [facility]; [facility] Work Phone: Living Situation: Living Situation: Compr ehens[facility]; [facility] Work Phone: Tobacco use: Tobacco use: [facility] Work Phone: Start: 06-14-2020 Tobacco smoking status NHIS Unknown if ever smoked [facility] Start: 1950 Sex Assigned At Female [facility] Start: 02-02-2012 Tobacco smoking status NHIS Never smoked tobacco [facility] Start: 02-02-2012 Tobacco use and exposure Smokeless tobacco non-user [facility] Start: 03-10-2022 Alcohol intake Current drinke r of alcohol (finding) [facility] Start: 1950 Sex Assigned At Not on file [facility] Gender identity Not on file [facility] inic Clinical Notes 03-01-2024 Letter - Coordinator, Mammography - 03/01/2024 2:00 PM EDTLealethaer - Coordinator, Mammography - 03/01/2024 2:00 PM Escobar Barba Mammo Tech - 03/01/2024 8:10 AM EDT Note Date & Type Note Facility 03-01-2024 Note Formatting of this n ote might be different from the original. March 02, 2024 PID: [id number] Brenda Smith [address] [place] [address] Dear Ms. Smith, We are pleased to inform you that the results of your recent breast imaging exam on 03/01/2024 are normal. Breast tissue can be either dense or not dense. Dense tissue makes it harder to find breast cancer on a mammogram and also raises the risk of developing breast cancer. Your breast tissue is not dense. Talk to your healthcare provider about breast density, risks for breast cancer, and your individual situation. Early detection of cancer is very important. We also understand recommendations regarding breast cancer screening are controversial. Please discuss with your primary care provider which strategy is best for you and whether a mammogram is right for you. Your imaging studies and report will be kept on file at [facility] as part of your permanent medical record and are available for your continuing care. Thank you for allowing us to help in meeting your health care needs. Sincerely, Dr. Aguiar Interpreting Radiologist [facility] (Normal over 40) [facility] 03-01-2024 Miscellaneous Notes March 02, 2024 PID: [id number] Brenda Smith [address] [place] [address] Dear Ms. Smith, We are pleased to inform you that the results of your recent breast imaging exam on 03/01/2024 are normal. Breast tissue can be either dense or not dense. Dense tissue makes it harder to find breast cancer on a mammogram and also raises the risk of developing breast cancer. Your breast tissue is not dense. Talk to your healthcare provider about breast density, risks for breast cancer, and your individual situation. Early detection of cancer is very important. We also understand recommendations regarding breast cancer screening are controversial. Please discuss with your primary care provider which strategy is best for you and whether a mammogram is right for you. Your imaging studies and report will be kept on file at [facility] as part of your permanent medical record and are available for your continuing care. Thank you for allowing us to help in meeting your health care needs. Sincerely, Dr. Aguiar Interpreting Radiologist [facility] (Normal over 40) documented in this encounter [facility] 03-01-2024 History of Presen t illness Narrative Radiology Service Progress Note PATIENT NAME: Brenda Smith DATE OF SERVICE: March 01, 2024 TIME: 8:11 AM PATIENT IDENTITY VERIFICATION COMPLETED USING TWO (2) IDENTIFIERS: Name and Date of confirmed by patient verbally. FALL SCREENING: Has the patient had 2 falls in the last year or 1 fall with injury or currently using an Ambulatory Assistive Device (Walker, Cane, Wheelchair, Crutches, etc.)? No PATIENT GENDER DATA: Female. status: : No status: NO. PATIENT RELEVANT IMPLANT DATA REVIEWED: Not Applicable PATIENT PRESENTS WITH AN IMPLANTABLE OR ATTACHED EDGING MACHINE SETTER: No RADIOLOGY DEPARTMENT: Mammography PERIPHERAL IV DATA: Not applicable SIGNED BY: Claudia Hilario March 01, 2024 8:11 AM documented in this encounter [facility] 03-01-2024 Note HNO ID: [id number] Author: ESCOBAR DAVIS Mammo Tech Service: ? Author Type: Cupola Operator Insulation Type: Progress Notes Filed: 03/01/2024 08:42 Note Text: Radiology Service Progress Note PATIENT NAME: Brenda Smith DATE OF SERVICE: March 01, 2024 TIME: 8:11 AM PATIENT IDENTITY VERIFICATION COMPLETED USING TWO (2) IDENTIFIERS: Name and Date of confirmed by patient verbally. FALL SCREENING: Has the patient had 2 falls in the last year or 1 fall with injury or currently using an Ambulatory Assistive Device (Walker, Cane, Wheelchair, Crutches, etc.)? No PATIENT GENDER DATA: Female. status: : No status: NO. PATIENT RELEVANT IMPLANT DATA REVIEWED: Not Applicable PATIENT PRESENTS WITH AN IMPLANTABLE OR ATTACHED EDGING MACHINE SETTER: No RADIOLOGY DEPARTMENT: Mammography PERIPHERAL IV DATA: Not applicable SIGNED BY: Escobar Davis Zeenoho Osmar March 01, 2024 8:11 AM [facility] Evaluation note No assessment inform ation available [facility] Work Phone: Instructions Name Patient Instructions Indication:Nonsmoker Start:30-Dec-2020 Instruction Type:Provider Instructions for Treatment How to Access Health Information Online using Patient Portal and [employer] Apps Indication:Nonsmoker Start:30-Dec-2020 Instruction Type:Patient Education Patient Instructions Indication:BMI 30.0-30.9,adult Start:30-Sep-2020 Instruction Type:Provider Instructions for Treatment How to Access Health Information Online using Patient Portal and [employer] Apps Indication:Nonsmoker Start:30-Sep-2020 Instruction Type:Patient Education Patient Instructions Indication:BMI 30.0-30.9,adult Start: Instruction Type:Provider Instructions for Treatment How to Access Health Information Online using Patient Portal and [employer] Apps Indication:BMI 30.0-30.9,adult Start: 1 Instruction Type:Patient Education How to access health information online Indication:BMI 30.0-30.9,adult Start: 0 Instruction Type:Patient Education How to access health information online - Detail Indication:BMI 30.0-30.9,adult Start: 0 Instruction Type:Patient Education Patient Instructions Indication:BMI 30.0-30.9,adult Start: 0 Instruction Type:Provider Instructions for Treatment How to access health information online Indication:Nonsmoker Start:02-Jun-2020 Instruction Type:Patient Education How to access health information online - Detail Indication:Nonsmoker Start:02-Jun-2020 Instruction Type:Patient Education Patient Instructions Indication:BMI 30.0-30.9,adult Start:02-Jun-2020 Instruction Type:Provider Instructions for Treatment How to access health information online Indication:Nonsmoker Start: 0 Instruction Type:Patient Education How to access health information online - Detail Indication:Nonsmoker Start: 0 Instruction Type:Patient Education Patient Instructions Indication:Nonsmoker Start: 0 Instruction Type:Provider Instructions for Treatment How to access health information online Indication:Nonsmoker Start: 0 Instruction Type:Patient Education How to access health information online - Detail Indication:Nonsmoker Start: 0 Instruction Type:Patient Education Patient Instructions Indication:Nonsmoker Start: 0 Instruction Type:Provider Instructions for Treatment How to access health information online Indication:BMI 29.0-29.9,adult Start:31-Aug-2019 Instruction Type:Patient Education How to access health information online - Detail Indication:BMI 29.0-29.9,adult Start:31-Aug-2019 Instruction Type:Patient Education Patient Instructions Indication:BMI 29.0-29.9,adult Start:31-Aug-2019 Instruction Type:Provider Instructions for Treatment How to access health information online Indication:Hyperlipidemia, unspecified Start: 0 Instruction Type:Patient Education How to access health information online - Detail Indication:Hyperlipidemia, unspecified Start: 0 Instruction Type:Patient Education Patient Instructions Indication:Hyperlipidemia, unspecified Start: 0 Instruction Type:Provider Instructions for Treatment How to access health information online Indication:Hypertension Start:30-May-2015 Instruction Type:Patient Education How to access health information online - Detail Indication:Hypertension Start:30-May-2015 Instruction Type:Patient Education Patient Instructions Indication:Hypertension Start:30-May-2015 Instruction Type:Provider Instructions for Treatment Patient Instructions Indication:Abnormal glucose tolerance test Start: 4 Instruction Type:Provider Instructions for Treatment Patient Instructions Indication:Abnormal glucose tolerance test Start: 4 Instruction Type:Provider Instructions for Treatment Patient Instructions Indication:Abnormal glucose tolerance test Start: 3 Instruction Type:Provider Instructions for Treatment Patient Instructions Indication:Abnormal glucose tolerance test Start: 3 Instruction Type:Provider Instructions for Treatment Patient Instructions Indication:Abnormal glucose tolerance test Start:29-Sep-2012 Instruction Type:Provider Instructions for Treatment Patient Instructions Indication:Abnormal glucose tolerance test Start:26-May-2012 Instruction Type:Provider Instructions for Treatment [facility]; [facility] Work Phone: Instructions* Name Dates Details Patient Instructions Indication:BMI 28.0-28.9,adult Start:30-Dec-2020 Instruction Type:Provider Instructions for Treatment How to Access Health Informa tion Online using Patient Portal and [employer] Apps Indication:Nonsmoker Start:30-Dec-2020 Instruction Type:Patient Education Patient Instructions Indication:BMI 30.0-30.9,adult Start:30-Sep-2020 Instruction Type:Provider Instructions for Treatment How to Access Health Informa tion Online using Patient Portal and [employer] Apps Indication:Nonsmoker Start:30-Sep-2020 Instruction Type:Patient Education Patient Instructions Indication:BMI 30.0-30.9,adult Start:15-Sep-2020 Instruction Type:Provider Instructions for Treatment How to Access Health Informa tion Online using Patient Portal and [employer] Apps Indication:BMI 30.0-30.9,adult Start:15-Sep-2020 Instruction Type:Patient Education How to access health informa tion online Indication:BMI 30.0-30.9,adult Start:16-Jun-2020 Instruction Type:Patient Education How to access health informa tion online - Detail Indication:BMI 30.0-30.9,adult Start:16-Jun-2020 Instruction Type:Patient Education Patient Instructions Indication:BMI 30.0-30.9,adult Start:16-Jun-2020 Instruction Type:Provider Instructions for Treatment How to access health informa tion online Indication:Nonsmoker Start:02-Jun-2020 Instruction Type:Patient Education How to access health informa tion online - Detail Indication:Nonsmoker Start:02-Jun-2020 Instruction Type:Patient Education Patient Instructions Indication:BMI 30.0-30.9,adult Start:02-Jun-2020 Instruction Type:Provider Instructions for Treatment How to access health informa tion online Indication:Nonsmoker Start:19-May-2020 Instruction Type:Patient Education How to access health informa tion online - Detail Indication:Nonsmoker Start:19-May-2020 Instruction Type:Patient Education Patient Instructions Indication:Nonsmoker Start:19-May-2020 Instruction Type:Provider Instructions for Treatment How to access health informa tion online Indication:Nonsmoker Start:08-Jan-2020 Instruction Type:Patient Education How to access health informa tion online - Detail Indication:Nonsmoker Start:08-Jan-2020 Instruction Type:Patient Education Patient Instructions Indication:Nonsmoker Start:08-Jan-2020 Instruction Type:Provider Instructions for Treatment How to access health informa tion online Indication:BMI 29.0-29.9,adult Start:31-Aug-2019 Instruction Type:Patient Education How to access health informa tion online - Detail Indication:BMI 29.0-29.9,adult Start:31-Aug-2019 Instruction Type:Patient Education Patient Instructions Indication:BMI 29.0-29.9,adult Start:31-Aug-2019 Instruction Type:Provider Instructions for Treatment How to access health informa tion online Indication:Hyperlipidemia, unspecified Start:17-Aug-2019 Instruction Type:Patient Education How to access health informa tion online - Detail Indication:Hyperlipidemia, unspecified Start:17-Aug-2019 Instruction Type:Patient Education Patient Instructions Indication:Hyperlipidemia, unspecified Start:17-Aug-2019 Instruction Type:Provider Instructions for Treatment How to access health informa tion online Indication:Hypertension Start:30-May-2015 Instruction Type:Patient Education How to access health informa tion online - Detail Indication:Hypertension Start:30-May-2015 Instruction Type:Patient Education Patient Instructions Indication:Hypertension Start:30-May-2015 Instruction Type:Provider Instructions for Treatment Patient Instructions Indication:Abnormal glucose tolerance test Start:12-Jul-2014 Instruction Type:Provider Instructions for Treatment Patient Instructions Indication:Abnormal glucose tolerance test Start:18-Jan-2014 Instruction Type:Provider Instructions for Treatment Patient Instructions Indication:Abnormal glucose tolerance test Start:08-Jun-2013 Instruction Type:Provider Instructions for Treatment Patient Instructions Indication:Abnormal glucose tolerance test Start:09-Feb-2013 Instruction Type:Provider Instructions for Treatment Patient Instructions Indication:Abnormal glucose tolerance test Start:29-Sep-2012 Instruction Type:Provider Instructions for Treatment Patient Instructions Indication:Abnormal glucose tolerance test Start:26-May-2012 Instruction Type:Provider Instructions for Treatment [facility]; [facility] Work Phone: Instructions* Name Dates Details Patient Instructions Indication:Nonsmoker Start:03-Apr-2021 Instruction Type:Provider Instructions for Treatment How to Access Health Informa tion Online using Patient Portal and [employer] Apps Indication:Nonsmoker Start:03-Apr-2021 Instruction Type:Patient Education Patient Instructions Indication:BMI 28.0-28.9,adult Start:30-Dec-2020 Instruction Type:Provider Instructions for Treatment How to Access Health Informa tion Online using Patient Portal and [employer] Apps Indication:Nonsmoker Start:30-Dec-2020 Instruction Type:Patient Education Patient Instructions Indication:BMI 30.0-30.9,adult Start:30-Sep-2020 Instruction Type:Provider Instructions for Treatment How to Access Health Informa tion Online using Patient Portal and [employer] Apps Indication:Nonsmoker Start:30-Sep-2020 Instruction Type:Patient Education Patient Instructions Indication:BMI 30.0-30.9,adult Start:15-Sep-2020 Instruction Type:Provider Instructions for Treatment How to Access Health Informa tion Online using Patient Portal and [employer] Apps Indication:BMI 30.0-30.9,adult Start:15-Sep-2020 Instruction Type:Patient Education How to access health informa tion online Indication:BMI 30.0-30.9,adult Start:16-Jun-2020 Instruction Type:Patient Education How to access health informa tion online - Detail Indication:BMI 30.0-30.9,adult Start:16-Jun-2020 Instruction Type:Patient Education Patient Instructions Indication:BMI 30.0-30.9,adult Start:16-Jun-2020 Instruction Type:Provider Instructions for Treatment How to access health informa tion online Indication:Nonsmoker Start:02-Jun-2020 Instruction Type:Patient Education How to access health informa tion online - Detail Indication:Nonsmoker Start:02-Jun-2020 Instruction Type:Patient Education Patient Instructions Indication:BMI 30.0-30.9,adult Start:02-Jun-2020 Instruction Type:Provider Instructions for Treatment How to access health informa tion online Indication:Nonsmoker Start:19-May-2020 Instruction Type:Patient Education How to access health informa tion online - Detail Indication:Nonsmoker Start:19-May-2020 Instruction Type:Patient Education Patient Instructions Indication:Nonsmoker Start:19-May-2020 Instruction Type:Provider Instructions for Treatment How to access health informa tion online Indication:Nonsmoker Start:08-Jan-2020 Instruction Type:Patient Education How to access health informa tion online - Detail Indication:Nonsmoker Start:08-Jan-2020 Instruction Type:Patient Education Patient Instructions Indication:Nonsmoker Start:08-Jan-2020 Instruction Type:Provider Instructions for Treatment How to access health informa tion online Indication:BMI 29.0-29.9,adult Start:31-Aug-2019 Instruction Type:Patient Education How to access health informa tion online - Detail Indication:BMI 29.0-29.9,adult Start:31-Aug-2019 Instruction Type:Patient Education Patient Instructions Indication:BMI 29.0-29.9,adult Start:31-Aug-2019 Instruction Type:Provider Instructions for Treatment How to access health informa tion online Indication:Hyperlipidemia, unspecified Start:17-Aug-2019 Instruction Type:Patient Education How to access health informa tion online - Detail Indication:Hyperlipidemia, unspecified Start:17-Aug-2019 Instruction Type:Patient Education Patient Instructions Indication:Hyperlipidemia, unspecified Start:17-Aug-2019 Instruction Type:Provider Instructions for Treatment How to access health informa tion online Indication:Hypertension Start:30-May-2015 Instruction Type:Patient Education How to access health informa tion online - Detail Indication:Hypertension Start:30-May-2015 Instruction Type:Patient Education Patient Instructions Indication:Hypertension Start:30-May-2015 Instruction Type:Provider Instructions for Treatment Patient Instructions Indication:Abnormal glucose tolerance test Start:12-Jul-2014 Instruction Type:Provider Instructions for Treatment Patient Instructions Indication:Abnormal glucose tolerance test Start:18-Jan-2014 Instruction Type:Provider Instructions for Treatment Patient Instructions Indication:Abnormal glucose tolerance test Start:08-Jun-2013 Instruction Type:Provider Instructions for Treatment Patient Instructions Indication:Abnormal glucose tolerance test Start:09-Feb-2013 Instruction Type:Provider Instructions for Treatment Patient Instructions Indication:Abnormal glucose tolerance test Start:29-Sep-2012 Instruction Type:Provider Instructions for Treatment Patient Instructions Indication:Abnormal glucose tolerance test Start:26-May-2012 Instruction Type:Provider Instructions for Treatment [facility]; [facility] Work Phone: Instructions* Name Dates Details Patient Instructions Indication:Nonsmoker Start:03-Apr-2021 Instruction Type:Provider Instructions for Treatment How to Access Health Informa tion Online using Patient Portal and [employer] Apps Indication:Nonsmoker Start:03-Apr-2021 Instruction Type:Patient Education Patient Instructions Indication:BMI 28.0-28.9,adult Start:30-Dec-2020 Instruction Type:Provider Instructions for Treatment How to Access Health Informa tion Online using Patient Portal and [employer] Apps Indication:Nonsmoker Start:30-Dec-2020 Instruction Type:Patient Education Patient Instructions Indication:BMI 30.0-30.9,adult Start:30-Sep-2020 Instruction Type:Provider Instructions for Treatment How to Access Health Informa tion Online using Patient Portal and [employer] Apps Indication:Nonsmoker Start:30-Sep-2020 Instruction Type:Patient Education Patient Instructions Indication:BMI 30.0-30.9,adult Start:15-Sep-2020 Instruction Type:Provider Instructions for Treatment How to Access Health Informa tion Online using Patient Portal and [employer] Apps Indication:BMI 30.0-30.9,adult Start:15-Sep-2020 Instruction Type:Patient Education How to access health informa tion online Indication:BMI 30.0-30.9,adult Start:16-Jun-2020 Instruction Type:Patient Education How to access health informa tion online - Detail Indication:BMI 30.0-30.9,adult Start:16-Jun-2020 Instruction Type:Patient Education Patient Instructions Indication:BMI 30.0-30.9,adult Start:16-Jun-2020 Instruction Type:Provider Instructions for Treatment How to access health informa tion online Indication:Nonsmoker Start:02-Jun-2020 Instruction Type:Patient Education How to access health informa tion online - Detail Indication:Nonsmoker Start:02-Jun-2020 Instruction Type:Patient Education Patient Instructions Indication:BMI 30.0-30.9,adult Start:02-Jun-2020 Instruction Type:Provider Instructions for Treatment How to access health informa tion online Indication:Nonsmoker Start:19-May-2020 Instruction Type:Patient Education How to access health informa tion online - Detail Indication:Nonsmoker Start:19-May-2020 Instruction Type:Patient Education Patient Instructions Indication:Nonsmoker Start:19-May-2020 Instruction Type:Provider Instructions for Treatment How to access health informa tion online Indication:Nonsmoker Start:08-Jan-2020 Instruction Type:Patient Education How to access health informa tion online - Detail Indication:Nonsmoker Start:08-Jan-2020 Instruction Type:Patient Education Patient Instructions Indication:Nonsmoker Start:08-Jan-2020 Instruction Type:Provider Instructions for Treatment How to access health informa tion online Indication:BMI 29.0-29.9,adult Start:31-Aug-2019 Instruction Type:Patient Education How to access health informa tion online - Detail Indication:BMI 29.0-29.9,adult Start:31-Aug-2019 Instruction Type:Patient Education Patient Instructions Indication:BMI 29.0-29.9,adult Start:31-Aug-2019 Instruction Type:Provider Instructions for Treatment How to access health informa tion online Indication:Hyperlipidemia, unspecified Start:17-Aug-2019 Instruction Type:Patient Education How to access health informa tion online - Detail Indication:Hyperlipidemia, unspecified Start:17-Aug-2019 Instruction Type:Patient Education Patient Instructions Indication:Hyperlipidemia, unspecified Start:17-Aug-2019 Instruction Type:Provider Instructions for Treatment How to access health informa tion online Indication:Hypertension Start:30-May-2015 Instruction Type:Patient Education How to access health informa tion online - Detail Indication:Hypertension Start:30-May-2015 Instruction Type:Patient Education Patient Instructions Indication:Hypertension Start:30-May-2015 Instruction Type:Provider Instructions for Treatment Patient Instructions Indication:Abnormal glucose tolerance test Start:12-Jul-2014 Instruction Type:Provider Instructions for Treatment Patient Instructions Indication:Abnormal glucose tolerance test Start:18-Jan-2014 Instruction Type:Provider Instructions for Treatment Patient Instructions Indication:Abnormal glucose tolerance test Start:08-Jun-2013 Instruction Type:Provider Instructions for Treatment Patient Instructions Indication:Abnormal glucose tolerance test Start:09-Feb-2013 Instruction Type:Provider Instructions for Treatment Patient Instructions Indication:Abnormal glucose tolerance test Start:29-Sep-2012 Instruction Type:Provider Instructions for Treatment Patient Instructions Indication:Abnormal glucose tolerance test Start:26-May-2012 Instruction Type:Provider Instructions for Treatment [facility]; [facility] Work Phone: Instructions* Name Dates Details Patient Instructions Indication:Nonsmoker Start:03-Apr-2021 Instruction Type:Provider Instructions for Treatment How to Access Health Informa tion Online using Patient Portal and [employer] Indication:Nonsmoker Start:03-Apr-2021 Instruction Type:Patient Education Patient Instructions Indication:BMI 28.0-28.9,adult Start:30-Dec-2020 Instruction Type:Provider Instructions for Treatment How to Access Health Informa tion Online using Patient Portal and [employer] Apps Indication:Nonsmoker Start:30-Dec-2020 Instruction Type:Patient Education Patient Instructions Indication:BMI 30.0-30.9,adult Start:30-Sep-2020 Instruction Type:Provider Instructions for Treatment How to Access Health Informa tion Online using Patient Portal and [employer] Apps Indication:Nonsmoker Start:30-Sep-2020 Instruction Type:Patient Education Patient Instructions Indication:BMI 30.0-30.9,adult Start:15-Sep-2020 Instruction Type:Provider Instructions for Treatment How to Access Health Informa tion Online using Patient Portal and [employer] Indication:BMI 30.0-30.9,adult Start:15-Sep-2020 Instruction Type:Patient Education How to access health informa tion online Indication:BMI 30.0-30.9,adult Start:16-Jun-2020 Instruction Type:Patient Education How to access health informa tion online - Detail Indication:BMI 30.0-30.9,adult Start:16-Jun-2020 Instruction Type:Patient Education Patient Instructions Indication:BMI 30.0-30.9,adult Start:16-Jun-2020 Instruction Type:Provider Instructions for Treatment How to access health informa tion online Indication:Nonsmoker Start:02-Jun-2020 Instruction Type:Patient Education How to access health informa tion online - Detail Indication:Nonsmoker Start:02-Jun-2020 Instruction Type:Patient Education Patient Instructions Indication:BMI 30.0-30.9,adult Start:02-Jun-2020 Instruction Type:Provider Instructions for Treatment How to access health informa tion online Indication:Nonsmoker Start:19-May-2020 Instruction Type:Patient Education How to access health informa tion online - Detail Indication:Nonsmoker Start:19-May-2020 Instruction Type:Patient Education Patient Instructions Indication:Nonsmoker Start:19-May-2020 Instruction Type:Provider Instructions for Treatment How to access health informa tion online Indication:Nonsmoker Start:08-Jan-2020 Instruction Type:Patient Education How to access health informa tion online - Detail Indication:Nonsmoker Start:08-Jan-2020 Instruction Type:Patient Education Patient Instructions Indication:Nonsmoker Start:08-Jan-2020 Instruction Type:Provider Instructions for Treatment How to access health informa tion online Indication:BMI 29.0-29.9,adult Start:31-Aug-2019 Instruction Type:Patient Education How to access health informa tion online - Detail Indication:BMI 29.0-29.9,adult Start:31-Aug-2019 Instruction Type:Patient Education Patient Instructions Indication:BMI 29.0-29.9,adult Start:31-Aug-2019 Instruction Type:Provider Instructions for Treatment How to access health informa tion online Indication:Hyperlipidemia, unspecified Start:17-Aug-2019 Instruction Type:Patient Education How to access health informa tion online - Detail Indication:Hyperlipidemia, unspecified Start:17-Aug-2019 Instruction Type:Patient Education Patient Instructions Indication:Hyperlipidemia, unspecified Start:17-Aug-2019 Instruction Type:Provider Instructions for Treatment How to access health informa tion online Indication:Hypertension Start:30-May-2015 Instruction Type:Patient Education How to access health informa tion online - Detail Indication:Hypertension Start:30-May-2015 Instruction Type:Patient Education Patient Instructions Indication:Hypertension Start:30-May-2015 Instruction Type:Provider Instructions for Treatment Patient Instructions Indication:Abnormal glucose tolerance test Start:12-Jul-2014 Instruction Type:Provider Instructions for Treatment Patient Instructions Indication:Abnormal glucose tolerance test Start:18-Jan-2014 Instruction Type:Provider Instructions for Treatment Patient Instructions Indication:Abnormal glucose tolerance test Start:08-Jun-2013 Instruction Type:Provider Instructions for Treatment Patient Instructions Indication:Abnormal glucose tolerance test Start:09-Feb-2013 Instruction Type:Provider Instructions for Treatment Patient Instructions Indication:Abnormal glucose tolerance test Start:29-Sep-2012 Instruction Type:Provider Instructions for Treatment Patient Instructions Indication:Abnormal glucose tolerance test Start:26-May-2012 Instruction Type:Provider Instructions for Treatment [facility] Work Phone: Instructions* Name Dates Details Patient Instructions Indication:Syncope (Renamed from Syncopal episodes) Start:22-Jan-2022 Instruction Type:Provider Instructions for Treatment How to Access Health Informa tion Online using Patient Portal and [employer] Apps Indication:Syncope (Renamed from Syncopal episodes) Start:22-Jan-2022 Instruction Type:Patient Education Patient Instructions Indication:Nonsmoker Start:03-Apr-2021 Instruction Type:Provider Instructions for Treatment How to Access Health Informa tion Online using Patient Portal and [employer] Apps Indication:Nonsmoker Start:03-Apr-2021 Instruction Type:Patient Education Patient Instructions Indication:BMI 28.0-28.9,adult Start:30-Dec-2020 Instruction Type:Provider Instructions for Treatment How to Access Health Informa tion Online using Patient Portal and [employer] Apps Indication:Nonsmoker Start:30-Dec-2020 Instruction Type:Patient Education Patient Instructions Indication:BMI 30.0-30.9,adult Start:30-Sep-2020 Instruction Type:Provider Instructions for Treatment How to Access Health Informa tion Online using Patient Portal and [employer] Apps Indication:Nonsmoker Start:30-Sep-2020 Instruction Type:Patient Education Patient Instructions Indication:BMI 30.0-30.9,adult Start:15-Sep-2020 Instruction Type:Provider Instructions for Treatment How to Access Health Informa tion Online using Patient Portal and [employer] Apps Indication:BMI 30.0-30.9,adult Start:15-Sep-2020 Instruction Type:Patient Education How to access health informa tion online Indication:BMI 30.0-30.9,adult Start:16-Jun-2020 Instruction Type:Patient Education How to access health informa tion online - Detail Indication:BMI 30.0-30.9,adult Start:16-Jun-2020 Instruction Type:Patient Education Patient Instructions Indication:BMI 30.0-30.9,adult Start:16-Jun-2020 Instruction Type:Provider Instructions for Treatment How to access health informa tion online Indication:Nonsmoker Start:02-Jun-2020 Instruction Type:Patient Education How to access health informa tion online - Detail Indication:Nonsmoker Start:02-Jun-2020 Instruction Type:Patient Education Patient Instructions Indication:BMI 30.0-30.9,adult Start:02-Jun-2020 Instruction Type:Provider Instructions for Treatment How to access health informa tion online Indication:Nonsmoker Start:19-May-2020 Instruction Type:Patient Education How to access health informa tion online - Detail Indication:Nonsmoker Start:19-May-2020 Instruction Type:Patient Education Patient Instructions Indication:Nonsmoker Start:19-May-2020 Instruction Type:Provider Instructions for Treatment How to access health informa tion online Indication:Nonsmoker Start:08-Jan-2020 Instruction Type:Patient Education How to access health informa tion online - Detail Indication:Nonsmoker Start:08-Jan-2020 Instruction Type:Patient Education Patient Instructions Indication:Nonsmoker Start:08-Jan-2020 Instruction Type:Provider Instructions for Treatment How to access health informa tion online Indication:BMI 29.0-29.9,adult Start:31-Aug-2019 Instruction Type:Patient Education How to access health informa tion online - Detail Indication:BMI 29.0-29.9,adult Start:31-Aug-2019 Instruction Type:Patient Education Patient Instructions Indication:BMI 29.0-29.9,adult Start:31-Aug-2019 Instruction Type:Provider Instructions for Treatment How to access health informa tion online Indication:Hyperlipidemia, unspecified Start:17-Aug-2019 Instruction Type:Patient Education How to access health informa tion online - Detail Indication:Hyperlipidemia, unspecified Start:17-Aug-2019 Instruction Type:Patient Education Patient Instructions Indication:Hyperlipidemia, unspecified Start:17-Aug-2019 Instruction Type:Provider Instructions for Treatment How to access health informa tion online Indication:Hypertension Start:30-May-2015 Instruction Type:Patient Education How to access health informa tion online - Detail Indication:Hypertension Start:30-May-2015 Instruction Type:Patient Education Patient Instructions Indication:Hypertension Start:30-May-2015 Instruction Type:Provider Instructions for Treatment Patient Instructions Indication:Abnormal glucose tolerance test Start:12-Jul-2014 Instruction Type:Provider Instructions for Treatment Patient Instructions Indication:Abnormal glucose tolerance test Start:18-Jan-2014 Instruction Type:Provider Instructions for Treatment Patient Instructions Indication:Abnormal glucose tolerance test Start:08-Jun-2013 Instruction Type:Provider Instructions for Treatment Patient Instructions Indication:Abnormal glucose tolerance test Start:09-Feb-2013 Instruction Type:Provider Instructions for Treatment Patient Instructions Indication:Abnormal glucose tolerance test Start:29-Sep-2012 Instruction Type:Provider Instructions for Treatment Patient Instructions Indication:Abnormal glucose tolerance test Start:26-May-2012 Instruction Type:Provider Instructions for Treatment [facility] Work Phone: Instructions* Name Dates Details Patient Instructions Indication:Syncope (Renamed from Syncopal episodes) Start:22-Jan-2022 Instruction Type:Provider Instructions for Treatment How to Access Health Informa tion Online using Patient Portal and [employer] Indication:Syncope (Renamed from Syncopal episodes) Start:22-Jan-2022 Instruction Type:Patient Education Patient Instructions Indication:Nonsmoker Start:03-Apr-2021 Instruction Type:Provider Instructions for Treatment How to Access Health Informa tion Online using Patient Portal and [employer] Apps Indication:Nonsmoker Start:03-Apr-2021 Instruction Type:Patient Education Patient Instructions Indication:BMI 28.0-28.9,adult Start:30-Dec-2020 Instruction Type:Provider Instructions for Treatment How to Access Health Informa tion Online using Patient Portal and [employer] Apps Indication:Nonsmoker Start:30-Dec-2020 Instruction Type:Patient Education Patient Instructions Indication:BMI 30.0-30.9,adult Start:30-Sep-2020 Instruction Type:Provider Instructions for Treatment How to Access Health Informa tion Online using Patient Portal and [employer] Indication:Nonsmoker Start:30-Sep-2020 Instruction Type:Patient Education Patient Instructions Indication:BMI 30.0-30.9,adult Start:15-Sep-2020 Instruction Type:Provider Instructions for Treatment How to Access Health Informa tion Online using Patient Portal and [employer] Indication:BMI 30.0-30.9,adult Start:15-Sep-2020 Instruction Type:Patient Education How to access health informa tion online Indication:BMI 30.0-30.9,adult Start:16-Jun-2020 Instruction Type:Patient Education How to access health informa tion online - Detail Indication:BMI 30.0-30.9,adult Start:16-Jun-2020 Instruction Type:Patient Education Patient Instructions Indication:BMI 30.0-30.9,adult Start:16-Jun-2020 Instruction Type:Provider Instructions for Treatment How to access health informa tion online Indication:Nonsmoker Start:02-Jun-2020 Instruction Type:Patient Education How to access health informa tion online - Detail Indication:Nonsmoker Start:02-Jun-2020 Instruction Type:Patient Education Patient Instructions Indication:BMI 30.0-30.9,adult Start:02-Jun-2020 Instruction Type:Provider Instructions for Treatment How to access health informa tion online Indication:Nonsmoker Start:19-May-2020 Instruction Type:Patient Education How to access health informa tion online - Detail Indication:Nonsmoker Start:19-May-2020 Instruction Type:Patient Education Patient Instructions Indication:Nonsmoker Start:19-May-2020 Instruction Type:Provider Instructions for Treatment How to access health informa tion online Indication:Nonsmoker Start:08-Jan-2020 Instruction Type:Patient Education How to access health informa tion online - Detail Indication:Nonsmoker Start:08-Jan-2020 Instruction Type:Patient Education Patient Instructions Indication:Nonsmoker Start:08-Jan-2020 Instruction Type:Provider Instructions for Treatment How to access health informa tion online Indication:BMI 29.0-29.9,adult Start:31-Aug-2019 Instruction Type:Patient Education How to access health informa tion online - Detail Indication:BMI 29.0-29.9,adult Start:31-Aug-2019 Instruction Type:Patient Education Patient Instructions Indication:BMI 29.0-29.9,adult Start:31-Aug-2019 Instruction Type:Provider Instructions for Treatment How to access health informa tion online Indication:Hyperlipidemia, unspecified Start:17-Aug-2019 Instruction Type:Patient Education How to access health informa tion online - Detail Indication:Hyperlipidemia, unspecified Start:17-Aug-2019 Instruction Type:Patient Education Patient Instructions Indication:Hyperlipidemia, unspecified Start:17-Aug-2019 Instruction Type:Provider Instructions for Treatment How to access health informa tion online Indication:Hypertension Start:30-May-2015 Instruction Type:Patient Education How to access health informa tion online - Detail Indication:Hypertension Start:30-May-2015 Instruction Type:Patient Education Patient Instructions Indication:Hypertension Start:30-May-2015 Instruction Type:Provider Instructions for Treatment Patient Instructions Indication:Abnormal glucose tolerance test Start:12-Jul-2014 Instruction Type:Provider Instructions for Treatment Patient Instructions Indication:Abnormal glucose tolerance test Start:18-Jan-2014 Instruction Type:Provider Instructions for Treatment Patient Instructions Indication:Abnormal glucose tolerance test Start:08-Jun-2013 Instruction Type:Provider Instructions for Treatment Patient Instructions Indication:Abnormal glucose tolerance test Start:09-Feb-2013 Instruction Type:Provider Instructions for Treatment Patient Instructions Indication:Abnormal glucose tolerance test Start:29-Sep-2012 Instruction Type:Provider Instructions for Treatment Patient Instructions Indication:Abnormal glucose tolerance test Start:26-May-2012 Instruction Type:Provider Instructions for Treatment [facility]; [facility] Work Phone: Instructions* Name Dates Details Patient Instructions Indication:Syncope (Renamed from Syncopal episodes) Start:22-Jan-2022 Instruction Type:Provider Instructions for Treatment How to Access Health Informa tion Online using Patient Portal and [employer] Indication:Syncope (Renamed from Syncopal episodes) Start:22-Jan-2022 Instruction Type:Patient Education Patient Instructions Indication:Nonsmoker Start:03-Apr-2021 Instruction Type:Provider Instructions for Treatment How to Access Health Informa tion Online using Patient Portal and [employer] Indication:Nonsmoker Start:03-Apr-2021 Instruction Type:Patient Education Patient Instructions Indication:BMI 28.0-28.9,adult Start:30-Dec-2020 Instruction Type:Provider Instructions for Treatment How to Access Health Informa tion Online using Patient Portal and [employer] Indication:Nonsmoker Start:30-Dec-2020 Instruction Type:Patient Education Patient Instructions Indication:BMI 30.0-30.9,adult Start:30-Sep-2020 Instruction Type:Provider Instructions for Treatment How to Access Health Informa tion Online using Patient Portal and [employer] Apps Indication:Nonsmoker Start:30-Sep-2020 Instruction Type:Patient Education Patient Instructions Indication:BMI 30.0-30.9,adult Start:15-Sep-2020 Instruction Type:Provider Instructions for Treatment How to Access Health Informa tion Online using Patient Portal and [employer] Indication:BMI 30.0-30.9,adult Start:15-Sep-2020 Instruction Type:Patient Education How to access health informa tion online Indication:BMI 30.0-30.9,adult Start:16-Jun-2020 Instruction Type:Patient Education How to access health informa tion online - Detail Indication:BMI 30.0-30.9,adult Start:16-Jun-2020 Instruction Type:Patient Education Patient Instructions Indication:BMI 30.0-30.9,adult Start:16-Jun-2020 Instruction Type:Provider Instructions for Treatment How to access health informa tion online Indication:Nonsmoker Start:02-Jun-2020 Instruction Type:Patient Education How to access health informa tion online - Detail Indication:Nonsmoker Start:02-Jun-2020 Instruction Type:Patient Education Patient Instructions Indication:BMI 30.0-30.9,adult Start:02-Jun-2020 Instruction Type:Provider Instructions for Treatment How to access health informa tion online Indication:Nonsmoker Start:19-May-2020 Instruction Type:Patient Education How to access health informa tion online - Detail Indication:Nonsmoker Start:19-May-2020 Instruction Type:Patient Education Patient Instructions Indication:Nonsmoker Start:19-May-2020 Instruction Type:Provider Instructions for Treatment How to access health informa tion online Indication:Nonsmoker Start:08-Jan-2020 Instruction Type:Patient Education How to access health informa tion online - Detail Indication:Nonsmoker Start:08-Jan-2020 Instruction Type:Patient Education Patient Instructions Indication:Nonsmoker Start:08-Jan-2020 Instruction Type:Provider Instructions for Treatment How to access health informa tion online Indication:BMI 29.0-29.9,adult Start:31-Aug-2019 Instruction Type:Patient Education How to access health informa tion online - Detail Indication:BMI 29.0-29.9,adult Start:31-Aug-2019 Instruction Type:Patient Education Patient Instructions Indication:BMI 29.0-29.9,adult Start:31-Aug-2019 Instruction Type:Provider Instructions for Treatment How to access health informa tion online Indication:Hyperlipidemia, unspecified Start:17-Aug-2019 Instruction Type:Patient Education How to access health informa tion online - Detail Indication:Hyperlipidemia, unspecified Start:17-Aug-2019 Instruction Type:Patient Education Patient Instructions Indication:Hyperlipidemia, unspecified Start:17-Aug-2019 Instruction Type:Provider Instructions for Treatment How to access health informa tion online Indication:Hypertension Start:30-May-2015 Instruction Type:Patient Education How to access health informa tion online - Detail Indication:Hypertension Start:30-May-2015 Instruction Type:Patient Education Patient Instructions Indication:Hypertension Start:30-May-2015 Instruction Type:Provider Instructions for Treatment Patient Instructions Indication:Abnormal glucose tolerance test Start:12-Jul-2014 Instruction Type:Provider Instructions for Treatment Patient Instructions Indication:Abnormal glucose tolerance test Start:18-Jan-2014 Instruction Type:Provider Instructions for Treatment Patient Instructions Indication:Abnormal glucose tolerance test Start:08-Jun-2013 Instruction Type:Provider Instructions for Treatment Patient Instructions Indication:Abnormal glucose tolerance test Start:09-Feb-2013 Instruction Type:Provider Instructions for Treatment Patient Instructions Indication:Abnormal glucose tolerance test Start:29-Sep-2012 Instruction Type:Provider Instructions for Treatment Patient Instructions Indication:Abnormal glucose tolerance test Start:26-May-2012 Instruction Type:Provider Instructions for Treatment [facility]; [facility] Work Phone: Instructions* Name Dates Details Patient Instructions Indication:Syncope (Renamed from Syncopal episodes) Start:22-Jan-2022 Instruction Type:Provider Instructions for Treatment How to Access Health Informa tion Online using Patient Portal and [employer] Indication:Syncope (Renamed from Syncopal episodes) Start:22-Jan-2022 Instruction Type:Patient Education Patient Instructions Indication:Nonsmoker Start:03-Apr-2021 Instruction Type:Provider Instructions for Treatment How to Access Health Informa tion Online using Patient Portal and [employer] Indication:Nonsmoker Start:03-Apr-2021 Instruction Type:Patient Education Patient Instructions Indication:BMI 28.0-28.9,adult Start:30-Dec-2020 Instruction Type:Provider Instructions for Treatment How to Access Health Informa tion Online using Patient Portal and [employer] Indication:Nonsmoker Start:30-Dec-2020 Instruction Type:Patient Education Patient Instructions Indication:BMI 30.0-30.9,adult Start:30-Sep-2020 Instruction Type:Provider Instructions for Treatment How to Access Health Informa tion Online using Patient Portal and [employer] Indication:Nonsmoker Start:30-Sep-2020 Instruction Type:Patient Education Patient Instructions Indication:BMI 30.0-30.9,adult Start:15-Sep-2020 Instruction Type:Provider Instructions for Treatment How to Access Health Informa tion Online using Patient Portal and [employer] Indication:BMI 30.0-30.9,adult Start:15-Sep-2020 Instruction Type:Patient Education How to access health informa tion online Indication:BMI 30.0-30.9,adult Start:16-Jun-2020 Instruction Type:Patient Education How to access health informa tion online - Detail Indication:BMI 30.0-30.9,adult Start:16-Jun-2020 Instruction Type:Patient Education Patient Instructions Indication:BMI 30.0-30.9,adult Start:16-Jun-2020 Instruction Type:Provider Instructions for Treatment How to access health informa tion online Indication:Nonsmoker Start:02-Jun-2020 Instruction Type:Patient Education How to access health informa tion online - Detail Indication:Nonsmoker Start:02-Jun-2020 Instruction Type:Patient Education Patient Instructions Indication:BMI 30.0-30.9,adult Start:02-Jun-2020 Instruction Type:Provider Instructions for Treatment How to access health informa tion online Indication:Nonsmoker Start:19-May-2020 Instruction Type:Patient Education How to access health informa tion online - Detail Indication:Nonsmoker Start:19-May-2020 Instruction Type:Patient Education Patient Instructions Indication:Nonsmoker Start:19-May-2020 Instruction Type:Provider Instructions for Treatment How to access health informa tion online Indication:Nonsmoker Start:08-Jan-2020 Instruction Type:Patient Education How to access health informa tion online - Detail Indication:Nonsmoker Start:08-Jan-2020 Instruction Type:Patient Education Patient Instructions Indication:Nonsmoker Start:08-Jan-2020 Instruction Type:Provider Instructions for Treatment How to access health informa tion online Indication:BMI 29.0-29.9,adult Start:31-Aug-2019 Instruction Type:Patient Education How to access health informa tion online - Detail Indication:BMI 29.0-29.9,adult Start:31-Aug-2019 Instruction Type:Patient Education Patient Instructions Indication:BMI 29.0-29.9,adult Start:31-Aug-2019 Instruction Type:Provider Instructions for Treatment How to access health informa tion online Indication:Hyperlipidemia, unspecified Start:17-Aug-2019 Instruction Type:Patient Education How to access health informa tion online - Detail Indication:Hyperlipidemia, unspecified Start:17-Aug-2019 Instruction Type:Patient Education Patient Instructions Indication:Hyperlipidemia, unspecified Start:17-Aug-2019 Instruction Type:Provider Instructions for Treatment How to access health informa tion online Indication:Hypertension Start:30-May-2015 Instruction Type:Patient Education How to access health informa tion online - Detail Indication:Hypertension Start:30-May-2015 Instruction Type:Patient Education Patient Instructions Indication:Hypertension Start:30-May-2015 Instruction Type:Provider Instructions for Treatment Patient Instructions Indication:Abnormal glucose tolerance test Start:12-Jul-2014 Instruction Type:Provider Instructions for Treatment Patient Instructions Indication:Abnormal glucose tolerance test Start:18-Jan-2014 Instruction Type:Provider Instructions for Treatment Patient Instructions Indication:Abnormal glucose tolerance test Start:08-Jun-2013 Instruction Type:Provider Instructions for Treatment Patient Instructions Indication:Abnormal glucose tolerance test Start:09-Feb-2013 Instruction Type:Provider Instructions for Treatment Patient Instructions Indication:Abnormal glucose tolerance test Start:29-Sep-2012 Instruction Type:Provider Instructions for Treatment Patient Instructions Indication:Abnormal glucose tolerance test Start:26-May-2012 Instruction Type:Provider Instructions for Treatment [facility]; [facility] Work Phone: Instructions* Name Dates Details Patient Instructions Indication:Syncope (Renamed from Syncopal episodes) Start:22-Jan-2022 Instruction Type:Provider Instructions for Treatment How to Access Health Informa tion Online using Patient Portal and [employer] Indication:Syncope (Renamed from Syncopal episodes) Start:22-Jan-2022 Instruction Type:Patient Education Patient Instructions Indication:Nonsmoker Start:03-Apr-2021 Instruction Type:Provider Instructions for Treatment How to Access Health Informa tion Online using Patient Portal and [employer] Indication:Nonsmoker Start:03-Apr-2021 Instruction Type:Patient Education Patient Instructions Indication:BMI 28.0-28.9,adult Start:30-Dec-2020 Instruction Type:Provider Instructions for Treatment How to Access Health Informa tion Online using Patient Portal and [employer] Indication:Nonsmoker Start:30-Dec-2020 Instruction Type:Patient Education Patient Instructions Indication:BMI 30.0-30.9,adult Start:30-Sep-2020 Instruction Type:Provider Instructions for Treatment How to Access Health Informa tion Online using Patient Portal and [employer] Indication:Nonsmoker Start:30-Sep-2020 Instruction Type:Patient Education Patient Instructions Indication:BMI 30.0-30.9,adult Start:15-Sep-2020 Instruction Type:Provider Instructions for Treatment How to Access Health Informa tion Online using Patient Portal and [employer] Apps Indication:BMI 30.0-30.9,adult Start:15-Sep-2020 Instruction Type:Patient Education How to access health informa tion online Indication:BMI 30.0-30.9,adult Start:16-Jun-2020 Instruction Type:Patient Education How to access health informa tion online - Detail Indication:BMI 30.0-30.9,adult Start:16-Jun-2020 Instruction Type:Patient Education Patient Instructions Indication:BMI 30.0-30.9,adult Start:16-Jun-2020 Instruction Type:Provider Instructions for Treatment How to access health informa tion online Indication:Nonsmoker Start:02-Jun-2020 Instruction Type:Patient Education How to access health informa tion online - Detail Indication:Nonsmoker Start:02-Jun-2020 Instruction Type:Patient Education Patient Instructions Indication:BMI 30.0-30.9,adult Start:02-Jun-2020 Instruction Type:Provider Instructions for Treatment How to access health informa tion online Indication:Nonsmoker Start:19-May-2020 Instruction Type:Patient Education How to access health informa tion online - Detail Indication:Nonsmoker Start:19-May-2020 Instruction Type:Patient Education Patient Instructions Indication:Nonsmoker Start:19-May-2020 Instruction Type:Provider Instructions for Treatment How to access health informa tion online Indication:Nonsmoker Start:08-Jan-2020 Instruction Type:Patient Education How to access health informa tion online - Detail Indication:Nonsmoker Start:08-Jan-2020 Instruction Type:Patient Education Patient Instructions Indication:Nonsmoker Start:08-Jan-2020 Instruction Type:Provider Instructions for Treatment How to access health informa tion online Indication:BMI 29.0-29.9,adult Start:31-Aug-2019 Instruction Type:Patient Education How to access health informa tion online - Detail Indication:BMI 29.0-29.9,adult Start:31-Aug-2019 Instruction Type:Patient Education Patient Instructions Indication:BMI 29.0-29.9,adult Start:31-Aug-2019 Instruction Type:Provider Instructions for Treatment How to access health informa tion online Indication:Hyperlipidemia, unspecified Start:17-Aug-2019 Instruction Type:Patient Education How to access health informa tion online - Detail Indication:Hyperlipidemia, unspecified Start:17-Aug-2019 Instruction Type:Patient Education Patient Instructions Indication:Hyperlipidemia, unspecified Start:17-Aug-2019 Instruction Type:Provider Instructions for Treatment How to access health informa tion online Indication:Hypertension Start:30-May-2015 Instruction Type:Patient Education How to access health informa tion online - Detail Indication:Hypertension Start:30-May-2015 Instruction Type:Patient Education Patient Instructions Indication:Hypertension Start:30-May-2015 Instruction Type:Provider Instructions for Treatment Patient Instructions Indication:Abnormal glucose tolerance test Start:12-Jul-2014 Instruction Type:Provider Instructions for Treatment Patient Instructions Indication:Abnormal glucose tolerance test Start:18-Jan-2014 Instruction Type:Provider Instructions for Treatment Patient Instructions Indication:Abnormal glucose tolerance test Start:08-Jun-2013 Instruction Type:Provider Instructions for Treatment Patient Instructions Indication:Abnormal glucose tolerance test Start:09-Feb-2013 Instruction Type:Provider Instructions for Treatment Patient Instructions Indication:Abnormal glucose tolerance test Start:29-Sep-2012 Instruction Type:Provider Instructions for Treatment Patient Instructions Indication:Abnormal glucose tolerance test Start:26-May-2012 Instruction Type:Provider Instructions for Treatment [facility] Work Phone: Instructions* Name Dates Details Patient Instructions Indication:Syncope (Renamed from Syncopal episodes) Start:22-Jan-2022 Instruction Type:Provider Instructions for Treatment How to Access Health Informa tion Online using Patient Portal and [employer] Apps Indication:Syncope (Renamed from Syncopal episodes) Start:22-Jan-2022 Instruction Type:Patient Education Patient Instructions Indication:Nonsmoker Start:03-Apr-2021 Instruction Type:Provider Instructions for Treatment How to Access Health Informa tion Online using Patient Portal and [employer] Apps Indication:Nonsmoker Start:03-Apr-2021 Instruction Type:Patient Education Patient Instructions Indication:BMI 28.0-28.9,adult Start:30-Dec-2020 Instruction Type:Provider Instructions for Treatment How to Access Health Informa tion Online using Patient Portal and [employer] Apps Indication:Nonsmoker Start:30-Dec-2020 Instruction Type:Patient Education Patient Instructions Indication:BMI 30.0-30.9,adult Start:30-Sep-2020 Instruction Type:Provider Instructions for Treatment How to Access Health Informa tion Online using Patient Portal and [employer] Apps Indication:Nonsmoker Start:30-Sep-2020 Instruction Type:Patient Education Patient Instructions Indication:BMI 30.0-30.9,adult Start:15-Sep-2020 Instruction Type:Provider Instructions for Treatment How to Access Health Informa tion Online using Patient Portal and [employer] Apps Indication:BMI 30.0-30.9,adult Start:15-Sep-2020 Instruction Type:Patient Education How to access health informa tion online Indication:BMI 30.0-30.9,adult Start:16-Jun-2020 Instruction Type:Patient Education How to access health informa tion online - Detail Indication:BMI 30.0-30.9,adult Start:16-Jun-2020 Instruction Type:Patient Education Patient Instructions Indication:BMI 30.0-30.9,adult Start:16-Jun-2020 Instruction Type:Provider Instructions for Treatment How to access health informa tion online Indication:Nonsmoker Start:02-Jun-2020 Instruction Type:Patient Education How to access health informa tion online - Detail Indication:Nonsmoker Start:02-Jun-2020 Instruction Type:Patient Education Patient Instructions Indication:BMI 30.0-30.9,adult Start:02-Jun-2020 Instruction Type:Provider Instructions for Treatment How to access health informa tion online Indication:Nonsmoker Start:19-May-2020 Instruction Type:Patient Education How to access health informa tion online - Detail Indication:Nonsmoker Start:19-May-2020 Instruction Type:Patient Education Patient Instructions Indication:Nonsmoker Start:19-May-2020 Instruction Type:Provider Instructions for Treatment How to access health informa tion online Indication:Nonsmoker Start:08-Jan-2020 Instruction Type:Patient Education How to access health informa tion online - Detail Indication:Nonsmoker Start:08-Jan-2020 Instruction Type:Patient Education Patient Instructions Indication:Nonsmoker Start:08-Jan-2020 Instruction Type:Provider Instructions for Treatment How to access health informa tion online Indication:BMI 29.0-29.9,adult Start:31-Aug-2019 Instruction Type:Patient Education How to access health informa tion online - Detail Indication:BMI 29.0-29.9,adult Start:31-Aug-2019 Instruction Type:Patient Education Patient Instructions Indication:BMI 29.0-29.9,adult Start:31-Aug-2019 Instruction Type:Provider Instructions for Treatment How to access health informa tion online Indication:Hyperlipidemia, unspecified Start:17-Aug-2019 Instruction Type:Patient Education How to access health informa tion online - Detail Indication:Hyperlipidemia, unspecified Start:17-Aug-2019 Instruction Type:Patient Education Patient Instructions Indication:Hyperlipidemia, unspecified Start:17-Aug-2019 Instruction Type:Provider Instructions for Treatment How to access health informa tion online Indication:Hypertension Start:30-May-2015 Instruction Type:Patient Education How to access health informa tion online - Detail Indication:Hypertension Start:30-May-2015 Instruction Type:Patient Education Patient Instructions Indication:Hypertension Start:30-May-2015 Instruction Type:Provider Instructions for Treatment Patient Instructions Indication:Abnormal glucose tolerance test Start:12-Jul-2014 Instruction Type:Provider Instructions for Treatment Patient Instructions Indication:Abnormal glucose tolerance test Start:18-Jan-2014 Instruction Type:Provider Instructions for Treatment Patient Instructions Indication:Abnormal glucose tolerance test Start:08-Jun-2013 Instruction Type:Provider Instructions for Treatment Patient Instructions Indication:Abnormal glucose tolerance test Start:09-Feb-2013 Instruction Type:Provider Instructions for Treatment Patient Instructions Indication:Abnormal glucose tolerance test Start:29-Sep-2012 Instruction Type:Provider Instructions for Treatment Patient Instructions Indication:Abnormal glucose tolerance test Start:26-May-2012 Instruction Type:Provider Instructions for Treatment [facility] Work Phone: Instructions* Name Dates Details Patient Instructions Indication:Syncope (Renamed from Syncopal episodes) Start:22-Jan-2022 Instruction Type:Provider Instructions for Treatment How to Access Health Informa tion Online using Patient Portal and [employer] Apps Indication:Syncope (Renamed from Syncopal episodes) Start:22-Jan-2022 Instruction Type:Patient Education Patient Instructions Indication:Nonsmoker Start:03-Apr-2021 Instruction Type:Provider Instructions for Treatment How to Access Health Informa tion Online using Patient Portal and [employer] Apps Indication:Nonsmoker Start:03-Apr-2021 Instruction Type:Patient Education Patient Instructions Indication:BMI 28.0-28.9,adult Start:30-Dec-2020 Instruction Type:Provider Instructions for Treatment How to Access Health Informa tion Online using Patient Portal and [employer] Apps Indication:Nonsmoker Start:30-Dec-2020 Instruction Type:Patient Education Patient Instructions Indication:BMI 30.0-30.9,adult Start:30-Sep-2020 Instruction Type:Provider Instructions for Treatment How to Access Health Informa tion Online using Patient Portal and [employer] Apps Indication:Nonsmoker Start:30-Sep-2020 Instruction Type:Patient Education Patient Instructions Indication:BMI 30.0-30.9,adult Start:15-Sep-2020 Instruction Type:Provider Instructions for Treatment How to Access Health Informa tion Online using Patient Portal and [employer] Apps Indication:BMI 30.0-30.9,adult Start:15-Sep-2020 Instruction Type:Patient Education How to access health informa tion online Indication:BMI 30.0-30.9,adult Start:16-Jun-2020 Instruction Type:Patient Education How to access health informa tion online - Detail Indication:BMI 30.0-30.9,adult Start:16-Jun-2020 Instruction Type:Patient Education Patient Instructions Indication:BMI 30.0-30.9,adult Start:16-Jun-2020 Instruction Type:Provider Instructions for Treatment How to access health informa tion online Indication:Nonsmoker Start:02-Jun-2020 Instruction Type:Patient Education How to access health informa tion online - Detail Indication:Nonsmoker Start:02-Jun-2020 Instruction Type:Patient Education Patient Instructions Indication:BMI 30.0-30.9,adult Start:02-Jun-2020 Instruction Type:Provider Instructions for Treatment How to access health informa tion online Indication:Nonsmoker Start:19-May-2020 Instruction Type:Patient Education How to access health informa tion online - Detail Indication:Nonsmoker Start:19-May-2020 Instruction Type:Patient Education Patient Instructions Indication:Nonsmoker Start:19-May-2020 Instruction Type:Provider Instructions for Treatment How to access health informa tion online Indication:Nonsmoker Start:08-Jan-2020 Instruction Type:Patient Education How to access health informa tion online - Detail Indication:Nonsmoker Start:08-Jan-2020 Instruction Type:Patient Education Patient Instructions Indication:Nonsmoker Start:08-Jan-2020 Instruction Type:Provider Instructions for Treatment How to access health informa tion online Indication:BMI 29.0-29.9,adult Start:31-Aug-2019 Instruction Type:Patient Education How to access health informa tion online - Detail Indication:BMI 29.0-29.9,adult Start:31-Aug-2019 Instruction Type:Patient Education Patient Instructions Indication:BMI 29.0-29.9,adult Start:31-Aug-2019 Instruction Type:Provider Instructions for Treatment How to access health informa tion online Indication:Hyperlipidemia, unspecified Start:17-Aug-2019 Instruction Type:Patient Education How to access health informa tion online - Detail Indication:Hyperlipidemia, unspecified Start:17-Aug-2019 Instruction Type:Patient Education Patient Instructions Indication:Hyperlipidemia, unspecified Start:17-Aug-2019 Instruction Type:Provider Instructions for Treatment How to access health informa tion online Indication:Hypertension Start:30-May-2015 Instruction Type:Patient Education How to access health informa tion online - Detail Indication:Hypertension Start:30-May-2015 Instruction Type:Patient Education Patient Instructions Indication:Hypertension Start:30-May-2015 Instruction Type:Provider Instructions for Treatment Patient Instructions Indication:Abnormal glucose tolerance test Start:12-Jul-2014 Instruction Type:Provider Instructions for Treatment Patient Instructions Indication:Abnormal glucose tolerance test Start:18-Jan-2014 Instruction Type:Provider Instructions for Treatment Patient Instructions Indication:Abnormal glucose tolerance test Start:08-Jun-2013 Instruction Type:Provider Instructions for Treatment Patient Instructions Indication:Abnormal glucose tolerance test Start:09-Feb-2013 Instruction Type:Provider Instructions for Treatment Patient Instructions Indication:Abnormal glucose tolerance test Start:29-Sep-2012 Instruction Type:Provider Instructions for Treatment Patient Instructions Indication:Abnormal glucose tolerance test Start:26-May-2012 Instruction Type:Provider Instructions for Treatment [facility]; [facility] Work Phone: Instructions* Name Dates Details Patient Instructions Indication:Osteoporosis Start:03-Dec-2022 Instruction Type:Provider Instructions for Treatment How to Access Health Informa tion Online using Patient Portal and [employer] Apps Indication:Osteoporosis Start:03-Dec-2022 Instruction Type:Patient Education Patient Instructions Indication:Syncope (Renamed from Syncopal episodes) Start:22-Jan-2022 Instruction Type:Provider Instructions for Treatment How to Access Health Informa tion Online using Patient Portal and [employer] Apps Indication:Syncope (Renamed from Syncopal episodes) Start:22-Jan-2022 Instruction Type:Patient Education Patient Instructions Indication:Nonsmoker Start:03-Apr-2021 Instruction Type:Provider Instructions for Treatment How to Access Health Informa tion Online using Patient Portal and [employer] Apps Indication:Nonsmoker Start:03-Apr-2021 Instruction Type:Patient Education Patient Instructions Indication:BMI 28.0-28.9,adult Start:30-Dec-2020 Instruction Type:Provider Instructions for Treatment How to Access Health Informa tion Online using Patient Portal and [employer] Apps Indication:Nonsmoker Start:30-Dec-2020 Instruction Type:Patient Education Patient Instructions Indication:BMI 30.0-30.9,adult Start:30-Sep-2020 Instruction Type:Provider Instructions for Treatment How to Access Health Informa tion Online using Patient Portal and [employer] Apps Indication:Nonsmoker Start:30-Sep-2020 Instruction Type:Patient Education Patient Instructions Indication:BMI 30.0-30.9,adult Start:15-Sep-2020 Instruction Type:Provider Instructions for Treatment How to Access Health Informa tion Online using Patient Portal and [employer] Indication:BMI 30.0-30.9,adult Start:15-Sep-2020 Instruction Type:Patient Education How to access health informa tion online Indication:BMI 30.0-30.9,adult Start:16-Jun-2020 Instruction Type:Patient Education How to access health informa tion online - Detail Indication:BMI 30.0-30.9,adult Start:16-Jun-2020 Instruction Type:Patient Education Patient Instructions Indication:BMI 30.0-30.9,adult Start:16-Jun-2020 Instruction Type:Provider Instructions for Treatment How to access health informa tion online Indication:Nonsmoker Start:02-Jun-2020 Instruction Type:Patient Education How to access health informa tion online - Detail Indication:Nonsmoker Start:02-Jun-2020 Instruction Type:Patient Education Patient Instructions Indication:BMI 30.0-30.9,adult Start:02-Jun-2020 Instruction Type:Provider Instructions for Treatment How to access health informa tion online Indication:Nonsmoker Start:19-May-2020 Instruction Type:Patient Education How to access health informa tion online - Detail Indication:Nonsmoker Start:19-May-2020 Instruction Type:Patient Education Patient Instructions Indication:Nonsmoker Start:19-May-2020 Instruction Type:Provider Instructions for Treatment How to access health informa tion online Indication:Nonsmoker Start:08-Jan-2020 Instruction Type:Patient Education How to access health informa tion online - Detail Indication:Nonsmoker Start:08-Jan-2020 Instruction Type:Patient Education Patient Instructions Indication:Nonsmoker Start:08-Jan-2020 Instruction Type:Provider Instructions for Treatment How to access health informa tion online Indication:BMI 29.0-29.9,adult Start:31-Aug-2019 Instruction Type:Patient Education How to access health informa tion online - Detail Indication:BMI 29.0-29.9,adult Start:31-Aug-2019 Instruction Type:Patient Education Patient Instructions Indication:BMI 29.0-29.9,adult Start:31-Aug-2019 Instruction Type:Provider Instructions for Treatment How to access health informa tion online Indication:Hyperlipidemia, unspecified Start:17-Aug-2019 Instruction Type:Patient Education How to access health informa tion online - Detail Indication:Hyperlipidemia, unspecified Start:17-Aug-2019 Instruction Type:Patient Education Patient Instructions Indication:Hyperlipidemia, unspecified Start:17-Aug-2019 Instruction Type:Provider Instructions for Treatment How to access health informa tion online Indication:Hypertension Start:30-May-2015 Instruction Type:Patient Education How to access health informa tion online - Detail Indication:Hypertension Start:30-May-2015 Instruction Type:Patient Education Patient Instructions Indication:Hypertension Start:30-May-2015 Instruction Type:Provider Instructions for Treatment Patient Instructions Indication:Abnormal glucose tolerance test Start:12-Jul-2014 Instruction Type:Provider Instructions for Treatment Patient Instructions Indication:Abnormal glucose tolerance test Start:18-Jan-2014 Instruction Type:Provider Instructions for Treatment Patient Instructions Indication:Abnormal glucose tolerance test Start:08-Jun-2013 Instruction Type:Provider Instructions for Treatment Patient Instructions Indication:Abnormal glucose tolerance test Start:09-Feb-2013 Instruction Type:Provider Instructions for Treatment Patient Instructions Indication:Abnormal glucose tolerance test Start:29-Sep-2012 Instruction Type:Provider Instructions for Treatment Patient Instructions Indication:Abnormal glucose tolerance test Start:26-May-2012 Instruction Type:Provider Instructions for Treatment [facility] Work Phone: Instructions* Name Dates Details Patient Instructions Indication:Preop examination Start:21-Dec-2022 Instruction Type:Provider Instructions for Treatment How to Access Health Informa tion Online using Patient Portal and [employer] Indication:Preop examination Start:21-Dec-2022 Instruction Type:Patient Education Patient Instructions Indication:Osteoporosis Start:03-Dec-2022 Instruction Type:Provider Instructions for Treatment How to Access Health Informa tion Online using Patient Portal and [employer] Apps Indication:Osteoporosis Start:03-Dec-2022 Instruction Type:Patient Education Patient Instructions Indication:Syncope (Renamed from Syncopal episodes) Start:22-Jan-2022 Instruction Type:Provider Instructions for Treatment How to Access Health Informa tion Online using Patient Portal and [employer] Indication:Syncope (Renamed from Syncopal episodes) Start:22-Jan-2022 Instruction Type:Patient Education Patient Instructions Indication:Nonsmoker Start:03-Apr-2021 Instruction Type:Provider Instructions for Treatment How to Access Health Informa tion Online using Patient Portal and [employer] Apps Indication:Nonsmoker Start:03-Apr-2021 Instruction Type:Patient Education Patient Instructions Indication:BMI 28.0-28.9,adult Start:30-Dec-2020 Instruction Type:Provider Instructions for Treatment How to Access Health Informa tion Online using Patient Portal and [employer] Indication:Nonsmoker Start:30-Dec-2020 Instruction Type:Patient Education Patient Instructions Indication:BMI 30.0-30.9,adult Start:30-Sep-2020 Instruction Type:Provider Instructions for Treatment How to Access Health Informa tion Online using Patient Portal and [employer] Apps Indication:Nonsmoker Start:30-Sep-2020 Instruction Type:Patient Education Patient Instructions Indication:BMI 30.0-30.9,adult Start:15-Sep-2020 Instruction Type:Provider Instructions for Treatment How to Access Health Informa tion Online using Patient Portal and [employer] Indication:BMI 30.0-30.9,adult Start:15-Sep-2020 Instruction Type:Patient Education How to access health informa tion online Indication:BMI 30.0-30.9,adult Start:16-Jun-2020 Instruction Type:Patient Education How to access health informa tion online - Detail Indication:BMI 30.0-30.9,adult Start:16-Jun-2020 Instruction Type:Patient Education Patient Instructions Indication:BMI 30.0-30.9,adult Start:16-Jun-2020 Instruction Type:Provider Instructions for Treatment How to access health informa tion online Indication:Nonsmoker Start:02-Jun-2020 Instruction Type:Patient Education How to access health informa tion online - Detail Indication:Nonsmoker Start:02-Jun-2020 Instruction Type:Patient Education Patient Instructions Indication:BMI 30.0-30.9,adult Start:02-Jun-2020 Instruction Type:Provider Instructions for Treatment How to access health informa tion online Indication:Nonsmoker Start:19-May-2020 Instruction Type:Patient Education How to access health informa tion online - Detail Indication:Nonsmoker Start:19-May-2020 Instruction Type:Patient Education Patient Instructions Indication:Nonsmoker Start:19-May-2020 Instruction Type:Provider Instructions for Treatment How to access health informa tion online Indication:Nonsmoker Start:08-Jan-2020 Instruction Type:Patient Education How to access health informa tion online - Detail Indication:Nonsmoker Start:08-Jan-2020 Instruction Type:Patient Education Patient Instructions Indication:Nonsmoker Start:08-Jan-2020 Instruction Type:Provider Instructions for Treatment How to access health informa tion online Indication:BMI 29.0-29.9,adult Start:31-Aug-2019 Instruction Type:Patient Education How to access health informa tion online - Detail Indication:BMI 29.0-29.9,adult Start:31-Aug-2019 Instruction Type:Patient Education Patient Instructions Indication:BMI 29.0-29.9,adult Start:31-Aug-2019 Instruction Type:Provider Instructions for Treatment How to access health informa tion online Indication:Hyperlipidemia, unspecified Start:17-Aug-2019 Instruction Type:Patient Education How to access health informa tion online - Detail Indication:Hyperlipidemia, unspecified Start:17-Aug-2019 Instruction Type:Patient Education Patient Instructions Indication:Hyperlipidemia, unspecified Start:17-Aug-2019 Instruction Type:Provider Instructions for Treatment How to access health informa tion online Indication:Hypertension Start:30-May-2015 Instruction Type:Patient Education How to access health informa tion online - Detail Indication:Hypertension Start:30-May-2015 Instruction Type:Patient Education Patient Instructions Indication:Hypertension Start:30-May-2015 Instruction Type:Provider Instructions for Treatment Patient Instructions Indication:Abnormal glucose tolerance test Start:12-Jul-2014 Instruction Type:Provider Instructions for Treatment Patient Instructions Indication:Abnormal glucose tolerance test Start:18-Jan-2014 Instruction Type:Provider Instructions for Treatment Patient Instructions Indication:Abnormal glucose tolerance test Start:08-Jun-2013 Instruction Type:Provider Instructions for Treatment Patient Instructions Indication:Abnormal glucose tolerance test Start:09-Feb-2013 Instruction Type:Provider Instructions for Treatment Patient Instructions Indication:Abnormal glucose tolerance test Start:29-Sep-2012 Instruction Type:Provider Instructions for Treatment Patient Instructions Indication:Abnormal glucose tolerance test Start:26-May-2012 Instruction Type:Provider Instructions for Treatment [facility] Work Phone: Instructions* Name Dates Details Patient Instructions Indication:Preop examination Start:21-Dec-2022 Instruction Type:Provider Instructions for Treatment How to Access Health Informa tion Online using Patient Portal and [employer] Apps Indication:Preop examination Start:21-Dec-2022 Instruction Type:Patient Education Patient Instructions Indication:Osteoporosis Start:03-Dec-2022 Instruction Type:Provider Instructions for Treatment How to Access Health Informa tion Online using Patient Portal and [employer] Apps Indication:Osteoporosis Start:03-Dec-2022 Instruction Type:Patient Education Patient Instructions Indication:Syncope (Renamed from Syncopal episodes) Start:22-Jan-2022 Instruction Type:Provider Instructions for Treatment How to Access Health Informa tion Online using Patient Portal and [employer] Apps Indication:Syncope (Renamed from Syncopal episodes) Start:22-Jan-2022 Instruction Type:Patient Education Patient Instructions Indication:Nonsmoker Start:03-Apr-2021 Instruction Type:Provider Instructions for Treatment How to Access Health Informa tion Online using Patient Portal and [employer] Apps Indication:Nonsmoker Start:03-Apr-2021 Instruction Type:Patient Education Patient Instructions Indication:BMI 28.0-28.9,adult Start:30-Dec-2020 Instruction Type:Provider Instructions for Treatment How to Access Health Informa tion Online using Patient Portal and [employer] Apps Indication:Nonsmoker Start:30-Dec-2020 Instruction Type:Patient Education Patient Instructions Indication:BMI 30.0-30.9,adult Start:30-Sep-2020 Instruction Type:Provider Instructions for Treatment How to Access Health Informa tion Online using Patient Portal and [employer] Apps Indication:Nonsmoker Start:30-Sep-2020 Instruction Type:Patient Education Patient Instructions Indication:BMI 30.0-30.9,adult Start:15-Sep-2020 Instruction Type:Provider Instructions for Treatment How to Access Health Informa tion Online using Patient Portal and [employer] Apps Indication:BMI 30.0-30.9,adult Start:15-Sep-2020 Instruction Type:Patient Education How to access health informa tion online Indication:BMI 30.0-30.9,adult Start:16-Jun-2020 Instruction Type:Patient Education How to access health informa tion online - Detail Indication:BMI 30.0-30.9,adult Start:16-Jun-2020 Instruction Type:Patient Education Patient Instructions Indication:BMI 30.0-30.9,adult Start:16-Jun-2020 Instruction Type:Provider Instructions for Treatment How to access health informa tion online Indication:Nonsmoker Start:02-Jun-2020 Instruction Type:Patient Education How to access health informa tion online - Detail Indication:Nonsmoker Start:02-Jun-2020 Instruction Type:Patient Education Patient Instructions Indication:BMI 30.0-30.9,adult Start:02-Jun-2020 Instruction Type:Provider Instructions for Treatment How to access health informa tion online Indication:Nonsmoker Start:19-May-2020 Instruction Type:Patient Education How to access health informa tion online - Detail Indication:Nonsmoker Start:19-May-2020 Instruction Type:Patient Education Patient Instructions Indication:Nonsmoker Start:19-May-2020 Instruction Type:Provider Instructions for Treatment How to access health informa tion online Indication:Nonsmoker Start:08-Jan-2020 Instruction Type:Patient Education How to access health informa tion online - Detail Indication:Nonsmoker Start:08-Jan-2020 Instruction Type:Patient Education Patient Instructions Indication:Nonsmoker Start:08-Jan-2020 Instruction Type:Provider Instructions for Treatment How to access health informa tion online Indication:BMI 29.0-29.9,adult Start:31-Aug-2019 Instruction Type:Patient Education How to access health informa tion online - Detail Indication:BMI 29.0-29.9,adult Start:31-Aug-2019 Instruction Type:Patient Education Patient Instructions Indication:BMI 29.0-29.9,adult Start:31-Aug-2019 Instruction Type:Provider Instructions for Treatment How to access health informa tion online Indication:Hyperlipidemia, unspecified Start:17-Aug-2019 Instruction Type:Patient Education How to access health informa tion online - Detail Indication:Hyperlipidemia, unspecified Start:17-Aug-2019 Instruction Type:Patient Education Patient Instructions Indication:Hyperlipidemia, unspecified Start:17-Aug-2019 Instruction Type:Provider Instructions for Treatment How to access health informa tion online Indication:Hypertension Start:30-May-2015 Instruction Type:Patient Education How to access health informa tion online - Detail Indication:Hypertension Start:30-May-2015 Instruction Type:Patient Education Patient Instructions Indication:Hypertension Start:30-May-2015 Instruction Type:Provider Instructions for Treatment Patient Instructions Indication:Abnormal glucose tolerance test Start:12-Jul-2014 Instruction Type:Provider Instructions for Treatment Patient Instructions Indication:Abnormal glucose tolerance test Start:18-Jan-2014 Instruction Type:Provider Instructions for Treatment Patient Instructions Indication:Abnormal glucose tolerance test Start:08-Jun-2013 Instruction Type:Provider Instructions for Treatment Patient Instructions Indication:Abnormal glucose tolerance test Start:09-Feb-2013 Instruction Type:Provider Instructions for Treatment Patient Instructions Indication:Abnormal glucose tolerance test Start:29-Sep-2012 Instruction Type:Provider Instructions for Treatment Patient Instructions Indication:Abnormal glucose tolerance test Start:26-May-2012 Instruction Type:Provider Instructions for Treatment [facility] Work Phone: Instructions* Name Dates Details Patient Instructions Indication:Preop examination Start:21-Dec-2022 Instruction Type:Provider Instructions for Treatment How to Access Health Informa tion Online using Patient Portal and [employer] Apps Indication:Preop examination Start:21-Dec-2022 Instruction Type:Patient Education Patient Instructions Indication:Osteoporosis Start:03-Dec-2022 Instruction Type:Provider Instructions for Treatment How to Access Health Informa tion Online using Patient Portal and [employer] Apps Indication:Osteoporosis Start:03-Dec-2022 Instruction Type:Patient Education Patient Instructions Indication:Syncope (Renamed from Syncopal episodes) Start:22-Jan-2022 Instruction Type:Provider Instructions for Treatment How to Access Health Informa tion Online using Patient Portal and [employer] Apps Indication:Syncope (Renamed from Syncopal episodes) Start:22-Jan-2022 Instruction Type:Patient Education Patient Instructions Indication:Nonsmoker Start:03-Apr-2021 Instruction Type:Provider Instructions for Treatment How to Access Health Informa tion Online using Patient Portal and [employer] Apps Indication:Nonsmoker Start:03-Apr-2021 Instruction Type:Patient Education Patient Instructions Indication:BMI 28.0-28.9,adult Start:30-Dec-2020 Instruction Type:Provider Instructions for Treatment How to Access Health Informa tion Online using Patient Portal and [employer] Apps Indication:Nonsmoker Start:30-Dec-2020 Instruction Type:Patient Education Patient Instructions Indication:BMI 30.0-30.9,adult Start:30-Sep-2020 Instruction Type:Provider Instructions for Treatment How to Access Health Informa tion Online using Patient Portal and [employer] Apps Indication:Nonsmoker Start:30-Sep-2020 Instruction Type:Patient Education Patient Instructions Indication:BMI 30.0-30.9,adult Start:15-Sep-2020 Instruction Type:Provider Instructions for Treatment How to Access Health Informa tion Online using Patient Portal and [employer] Indication:BMI 30.0-30.9,adult Start:15-Sep-2020 Instruction Type:Patient Education How to access health informa tion online Indication:BMI 30.0-30.9,adult Start:16-Jun-2020 Instruction Type:Patient Education How to access health informa tion online - Detail Indication:BMI 30.0-30.9,adult Start:16-Jun-2020 Instruction Type:Patient Education Patient Instructions Indication:BMI 30.0-30.9,adult Start:16-Jun-2020 Instruction Type:Provider Instructions for Treatment How to access health informa tion online Indication:Nonsmoker Start:02-Jun-2020 Instruction Type:Patient Education How to access health informa tion online - Detail Indication:Nonsmoker Start:02-Jun-2020 Instruction Type:Patient Education Patient Instructions Indication:BMI 30.0-30.9,adult Start:02-Jun-2020 Instruction Type:Provider Instructions for Treatment How to access health informa tion online Indication:Nonsmoker Start:19-May-2020 Instruction Type:Patient Education How to access health informa tion online - Detail Indication:Nonsmoker Start:19-May-2020 Instruction Type:Patient Education Patient Instructions Indication:Nonsmoker Start:19-May-2020 Instruction Type:Provider Instructions for Treatment How to access health informa tion online Indication:Nonsmoker Start:08-Jan-2020 Instruction Type:Patient Education How to access health informa tion online - Detail Indication:Nonsmoker Start:08-Jan-2020 Instruction Type:Patient Education Patient Instructions Indication:Nonsmoker Start:08-Jan-2020 Instruction Type:Provider Instructions for Treatment How to access health informa tion online Indication:BMI 29.0-29.9,adult Start:31-Aug-2019 Instruction Type:Patient Education How to access health informa tion online - Detail Indication:BMI 29.0-29.9,adult Start:31-Aug-2019 Instruction Type:Patient Education Patient Instructions Indication:BMI 29.0-29.9,adult Start:31-Aug-2019 Instruction Type:Provider Instructions for Treatment How to access health informa tion online Indication:Hyperlipidemia, unspecified Start:17-Aug-2019 Instruction Type:Patient Education How to access health informa tion online - Detail Indication:Hyperlipidemia, unspecified Start:17-Aug-2019 Instruction Type:Patient Education Patient Instructions Indication:Hyperlipidemia, unspecified Start:17-Aug-2019 Instruction Type:Provider Instructions for Treatment How to access health informa tion online Indication:Hypertension Start:30-May-2015 Instruction Type:Patient Education How to access health informa tion online - Detail Indication:Hypertension Start:30-May-2015 Instruction Type:Patient Education Patient Instructions Indication:Hypertension Start:30-May-2015 Instruction Type:Provider Instructions for Treatment Patient Instructions Indication:Abnormal glucose tolerance test Start:12-Jul-2014 Instruction Type:Provider Instructions for Treatment Patient Instructions Indication:Abnormal glucose tolerance test Start:18-Jan-2014 Instruction Type:Provider Instructions for Treatment Patient Instructions Indication:Abnormal glucose tolerance test Start:08-Jun-2013 Instruction Type:Provider Instructions for Treatment Patient Instructions Indication:Abnormal glucose tolerance test Start:09-Feb-2013 Instruction Type:Provider Instructions for Treatment Patient Instructions Indication:Abnormal glucose tolerance test Start:29-Sep-2012 Instruction Type:Provider Instructions for Treatment Patient Instructions Indication:Abnormal glucose tolerance test Start:26-May-2012 Instruction Type:Provider Instructions for Treatment [facility]; [facility] Work Phone: Instructions* Name Dates Details Patient Instructions Indication:Preop examination Start:21-Dec-2022 Instruction Type:Provider Instructions for Treatment How to Access Health Informa tion Online using Patient Portal and [employer] Apps Indication:Preop examination Start:21-Dec-2022 Instruction Type:Patient Education Patient Instructions Indication:Osteoporosis Start:03-Dec-2022 Instruction Type:Provider Instructions for Treatment How to Access Health Informa tion Online using Patient Portal and [employer] Apps Indication:Osteoporosis Start:03-Dec-2022 Instruction Type:Patient Education Patient Instructions Indication:Syncope (Renamed from Syncopal episodes) Start:22-Jan-2022 Instruction Type:Provider Instructions for Treatment How to Access Health Informa tion Online using Patient Portal and [employer] Apps Indication:Syncope (Renamed from Syncopal episodes) Start:22-Jan-2022 Instruction Type:Patient Education Patient Instructions Indication:Nonsmoker Start:03-Apr-2021 Instruction Type:Provider Instructions for Treatment How to Access Health Informa tion Online using Patient Portal and [employer] Indication:Nonsmoker Start:03-Apr-2021 Instruction Type:Patient Education Patient Instructions Indication:BMI 28.0-28.9,adult Start:30-Dec-2020 Instruction Type:Provider Instructions for Treatment How to Access Health Informa tion Online using Patient Portal and [employer] Indication:Nonsmoker Start:30-Dec-2020 Instruction Type:Patient Education Patient Instructions Indication:BMI 30.0-30.9,adult Start:30-Sep-2020 Instruction Type:Provider Instructions for Treatment How to Access Health Informa tion Online using Patient Portal and [employer] Indication:Nonsmoker Start:30-Sep-2020 Instruction Type:Patient Education Patient Instructions Indication:BMI 30.0-30.9,adult Start:15-Sep-2020 Instruction Type:Provider Instructions for Treatment How to Access Health Informa tion Online using Patient Portal and [employer] Indication:BMI 30.0-30.9,adult Start:15-Sep-2020 Instruction Type:Patient Education How to access health informa tion online Indication:BMI 30.0-30.9,adult Start:16-Jun-2020 Instruction Type:Patient Education How to access health informa tion online - Detail Indication:BMI 30.0-30.9,adult Start:16-Jun-2020 Instruction Type:Patient Education Patient Instructions Indication:BMI 30.0-30.9,adult Start:16-Jun-2020 Instruction Type:Provider Instructions for Treatment How to access health informa tion online Indication:Nonsmoker Start:02-Jun-2020 Instruction Type:Patient Education How to access health informa tion online - Detail Indication:Nonsmoker Start:02-Jun-2020 Instruction Type:Patient Education Patient Instructions Indication:BMI 30.0-30.9,adult Start:02-Jun-2020 Instruction Type:Provider Instructions for Treatment How to access health informa tion online Indication:Nonsmoker Start:19-May-2020 Instruction Type:Patient Education How to access health informa tion online - Detail Indication:Nonsmoker Start:19-May-2020 Instruction Type:Patient Education Patient Instructions Indication:Nonsmoker Start:19-May-2020 Instruction Type:Provider Instructions for Treatment How to access health informa tion online Indication:Nonsmoker Start:08-Jan-2020 Instruction Type:Patient Education How to access health informa tion online - Detail Indication:Nonsmoker Start:08-Jan-2020 Instruction Type:Patient Education Patient Instructions Indication:Nonsmoker Start:08-Jan-2020 Instruction Type:Provider Instructions for Treatment How to access health informa tion online Indication:BMI 29.0-29.9,adult Start:31-Aug-2019 Instruction Type:Patient Education How to access health informa tion online - Detail Indication:BMI 29.0-29.9,adult Start:31-Aug-2019 Instruction Type:Patient Education Patient Instructions Indication:BMI 29.0-29.9,adult Start:31-Aug-2019 Instruction Type:Provider Instructions for Treatment How to access health informa tion online Indication:Hyperlipidemia, unspecified Start:17-Aug-2019 Instruction Type:Patient Education How to access health informa tion online - Detail Indication:Hyperlipidemia, unspecified Start:17-Aug-2019 Instruction Type:Patient Education Patient Instructions Indication:Hyperlipidemia, unspecified Start:17-Aug-2019 Instruction Type:Provider Instructions for Treatment How to access health informa tion online Indication:Hypertension Start:30-May-2015 Instruction Type:Patient Education How to access health informa tion online - Detail Indication:Hypertension Start:30-May-2015 Instruction Type:Patient Education Patient Instructions Indication:Hypertension Start:30-May-2015 Instruction Type:Provider Instructions for Treatment Patient Instructions Indication:Abnormal glucose tolerance test Start:12-Jul-2014 Instruction Type:Provider Instructions for Treatment Patient Instructions Indication:Abnormal glucose tolerance test Start:18-Jan-2014 Instruction Type:Provider Instructions for Treatment Patient Instructions Indication:Abnormal glucose tolerance test Start:08-Jun-2013 Instruction Type:Provider Instructions for Treatment Patient Instructions Indication:Abnormal glucose tolerance test Start:09-Feb-2013 Instruction Type:Provider Instructions for Treatment Patient Instructions Indication:Abnormal glucose tolerance test Start:29-Sep-2012 Instruction Type:Provider Instructions for Treatment Patient Instructions Indication:Abnormal glucose tolerance test Start:26-May-2012 Instruction Type:Provider Instructions for Treatment [facility]; [facility] Work Phone: Instructions* Name Dates Details Patient Instructions Indication:Preop examination Start:21-Dec-2022 Instruction Type:Provider Instructions for Treatment How to Access Health Informa tion Online using Patient Portal and [employer] Apps Indication:Preop examination Start:21-Dec-2022 Instruction Type:Patient Education Patient Instructions Indication:Osteoporosis Start:03-Dec-2022 Instruction Type:Provider Instructions for Treatment How to Access Health Informa tion Online using Patient Portal and [employer] Indication:Osteoporosis Start:03-Dec-2022 Instruction Type:Patient Education Patient Instructions Indication:Syncope (Renamed from Syncopal episodes) Start:22-Jan-2022 Instruction Type:Provider Instructions for Treatment How to Access Health Informa tion Online using Patient Portal and [employer] Indication:Syncope (Renamed from Syncopal episodes) Start:22-Jan-2022 Instruction Type:Patient Education Patient Instructions Indication:Nonsmoker Start:03-Apr-2021 Instruction Type:Provider Instructions for Treatment How to Access Health Informa tion Online using Patient Portal and [employer] Indication:Nonsmoker Start:03-Apr-2021 Instruction Type:Patient Education Patient Instructions Indication:BMI 28.0-28.9,adult Start:30-Dec-2020 Instruction Type:Provider Instructions for Treatment How to Access Health Informa tion Online using Patient Portal and [employer] Indication:Nonsmoker Start:30-Dec-2020 Instruction Type:Patient Education Patient Instructions Indication:BMI 30.0-30.9,adult Start:30-Sep-2020 Instruction Type:Provider Instructions for Treatment How to Access Health Informa tion Online using Patient Portal and [employer] Indication:Nonsmoker Start:30-Sep-2020 Instruction Type:Patient Education Patient Instructions Indication:BMI 30.0-30.9,adult Start:15-Sep-2020 Instruction Type:Provider Instructions for Treatment How to Access Health Informa tion Online using Patient Portal and [employer] Indication:BMI 30.0-30.9,adult Start:15-Sep-2020 Instruction Type:Patient Education How to access health informa tion online Indication:BMI 30.0-30.9,adult Start:16-Jun-2020 Instruction Type:Patient Education How to access health informa tion online - Detail Indication:BMI 30.0-30.9,adult Start:16-Jun-2020 Instruction Type:Patient Education Patient Instructions Indication:BMI 30.0-30.9,adult Start:16-Jun-2020 Instruction Type:Provider Instructions for Treatment How to access health informa tion online Indication:Nonsmoker Start:02-Jun-2020 Instruction Type:Patient Education How to access health informa tion online - Detail Indication:Nonsmoker Start:02-Jun-2020 Instruction Type:Patient Education Patient Instructions Indication:BMI 30.0-30.9,adult Start:02-Jun-2020 Instruction Type:Provider Instructions for Treatment How to access health informa tion online Indication:Nonsmoker Start:19-May-2020 Instruction Type:Patient Education How to access health informa tion online - Detail Indication:Nonsmoker Start:19-May-2020 Instruction Type:Patient Education Patient Instructions Indication:Nonsmoker Start:19-May-2020 Instruction Type:Provider Instructions for Treatment How to access health informa tion online Indication:Nonsmoker Start:08-Jan-2020 Instruction Type:Patient Education How to access health informa tion online - Detail Indication:Nonsmoker Start:08-Jan-2020 Instruction Type:Patient Education Patient Instructions Indication:Nonsmoker Start:08-Jan-2020 Instruction Type:Provider Instructions for Treatment How to access health informa tion online Indication:BMI 29.0-29.9,adult Start:31-Aug-2019 Instruction Type:Patient Education How to access health informa tion online - Detail Indication:BMI 29.0-29.9,adult Start:31-Aug-2019 Instruction Type:Patient Education Patient Instructions Indication:BMI 29.0-29.9,adult Start:31-Aug-2019 Instruction Type:Provider Instructions for Treatment How to access health informa tion online Indication:Hyperlipidemia, unspecified Start:17-Aug-2019 Instruction Type:Patient Education How to access health informa tion online - Detail Indication:Hyperlipidemia, unspecified Start:17-Aug-2019 Instruction Type:Patient Education Patient Instructions Indication:Hyperlipidemia, unspecified Start:17-Aug-2019 Instruction Type:Provider Instructions for Treatment How to access health informa tion online Indication:Hypertension Start:30-May-2015 Instruction Type:Patient Education How to access health informa tion online - Detail Indication:Hypertension Start:30-May-2015 Instruction Type:Patient Education Patient Instructions Indication:Hypertension Start:30-May-2015 Instruction Type:Provider Instructions for Treatment Patient Instructions Indication:Abnormal glucose tolerance test Start:12-Jul-2014 Instruction Type:Provider Instructions for Treatment Patient Instructions Indication:Abnormal glucose tolerance test Start:18-Jan-2014 Instruction Type:Provider Instructions for Treatment Patient Instructions Indication:Abnormal glucose tolerance test Start:08-Jun-2013 Instruction Type:Provider Instructions for Treatment Patient Instructions Indication:Abnormal glucose tolerance test Start:09-Feb-2013 Instruction Type:Provider Instructions for Treatment Patient Instructions Indication:Abnormal glucose tolerance test Start:29-Sep-2012 Instruction Type:Provider Instructions for Treatment Patient Instructions Indication:Abnormal glucose tolerance test Start:26-May-2012 Instruction Type:Provider Instructions for Treatment [facility]; [facility] Work Phone: Instructions* Name Dates Details Patient Instructions Indication:Preop examination Start:21-Dec-2022 Instruction Type:Provider Instructions for Treatment How to Access Health Informa tion Online using Patient Portal and [employer] Indication:Preop examination Start:21-Dec-2022 Instruction Type:Patient Education Patient Instructions Indication:Osteoporosis Start:03-Dec-2022 Instruction Type:Provider Instructions for Treatment How to Access Health Informa tion Online using Patient Portal and [employer] Indication:Osteoporosis Start:03-Dec-2022 Instruction Type:Patient Education Patient Instructions Indication:Syncope (Renamed from Syncopal episodes) Start:22-Jan-2022 Instruction Type:Provider Instructions for Treatment How to Access Health Informa tion Online using Patient Portal and [employer] Indication:Syncope (Renamed from [employer] episodes) Start:22-Jan-2022 Instruction Type:Patient Education Patient Instructions Indication:Nonsmoker Start:03-Apr-2021 Instruction Type:Provider Instructions for Treatment How to Access Health Informa tion Online using Patient Portal and [employer] Indication:Nonsmoker Start:03-Apr-2021 Instruction Type:Patient Education Patient Instructions Indication:BMI 28.0-28.9,adult Start:30-Dec-2020 Instruction Type:Provider Instructions for Treatment How to Access Health Informa tion Online using Patient Portal and [employer] Apps Indication:Nonsmoker Start:30-Dec-2020 Instruction Type:Patient Education Patient Instructions Indication:BMI 30.0-30.9,adult Start:30-Sep-2020 Instruction Type:Provider Instructions for Treatment How to Access Health Informa tion Online using Patient Portal and [employer] Apps Indication:Nonsmoker Start:30-Sep-2020 Instruction Type:Patient Education Patient Instructions Indication:BMI 30.0-30.9,adult Start:15-Sep-2020 Instruction Type:Provider Instructions for Treatment How to Access Health Informa tion Online using Patient Portal and [employer] Apps Indication:BMI 30.0-30.9,adult Start:15-Sep-2020 Instruction Type:Patient Education How to access health informa tion online Indication:BMI 30.0-30.9,adult Start:16-Jun-2020 Instruction Type:Patient Education How to access health informa tion online - Detail Indication:BMI 30.0-30.9,adult Start:16-Jun-2020 Instruction Type:Patient Education Patient Instructions Indication:BMI 30.0-30.9,adult Start:16-Jun-2020 Instruction Type:Provider Instructions for Treatment How to access health informa tion online Indication:Nonsmoker Start:02-Jun-2020 Instruction Type:Patient Education How to access health informa tion online - Detail Indication:Nonsmoker Start:02-Jun-2020 Instruction Type:Patient Education Patient Instructions Indication:BMI 30.0-30.9,adult Start:02-Jun-2020 Instruction Type:Provider Instructions for Treatment How to access health informa tion online Indication:Nonsmoker Start:19-May-2020 Instruction Type:Patient Education How to access health informa tion online - Detail Indication:Nonsmoker Start:19-May-2020 Instruction Type:Patient Education Patient Instructions Indication:Nonsmoker Start:19-May-2020 Instruction Type:Provider Instructions for Treatment How to access health informa tion online Indication:Nonsmoker Start:08-Jan-2020 Instruction Type:Patient Education How to access health informa tion online - Detail Indication:Nonsmoker Start:08-Jan-2020 Instruction Type:Patient Education Patient Instructions Indication:Nonsmoker Start:08-Jan-2020 Instruction Type:Provider Instructions for Treatment How to access health informa tion online Indication:BMI 29.0-29.9,adult Start:31-Aug-2019 Instruction Type:Patient Education How to access health informa tion online - Detail Indication:BMI 29.0-29.9,adult Start:31-Aug-2019 Instruction Type:Patient Education Patient Instructions Indication:BMI 29.0-29.9,adult Start:31-Aug-2019 Instruction Type:Provider Instructions for Treatment How to access health informa tion online Indication:Hyperlipidemia, unspecified Start:17-Aug-2019 Instruction Type:Patient Education How to access health informa tion online - Detail Indication:Hyperlipidemia, unspecified Start:17-Aug-2019 Instruction Type:Patient Education Patient Instructions Indication:Hyperlipidemia, unspecified Start:17-Aug-2019 Instruction Type:Provider Instructions for Treatment How to access health informa tion online Indication:Hypertension Start:30-May-2015 Instruction Type:Patient Education How to access health informa tion online - Detail Indication:Hypertension Start:30-May-2015 Instruction Type:Patient Education Patient Instructions Indication:Hypertension Start:30-May-2015 Instruction Type:Provider Instructions for Treatment Patient Instructions Indication:Abnormal glucose tolerance test Start:12-Jul-2014 Instruction Type:Provider Instructions for Treatment Patient Instructions Indication:Abnormal glucose tolerance test Start:18-Jan-2014 Instruction Type:Provider Instructions for Treatment Patient Instructions Indication:Abnormal glucose tolerance test Start:08-Jun-2013 Instruction Type:Provider Instructions for Treatment Patient Instructions Indication:Abnormal glucose tolerance test Start:09-Feb-2013 Instruction Type:Provider Instructions for Treatment Patient Instructions Indication:Abnormal glucose tolerance test Start:29-Sep-2012 Instruction Type:Provider Instructions for Treatment Patient Instructions Indication:Abnormal glucose tolerance test Start:26-May-2012 Instruction Type:Provider Instructions for Treatment [facility]; [facility] Work Phone: Instructions* Name Dates Details Patient Instructions Indication:Preop examination Start:21-Dec-2022 Instruction Type:Provider Instructions for Treatment How to Access Health Informa tion Online using Patient Portal and [employer] Apps Indication:Preop examination Start:21-Dec-2022 Instruction Type:Patient Education Patient Instructions Indication:Osteoporosis Start:03-Dec-2022 Instruction Type:Provider Instructions for Treatment How to Access Health Informa tion Online using Patient Portal and [employer] Apps Indication:Osteoporosis Start:03-Dec-2022 Instruction Type:Patient Education Patient Instructions Indication:Syncope (Renamed from Syncopal episodes) Start:22-Jan-2022 Instruction Type:Provider Instructions for Treatment How to Access Health Informa tion Online using Patient Portal and [employer] Apps Indication:Syncope (Renamed from Syncopal episodes) Start:22-Jan-2022 Instruction Type:Patient Education Patient Instructions Indication:Nonsmoker Start:03-Apr-2021 Instruction Type:Provider Instructions for Treatment How to Access Health Informa tion Online using Patient Portal and [employer] Apps Indication:Nonsmoker Start:03-Apr-2021 Instruction Type:Patient Education Patient Instructions Indication:BMI 28.0-28.9,adult Start:30-Dec-2020 Instruction Type:Provider Instructions for Treatment How to Access Health Informa tion Online using Patient Portal and [employer] Apps Indication:Nonsmoker Start:30-Dec-2020 Instruction Type:Patient Education Patient Instructions Indication:BMI 30.0-30.9,adult Start:30-Sep-2020 Instruction Type:Provider Instructions for Treatment How to Access Health Informa tion Online using Patient Portal and [employer] Apps Indication:Nonsmoker Start:30-Sep-2020 Instruction Type:Patient Education Patient Instructions Indication:BMI 30.0-30.9,adult Start:15-Sep-2020 Instruction Type:Provider Instructions for Treatment How to Access Health Informa tion Online using Patient Portal and [employer] Apps Indication:BMI 30.0-30.9,adult Start:15-Sep-2020 Instruction Type:Patient Education How to access health informa tion online Indication:BMI 30.0-30.9,adult Start:16-Jun-2020 Instruction Type:Patient Education How to access health informa tion online - Detail Indication:BMI 30.0-30.9,adult Start:16-Jun-2020 Instruction Type:Patient Education Patient Instructions Indication:BMI 30.0-30.9,adult Start:16-Jun-2020 Instruction Type:Provider Instructions for Treatment How to access health informa tion online Indication:Nonsmoker Start:02-Jun-2020 Instruction Type:Patient Education How to access health informa tion online - Detail Indication:Nonsmoker Start:02-Jun-2020 Instruction Type:Patient Education Patient Instructions Indication:BMI 30.0-30.9,adult Start:02-Jun-2020 Instruction Type:Provider Instructions for Treatment How to access health informa tion online Indication:Nonsmoker Start:19-May-2020 Instruction Type:Patient Education How to access health informa tion online - Detail Indication:Nonsmoker Start:19-May-2020 Instruction Type:Patient Education Patient Instructions Indication:Nonsmoker Start:19-May-2020 Instruction Type:Provider Instructions for Treatment How to access health informa tion online Indication:Nonsmoker Start:08-Jan-2020 Instruction Type:Patient Education How to access health informa tion online - Detail Indication:Nonsmoker Start:08-Jan-2020 Instruction Type:Patient Education Patient Instructions Indication:Nonsmoker Start:08-Jan-2020 Instruction Type:Provider Instructions for Treatment How to access health informa tion online Indication:BMI 29.0-29.9,adult Start:31-Aug-2019 Instruction Type:Patient Education How to access health informa tion online - Detail Indication:BMI 29.0-29.9,adult Start:31-Aug-2019 Instruction Type:Patient Education Patient Instructions Indication:BMI 29.0-29.9,adult Start:31-Aug-2019 Instruction Type:Provider Instructions for Treatment How to access health informa tion online Indication:Hyperlipidemia, unspecified Start:17-Aug-2019 Instruction Type:Patient Education How to access health informa tion online - Detail Indication:Hyperlipidemia, unspecified Start:17-Aug-2019 Instruction Type:Patient Education Patient Instructions Indication:Hyperlipidemia, unspecified Start:17-Aug-2019 Instruction Type:Provider Instructions for Treatment How to access health informa tion online Indication:Hypertension Start:30-May-2015 Instruction Type:Patient Education How to access health informa tion online - Detail Indication:Hypertension Start:30-May-2015 Instruction Type:Patient Education Patient Instructions Indication:Hypertension Start:30-May-2015 Instruction Type:Provider Instructions for Treatment Patient Instructions Indication:Abnormal glucose tolerance test Start:12-Jul-2014 Instruction Type:Provider Instructions for Treatment Patient Instructions Indication:Abnormal glucose tolerance test Start:18-Jan-2014 Instruction Type:Provider Instructions for Treatment Patient Instructions Indication:Abnormal glucose tolerance test Start:08-Jun-2013 Instruction Type:Provider Instructions for Treatment Patient Instructions Indication:Abnormal glucose tolerance test Start:09-Feb-2013 Instruction Type:Provider Instructions for Treatment Patient Instructions Indication:Abnormal glucose tolerance test Start:29-Sep-2012 Instruction Type:Provider Instructions for Treatment Patient Instructions Indication:Abnormal glucose tolerance test Start:26-May-2012 Instruction Type:Provider Instructions for Treatment [facility] Work Phone: Instructions* Name Dates Details Patient Instructions Indication:Preop examination Start:21-Dec-2022 Instruction Type:Provider Instructions for Treatment How to Access Health Informa tion Online using Patient Portal and [employer] Apps Indication:Preop examination Start:21-Dec-2022 Instruction Type:Patient Education Patient Instructions Indication:Osteoporosis Start:03-Dec-2022 Instruction Type:Provider Instructions for Treatment How to Access Health Informa tion Online using Patient Portal and [employer] Apps Indication:Osteoporosis Start:03-Dec-2022 Instruction Type:Patient Education Patient Instructions Indication:Syncope (Renamed from Syncopal episodes) Start:22-Jan-2022 Instruction Type:Provider Instructions for Treatment How to Access Health Informa tion Online using Patient Portal and [employer] Apps Indication:Syncope (Renamed from Syncopal episodes) Start:22-Jan-2022 Instruction Type:Patient Education Patient Instructions Indication:Nonsmoker Start:03-Apr-2021 Instruction Type:Provider Instructions for Treatment How to Access Health Informa tion Online using Patient Portal and [employer] Apps Indication:Nonsmoker Start:03-Apr-2021 Instruction Type:Patient Education Patient Instructions Indication:BMI 28.0-28.9,adult Start:30-Dec-2020 Instruction Type:Provider Instructions for Treatment How to Access Health Informa tion Online using Patient Portal and [employer] Apps Indication:Nonsmoker Start:30-Dec-2020 Instruction Type:Patient Education Patient Instructions Indication:BMI 30.0-30.9,adult Start:30-Sep-2020 Instruction Type:Provider Instructions for Treatment How to Access Health Informa tion Online using Patient Portal and [employer] Apps Indication:Nonsmoker Start:30-Sep-2020 Instruction Type:Patient Education Patient Instructions Indication:BMI 30.0-30.9,adult Start:15-Sep-2020 Instruction Type:Provider Instructions for Treatment How to Access Health Informa tion Online using Patient Portal and [employer] Indication:BMI 30.0-30.9,adult Start:15-Sep-2020 Instruction Type:Patient Education How to access health informa tion online Indication:BMI 30.0-30.9,adult Start:16-Jun-2020 Instruction Type:Patient Education How to access health informa tion online - Detail Indication:BMI 30.0-30.9,adult Start:16-Jun-2020 Instruction Type:Patient Education Patient Instructions Indication:BMI 30.0-30.9,adult Start:16-Jun-2020 Instruction Type:Provider Instructions for Treatment How to access health informa tion online Indication:Nonsmoker Start:02-Jun-2020 Instruction Type:Patient Education How to access health informa tion online - Detail Indication:Nonsmoker Start:02-Jun-2020 Instruction Type:Patient Education Patient Instructions Indication:BMI 30.0-30.9,adult Start:02-Jun-2020 Instruction Type:Provider Instructions for Treatment How to access health informa tion online Indication:Nonsmoker Start:19-May-2020 Instruction Type:Patient Education How to access health informa tion online - Detail Indication:Nonsmoker Start:19-May-2020 Instruction Type:Patient Education Patient Instructions Indication:Nonsmoker Start:19-May-2020 Instruction Type:Provider Instructions for Treatment How to access health informa tion online Indication:Nonsmoker Start:08-Jan-2020 Instruction Type:Patient Education How to access health informa tion online - Detail Indication:Nonsmoker Start:08-Jan-2020 Instruction Type:Patient Education Patient Instructions Indication:Nonsmoker Start:08-Jan-2020 Instruction Type:Provider Instructions for Treatment How to access health informa tion online Indication:BMI 29.0-29.9,adult Start:31-Aug-2019 Instruction Type:Patient Education How to access health informa tion online - Detail Indication:BMI 29.0-29.9,adult Start:31-Aug-2019 Instruction Type:Patient Education Patient Instructions Indication:BMI 29.0-29.9,adult Start:31-Aug-2019 Instruction Type:Provider Instructions for Treatment How to access health informa tion online Indication:Hyperlipidemia, unspecified Start:17-Aug-2019 Instruction Type:Patient Education How to access health informa tion online - Detail Indication:Hyperlipidemia, unspecified Start:17-Aug-2019 Instruction Type:Patient Education Patient Instructions Indication:Hyperlipidemia, unspecified Start:17-Aug-2019 Instruction Type:Provider Instructions for Treatment How to access health informa tion online Indication:Hypertension Start:30-May-2015 Instruction Type:Patient Education How to access health informa tion online - Detail Indication:Hypertension Start:30-May-2015 Instruction Type:Patient Education Patient Instructions Indication:Hypertension Start:30-May-2015 Instruction Type:Provider Instructions for Treatment Patient Instructions Indication:Abnormal glucose tolerance test Start:12-Jul-2014 Instruction Type:Provider Instructions for Treatment Patient Instructions Indication:Abnormal glucose tolerance test Start:18-Jan-2014 Instruction Type:Provider Instructions for Treatment Patient Instructions Indication:Abnormal glucose tolerance test Start:08-Jun-2013 Instruction Type:Provider Instructions for Treatment Patient Instructions Indication:Abnormal glucose tolerance test Start:09-Feb-2013 Instruction Type:Provider Instructions for Treatment Patient Instructions Indication:Abnormal glucose tolerance test Start:29-Sep-2012 Instruction Type:Provider Instructions for Treatment Patient Instructions Indication:Abnormal glucose tolerance test Start:26-May-2012 Instruction Type:Provider Instructions for Treatment [facility]; [facility] Work Phone: Family History No Family History Records FoundUnknown Family Member Name Dates Details Family Members In General Comments:ETOHDiabetesHepatit is/LiverHBPHigh cholesterolUlcer Status:Active Unknown Family Member Name Dates Details Family Members In General Comments:ETOHDiabetesHepatit is/LiverHBPHigh cholesterolUlcer Status:Active Unknown Family Member Name Dates Details Family Members In General Comments:ETOHDiabetesHepatit is/LiverHBPHigh cholesterolUlcer Status:Active Unknown Family Member Name Dates Details Family Members In General Comments:ETOHDiabetesHepatit is/LiverHBPHigh cholesterolUlcer Status:Active Unknown Family Member Name Dates Details Family Members In General Comments:ETOHDiabetesHepatit is/LiverHBPHigh cholesterolUlcer Status:Active Unknown Family Member Name Dates Details Family Members In General Comments:ETOHDiabetesHepatit is/LiverHBPHigh cholesterolUlcer Status:Active Unknown Family Member Name Dates Details Family Members In General Comments:ETOHDiabetesHepatit is/LiverHBPHigh cholesterolUlcer Status:Active Unknown Family Member Name Dates Details Family Members In General Comments:ETOHDiabetesHepatit is/LiverHBPHigh cholesterolUlcer Status:Active Unknown Family Member Name Dates Details Family Members In General Comments:ETOHDiabetesHepatit is/LiverHBPHigh cholesterolUlcer Status:Active Unknown Family Member Name Dates Details Family Members In General Comments:ETOHDiabetesHepatit is/LiverHBPHigh cholesterolUlcer Status:Active Unknown Family Member Name Dates Details Family Members In General Comments:ETOHDiabetesHepatit is/LiverHBPHigh cholesterolUlcer Status:Active Unknown Family Member Name Dates Details Family Members In General Comments:ETOHDiabetesHepatit is/LiverHBPHigh cholesterolUlcer Status:Active Unknown Family Member Name Dates Details Family Members In General Comments:ETOHDiabetesHepatit is/LiverHBPHigh cholesterolUlcer Status:Active Unknown Family Member Name Dates Details Family Members In General Comments:ETOHDiabetesHepatit is/LiverHBPHigh cholesterolUlcer Status:Active Unknown Family Member Name Dates Details Family Members In General Comments:ETOHDiabetesHepatit is/LiverHBPHigh cholesterolUlcer Status:Active Unknown Family Member Name Dates Details Family Members In General Comments:ETOHDiabetesHepatit is/LiverHBPHigh cholesterolUlcer Status:Active Unknown Family Member Name Dates Details Family Members In General Comments:ETOHDiabetesHepatit is/LiverHBPHigh cholesterolUlcer Status:Active Unknown Family Member Name Dates Details Family Members In General Comments:ETOHDiabetesHepatit is/LiverHBPHigh cholesterolUlcer Status:Active Unknown Family Member Name Dates Details Family Members In General Comments:ETOHDiabetesHepatit is/LiverHBPHigh cholesterolUlcer Status:Active Unknown Family Member Name Dates Details Family Members In General Comments:ETOHDiabetesHepatit is/LiverHBPHigh cholesterolUlcer Status:Active Unknown Family Member Name Dates Details Family Members In General Comments:ETOHDiabetesHepatit is/LiverHBPHigh cholesterolUlcer Status:Active Relationship Condition Age at Onset Recorded Date/T laney father Hypertension Unknown Hypercholesterolemia Unknown Unknown Family Member Name Dates Details Family Members In General Comments:ETOHDiabetesHepatit is/LiverHBPHigh cholesterolUlcer Status:Active Unknown Family Member Name Dates Details Family Members In General Comments:ETOHDiabetesHepatit is/LiverHBPHigh cholesterolUlcer Status:Active Unknown Family Member Name Dates Details Family Members In General Comments:ETOHDiabetesHepatit is/LiverHBPHigh cholesterolUlcer Status:Active Unknown Family Member Name Dates Details Family Members In General Comments:ETOHDiabetesHepatit is/LiverHBPHigh cholesterolUlcer Status:Active Unknown Family Member Name Dates Details Family Members In General Comments:ETOHDiabetesHepatit is/LiverHBPHigh cholesterolUlcer Status:Active Unknown Family Member Name Dates Details Family Members In General Comments:ETOHDiabetesHepatit is/LiverHBPHigh cholesterolUlcer Status:Active Unknown Family Member Name Dates Details Family Members In General Comments:ETOHDiabetesHepatit is/LiverHBPHigh cholesterolUlcer Status:Active Unknown Family Member Name Dates Details Family Members In General Comments:ETOHDiabetesHepatit is/LiverHBPHigh cholesterolUlcer Status:Active Unknown Family Member Name Dates Details Family Members In General Comments:ETOHDiabetesHepatit is/LiverHBPHigh cholesterolUlcer Status:Active Unknown Family Member Name Dates Details Family Members In General Comments:ETOHDiabetesHepatit is/LiverHBPHigh cholesterolUlcer Status:Active Unknown Family Member Name Dates Details Family Members In General Comments:ETOHDiabetesHepatit is/LiverHBPHigh cholesterolUlcer Status:Active Unknown Family Member Name Dates Details Family Members In General Comments:ETOHDiabetesHepatit is/LiverHBPHigh cholesterolUlcer Status:Active Instructions Name Dates Details How to access health informa tion online Indication:Nonsmoker Start:19-May-2020 Instruction Type:Patient Education How to access health informa tion online - Detail Indication:Nonsmoker Start:19-May-2020 Instruction Type:Patient Education Patient Instructions Indication:Nonsmoker Start:19-May-2020 Instruction Type:Provider Instructions for Treatment How to access health informa tion online Indication:Nonsmoker Start:08-Jan-2020 Instruction Type:Patient Education How to access health informa tion online - Detail Indication:Nonsmoker Start:08-Jan-2020 Instruction Type:Patient Education Patient Instructions Indication:Nonsmoker Start:08-Jan-2020 Instruction Type:Provider Instructions for Treatment How to access health informa tion online Indication:BMI 29.0-29.9,adult Start:31-Aug-2019 Instruction Type:Patient Education How to access health informa tion online - Detail Indication:BMI 29.0-29.9,adult Start:31-Aug-2019 Instruction Type:Patient Education Patient Instructions Indication:BMI 29.0-29.9,adult Start:31-Aug-2019 Instruction Type:Provider Instructions for Treatment How to access health informa tion online Indication:Hyperlipidemia, unspecified Start:17-Aug-2019 Instruction Type:Patient Education How to access health informa tion online - Detail Indication:Hyperlipidemia, unspecified Start:17-Aug-2019 Instruction Type:Patient Education Patient Instructions Indication:Hyperlipidemia, unspecified Start:17-Aug-2019 Instruction Type:Provider Instructions for Treatment How to access health informa tion online Indication:Hypertension Start:30-May-2015 Instruction Type:Patient Education How to access health informa tion online - Detail Indication:Hypertension Start:30-May-2015 Instruction Type:Patient Education Patient Instructions Indication:Hypertension Start:30-May-2015 Instruction Type:Provider Instructions for Treatment Patient Instructions Indication:Abnormal glucose tolerance test Start:12-Jul-2014 Instruction Type:Provider Instructions for Treatment Patient Instructions Indication:Abnormal glucose tolerance test Start:18-Jan-2014 Instruction Type:Provider Instructions for Treatment Patient Instructions Indication:Abnormal glucose tolerance test Start:08-Jun-2013 Instruction Type:Provider Instructions for Treatment Patient Instructions Indication:Abnormal glucose tolerance test Start:09-Feb-2013 Instruction Type:Provider Instructions for Treatment Patient Instructions Indication:Abnormal glucose tolerance test Start:29-Sep-2012 Instruction Type:Provider Instructions for Treatment Patient Instructions Indication:Abnormal glucose tolerance test Start:26-May-2012 Instruction Type:Provider Instructions for Treatment Name Dates Details How to access health informa tion online Indication:Nonsmoker Start:19-May-2020 Instruction Type:Patient Education How to access health informa tion online - Detail Indication:Nonsmoker Start:19-May-2020 Instruction Type:Patient Education Patient Instructions Indication:Nonsmoker Start:19-May-2020 Instruction Type:Provider Instructions for Treatment How to access health informa tion online Indication:Nonsmoker Start:08-Jan-2020 Instruction Type:Patient Education How to access health informa tion online - Detail Indication:Nonsmoker Start:08-Jan-2020 Instruction Type:Patient Education Patient Instructions Indication:Nonsmoker Start:08-Jan-2020 Instruction Type:Provider Instructions for Treatment How to access health informa tion online Indication:BMI 29.0-29.9,adult Start:31-Aug-2019 Instruction Type:Patient Education How to access health informa tion online - Detail Indication:BMI 29.0-29.9,adult Start:31-Aug-2019 Instruction Type:Patient Education Patient Instructions Indication:BMI 29.0-29.9,adult Start:31-Aug-2019 Instruction Type:Provider Instructions for Treatment How to access health informa tion online Indication:Hyperlipidemia, unspecified Start:17-Aug-2019 Instruction Type:Patient Education How to access health informa tion online - Detail Indication:Hyperlipidemia, unspecified Start:17-Aug-2019 Instruction Type:Patient Education Patient Instructions Indication:Hyperlipidemia, unspecified Start:17-Aug-2019 Instruction Type:Provider Instructions for Treatment How to access health informa tion online Indication:Hypertension Start:30-May-2015 Instruction Type:Patient Education How to access health informa tion online - Detail Indication:Hypertension Start:30-May-2015 Instruction Type:Patient Education Patient Instructions Indication:Hypertension Start:30-May-2015 Instruction Type:Provider Instructions for Treatment Patient Instructions Indication:Abnormal glucose tolerance test Start:12-Jul-2014 Instruction Type:Provider Instructions for Treatment Patient Instructions Indication:Abnormal glucose tolerance test Start:18-Jan-2014 Instruction Type:Provider Instructions for Treatment Patient Instructions Indication:Abnormal glucose tolerance test Start:08-Jun-2013 Instruction Type:Provider Instructions for Treatment Patient Instructions Indication:Abnormal glucose tolerance test Start:09-Feb-2013 Instruction Type:Provider Instructions for Treatment Patient Instructions Indication:Abnormal glucose tolerance test Start:29-Sep-2012 Instruction Type:Provider Instructions for Treatment Patient Instructions Indication:Abnormal glucose tolerance test Start:26-May-2012 Instruction Type:Provider Instructions for Treatment Name Dates Details How to access health informa tion online Indication:Nonsmoker Start:02-Jun-2020 Instruction Type:Patient Education How to access health informa tion online - Detail Indication:Nonsmoker Start:02-Jun-2020 Instruction Type:Patient Education Patient Instructions Indication:Nonsmoker Start:02-Jun-2020 Instruction Type:Provider Instructions for Treatment How to access health informa tion online Indication:Nonsmoker Start:19-May-2020 Instruction Type:Patient Education How to access health informa tion online - Detail Indication:Nonsmoker Start:19-May-2020 Instruction Type:Patient Education Patient Instructions Indication:Nonsmoker Start:19-May-2020 Instruction Type:Provider Instructions for Treatment How to access health informa tion online Indication:Nonsmoker Start:08-Jan-2020 Instruction Type:Patient Education How to access health informa tion online - Detail Indication:Nonsmoker Start:08-Jan-2020 Instruction Type:Patient Education Patient Instructions Indication:Nonsmoker Start:08-Jan-2020 Instruction Type:Provider Instructions for Treatment How to access health informa tion online Indication:BMI 29.0-29.9,adult Start:31-Aug-2019 Instruction Type:Patient Education How to access health informa tion online - Detail Indication:BMI 29.0-29.9,adult Start:31-Aug-2019 Instruction Type:Patient Education Patient Instructions Indication:BMI 29.0-29.9,adult Start:31-Aug-2019 Instruction Type:Provider Instructions for Treatment How to access health informa tion online Indication:Hyperlipidemia, unspecified Start:17-Aug-2019 Instruction Type:Patient Education How to access health informa tion online - Detail Indication:Hyperlipidemia, unspecified Start:17-Aug-2019 Instruction Type:Patient Education Patient Instructions Indication:Hyperlipidemia, unspecified Start:17-Aug-2019 Instruction Type:Provider Instructions for Treatment How to access health informa tion online Indication:Hypertension Start:30-May-2015 Instruction Type:Patient Education How to access health informa tion online - Detail Indication:Hypertension Start:30-May-2015 Instruction Type:Patient Education Patient Instructions Indication:Hypertension Start:30-May-2015 Instruction Type:Provider Instructions for Treatment Patient Instructions Indication:Abnormal glucose tolerance test Start:12-Jul-2014 Instruction Type:Provider Instructions for Treatment Patient Instructions Indication:Abnormal glucose tolerance test Start:18-Jan-2014 Instruction Type:Provider Instructions for Treatment Patient Instructions Indication:Abnormal glucose tolerance test Start:08-Jun-2013 Instruction Type:Provider Instructions for Treatment Patient Instructions Indication:Abnormal glucose tolerance test Start:09-Feb-2013 Instruction Type:Provider Instructions for Treatment Patient Instructions Indication:Abnormal glucose tolerance test Start:29-Sep-2012 Instruction Type:Provider Instructions for Treatment Patient Instructions Indication:Abnormal glucose tolerance test Start:26-May-2012 Instruction Type:Provider Instructions for Treatment Name Dates Details How to access health informa tion online Indication:Nonsmoker Start:02-Jun-2020 Instruction Type:Patient Education How to access health informa tion online - Detail Indication:Nonsmoker Start:02-Jun-2020 Instruction Type:Patient Education Patient Instructions Indication:BMI 30.0-30.9,adult Start:02-Jun-2020 Instruction Type:Provider Instructions for Treatment How to access health informa tion online Indication:Nonsmoker Start:19-May-2020 Instruction Type:Patient Education How to access health informa tion online - Detail Indication:Nonsmoker Start:19-May-2020 Instruction Type:Patient Education Patient Instructions Indication:Nonsmoker Start:19-May-2020 Instruction Type:Provider Instructions for Treatment How to access health informa tion online Indication:Nonsmoker Start:08-Jan-2020 Instruction Type:Patient Education How to access health informa tion online - Detail Indication:Nonsmoker Start:08-Jan-2020 Instruction Type:Patient Education Patient Instructions Indication:Nonsmoker Start:08-Jan-2020 Instruction Type:Provider Instructions for Treatment How to access health informa tion online Indication:BMI 29.0-29.9,adult Start:31-Aug-2019 Instruction Type:Patient Education How to access health informa tion online - Detail Indication:BMI 29.0-29.9,adult Start:31-Aug-2019 Instruction Type:Patient Education Patient Instructions Indication:BMI 29.0-29.9,adult Start:31-Aug-2019 Instruction Type:Provider Instructions for Treatment How to access health informa tion online Indication:Hyperlipidemia, unspecified Start:17-Aug-2019 Instruction Type:Patient Education How to access health informa tion online - Detail Indication:Hyperlipidemia, unspecified Start:17-Aug-2019 Instruction Type:Patient Education Patient Instructions Indication:Hyperlipidemia, unspecified Start:17-Aug-2019 Instruction Type:Provider Instructions for Treatment How to access health informa tion online Indication:Hypertension Start:30-May-2015 Instruction Type:Patient Education How to access health informa tion online - Detail Indication:Hypertension Start:30-May-2015 Instruction Type:Patient Education Patient Instructions Indication:Hypertension Start:30-May-2015 Instruction Type:Provider Instructions for Treatment Patient Instructions Indication:Abnormal glucose tolerance test Start:12-Jul-2014 Instruction Type:Provider Instructions for Treatment Patient Instructions Indication:Abnormal glucose tolerance test Start:18-Jan-2014 Instruction Type:Provider Instructions for Treatment Patient Instructions Indication:Abnormal glucose tolerance test Start:08-Jun-2013 Instruction Type:Provider Instructions for Treatment Patient Instructions Indication:Abnormal glucose tolerance test Start:09-Feb-2013 Instruction Type:Provider Instructions for Treatment Patient Instructions Indication:Abnormal glucose tolerance test Start:29-Sep-2012 Instruction Type:Provider Instructions for Treatment Patient Instructions Indication:Abnormal glucose tolerance test Start:26-May-2012 Instruction Type:Provider Instructions for Treatment Name Dates Details How to access health informa tion online Indication:Nonsmoker Start:02-Jun-2020 Instruction Type:Patient Education How to access health informa tion online - Detail Indication:Nonsmoker Start:02-Jun-2020 Instruction Type:Patient Education Patient Instructions Indication:BMI 30.0-30.9,adult Start:02-Jun-2020 Instruction Type:Provider Instructions for Treatment How to access health informa tion online Indication:Nonsmoker Start:19-May-2020 Instruction Type:Patient Education How to access health informa tion online - Detail Indication:Nonsmoker Start:19-May-2020 Instruction Type:Patient Education Patient Instructions Indication:Nonsmoker Start:19-May-2020 Instruction Type:Provider Instructions for Treatment How to access health informa tion online Indication:Nonsmoker Start:08-Jan-2020 Instruction Type:Patient Education How to access health informa tion online - Detail Indication:Nonsmoker Start:08-Jan-2020 Instruction Type:Patient Education Patient Instructions Indication:Nonsmoker Start:08-Jan-2020 Instruction Type:Provider Instructions for Treatment How to access health informa tion online Indication:BMI 29.0-29.9,adult Start:31-Aug-2019 Instruction Type:Patient Education How to access health informa tion online - Detail Indication:BMI 29.0-29.9,adult Start:31-Aug-2019 Instruction Type:Patient Education Patient Instructions Indication:BMI 29.0-29.9,adult Start:31-Aug-2019 Instruction Type:Provider Instructions for Treatment How to access health informa tion online Indication:Hyperlipidemia, unspecified Start:17-Aug-2019 Instruction Type:Patient Education How to access health informa tion online - Detail Indication:Hyperlipidemia, unspecified Start:17-Aug-2019 Instruction Type:Patient Education Patient Instructions Indication:Hyperlipidemia, unspecified Start:17-Aug-2019 Instruction Type:Provider Instructions for Treatment How to access health informa tion online Indication:Hypertension Start:30-May-2015 Instruction Type:Patient Education How to access health informa tion online - Detail Indication:Hypertension Start:30-May-2015 Instruction Type:Patient Education Patient Instructions Indication:Hypertension Start:30-May-2015 Instruction Type:Provider Instructions for Treatment Patient Instructions Indication:Abnormal glucose tolerance test Start:12-Jul-2014 Instruction Type:Provider Instructions for Treatment Patient Instructions Indication:Abnormal glucose tolerance test Start:18-Jan-2014 Instruction Type:Provider Instructions for Treatment Patient Instructions Indication:Abnormal glucose tolerance test Start:08-Jun-2013 Instruction Type:Provider Instructions for Treatment Patient Instructions Indication:Abnormal glucose tolerance test Start:09-Feb-2013 Instruction Type:Provider Instructions for Treatment Patient Instructions Indication:Abnormal glucose tolerance test Start:29-Sep-2012 Instruction Type:Provider Instructions for Treatment Patient Instructions Indication:Abnormal glucose tolerance test Start:26-May-2012 Instruction Type:Provider Instructions for Treatment Name Dates Details How to access health informa tion online Indication:BMI 30.0-30.9,adult Start:16-Jun-2020 Instruction Type:Patient Education How to access health informa tion online - Detail Indication:BMI 30.0-30.9,adult Start:16-Jun-2020 Instruction Type:Patient Education Patient Instructions Indication:BMI 30.0-30.9,adult Start:16-Jun-2020 Instruction Type:Provider Instructions for Treatment How to access health informa tion online Indication:Nonsmoker Start:02-Jun-2020 Instruction Type:Patient Education How to access health informa tion online - Detail Indication:Nonsmoker Start:02-Jun-2020 Instruction Type:Patient Education Patient Instructions Indication:BMI 30.0-30.9,adult Start:02-Jun-2020 Instruction Type:Provider Instructions for Treatment How to access health informa tion online Indication:Nonsmoker Start:19-May-2020 Instruction Type:Patient Education How to access health informa tion online - Detail Indication:Nonsmoker Start:19-May-2020 Instruction Type:Patient Education Patient Instructions Indication:Nonsmoker Start:19-May-2020 Instruction Type:Provider Instructions for Treatment How to access health informa tion online Indication:Nonsmoker Start:08-Jan-2020 Instruction Type:Patient Education How to access health informa tion online - Detail Indication:Nonsmoker Start:08-Jan-2020 Instruction Type:Patient Education Patient Instructions Indication:Nonsmoker Start:08-Jan-2020 Instruction Type:Provider Instructions for Treatment How to access health informa tion online Indication:BMI 29.0-29.9,adult Start:31-Aug-2019 Instruction Type:Patient Education How to access health informa tion online - Detail Indication:BMI 29.0-29.9,adult Start:31-Aug-2019 Instruction Type:Patient Education Patient Instructions Indication:BMI 29.0-29.9,adult Start:31-Aug-2019 Instruction Type:Provider Instructions for Treatment How to access health informa tion online Indication:Hyperlipidemia, unspecified Start:17-Aug-2019 Instruction Type:Patient Education How to access health informa tion online - Detail Indication:Hyperlipidemia, unspecified Start:17-Aug-2019 Instruction Type:Patient Education Patient Instructions Indication:Hyperlipidemia, unspecified Start:17-Aug-2019 Instruction Type:Provider Instructions for Treatment How to access health informa tion online Indication:Hypertension Start:30-May-2015 Instruction Type:Patient Education How to access health informa tion online - Detail Indication:Hypertension Start:30-May-2015 Instruction Type:Patient Education Patient Instructions Indication:Hypertension Start:30-May-2015 Instruction Type:Provider Instructions for Treatment Patient Instructions Indication:Abnormal glucose tolerance test Start:12-Jul-2014 Instruction Type:Provider Instructions for Treatment Patient Instructions Indication:Abnormal glucose tolerance test Start:18-Jan-2014 Instruction Type:Provider Instructions for Treatment Patient Instructions Indication:Abnormal glucose tolerance test Start:08-Jun-2013 Instruction Type:Provider Instructions for Treatment Patient Instructions Indication:Abnormal glucose tolerance test Start:09-Feb-2013 Instruction Type:Provider Instructions for Treatment Patient Instructions Indication:Abnormal glucose tolerance test Start:29-Sep-2012 Instruction Type:Provider Instructions for Treatment Patient Instructions Indication:Abnormal glucose tolerance test Start:26-May-2012 Instruction Type:Provider Instructions for Treatment Name Dates Details Patient Instructions Indication:BMI 30.0-30.9,adult Start:15-Sep-2020 Instruction Type:Provider Instructions for Treatment How to Access Health Informa tion Online using Patient Portal and [employer] Indication:BMI 30.0-30.9,adult Start:15-Sep-2020 Instruction Type:Patient Education How to access health informa tion online Indication:BMI 30.0-30.9,adult Start:16-Jun-2020 Instruction Type:Patient Education How to access health informa tion online - Detail Indication:BMI 30.0-30.9,adult Start:16-Jun-2020 Instruction Type:Patient Education Patient Instructions Indication:BMI 30.0-30.9,adult Start:16-Jun-2020 Instruction Type:Provider Instructions for Treatment How to access health informa tion online Indication:Nonsmoker Start:02-Jun-2020 Instruction Type:Patient Education How to access health informa tion online - Detail Indication:Nonsmoker Start:02-Jun-2020 Instruction Type:Patient Education Patient Instructions Indication:BMI 30.0-30.9,adult Start:02-Jun-2020 Instruction Type:Provider Instructions for Treatment How to access health informa tion online Indication:Nonsmoker Start:19-May-2020 Instruction Type:Patient Education How to access health informa tion online - Detail Indication:Nonsmoker Start:19-May-2020 Instruction Type:Patient Education Patient Instructions Indication:Nonsmoker Start:19-May-2020 Instruction Type:Provider Instructions for Treatment How to access health informa tion online Indication:Nonsmoker Start:08-Jan-2020 Instruction Type:Patient Education How to access health informa tion online - Detail Indication:Nonsmoker Start:08-Jan-2020 Instruction Type:Patient Education Patient Instructions Indication:Nonsmoker Start:08-Jan-2020 Instruction Type:Provider Instructions for Treatment How to access health informa tion online Indication:BMI 29.0-29.9,adult Start:31-Aug-2019 Instruction Type:Patient Education How to access health informa tion online - Detail Indication:BMI 29.0-29.9,adult Start:31-Aug-2019 Instruction Type:Patient Education Patient Instructions Indication:BMI 29.0-29.9,adult Start:31-Aug-2019 Instruction Type:Provider Instructions for Treatment How to access health informa tion online Indication:Hyperlipidemia, unspecified Start:17-Aug-2019 Instruction Type:Patient Education How to access health informa tion online - Detail Indication:Hyperlipidemia, unspecified Start:17-Aug-2019 Instruction Type:Patient Education Patient Instructions Indication:Hyperlipidemia, unspecified Start:17-Aug-2019 Instruction Type:Provider Instructions for Treatment How to access health informa tion online Indication:Hypertension Start:30-May-2015 Instruction Type:Patient Education How to access health informa tion online - Detail Indication:Hypertension Start:30-May-2015 Instruction Type:Patient Education Patient Instructions Indication:Hypertension Start:30-May-2015 Instruction Type:Provider Instructions for Treatment Patient Instructions Indication:Abnormal glucose tolerance test Start:12-Jul-2014 Instruction Type:Provider Instructions for Treatment Patient Instructions Indication:Abnormal glucose tolerance test Start:18-Jan-2014 Instruction Type:Provider Instructions for Treatment Patient Instructions Indication:Abnormal glucose tolerance test Start:08-Jun-2013 Instruction Type:Provider Instructions for Treatment Patient Instructions Indication:Abnormal glucose tolerance test Start:09-Feb-2013 Instruction Type:Provider Instructions for Treatment Patient Instructions Indication:Abnormal glucose tolerance test Start:29-Sep-2012 Instruction Type:Provider Instructions for Treatment Patient Instructions Indication:Abnormal glucose tolerance test Start:26-May-2012 Instruction Type:Provider Instructions for Treatment Name Dates Details Patient Instructions Indication:BMI 30.0-30.9,adult Start:15-Sep-2020 Instruction Type:Provider Instructions for Treatment How to Access Health Informa tion Online using Patient Portal and [employer] Indication:BMI 30.0-30.9,adult Start:15-Sep-2020 Instruction Type:Patient Education How to access health informa tion online Indication:BMI 30.0-30.9,adult Start:16-Jun-2020 Instruction Type:Patient Education How to access health informa tion online - Detail Indication:BMI 30.0-30.9,adult Start:16-Jun-2020 Instruction Type:Patient Education Patient Instructions Indication:BMI 30.0-30.9,adult Start:16-Jun-2020 Instruction Type:Provider Instructions for Treatment How to access health informa tion online Indication:Nonsmoker Start:02-Jun-2020 Instruction Type:Patient Education How to access health informa tion online - Detail Indication:Nonsmoker Start:02-Jun-2020 Instruction Type:Patient Education Patient Instructions Indication:BMI 30.0-30.9,adult Start:02-Jun-2020 Instruction Type:Provider Instructions for Treatment How to access health informa tion online Indication:Nonsmoker Start:19-May-2020 Instruction Type:Patient Education How to access health informa tion online - Detail Indication:Nonsmoker Start:19-May-2020 Instruction Type:Patient Education Patient Instructions Indication:Nonsmoker Start:19-May-2020 Instruction Type:Provider Instructions for Treatment How to access health informa tion online Indication:Nonsmoker Start:08-Jan-2020 Instruction Type:Patient Education How to access health informa tion online - Detail Indication:Nonsmoker Start:08-Jan-2020 Instruction Type:Patient Education Patient Instructions Indication:Nonsmoker Start:08-Jan-2020 Instruction Type:Provider Instructions for Treatment How to access health informa tion online Indication:BMI 29.0-29.9,adult Start:31-Aug-2019 Instruction Type:Patient Education How to access health informa tion online - Detail Indication:BMI 29.0-29.9,adult Start:31-Aug-2019 Instruction Type:Patient Education Patient Instructions Indication:BMI 29.0-29.9,adult Start:31-Aug-2019 Instruction Type:Provider Instructions for Treatment How to access health informa tion online Indication:Hyperlipidemia, unspecified Start:17-Aug-2019 Instruction Type:Patient Education How to access health informa tion online - Detail Indication:Hyperlipidemia, unspecified Start:17-Aug-2019 Instruction Type:Patient Education Patient Instructions Indication:Hyperlipidemia, unspecified Start:17-Aug-2019 Instruction Type:Provider Instructions for Treatment How to access health informa tion online Indication:Hypertension Start:30-May-2015 Instruction Type:Patient Education How to access health informa tion online - Detail Indication:Hypertension Start:30-May-2015 Instruction Type:Patient Education Patient Instructions Indication:Hypertension Start:30-May-2015 Instruction Type:Provider Instructions for Treatment Patient Instructions Indication:Abnormal glucose tolerance test Start:12-Jul-2014 Instruction Type:Provider Instructions for Treatment Patient Instructions Indication:Abnormal glucose tolerance test Start:18-Jan-2014 Instruction Type:Provider Instructions for Treatment Patient Instructions Indication:Abnormal glucose tolerance test Start:08-Jun-2013 Instruction Type:Provider Instructions for Treatment Patient Instructions Indication:Abnormal glucose tolerance test Start:09-Feb-2013 Instruction Type:Provider Instructions for Treatment Patient Instructions Indication:Abnormal glucose tolerance test Start:29-Sep-2012 Instruction Type:Provider Instructions for Treatment Patient Instructions Indication:Abnormal glucose tolerance test Start:26-May-2012 Instruction Type:Provider Instructions for Treatment Name Dates Details Patient Instructions Indication:BMI 30.0-30.9,adult Start:15-Sep-2020 Instruction Type:Provider Instructions for Treatment How to Access Health Informa tion Online using Patient Portal and [employer] Indication:BMI 30.0-30.9,adult Start:15-Sep-2020 Instruction Type:Patient Education How to access health informa tion online Indication:BMI 30.0-30.9,adult Start:16-Jun-2020 Instruction Type:Patient Education How to access health informa tion online - Detail Indication:BMI 30.0-30.9,adult Start:16-Jun-2020 Instruction Type:Patient Education Patient Instructions Indication:BMI 30.0-30.9,adult Start:16-Jun-2020 Instruction Type:Provider Instructions for Treatment How to access health informa tion online Indication:Nonsmoker Start:02-Jun-2020 Instruction Type:Patient Education How to access health informa tion online - Detail Indication:Nonsmoker Start:02-Jun-2020 Instruction Type:Patient Education Patient Instructions Indication:BMI 30.0-30.9,adult Start:02-Jun-2020 Instruction Type:Provider Instructions for Treatment How to access health informa tion online Indication:Nonsmoker Start:19-May-2020 Instruction Type:Patient Education How to access health informa tion online - Detail Indication:Nonsmoker Start:19-May-2020 Instruction Type:Patient Education Patient Instructions Indication:Nonsmoker Start:19-May-2020 Instruction Type:Provider Instructions for Treatment How to access health informa tion online Indication:Nonsmoker Start:08-Jan-2020 Instruction Type:Patient Education How to access health informa tion online - Detail Indication:Nonsmoker Start:08-Jan-2020 Instruction Type:Patient Education Patient Instructions Indication:Nonsmoker Start:08-Jan-2020 Instruction Type:Provider Instructions for Treatment How to access health informa tion online Indication:BMI 29.0-29.9,adult Start:31-Aug-2019 Instruction Type:Patient Education How to access health informa tion online - Detail Indication:BMI 29.0-29.9,adult Start:31-Aug-2019 Instruction Type:Patient Education Patient Instructions Indication:BMI 29.0-29.9,adult Start:31-Aug-2019 Instruction Type:Provider Instructions for Treatment How to access health informa tion online Indication:Hyperlipidemia, unspecified Start:17-Aug-2019 Instruction Type:Patient Education How to access health informa tion online - Detail Indication:Hyperlipidemia, unspecified Start:17-Aug-2019 Instruction Type:Patient Education Patient Instructions Indication:Hyperlipidemia, unspecified Start:17-Aug-2019 Instruction Type:Provider Instructions for Treatment How to access health informa tion online Indication:Hypertension Start:30-May-2015 Instruction Type:Patient Education How to access health informa tion online - Detail Indication:Hypertension Start:30-May-2015 Instruction Type:Patient Education Patient Instructions Indication:Hypertension Start:30-May-2015 Instruction Type:Provider Instructions for Treatment Patient Instructions Indication:Abnormal glucose tolerance test Start:12-Jul-2014 Instruction Type:Provider Instructions for Treatment Patient Instructions Indication:Abnormal glucose tolerance test Start:18-Jan-2014 Instruction Type:Provider Instructions for Treatment Patient Instructions Indication:Abnormal glucose tolerance test Start:08-Jun-2013 Instruction Type:Provider Instructions for Treatment Patient Instructions Indication:Abnormal glucose tolerance test Start:09-Feb-2013 Instruction Type:Provider Instructions for Treatment Patient Instructions Indication:Abnormal glucose tolerance test Start:29-Sep-2012 Instruction Type:Provider Instructions for Treatment Patient Instructions Indication:Abnormal glucose tolerance test Start:26-May-2012 Instruction Type:Provider Instructions for Treatment Name Dates Details Patient Instructions Indication:BMI 30.0-30.9,adult Start:30-Sep-2020 Instruction Type:Provider Instructions for Treatment How to Access Health Informa tion Online using Patient Portal and [employer] Indication:Nonsmoker Start:30-Sep-2020 Instruction Type:Patient Education Patient Instructions Indication:BMI 30.0-30.9,adult Start:15-Sep-2020 Instruction Type:Provider Instructions for Treatment How to Access Health Informa tion Online using Patient Portal and [employer] Indication:BMI 30.0-30.9,adult Start:15-Sep-2020 Instruction Type:Patient Education How to access health informa tion online Indication:BMI 30.0-30.9,adult Start:16-Jun-2020 Instruction Type:Patient Education How to access health informa tion online - Detail Indication:BMI 30.0-30.9,adult Start:16-Jun-2020 Instruction Type:Patient Education Patient Instructions Indication:BMI 30.0-30.9,adult Start:16-Jun-2020 Instruction Type:Provider Instructions for Treatment How to access health informa tion online Indication:Nonsmoker Start:02-Jun-2020 Instruction Type:Patient Education How to access health informa tion online - Detail Indication:Nonsmoker Start:02-Jun-2020 Instruction Type:Patient Education Patient Instructions Indication:BMI 30.0-30.9,adult Start:02-Jun-2020 Instruction Type:Provider Instructions for Treatment How to access health informa tion online Indication:Nonsmoker Start:19-May-2020 Instruction Type:Patient Education How to access health informa tion online - Detail Indication:Nonsmoker Start:19-May-2020 Instruction Type:Patient Education Patient Instructions Indication:Nonsmoker Start:19-May-2020 Instruction Type:Provider Instructions for Treatment How to access health informa tion online Indication:Nonsmoker Start:08-Jan-2020 Instruction Type:Patient Education How to access health informa tion online - Detail Indication:Nonsmoker Start:08-Jan-2020 Instruction Type:Patient Education Patient Instructions Indication:Nonsmoker Start:08-Jan-2020 Instruction Type:Provider Instructions for Treatment How to access health informa tion online Indication:BMI 29.0-29.9,adult Start:31-Aug-2019 Instruction Type:Patient Education How to access health informa tion online - Detail Indication:BMI 29.0-29.9,adult Start:31-Aug-2019 Instruction Type:Patient Education Patient Instructions Indication:BMI 29.0-29.9,adult Start:31-Aug-2019 Instruction Type:Provider Instructions for Treatment How to access health informa tion online Indication:Hyperlipidemia, unspecified Start:17-Aug-2019 Instruction Type:Patient Education How to access health informa tion online - Detail Indication:Hyperlipidemia, unspecified Start:17-Aug-2019 Instruction Type:Patient Education Patient Instructions Indication:Hyperlipidemia, unspecified Start:17-Aug-2019 Instruction Type:Provider Instructions for Treatment How to access health informa tion online Indication:Hypertension Start:30-May-2015 Instruction Type:Patient Education How to access health informa tion online - Detail Indication:Hypertension Start:30-May-2015 Instruction Type:Patient Education Patient Instructions Indication:Hypertension Start:30-May-2015 Instruction Type:Provider Instructions for Treatment Patient Instructions Indication:Abnormal glucose tolerance test Start:12-Jul-2014 Instruction Type:Provider Instructions for Treatment Patient Instructions Indication:Abnormal glucose tolerance test Start:18-Jan-2014 Instruction Type:Provider Instructions for Treatment Patient Instructions Indication:Abnormal glucose tolerance test Start:08-Jun-2013 Instruction Type:Provider Instructions for Treatment Patient Instructions Indication:Abnormal glucose tolerance test Start:09-Feb-2013 Instruction Type:Provider Instructions for Treatment Patient Instructions Indication:Abnormal glucose tolerance test Start:29-Sep-2012 Instruction Type:Provider Instructions for Treatment Patient Instructions Indication:Abnormal glucose tolerance test Start:26-May-2012 Instruction Type:Provider Instructions for Treatment Name Dates Details How to access health informa tion online Indication:Nonsmoker Start:19-May-2020 Instruction Type:Patient Education How to access health informa tion online - Detail Indication:Nonsmoker Start:19-May-2020 Instruction Type:Patient Education Patient Instructions Indication:Nonsmoker Start:19-May-2020 Instruction Type:Provider Instructions for Treatment How to access health informa tion online Indication:Nonsmoker Start:08-Jan-2020 Instruction Type:Patient Education How to access health informa tion online - Detail Indication:Nonsmoker Start:08-Jan-2020 Instruction Type:Patient Education Patient Instructions Indication:Nonsmoker Start:08-Jan-2020 Instruction Type:Provider Instructions for Treatment How to access health informa tion online Indication:BMI 29.0-29.9,adult Start:31-Aug-2019 Instruction Type:Patient Education How to access health informa tion online - Detail Indication:BMI 29.0-29.9,adult Start:31-Aug-2019 Instruction Type:Patient Education Patient Instructions Indication:BMI 29.0-29.9,adult Start:31-Aug-2019 Instruction Type:Provider Instructions for Treatment How to access health informa tion online Indication:Hyperlipidemia, unspecified Start:17-Aug-2019 Instruction Type:Patient Education How to access health informa tion online - Detail Indication:Hyperlipidemia, unspecified Start:17-Aug-2019 Instruction Type:Patient Education Patient Instructions Indication:Hyperlipidemia, unspecified Start:17-Aug-2019 Instruction Type:Provider Instructions for Treatment How to access health informa tion online Indication:Hypertension Start:30-May-2015 Instruction Type:Patient Education How to access health informa tion online - Detail Indication:Hypertension Start:30-May-2015 Instruction Type:Patient Education Patient Instructions Indication:Hypertension Start:30-May-2015 Instruction Type:Provider Instructions for Treatment Patient Instructions Indication:Abnormal glucose tolerance test Start:12-Jul-2014 Instruction Type:Provider Instructions for Treatment Patient Instructions Indication:Abnormal glucose tolerance test Start:18-Jan-2014 Instruction Type:Provider Instructions for Treatment Patient Instructions Indication:Abnormal glucose tolerance test Start:08-Jun-2013 Instruction Type:Provider Instructions for Treatment Patient Instructions Indication:Abnormal glucose tolerance test Start:09-Feb-2013 Instruction Type:Provider Instructions for Treatment Patient Instructions Indication:Abnormal glucose tolerance test Start:29-Sep-2012 Instruction Type:Provider Instructions for Treatment Patient Instructions Indication:Abnormal glucose tolerance test Start:26-May-2012 Instruction Type:Provider Instructions for Treatment Name Dates Details Patient Instructions Indication:BMI 30.0-30.9,adult Start:30-Sep-2020 Instruction Type:Provider Instructions for Treatment How to Access Health Informa tion Online using Patient Portal and [employer] Indication:Nonsmoker Start:30-Sep-2020 Instruction Type:Patient Education Patient Instructions Indication:BMI 30.0-30.9,adult Start:15-Sep-2020 Instruction Type:Provider Instructions for Treatment How to Access Health Informa tion Online using Patient Portal and [employer] Indication:BMI 30.0-30.9,adult Start:15-Sep-2020 Instruction Type:Patient Education How to access health informa tion online Indication:BMI 30.0-30.9,adult Start:16-Jun-2020 Instruction Type:Patient Education How to access health informa tion online - Detail Indication:BMI 30.0-30.9,adult Start:16-Jun-2020 Instruction Type:Patient Education Patient Instructions Indication:BMI 30.0-30.9,adult Start:16-Jun-2020 Instruction Type:Provider Instructions for Treatment How to access health informa tion online Indication:Nonsmoker Start:02-Jun-2020 Instruction Type:Patient Education How to access health informa tion online - Detail Indication:Nonsmoker Start:02-Jun-2020 Instruction Type:Patient Education Patient Instructions Indication:BMI 30.0-30.9,adult Start:02-Jun-2020 Instruction Type:Provider Instructions for Treatment How to access health informa tion online Indication:Nonsmoker Start:19-May-2020 Instruction Type:Patient Education How to access health informa tion online - Detail Indication:Nonsmoker Start:19-May-2020 Instruction Type:Patient Education Patient Instructions Indication:Nonsmoker Start:19-May-2020 Instruction Type:Provider Instructions for Treatment How to access health informa tion online Indication:Nonsmoker Start:08-Jan-2020 Instruction Type:Patient Education How to access health informa tion online - Detail Indication:Nonsmoker Start:08-Jan-2020 Instruction Type:Patient Education Patient Instructions Indication:Nonsmoker Start:08-Jan-2020 Instruction Type:Provider Instructions for Treatment How to access health informa tion online Indication:BMI 29.0-29.9,adult Start:31-Aug-2019 Instruction Type:Patient Education How to access health informa tion online - Detail Indication:BMI 29.0-29.9,adult Start:31-Aug-2019 Instruction Type:Patient Education Patient Instructions Indication:BMI 29.0-29.9,adult Start:31-Aug-2019 Instruction Type:Provider Instructions for Treatment How to access health informa tion online Indication:Hyperlipidemia, unspecified Start:17-Aug-2019 Instruction Type:Patient Education How to access health informa tion online - Detail Indication:Hyperlipidemia, unspecified Start:17-Aug-2019 Instruction Type:Patient Education Patient Instructions Indication:Hyperlipidemia, unspecified Start:17-Aug-2019 Instruction Type:Provider Instructions for Treatment How to access health informa tion online Indication:Hypertension Start:30-May-2015 Instruction Type:Patient Education How to access health informa tion online - Detail Indication:Hypertension Start:30-May-2015 Instruction Type:Patient Education Patient Instructions Indication:Hypertension Start:30-May-2015 Instruction Type:Provider Instructions for Treatment Patient Instructions Indication:Abnormal glucose tolerance test Start:12-Jul-2014 Instruction Type:Provider Instructions for Treatment Patient Instructions Indication:Abnormal glucose tolerance test Start:18-Jan-2014 Instruction Type:Provider Instructions for Treatment Patient Instructions Indication:Abnormal glucose tolerance test Start:08-Jun-2013 Instruction Type:Provider Instructions for Treatment Patient Instructions Indication:Abnormal glucose tolerance test Start:09-Feb-2013 Instruction Type:Provider Instructions for Treatment Patient Instructions Indication:Abnormal glucose tolerance test Start:29-Sep-2012 Instruction Type:Provider Instructions for Treatment Patient Instructions Indication:Abnormal glucose tolerance test Start:26-May-2012 Instruction Type:Provider Instructions for Treatment Chief Complaint and Reason for Visit Chief Complaint SYNCOPE, SCREENING Chief Complaint RIGHT KNEE PRE OP MA KO PAIN IN RIGHT LOWER LEG Chief Complaint RIGHT KNEE PRE OP MA KO PAIN IN RIGHT LOWER LEG SCREENING Summary Purpose Advance Directives No Advanced Directives Records FoundNo Advanced Directives Records FoundNo Advanced Directives Records Found Additional Source Comments Goals (unrecognized section and content) Goals may be documented in a n alternate sectionGoals may be documented in an alternate sectionGoals may be documented in an alternate sectionGoals may be documented in an alternate section INFORMATION SOURCE (unrecogn ized section and content) DATE CREATED AUTHOR 12/04/2022 [facility] DATE CREATED AUTHOR AUTHOR'S ORGANIZ ATION 03/07/2024 [facility] DATE CREATED AUTHOR AUTHOR'S ORGANIZ ATION 03/11/2024 [facility] Care Teams (unrecognized sec tion and content) Team Status: Active Member Role Status Dates Dr. Dilip Lora MD Family Provider Active ARON Barnett Primary Care Provider Active Team Status: Active Member Role Status Dates ARON Barntet Primary Care Provider Active Dr. Juan Denton MD Attending Provider Active Team Status: Inactive Member Role Status Dates ARON Barnett Primary Care Provider Active Dr. Ike Lee MD Attending Provider, Referring Yesy sahu Active Team Status: Active Member Role Status Dates ARON Barnett Primary Care Provider Active Dr. Juan Denton MD Attending Provider Active Dr. Ike Lee MD Referring Provider Active Team Status: Inactive Member Role Status Dates ARON Barnett Primary Care [place], Attending Provider, Referring Provider Active Source Comments (unrecognize d section and content) In the event this informatio n is protected by the Federal Confidentiality of Alcohol and Drug Abuse Patient Records regulations: The Federal rules restrict any use of the information to criminally investigate or prosecute any alcohol or drug abuse patient.[facility] the event this information is protected by the Federal Confidentiality of Alcohol and Drug Abuse Patient Records regulations: The Federal rules restrict any use of the information to criminally investigate or prosecute any alcohol or drug abuse patient.[facility] FOR RECORDS PERTAINING TO PATIENTS WHO ARE OR HAVE BEEN ENROLLED IN A CHEMICAL DEPENDENCY/SUBSTANCEABUSE PROGRAM, SOME INFORMATION MAY BE OMITTED. This clinical summary was aggregated from multiple sources. Caution should be exercised in using it in the provision of clinical care. This summary normalizes information from multiple sources, and as a consequence, information in this document may materially change the coding, format and clinical context of patient data. In addition, data may be omitted in some cases. CLINICAL DECISIONS SHOULD BE BASED ON THE PRIMARY CLINICAL RECORDS. [facility] [employer] [facility] provides no warranty or guarantee of the accuracy or completeness of information in this document.
[2025-03-27 08:04] LABS: AST(SGOT) 24 U/L (<=31); Alanine Aminotransfer ALT/SGPT 19 U/L (<=34); Albumin, Serum 4.2 g/dL (3.4-4.8); Alkaline Phosphatase 59 U/L (35-104); Anion Gap 11 (5-15); BUN 14 mg/dL (4-19); BUN/Creat Ratio 20.2 RATIO (10-20); Calcium,Total 8.5 mg/dL (7.6-11.0); Carbon Dioxide 22.7 mmol/L (21.0-32.0); Chloride 105 mmol/L (98-108); Cholesterol 164 mg/dL (<=200); Globulin 2.9 g/dL (2.2-4.2); Glucose 99 mg/dL (70-99); Low Density Lipoprotein Calc. 86 mg/dL; Potassium 4.2 mmol/L (3.3-5.1); Triglycerides 130 mg/dL; Very Low Density Lipoprotein 26 mg/dL (5-40); Vitamin D,25 Hydroxy 69.9 ng/mL (30-100); cholesterol:hdl ratio screen 3.17
== END | disposition home or self-care (01) ==
LOC: LAB 05:57
PROVIDERS: PCP Nurse Practitioner Family; Referring Provider Nurse Practitioner Family; Visit Provider Nurse Practitioner Family
DX: R73.01 Impaired fasting glucose (principal); E55.9 Vitamin D deficiency, unspecified; E78.5 Hyperlipidemia, unspecified; I10 Essential (primary) hypertension
CPT/HCPCS: 36415; 80053; 80061; 82306; 83036